=== PATIENT | male | born 1950 | race Caucasian/White ===

== ENCOUNTER 2019-02-10 11:55 | Emergency (ER) | payer MEDICARE, BC ==
--- NOTE | 2019-02-10 12:14 | ER Document Report ---
ED Medical Screen (RME) - General Chief Complaint: Vomiting/Diarrhea Stated Complaint: DIRREHA,VOMITING,ABDOMINAL PAIN Time Seen by Provider: 02/10/19 12:05 Mode of Arrival: Ambulatory Information source: Patient Notes: Patient is a 68-year-old male presented to the emergency department with 6-week history of intermittent right upper quadrant abdominal pain, nausea, vomiting and diarrhea. Patient reports he is having approximately 1-2 episodes of diarrhea per day, states he vomits after meals but not after every meal. He states that when he vomits it typically resolves the abdominal pain in its entirety. He states he still has his gallbladder. He does report that he went to his primary care provider for this and they have referred him to gastroenterology for an endoscopy. Exam: Mild tenderness to the right upper quadrant without guarding or rebound. I have greeted and performed a rapid initial assessment of this patient. A comprehensive ED assessment and evaluation of the patient, analysis of test results and completion of the medical decision making process will be conducted by additional ED providers. I have specifically instructed the patient or family members with the patient to immediately return to any nursing staff should anything change in the patient's condition or with their chief complaint. This medical record was dictated with voice recognizing software. There may be grammatical, syntax errors that are unintended. - Related Data Allergies/Adverse Reactions: No Known Allergies Allergy (Verified 02/10/19 12:04) Physical Exam - Vital signs Vitals: Temp Pulse Resp BP Pulse Ox 97.8 F 70 18 105/54 L 98 02/10/19 11:59 02/10/19 11:59 02/10/19 11:59 02/10/19 11:59 02/10/19 11:59 Course - Vital Signs Vital signs: Temp Pulse Resp BP Pulse Ox 97.8 F 70 18 105/54 L 98 02/10/19 11:59 02/10/19 11:59 02/10/19 11:59 02/10/19 11:59 02/10/19 11:59
[2019-02-10 12:46] LABS: AMORPHOUS SEDIMENT,URINE TRACE /HPF; APPEARANCE,URINE CLOUDY; BILIRUBIN,URINE NEGATIVE (NEGATIVE); COLOR,URINE AMBER; GLUCOSE, URINE NEGATIVE (NEGATIVE); KETONES,URINE NEGATIVE (NEGATIVE); LEUKOCYTE ESTERASE,URINE NEGATIVE (NEGATIVE); NITRITE,URINE NEGATIVE (NEGATIVE); PROTEIN,URINE 30 mg/dL (NEGATIVE); URINE SPECIFIC GRAVITY 1.013; UROBILINOGEN,URINE NEGATIVE mg/dL (<2.0)
[2019-02-10 12:52] LABS: ABSOLUTE BASOPHILS # (AUTO) 0.1 10^3/uL (0.0-0.2); ABSOLUTE EOSINOPHILS # (AUTO) 0.3 10^3/uL (0.0-0.6); ABSOLUTE LYMPHOCYTES (AUTO) 0.8 10^3/uL (0.5-4.7); ABSOLUTE MONOCYTES (AUTO) 0.9 10^3/uL (0.1-1.4); ABSOLUTE NEUT (AUTO) 7.5 10^3/uL (1.7-8.2); BASOPHILS % (AUTO) 0.6 % (0-2); EOSINOPHILS % (AUTO) 2.9 % (0-6); HEMATOCRIT 30.9 % (37.9-51.0); HEMOGLOBIN 10.1 g/dL (13.5-17.0); LYMPHOCYTES % (AUTO) 8.4 % (13-45); MEAN CORPUSCULAR HEMOGLOBIN 24.6 pg (27.0-33.4); MEAN CORPUSCULAR HGB CONC 32.7 g/dL (32.0-36.0); MEAN CORPUSCULAR VOLUME 75 fl (80-97); MONOCYTES % (AUTO) 9.1 % (3-13); PLATELET COUNT 437 10^3/uL (150-450); RED CELL DISTRIBUTION WIDTH 16.3 % (11.5-14.0); TOTAL CELLS COUNTED % (AUTO) 100 %; WHITE BLOOD COUNT 9.4 10^3/uL (4.0-10.5)
[2019-02-10 13:21] LABS: ALBUMIN 3.7 g/dL (3.5-5.0); ALKALINE PHOSPHATASE 94 U/L (38-126); ANION GAP 11 (5-19); ASPARTATE AMINO TRANSFERASE 22 U/L (17-59); BILIRUBIN,DIRECT 0.2 mg/dL (0.0-0.4); BILIRUBIN,TOTAL 0.5 mg/dL (0.2-1.3); BLOOD UREA NITROGEN 18 mg/dL (7-20); CALCIUM 9.8 mg/dL (8.4-10.2); CARBON DIOXIDE 27 mmol/L (22-30); CHLORIDE 98 mmol/L (98-107); GLUCOSE 97 mg/dL (75-110); POTASSIUM 4.4 mmol/L (3.6-5.0); TOTAL PROTEIN 6.8 g/dL (6.3-8.2)
--- NOTE | 2019-02-10 13:36 | RADIOLOGY REPORT (SQ) ---
EXAM DESCRIPTION: U/S ABDOMEN LIMITED W/O DOP COMPLETED DATE/TIME: 02/10/2019 1:24 pm REASON FOR STUDY: RUQ pain, N/V COMPARISON: None. TECHNIQUE: Dynamic and static grayscale images acquired of the abdomen and recorded on PACS. Johnnyo hosea selected color Doppler and spectral images recorded. LIMITATIONS: None. FINDINGS: PANCREAS: No masses. Visualized pancreatic duct normal caliber. LIVER: No masses. Echotexture normal. LIVER VASCULATURE: Normal directional flow of the main portal vein and hepatic veins. GALLBLADDER: No stones. Normal wall thickness. No pericholecystic fluid. ULTRASOUND-DETECTED INGRAM'S SIGN: Negative. INTRAHEPATIC DUCTS AND COMMON DUCT: CBD and intrahepatic ducts normal caliber. No filling defects. INFERIOR VENA CAVA: Normal flow. AORTA: No aneurysm. RIGHT KIDNEY: Normal size. Normal echogenicity. No solid or suspicious masses. No hydronephrosis. No calcifications. PERITONEAL AND RIGHT PLEURAL SPACE: No ascites or effusions. OTHER: No other significant findings. IMPRESSION: No ultrasound abnormality of the right upper quadrant to explain pain, nausea, or vomiti ng. Consider CT or MRI to further evaluate unexplained abdominal pain. TECHNICAL DOCUMENTATION: JOB ID: [id number] [employer]- All Rights Reserved Reading location - IP/workstation name: [email or web address]
[2019-02-10] MEDS ORDERED: NORMAL SALINE 1000 ML 500 ML IV ONE (14:11)
--- NOTE | 2019-02-10 14:15 | ER Document Report ---
ED General - General Chief Complaint: Abdominal Pain Stated Complaint: DIRREHA,VOMITING,ABDOMINAL PAIN Time Seen by Provider: 02/10/19 12:05 Primary Care Provider: KARLI CALDERA MD [Primary Care Provider] - Follow up tomorrow Mode of Arrival: Ambulatory Information source: Patient Notes: 68-year-old male with history of kidney cancer left ventricular hypertrophy p resents to the emergency department with complaints of intermittent right upper quad abdominal pain for the past 6 weeks. He reports he has noticed the pain increases after eating certain fatty foods. He reports he has vomited 3 times with the pain and each time he has noticed he felt better after vomiting. He reports the pain started again early today he vomited and still had not felt better so he came in to the emergency department. Reports he has had 1-2 diarrhea stools daily. He has followed up with his primary care provider Dr. Caldera who has referred him to GI. Has an appointment with GI in a couple weeks. Denies fever. Denies pain with void. - HPI Onset: Other - 6 weeks Onset/Duration: Waxing and waning Quality of pain: Achy, Cramping Pain Level: 3 Associated symptoms: Diarrhea, Vomiting Exacerbated by: Denies Relieved by: Denies Similar symptoms previously: Yes Recently seen / treated by doctor: Yes - Related Data Allergies/Adverse Reactions: No Known Allergies Allergy (Verified 02/10/19 12:04) Home Medications: Carvedilol. Crestor. Vitamin B-1. Folic Acid. CoQ10. Ranolazine Past Medical History - General Information source: Patient - [place] - Social History Smoking Status: Former Smoker Frequency of alcohol use: None - Quit several years ago Drug Abuse: None Lives with: Family Family History: None Patient has suicidal ideation: No Patient has homicidal ideation: No - Medical History Medical History: Other - Raynauds - Past Medical History Cardiac Medical History: Reports: Hx Hypercholesterolemia, Other - left ventricular hypertrophy Malignancy Medical History: Reports Hx Renal (Kidney) Cancer Past Surgical History: Reports: Hx Orthopedic Surgery, Other - Left nephrectomy Review of Systems - Review of Systems Notes: Review HPI for review of systems., All other systems negative Physical Exam - Vital signs Vitals: Temp Pulse Resp BP Pulse Ox 97.8 F 70 18 105/54 L 98 02/10/19 11:59 02/10/19 11:59 02/10/19 11:59 02/10/19 11:59 02/10/19 11:59 - General General appearance: Appears well, Alert In distress: None - HEENT Head: Normocephalic, Atraumatic Eyes: Normal Conjunctiva: Normal Extraocular movements intact: Yes Pupils: PERRL Ears: Normal External canal: Normal Tympanic membrane: Normal Nasal: Normal Mucous membranes: Normal, Moist Neck: Normal, Supple. No: Lymphadenopathy - Respiratory Respiratory status: No respiratory distress Chest status: Nontender Breath sounds: Normal Chest palpation: Normal - Cardiovascular Rhythm: Regular Heart sounds: Normal auscultation Murmur: No - Abdominal Inspection: Normal Distension: No distension Bowel sounds: Normal Tenderness: Tender - RUQ Organomegaly: No organomegaly - Back Back: Normal. No: CVA tenderness - Extremities General upper extremity: Normal ROM General lower extremity: Normal ROM - Neurological Neuro grossly intact: Yes Cognition: Normal Orientation: AAOx4 Kyle Coma Scale Eye Opening: Spontaneous [place] Coma Scale Verbal: Oriented [place] Coma Scale Motor: Obeys Commands Kyle Coma Scale Total: 15 Speech: Normal - Psychological Associated symptoms: Normal affect, Normal mood - Skin Skin Temperature: Warm Skin Moisture: Dry Skin Color: Normal Course - Re-evaluation Re-evalutation: 02/10/19 15:52 This 68-year-old male presents emergency department with right upper quad abdominal pain for the past 6 weeks. Reports he is vomited 3 times in the pain has relieved after he vomited except for this morning. He vomited and is still hurt in his right upper quad so he came to the emergency department. He reports he has had diarrhea once or twice a day for the past 6 weeks. Patient does have a history of kidney cancer with a left nephrectomy. He reports he is voiding without problems. He reports that he will will have the right upper quad pain after he eats a fatty meal. He reports he ate a pork sandwich and oatmeal with butter yesterday and that may have caused the right upper quad pain today. Lipase is elevated, right upper quad L ultrasound is negative for early cholecystitis. CT of the abdomen was done without contrast due to increased creatinine at 1.51 which shows multiple fluid-filled distended loops of bowel in the mid left upper quad. Trace fluid in the lower abdomen and also a large mass in the vicinity of the left adrenal gland of uncertain origin. Consulted Dr. Taylor regarding patient. He advised patient follow-up with his primary care provider in the morning. Advised outpatient HIDA scan order by primary care provider, follow low-fat diet. Will need contrasted ct or mri, possible pet scan. Discussed labs, ultrasound, CT results with patient. Discussed need for other radiology exams. Discussed renal function. He reports he will follow-up with Dr. Caldera tomorrow. He was given a copy of all his labs CT and ultrasound reports. Patient and his verbalized understanding to all instructions. 02/10/19 12:23 02/10/19 12:23 MCV 75 fl (80-97) L 02/10/19 12:23 MCH 24.6 pg (27.0-33.4) L 02/10/19 12:23 MCHC 32.7 g/dL (32.0-36.0) 02/10/19 12:23 RDW 16.3 % (11.5-14.0) H 02/10/19 12:23 Seg Neutrophils % 79.0 % (42-78) H 02/10/19 12:23 Chloride 98 mmol/L (98-107) 02/10/19 12:23 Carbon Dioxide 27 mmol/L (22-30) 02/10/19 12:23 Anion Gap 11 (5-19) 02/10/19 12:23 Est GFR ( Amer) 56 (>60) L 02/10/19 12:23 Glucose 97 mg/dL (75-110) 02/10/19 12:23 Calcium 9.8 mg/dL (8.4-10.2) 02/10/19 12:23 Total Bilirubin 0.5 mg/dL (0.2-1.3) 02/10/19 12:23 AST 22 U/L (17-59) 02/10/19 12:23 Alkaline Phosphatase 94 U/L (38-126) 02/10/19 12:23 Total Protein 6.8 g/dL (6.3-8.2) 02/10/19 12:23 Albumin 3.7 g/dL (3.5-5.0) 02/10/19 12:23 Lipase 787.1 U/L (23-300) H 02/10/19 12:23 Urine Color SANDI 02/10/19 12:23 Urine Appearance CLOUDY 02/10/19 12:23 Urine pH 7.0 (5.0-9.0) 02/10/19 12:23 Ur Specific [place] 1.013 02/10/19 12:23 Urine Protein 30 mg/dL (NEGATIVE) H 02/10/19 12:23 Urine Glucose (UA) NEGATIVE mg/dL (NEGATIVE) 02/10/19 12:23 Urine Ketones NEGATIVE mg/dL (NEGATIVE) 02/10/19 12:23 Urine Blood NEGATIVE (NEGATIVE) 02/10/19 12:23 Urine Nitrite NEGATIVE (NEGATIVE) 02/10/19 12:23 Ur Leukocyte Esterase NEGATIVE (NEGATIVE) 02/10/19 12:23 Urine WBC (Auto) 1 /HPF 02/10/19 12:23 Urine RBC (Auto) 2 /HPF 02/10/19 12:23 Abdomen Ultrasound 02/10/19 12:15 IMPRESSION: No ultrasound abnormality of the right upper quadrant to explain pain, nausea, or vomiting. Consider CT or MRI to further evaluate unexplained abdominal pain. Abdomen/Pelvis CT 02/10/19 14:03 IMPRESSION: 1. There are multiple fluid-filled although not overtly distended loops of proximal bowel in the mid abdomen and left upper quadrant (series 3, image 32), maximum caliber 3.3 cm. No obvious transition point is identified, and the colon is fluid-filled with gas present to the rectum. The presence of partial or developing bowel obstruction can be further interrogated by small bowel follow-through if desired. 2. Trace free fluid in the low abdomen, nonspecific and of uncertain etiology. 3. Status post left nephrectomy. 4. There is a large mass in the vicinity of the left adrenal gland measuring approximately 7.1 by 4.6 cm (series 3, image 18), of uncertain origin or nature. Recommend multiphasic contrast-enhanced CT or MRI to characterize, particularly in the setting of presumed prior renal neoplasm. Comparison to prior imaging, if available, may further be helpful to establish long-term stability. 02/10/19 16:52 - Vital Signs Vital signs: Temp Pulse Resp BP Pulse Ox 97.5 F 70 16 99/59 L 98 02/10/19 16:11 02/10/19 16:11 02/10/19 16:11 02/10/19 16:11 02/10/19 16:11 - Laboratory Result Diagrams: 02/10/19 12:23 02/10/19 12:23 Laboratory results interpreted by me: 02/10/19 02/10/19 02/10/19 12:23 12:23 12:23 RBC 4.10 L Hgb 10.1 L Hct 30.9 L MCV 75 L MCH 24.6 L RDW 16.3 H Lymph % (Auto) 8.4 L Seg Neutrophils % 79.0 H Sodium 136.4 L Creatinine 1.51 H Est GFR ( Amer) 56 L Est GFR (MDRD) Non-Af 46 L Lipase 787.1 H Urine Protein 30 H - Diagnostic Test Radiology reviewed: Image reviewed, Reports reviewed Discharge - Discharge Clinical Impression: Right upper quadrant abdominal pain, Nausea vomiting and diarrhea Condition: Stable Disposition: HOME, SELF-CARE Instructions: Abdominal Pain ([facility]), Diarrhea, Nonspecific ([facility]), Gallbladder Di sease ([facility]), Low-Fat Diet ([facility]), Vomiting ([facility]) Additional Instructions: *You have been evaluated for abdominal pain, nausea vomiting and diarrhea *Your ultrasound did not show any acute abnormality. Your lipase was elevated. *Your CT did show a large mass of uncertain origin or nature. *Follow a low-fat diet. *Follow-up with your primary care provider tomorrow. Take a copy of your labs and CT & ultrasound reports to Dr. Caldera. *Return to ED for worsening condition, changes, needs *Return to ED if not better in 24 hours Referrals: KARLI CALDERA MD [Primary Care Provider] - Follow up tomorrow
--- NOTE | 2019-02-10 15:20 | RADIOLOGY REPORT (SQ) ---
EXAM DESCRIPTION: CT ABD/PELVIS NO ORAL OR IV COMPLETED DATE/TIME: 02/10/2019 2:51 pm REASON FOR STUDY: abd pain n/v COMPARISON: None. TECHNIQUE: CT scan of the abdomen and pelvis performed without intravenous or oral contrast. Images reviewed with lung, soft tissue, and bone windows. Reconstructed coronal and sagittal MPR images revi ewed. All images stored on PACS. All CT scanners at this facility use dose modulation, iterative reconstruction, and/or weight based d osing when appropriate to reduce radiation dose to as low as reasonably achievable (ALARA). [facility]: Dose Right [facility]: CareDose [facility]: Dose Right [facility]: Teradose 4D [facility]: AeroSurgical RADIATION DOSE: CT Rad equipment meets quality standard of care and radiation dose reduction techniq ues were employed. CTDIvol: 7.4 mGy. DLP: 408 mGy-cm.mGy. LIMITATIONS: None. FINDINGS: LOWER CHEST: No significant findings. No nodules or infiltrates. NON-CONTRASTED LIVER, SPLEEN, ADRENALS: Evaluation limited by lack of IV contrast. There is a large mass in the vicinity of the left adrenal gland measuring approximately 7.1 by 4.6 cm (series 3, image 18). PANCREAS: No masses. No peripancreatic inflammatory changes. GALLBLADDER: No identified stones by CT criteria. No inflammatory changes to suggest cholecystitis. RIGHT KIDNEY AND URETER: No suspicious masses. Assessment limited by lack of IV contrast. No signif icant calcifications. No hydronephrosis or hydroureter. LEFT KIDNEY AND URETER: Status post left nephrectomy. AORTA AND RETROPERITONEUM: No aneurysm. No retroperitoneal masses or adenopathy. Calcific atheroscle rosis. BOWEL AND PERITONEAL CAVITY: There are multiple fluid-filled although not overly distended loops of p roximal bowel in the mid abdomen and left upper quadrant (series 3, image 32), maximum caliber 3.3 cm . No obvious transition point is identified, and the colon is fluid-filled with gas present to the r ectum. Trace free fluid in the low abdomen. APPENDIX: Normal. PELVIS, BLADDER, AND ABDOMINAL WALL:No abnormal masses. No free fluid. Bladder normal. BONES: No significant findings. OTHER: No other significant finding. IMPRESSION: 1. There are multiple fluid-filled although not overtly distended loops of proximal sondra l in the mid abdomen and left upper quadrant (series 3, image 32), maximum caliber 3.3 cm. No obviou s transition point is identified, and the colon is fluid-filled with gas present to the rectum. The presence of partial or developing bowel obstruction can be further interrogated by small bowel follow -through if desired. 2. Trace free fluid in the low abdomen, nonspecific and of uncertain etiology. 3. Status post left nephrectomy. 4. There is a large mass in the vicinity of the left adrenal gland measuring approximately 7.1 by 4.6 cm (series 3, image 18), of uncertain origin or nature. Recommend multiphasic contrast-enhanced CT or MRI to characterize, particularly in the setting of presumed prior renal neoplasm. Comparison to prior imaging, if available, may further be helpful to establish long-term stability. COMMENT: Quality ID # 436: Final reports with documentation of one or more dose reduction techniques (e.g., Automated exposure control, adjustment of the mA and/or kV according to patient size, use of iterative reconstruction technique) TECHNICAL DOCUMENTATION: JOB ID: [id number] [email or web address]- All Rights Reserved Reading location - IP/workstation name: [email or web address]
[2019-02-10 16:16] VITALS: BP 99/59
== END 2019-02-10 16:16 | disposition home or self-care (01) ==
LOC: ER 11:55
DX: R10.11 Right upper quadrant pain (principal); R11.2 Nausea with vomiting, unspecified; R19.7 Diarrhea, unspecified; Z85.528 Personal history of other malignant neoplasm of kidney
CPT/HCPCS: 99284; 96360; 36415; 83690; 85025; 80053; 81001; 76705; 74176; J7030

== ENCOUNTER → 2019-02-12 | Outpatient (CLI) | payer MEDICARE, BC ==
--- NOTE | 2019-02-12 15:02 | RADIOLOGY REPORT (SQ) ---
EXAM DESCRIPTION: NM HIDA SCAN WITH CCK COMPLETED DATE/TIME: 02/12/2019 2:36 pm REASON FOR STUDY: RUQ PAIN (R10.11) R10.9 UNSPECIFIED ABDOMINAL PAIN COMPARISON: 02/10/2019 CT RADIONUCLIDE AND DOSE: DOSAGE RADIONUCLIDE: 5.36 millicuries Tc99m Mebrofenin. DOSAGE CCK: 1.6 micrograms. DOSAGE MORPHINE: Not required. The route of agent administration: Intravenous TECHNIQUE: Serial imaging right upper quadrant up to 60 minutes following injection of radionuclide. CCK injected after gallbladder visualized. LIMITATIONS: None. FINDINGS: LIVER: Normal visualization without areas of photopenia. INTRAHEPATIC BILE DUCTS: Normal size and no delay in visualization. COMMON BILE DUCT: Normal without dilatation. GALLBLADDER: Normal visualization. Calculated ejection fraction of 76%. Normal range is greater th an 35%. PHYSICAL RESPONSE: Patients presenting complaint were mildly reproduced after the administration of CCK. OTHER: No other significant finding. IMPRESSION: 1. No evidence of cystic or common duct obstruction. 2. Normal gallbladder ejection fraction of 76%. TECHNICAL DOCUMENTATION: JOB ID: [id number]- All Rights Reserved Reading location - IP/workstation name: [email or web address]
== END ==
LOC: RAD 12:24
PROVIDERS: ATTEND Family Medicine Geriatric Medicine
DX: R10.9 Unspecified abdominal pain (principal)
CPT/HCPCS: 78227; J2805; A9537; Q9969

== ENCOUNTER → 2019-02-13 | Outpatient (CLI) | payer MEDICARE, BC ==
--- NOTE | 2019-02-13 14:57 | RADIOLOGY REPORT (SQ) ---
EXAM DESCRIPTION: MRI ABDOMEN COMBO COMPLETED DATE/TIME: 02/13/2019 8:17 am REASON FOR STUDY: INTRA-ABD AND PELVIC SWELLING, MASS AND LUMP, UNSP SITE (R19.00) R19.00 INTRA-ABD AND PELVIC SWELLING, MASS AND LUMP, UNSP SI COMPARISON: Hepatobiliary scan 02/12/2019 CT abdomen pelvis 02/10/2019 Right upper quadrant ultrasound 02/10/2019 TECHNIQUE: Multiplanar multisequence imaging performed without and with contrast including sagittal, axial and coronal T2, axial T1, axial gradient fat sat T1, axial, sagittal and coronal fat sat T1 po st contrast. CONTRAST TYPE AND DOSE: 20 mL Dotarem. RENAL FUNCTION: Not indicated. ACR Type II contrast agent associated with few, if any, unconfounded cases of NSF LIMITATIONS: None. FINDINGS: Patient is post left nephrectomy. In the left retroperitoneum along the ventral aspect of the psoas muscle, a soft tissue density enhan cing mass is present worrisome for tumor recurrence along the left ureter. This measures 3.5 x 3.2 x 4 cm on axial T2 image , coronal T2 image . In the left retroperitoneum along the expected location of the left adrenal gland, a solid soft tissu e mass is present measuring 7 cm AP x 4.4 cm transverse x 6 cm craniocaudad, best shown on axial T2 i mage 12 and coronal T2 image 23. Several other, smaller 1 to 3 cm nodules are present in the left upper quadrant along the splenic hil um. These findings are worrisome for tumor recurrence in the left upper quadrant, best shown on axia l T2 images 12 through 15. Axial T2 weighted images demonstrate an enlarged right dhiraj hepatis lymph node 2.2 x 2 cm in size ax ial image 03/17, and a borderline enlarged dhiraj hepatis lymph node 1.4 x 1 cm in size on axial T2 im age 13/29. Portacaval space lymph node 2 x 1 cm in size axial T2 image . In the left upper quadrant between the splenic flexure and spleen, a 3.7 by 3 cm soft tissue mass is present worrisome for tumor peritoneal implant, best shown on axial T2 image 12/16. A smaller 1.2 x 1 cm peritoneal implant along the left pericolic gutter is present on axial T2 image LIVER: Normal size. No masses. No dilated ducts. CBD normal. SPLEEN: Normal size. No focal lesions. PANCREAS: No masses. No adjacent inflammation or peripancreatic fluid collections. Pancreatic duct no t dilated. GALLBLADDER: No masses. No stones. No gallbladder wall thickening or pericholecystic fluid. ADRENAL GLANDS: Right adrenal gland unremarkable. 7 x 6 x 4.4 cm mass left adrenal gland worrisome f or tumor RIGHT KIDNEY AND URETER: No masses. No hydronephrosis. LEFT KIDNEY AND URETER: Post nephrectomy. Findings worrisome for tumor recurrence along the left ret roperitoneum/ psoas muscle at the expected course the left ureter AORTA AND VESSELS: No aneurysm. No dissection. Renal arteries, SMA, celiac without stenosis. RETROPERITONEUM: Adenopathy as above BOWEL: No gross bowel obstruction ABDOMINAL WALL AND PERITONEUM: No hernias. No free fluid. BONES: Abnormal marrow signal in these L2 vertebral body with contrast-enhancement. Mild anterior we dge compression of L2. This vertebral body is sclerotic on CT exam 02/10/2019, worrisome for patholo gic fracture OTHER: 3.5 x 2 cm mass versus infiltrate left lung base posteriorly, axial T2 image 1. IMPRESSION: Post left nephrectomy. Multiple findings worrisome for tumor recurrence along the left adrenal gland, left retroperitoneum and left upper quadrant peritoneal space. Enlarged dhiraj hepatis lymph nodes. Abnormal L2 vertebral body with diffuse marrow edema and anterior loss of height. This is worrisome for a pathologic compression fracture, abnormal bony sclerosis is present in this vertebral body on C T exam 02/10/2019 Infiltrate versus mass left lung base. TECHNICAL DOCUMENTATION: JOB ID: [id number] [employer]- All Rights Reserved Reading location - IP/workstation name: [email or web address]
== END ==
LOC: RAD 06:59
PROVIDERS: ATTEND Family Medicine Geriatric Medicine
DX: R19.03 Right lower quadrant abdominal swelling, mass and lump (principal); M84.48XG Pathological fracture, other site, subsequent encounter for fracture with delayed healing
CPT/HCPCS: 74183; A9576

== ENCOUNTER → 2019-02-21 | Outpatient (CLI) | payer MEDICARE, BC ==
--- NOTE | 2019-02-21 13:30 | RADIOLOGY REPORT (SQ) ---
EXAM DESCRIPTION: CT CHEST WITH COMPLETED DATE/TIME: 02/21/2019 8:55 am REASON FOR STUDY: MALIGNANT NEOPLASM OF LEFT KIDNEY, EXCEPT RENAL PELVIS C64.2 MALIGNANT NEOPLASM O F LEFT KIDNEY, EXCEPT RENAL PELVIS COMPARISON: None. TECHNIQUE: CT scan of the chest performed using helical scanning technique with dynamic intravenous contrast injection. Images reviewed with lung, soft tissue and bone windows. Reconstructed coronal and sagittal MPR and MIP images reviewed. All images stored on PACS. All CT scanners at this facility use dose modulation, iterative reconstruction, and/or weight based d osing when appropriate to reduce radiation dose to as low as reasonably achievable (ALARA). [facility]: Dose Right [facility]: CareDose [facility]: Dose Right [facility]: Teradose 4D [facility]: Agendize CONTRAST TYPE AND DOSE: contrast/concentration: Isovue 300.00 mg/ml; Total Contrast Delivered: 54.0 ml; Total Saline Delivered: 55.0 ml RENAL FUNCTION: Creatinine 1.3 RADIATION DOSE: CT Rad equipment meets quality standard of care and radiation dose reduction techniq ues were employed. CTDIvol: 7.2 mGy. DLP: 286 mGy-cm. . LIMITATIONS: None. FINDINGS: LUNGS AND PLEURA: There is a 10 mm ring-like opacification in the left lower lobe on image 47. There is 5 mm pulmonary nodule on the right on image 69 hand a 5 mm pulmonary nodule on the rig ht on image 71. On image 70 there is an 8 mm pulmonary nodule on the left. There is a small pulmona ry nodule on the right on image 76 posteriorly. Another small peripheral nodule on the right on imag e 81. There is a 10 mm nodule posteriorly in the left lung on image 85. Several other small nodul es are present. HILAR AND MEDIASTINAL STRUCTURES: No identified masses or abnormal nodes. HEART AND VASCULAR STRUCTURES: No aneurysm or dissection. No central pulmonary emboli. No pericardi al effusion. HARDWARE: None in the chest. UPPER ABDOMEN: There is a 47 x 72.5 mm mass in the left renal fossa. This may represent an adrenal m ass. THYROID AND OTHER SOFT TISSUES: No masses. No adenopathy. BONES: There is sclerosis with compression of L2 vertebral body. OTHER: No other significant finding. IMPRESSION: 1. There multiple pulmonary nodules concerning for metastatic disease. 2. 47 x 72.5 mm left adrenal mass, likely metastatic. 3. Compression changes at L2 that may be pathological. TECHNICAL DOCUMENTATION: JOB ID: [id number] Quality ID # [id number]: Final reports with documentation of one or more dose reduction techniques (e.g., Au tomated exposure control, adjustment of the mA and/or kV according to patient size, use of iterative reconstruction technique) 2010 [employer]- All Rights Reserved Reading location - IP/workstation name: [email or web address]
--- NOTE | 2019-02-21 13:34 | RADIOLOGY REPORT (SQ) ---
EXAM DESCRIPTION: NM WHOLE BODY BONE SCAN COMPLETED DATE/TIME: 02/21/2019 12:50 pm REASON FOR STUDY: MALIGNANT NEOPLASM OF LEFT KIDNEY, EXCEPT RENAL PELVIS C64.2 MALIGNANT NEOPLASM O F LEFT KIDNEY, EXCEPT RENAL PELVIS COMPARISON: CT chest 02/21/2019 RADIONUCLIDE AND DOSE: 20 millicuries Tc99m HDP. The route of agent administration: Intravenous. ADDITIONAL DRUGS AND DOSES: None. TECHNIQUE: Routine delayed images at 3 hours post radionuclide injection acquired of the bony skelet on including anterior and posterior whole-body projections and additional focused images as needed. LIMITATIONS: None. FINDINGS: BONES: There is focal uptake at L2 where compression changes seen on CT. There is focal u ptake in the right 12th rib. There is focal uptake in the region of the right sacroiliac joint. The re is intense focal uptake in the proximal left femur. KIDNEYS: No evidence of obstruction on the right. Left kidney is absent. OTHER: No other significant finding. IMPRESSION: Findings suggest metastatic disease to bone. COMMENT: Quality measure 147: Current bone scan is compared with any available plain radiographs, p rior bone scans, and CT/MRI. TECHNICAL DOCUMENTATION: JOB ID: [id number] [email or web address]- All Rights Reserved Reading location - IP/workstation name: [email or web address]
== END ==
LOC: RAD 08:14
PROVIDERS: ATTEND Internal Medicine
DX: C64.2 Malignant neoplasm of left kidney, except renal pelvis (principal)
CPT/HCPCS: 82565; 78306; 71260; A9561; Q9969

== ENCOUNTER 2019-02-27 06:41 | Day surgery (SDC) | payer MEDICARE, BC ==
[2019-02-27 07:44] LABS: HEMATOCRIT 22.7 % (37.9-51.0); MEAN CORPUSCULAR HEMOGLOBIN 23.5 pg (27.0-33.4); MEAN CORPUSCULAR HGB CONC 32.2 g/dL (32.0-36.0); MEAN CORPUSCULAR VOLUME 73 fl (80-97); PLATELET COUNT 344 10^3/uL (150-450); RED BLOOD COUNT 3.11 10^6/uL (4.35-5.55); RED CELL DISTRIBUTION WIDTH 16.2 % (11.5-14.0); WHITE BLOOD COUNT 6.2 10^3/uL (4.0-10.5)
[2019-02-27 07:48] LABS: HEMOGLOBIN 7.3 g/dL (13.5-17.0)
[2019-02-27 07:58] LABS: BLOOD UREA NITROGEN 20 mg/dL (7-20); INTERNATIONAL RATION (INR) 1.11; PROTHROMBIN TIME 14.3 SEC (11.4-15.4)
[2019-02-27 07:59] LABS: PARTIAL THROMBOPLASTIN TIME 40.1 SEC (23.5-35.8)
[2019-02-27] MEDS ORDERED: FENTANYL CITRATE INJ/PF 100 MCG/2 ML AMPUL ONE (09:10)
[2019-02-27] MEDS ORDERED: MIDAZOLAM 2 MG/2 ML INJ ONE (09:10)
[2019-02-27 12:02] VITALS: BP 99/54
--- NOTE | 2019-02-27 14:51 | RADIOLOGY REPORT (SQ) ---
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 FLUORO TIME: 6 seconds. 118 images submitted to PACS. LIMITATIONS: None. PROCEDURE: The procedure, risks, benefits, and alternatives were discussed with the patient in the p reprocedural area, and all questions were answered. Informed consent was obtained verbally and in wri ting. The patient was then brought to the CT suite, positioned prone on the CT gurney, and a time-out was p erformed. After that, axial images of the abdomen were obtained for targeting of the left renal eder a mass. Based on review of the axial images an appropriate access site was selected on the skin. The area around selected access site was then prepped and draped 2% chlorhexidine utilizing standard sterile technique. After that, the access site was infiltrated with 1% lidocaine and an incision was made in the skin with a #11 blade. A 17 gauge coaxial needle was then advanced through the skin inci margarette and into the left renal fossa mass utilizing CT fluoroscopic guidance. After that, the inner sty let of the coaxial needle was removed and 5 18 gauge core samples were obtained - the samples were co llected and submitted to cytopathology in formalin. The coaxial needle was then removed and a sterile dressing was applied over the access site. The patient tolerated the procedure well without immediate complication. At the end of the procedure the patient's condition was unchanged from the preprocedural baseline. IV conscious sedation was administered at the direction of the performing physician by a linda johnson. 1 milligrams of Versed and 50 micrograms of fentanyl. Physiologic monitoring was provided befor e, during, and after sedation. The total sedation time was 30 minutes. Documentation of [id number] time the performing proceduralist spent monitoring the patient: 5 annabelle mini. IMPRESSION: Successful CT-guided biopsy of the left renal fossa mass as detailed above. COMMENT: Patient medication list reviewed:Yes- Quality ID# 130:Eligible professional attests to docu menting in the medical record they obtained, updated, or reviewed the patient's current medications. Quality ID #76: The patient was prepped and draped using maximum sterile barrier technique including cap, mask, sterile gown, sterile gloves, a large sterile sheet, hand hygiene, and 2% Chlorhexidine fo r cutaneous antisepsis. When ultrasound is used, sterile ultrasound techniques are followed requiring sterile gel and sterile probes. Quality ID 145: Final reports for procedures using fluoroscopy that document radiation exposure hong farhan, or exposure time and number of fluorographic images (if radiation exposure indices are not avail able) Quality ID# 436: Final reports with documentation of one or more dose reduction techniques (e.g., Aut omated exposure control, adjustment of the mA and/or kV according to patient size, use of iterative r econstruction technique) TECHNICAL DOCUMENTATION: JOB ID: [id number] [employer]- All Rights Reserved rev-07/05 Reading location - IP/workstation name: [email or web address]
--- NOTE | 2019-02-27 14:51 | RADIOLOGY REPORT (SQ) ---
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 FLUORO TIME: 6 seconds. 118 images submitted to PACS. LIMITATIONS: None. PROCEDURE: The procedure, risks, benefits, and alternatives were discussed with the patient in the p reprocedural area, and all questions were answered. Informed consent was obtained verbally and in wri ting. The patient was then brought to the CT suite, positioned prone on the CT gurney, and a time-out was p erformed. After that, axial images of the abdomen were obtained for targeting of the left renal eder a mass. Based on review of the axial images an appropriate access site was selected on the skin. The area around selected access site was then prepped and draped 2% chlorhexidine utilizing standard sterile technique. After that, the access site was infiltrated with 1% lidocaine and an incision was made in the skin with a #11 blade. A 17 gauge coaxial needle was then advanced through the skin inci margarette and into the left renal fossa mass utilizing CT fluoroscopic guidance. After that, the inner sty let of the coaxial needle was removed and 5 18 gauge core samples were obtained - the samples were co llected and submitted to cytopathology in formalin. The coaxial needle was then removed and a sterile dressing was applied over the access site. The patient tolerated the procedure well without immediate complication. At the end of the procedure the patient's condition was unchanged from the preprocedural baseline. IV conscious sedation was administered at the direction of the performing physician by a linda johnson. 1 milligrams of Versed and 50 micrograms of fentanyl. Physiologic monitoring was provided befor e, during, and after sedation. The total sedation time was 30 minutes. Documentation of [id number] time the performing proceduralist spent monitoring the patient: 5 annabelle mini. IMPRESSION: Successful CT-guided biopsy of the left renal fossa mass as detailed above. COMMENT: Patient medication list reviewed:Yes- Quality ID# 130:Eligible professional attests to docu menting in the medical record they obtained, updated, or reviewed the patient's current medications. Quality ID #76: The patient was prepped and draped using maximum sterile barrier technique including cap, mask, sterile gown, sterile gloves, a large sterile sheet, hand hygiene, and 2% Chlorhexidine fo r cutaneous antisepsis. When ultrasound is used, sterile ultrasound techniques are followed requiring sterile gel and sterile probes. Quality ID 145: Final reports for procedures using fluoroscopy that document radiation exposure hong farhan, or exposure time and number of fluorographic images (if radiation exposure indices are not avail able) Quality ID# 436: Final reports with documentation of one or more dose reduction techniques (e.g., Aut omated exposure control, adjustment of the mA and/or kV according to patient size, use of iterative r econstruction technique) TECHNICAL DOCUMENTATION: JOB ID: [id number] [email or web address]- All Rights Reserved rev-07/05 Reading location - IP/workstation name: [email or web address]
== END 2019-02-27 12:00 | disposition home or self-care (01) ==
LOC: RAD 06:41
PROVIDERS: ATTEND Internal Medicine
DX: C64.2 Malignant neoplasm of left kidney, except renal pelvis (principal); Z79.01 Long term (current) use of anticoagulants; E78.5 Hyperlipidemia, unspecified; I10 Essential (primary) hypertension; Z87.891 Personal history of nicotine dependence
CPT/HCPCS: 36415; 84520; 82565; 85027; 85610; 85730; 88342 ×2; 88341 ×2; 88305 ×2; 77012; 49180; J2250; J3010

== ENCOUNTER 2019-03-12 15:09 | Inpatient (IN) | payer MEDICARE, BC ==
[2019-03-12] MEDS ORDERED: NORMAL SALINE 1000 ML 1,000 ML IV ONE (15:28)
--- NOTE | 2019-03-12 15:31 | ER Document Report ---
ED Medical Screen (RME) - General Chief Complaint: Fever Stated Complaint: FEVER Time Seen by Provider: 03/12/19 15:23 Primary Care Provider: TEREZA DRAKE MD [Primary Care Provider] - Follow up as needed Mode of Arrival: Medic Information source: Patient, Relative Notes: 69-year-old male with newly diagnosed renal cancer presents today with fever vomiting twice diarrhea patient reports he had his first chemotherapy yesterday. Reports he has had diarrhea since Monday. Reports he has vomited twice. Once yesterday once today prior to arrival. Reports he vomited in the parking lot. He complains of low left-sided abdominal pain that feels better after he vomits. reports she took his temperature and it was 99 prior to arrival. She did try to call Dr. Drake without success. Temperature is 98.9 upon arrival. I have greeted and performed a rapid initial assessment of this patient. A comprehensive ED assessment and evaluation of the patient, analysis of test results and completion of the medical decision making process will be conducted by additional ED providers. TRAVEL OUTSIDE OF THE [place] IN LAST 30 DAYS: No - Related Data Allergies/Adverse Reactions: No Known Allergies Allergy (Verified 03/12/19 15:24) Past Medical History - Past Medical History Cardiac Medical History: Reports: Hx Hypercholesterolemia Malignancy Medical History: Reports Hx Renal (Kidney) Cancer Past Surgical History: Reports: Hx Orthopedic Surgery, Other - Left nephrectomy Physical Exam - Vital signs Vitals: Temp Pulse Resp BP Pulse Ox 98.9 F 85 18 80/56 L 95 03/12/19 15:18 03/12/19 15:18 03/12/19 15:18 03/12/19 15:18 03/12/19 15:18 Course - Vital Signs Vital signs: Temp Pulse Resp BP Pulse Ox 98.9 F 85 18 80/56 L 95 03/12/19 15:18 03/12/19 15:18 03/12/19 15:18 03/12/19 15:18 03/12/19 15:18 Doctor's Discharge - Discharge Referrals: TEREZA DRAKE MD [Primary Care Provider] - Follow up as needed
[2019-03-12 16:23] LABS: HEMATOCRIT 29.4 % (37.9-51.0); HEMOGLOBIN 9.7 g/dL (13.5-17.0); MEAN CORPUSCULAR HEMOGLOBIN 24.9 pg (27.0-33.4); MEAN CORPUSCULAR VOLUME 75 fl (80-97); PLATELET COUNT 433 10^3/uL (150-450); RED BLOOD COUNT 3.89 10^6/uL (4.35-5.55); WHITE BLOOD COUNT 10.6 10^3/uL (4.0-10.5)
[2019-03-12 16:37] LABS: ALBUMIN 3.5 g/dL (3.5-5.0); ALKALINE PHOSPHATASE 98 U/L (38-126); ANION GAP 12 (5-19); ASPARTATE AMINO TRANSFERASE 26 U/L (17-59); BILIRUBIN,DIRECT 0.2 mg/dL (0.0-0.4); BILIRUBIN,TOTAL 0.7 mg/dL (0.2-1.3); BLOOD UREA NITROGEN 20 mg/dL (7-20); CALCIUM 9.8 mg/dL (8.4-10.2); CARBON DIOXIDE 30 mmol/L (22-30); CHLORIDE 89 mmol/L (98-107); GLUCOSE 108 mg/dL (75-110); POTASSIUM 4.7 mmol/L (3.6-5.0); TOTAL PROTEIN 6.6 g/dL (6.3-8.2)
[2019-03-12 16:54] LABS: ABSOLUTE LYMPHOCYTES# (MANUAL) 0.7 10^3/uL (0.5-4.7); ABSOLUTE MONOCYTES # (MANUAL) 0.8 10^3/uL (0.1-1.4); ANISOCYTOSIS 3+; BAND NEUTROPHILS % (MANUAL) 3 % (3-5); BASOPHILS % (MANUAL) 0 % (0-2); EOSINOPHILS % (MANUAL) 2 % (0-6); HYPOCHROMASIA 1+; LYMPHOCYTES % (MANUAL) 7 % (13-45); MONOCYTES % (MANUAL) 8 % (3-13); SEGMENTED NEUTROPHILS % (MAN) 80 % (42-78); TOTAL CELLS COUNTED 100
[2019-03-12 16:55] LABS: PLATELET COMMENT ADEQUATE
--- NOTE | 2019-03-12 19:35 | ER Document Report ---
ED GI/ - General Chief Complaint: Nausea/Vomiting/Diarrhea Stated Complaint: FEVER Time Seen by Provider: 03/12/19 15:23 Primary Care Provider: TEREZA DRAKE MD [Primary Care Provider] - Follow up as needed Mode of Arrival: Medic Notes: 69-year-old male with history of renal cancer status post right nephrectomy and newly diagnosed renal cell carcinoma on his left kidney presents to the emergency department with fever. Patient states that he has had diarrhea that started Monday and abruptly ended on Monday. No appetite. Patient did start chemotherapy this week. Patient is concerned because anytime he eats anything it just comes right back up. Patient has left lower quadrant abdominal pain that does feel better after he vomits. states that they were concerned about fever as he had a temperature of 99.8 at home and instructions were to seek treatment if it reached 100. did try to call Dr. Bebo patel without success. Patient is afebrile on arrival. Patient denies any abdominal pain at this time. Patient denies chills, shortness of breath or chest pain, does com plain of nausea. No other complaints. TRAVEL OUTSIDE OF THE [place] IN LAST 30 DAYS: No - Related Data Allergies/Adverse Reactions: No Known Allergies Allergy (Verified 03/12/19 15:24) Home Medications: metoclapramide, tramado, zofran odansteron, diclomine, promethazine, dronabinol Past Medical History - General Information source: Patient, Relative - Social History Smoking Status: Former Smoker Chew tobacco use (# tins/day): No Drug Abuse: None Family History: None Patient has suicidal ideation: No Patient has homicidal ideation: No - Past Medical History Cardiac Medical History: Reports: Hx Hypercholesterolemia Malignancy Medical History: Reports Hx Renal (Kidney) Cancer Past Surgical History: Reports: Hx Orthopedic Surgery, Other - Left nephrectomy Review of Systems - Review of Systems Constitutional: See HPI EENT: No symptoms reported Cardiovascular: See HPI Respiratory: See HPI Gastrointestinal: See HPI Genitourinary: No symptoms reported Male Genitourinary: No symptoms reported Musculoskeletal: No symptoms reported Skin: No symptoms reported Hematologic/Lymphatic: No symptoms reported Neurological/Psychological: No symptoms reported Physical Exam - Vital signs Vitals: Temp Pulse Resp BP Pulse Ox 98.9 F 85 18 80/56 L 95 03/12/19 15:18 03/12/19 15:18 03/12/19 15:18 03/12/19 15:18 03/12/19 15:18 - Notes Notes: PHYSICAL EXAMINATION: Reviewed vital signs and charting by RN GENERAL: Alert, interacts well. No acute distress. HEAD: Normocephalic, atraumatic. EYES: Pupils equal and round. Extraocular movements intact. ENT: Oral mucosa moist, tongue midline. NECK: Full range of motion. Trachea midline. LUNGS: Clear to auscultation bilaterally, no wheezes, rales, or rhonchi. No respiratory distress. HEART: Regular rate and rhythm. No murmur ABDOMEN: soft, suprapubic tenderness to palpation left lower quadrant tenderness to palpation, no distention. Bowel sounds present EXTREMITIES: Moves all 4 extremities spontaneously. No edema, No cyanosis. PSYCH: Normal affect, normal mood. SKIN: Warm, dry, normal turgor. No rashes or lesions noted. Course - Re-evaluation Re-evalutation: 03/12/19 20:00 Patient is well-appearing in no acute distress. I spoke with Dr. Bebo patel who thinks that it might be a colitis versus an SBO. He recommended getting a KUB. I did initiate a CT abdomen pelvis with oral contrast only. He seemed to think that the patient's symptoms were more longstanding. Patient's blood pressure was initially 80/56 but repeat was 100/51. Patient was mildly anemic at 9.1. Did have a very mild leukocytosis with a shift and 3% bands. Dr. Bebo patel recommended also if we rule out SBO to give patient ciprofloxacin 500 mg IV once. KUB is pending and he is currently drinking oral contrast. 03/12/19 20:09 03/12/19 23:16 CT abdomen pelvis did not show a clear transition point but did show dilated small bowel loops with decompressed ileum concerning for an ileus. I had Dr. shell, attending physician, come and look at the patient and he is concerned that the patient has the SBO picture and should be admitted to the hospital. I called Dr. Ventura, hospitalist, who admitted the patient to the medical floor. I called Dr. Sheffield, surgical hist who is going to come and consult on the patient. He was accepted to the medical floor. - Vital Signs Vital signs: Temp Pulse Resp BP Pulse Ox 98.9 F 85 14 100/57 L 99 03/12/19 15:18 03/12/19 15:18 03/12/19 19:01 03/12/19 19:00 03/12/19 19:01 - Laboratory Result Diagrams: 03/12/19 16:02 03/12/19 16:02 Laboratory results interpreted by me: 03/12/19 03/12/19 03/12/19 16:02 16:02 18:50 WBC 10.6 H RBC 3.89 L Hgb 9.7 L Hct 29.4 L MCV 75 L MCH 24.9 L RDW 21.0 H Seg Neuts % (Manual) 80 H Lymphocytes % (Manual) 7 L Abs Neuts (Manual) 8.8 H Sodium 130.9 L Chloride 89 L Creatinine 1.48 H Est GFR ( Amer) 57 L Est GFR (MDRD) Non-Af 47 L Urine Protein 30 H Urine Ketones TRACE H Ur Leukocyte Esterase TRACE H Discharge - Discharge Clinical Impression: Ileus Abdominal pain Qualifiers: Abdominal location: generalized Qualified Code(s): R10.84 - Generalized abdominal pain Renal cell carcinoma Qualifiers: Laterality: right Qualified Code(s): C64.1 - Malignant neoplasm of right kidney, except renal pelvis Condition: Stable Disposition: ADMITTED INPATIENT Admitting Provider: Audrey (Hospitalist) Unit Admitted: Medical Floor Referrals: TEREZA DRAKE MD [Primary Care Provider] - Follow up as needed
[2019-03-12 20:04] LABS: AMORPHOUS SEDIMENT,URINE TRACE /HPF; APPEARANCE,URINE CLOUDY; BILIRUBIN,URINE NEGATIVE (NEGATIVE); COLOR,URINE AMBER; GLUCOSE, URINE NEGATIVE (NEGATIVE); KETONES,URINE TRACE mg/dL (NEGATIVE); LEUKOCYTE ESTERASE,URINE TRACE (NEGATIVE); NITRITE,URINE NEGATIVE (NEGATIVE); PROTEIN,URINE 30 mg/dL (NEGATIVE); UROBILINOGEN,URINE NEGATIVE mg/dL (<2.0)
[2019-03-12] MEDS ORDERED: ONDANSETRON HCL INJ/PF 4 MG/2 ML SDV IV ONE (21:02)
--- NOTE | 2019-03-12 21:16 | RADIOLOGY REPORT (SQ) ---
EXAM DESCRIPTION: XR ABDOMEN 1 VIEW (KUB) COMPLETED DATE/TME: 03/12/2019 19:35 EXAM DESCRIPTION: CLINICAL HISTORY: constipation not passing gas ?SBO COMPARISON: None. FINDINGS: Single supine view of the abdomen was submitted. There is no acute osseous process visualized. Pacer leads project over the chest. There are surgical clips projecting at the left mid abdomen. There are dilated small bowel loops in the midabdomen, correlation with an erect or decubitus radiograph recommended. IMPRESSION: Nonspecific dilated small bowel loops in the midabdomen. Correlation with an erect view recommended.
[2019-03-12] MEDS ORDERED: FAMOTIDINE INJ/PF 20 MG/2 ML SDV IV ONE (22:05)
--- NOTE | 2019-03-12 22:23 | RADIOLOGY REPORT (SQ) ---
EXAM DESCRIPTION: CT ABDOMEN PELVIS WITHOUT IV CONTRAST COMPLETED DATE/TME: 03/12/2019 19:07 CLINICAL HISTORY: 69 years, Male, concern SBO COMPARISON: 02/10/2019 CT TECHNIQUE: 366 Images stored on PACS. All CT scanners at this facility use dose modulation, iterative reconstruction, and/or weight based dosing when appropriate to reduce radiation dose to as low as reasonably achievable (ALARA). [facility]: Dose Right [facility]: CareDose [facility]: Dose Right [facility]: Teradose 4D [facility]: [employer] LIMITATIONS: None. FINDINGS: Limited evaluation of the lung bases again demonstrates partial visualization of multiple pulmonary nodules. A more lobulated nodular density in the left lung base abutting the left heart border is also redemonstrated. This measures 3.9 x 2.0 cm on today's exam. Metastatic disease is not excluded. Scarring in each lung base. Stable sclerotic lesion with compression fracture deformity of L2, worrisome for metastatic disease. Limited evaluation of the liver, spleen, right adrenal gland is unremarkable. Status post left nephrectomy. Large left adrenal mass, correlation with biopsy results is recommended. This measures approximately 7.5 x 5.5 cm. Right kidney is unremarkable. Gallbladder is present. No free air or free fluid. Mixed lytic and sclerotic change to the left femoral head and neck, similar to the prior. Metastatic disease is not excluded. A component of degenerative change with avascular necrosis could have a similar appearance. There is also a stable sclerotic lesion of the right ilium. Dilated fluid-filled loops of small bowel are present throughout the abdomen and pelvis. Decompressed loops of distal ileum in the lower pelvis and right lower quadrant. Normal appendix. No discrete transition point, however. The degree of small bowel dilatation appears slightly worsened than on the prior exam with maximal diameter up to 5.5 cm. Relative decompression of colon. IMPRESSION: Dilated fluid-filled loops of small bowel without a discrete transition point, however there is relative decompression of distal loops of ileum in the lower abdomen and pelvis. Findings have worsened slightly from the prior exam. Findings could reflect worsening ileus however partial or incomplete obstruction is also considered. Multiple pulmonary nodules seen in the lung bases for which metastatic disease is considered. Status post left nephrectomy. Large left adrenal mass. Correlate with biopsy results. Mixed lytic and sclerotic lesions, with an associated compression deformity of the L2 vertebral body. Findings are concerning for metastatic disease. Similar findings were present previously. TECHNICAL DOCUMENTATION: Quality ID # 436: Final reports with documentation of one or more dose reduction techniques (e.g., Automated exposure control, adjustment of the mA and/or kV according to patient size, use of iterative reconstruction technique) copyright 2011 [employer]- All Rights Reserved
--- NOTE | 2019-03-13 00:22 | PDOC CONSULTATION ---
Consultation Consult Date: 03/12/19 Provider Consulted: VETO RANDLE History of Present Illness Admission Date/PCP: 03/12/19 23:20 TEREZA DRAKE MD History of Present Illness: SONIA PALACIOS is a 69 year old male with a history of left nephrectomy for adenocarcinoma in 2006, followed by recurrence of tumor recently diagnosed in January 2018 following several episodes of abdominal distention, nausea, and vomiting. During 1 of the most recent emergency room visits, the patient had a CAT scan of the abdomen pelvis as well as an MRI of the abdomen which demonstrated recurrent tumor in the left kidney fossa, multiple intraperitoneal implants, and multiple intra-abdominal enlarged lymph nodes. In addition there is a suspected mass in his lungs. Patient presents emergency room reporting a 3-day history of abdominal distention, nausea, vomiting, unable to keep down any food or drinks, initially he had diarrhea about 2 days ago; afterward he has been constipated with occasional flatus. A CT scan of the abdomen pelvis done tonight with oral contrast: Reveals some distention of small bowel loops without sammie transition point as well as some mild decompression of distal small bowel loops. There is a redemonstrated presence of a mass in the left kidney fossa and several other intraperitoneal lesions probably metastatic disease together with several lytic lesions of the femur, iliac bone, and vertebral body. Finally, the patient reports to have undergone immunotherapy at his oncologist's office yesterday. Past Medical History Cardiac Medical History: Reports: Hyperlipidema Malignancy Medical History: Reports: Renal (Kidney) Cancer Past Surgical History Past Surgical History: Reports: Orthopedic Surgery, Other - Left nephrectomy Social History Smoking Status: Former Smoker Electronic Cigarette use?: No Family History Family History: None Parental Family History Reviewed: No Children Family History Reviewed: No Sibling(s) Family History Reviewed.: No Medication/Allergy Home Medications: Carvedilol [Coreg] 1 tab PO Q12 03/12/19 Dicyclomine HCl [Bentyl 10 mg Capsule] 10 mg PO Q6H 03/12/19 Docusate Sodium [Colace 100 mg Capsule] 100 mg PO BID 03/12/19 Dronabinol 5 mg PO BID 03/12/19 Metoclopramide HCl 5 mg PO TID 03/12/19 Multivitamin [Multivitamins] 1 each PO DAILY 03/12/19 Ondansetron HCl [Zofran 8 mg Tablet] 8 mg PO Q8HP PRN 03/12/19 Polyethylene Glycol 3350 [Miralax Powder 17 gm/Packet] 1 packet PO DAILY 03/12/19 Promethazine HCl [Phenergan 25 mg Tablet] 25 - 50 mg PO ASDIR PRN 03/12/19 Ranolazine [Ranexa 500 mg Tab.sr] 1 tab PO BID 03/12/19 Rosuvastatin Calcium [Crestor 5 mg Tablet] 5 mg PO DAILY 03/12/19 Tramadol HCl [Ultram] 50 mg PO Q6H 03/12/19 Ubidecarenone/Vitamin E Mixed [Coq10 Sg 100 Softgel] 2 each PO DAILY 03/12/19 Allergies/Adverse Reactions: No Known Allergies Allergy (Verified 03/12/19 15:24) Physical Exam Vital Signs: Temp Pulse Resp BP Pulse Ox 98.9 F 85 14 100/57 L 99 03/12/19 15:18 03/12/19 15:18 03/12/19 19:01 03/12/19 19:00 03/12/19 19:01 Intake & Output 03/11/19 03/12/19 03/13/19 06:59 06:59 06:59 Intake Total 1000 Balance 1000 Weight 71.5 kg General appearance: PRESENT: mild distress, thin Head exam: PRESENT: atraumatic Eye exam: PRESENT: EOMI Mouth exam: PRESENT: dry mucosa, neck supple Teeth exam: PRESENT: poor dentation Neck exam: PRESENT: full ROM Respiratory exam: PRESENT: clear to auscultation magui Cardiovascular exam: PRESENT: RRR GI/Abdominal exam: PRESENT: distended, normal bowel sounds - No peritoneal signs, palpable hard mass in the left upper quadrant just below the rib cage, soft Rectal exam: PRESENT: deferred Extremities exam: PRESENT: full ROM Musculoskeletal exam: PRESENT: full ROM Neurological exam: PRESENT: alert, awake, oriented to time, oriented to situation Psychiatric exam: PRESENT: agitated, flat affect Skin exam: PRESENT: warm Results Laboratory Results: 03/12/19 16:02 03/12/19 16:02 03/12/19 03/12/19 03/12/19 16:02 16:02 16:02 WBC 10.6 H RBC 3.89 L Hgb 9.7 L Hct 29.4 L MCV 75 L MCH 24.9 L MCHC 33.0 RDW 21.0 H Plt Count 433 Seg Neutrophils % Not Reportable Sodium 130.9 L Potassium 4.7 Chloride 89 L Carbon Dioxide 30 Anion Gap 12 BUN 20 Creatinine 1.48 H Est GFR ( Amer) 57 L Glucose 108 Lactic Acid 1.3 Calcium 9.8 Total Bilirubin 0.7 AST 26 Alkaline Phosphatase 98 Total Protein 6.6 Albumin 3.5 Urine Color Urine Appearance Urine pH Ur Specific [place] Urine Protein Urine Glucose (UA) Urine Ketones Urine Blood Urine Nitrite Ur Leukocyte Esterase Urine WBC (Auto) Urine RBC (Auto) 03/12/19 18:50 WBC RBC Hgb Hct MCV MCH MCHC RDW Plt Count Seg Neutrophils % Sodium Potassium Chloride Carbon Dioxide Anion Gap BUN Creatinine Est GFR ( Amer) Glucose Lactic Acid Calcium Total Bilirubin AST Alkaline Phosphatase Total Protein Albumin Urine Color SANDI Urine Appearance CLOUDY Urine pH 6.0 Ur Specific [place] 1.020 Urine Protein 30 H Urine Glucose (UA) NEGATIVE Urine Ketones TRACE H Urine Blood NEGATIVE Urine Nitrite NEGATIVE Ur Leukocyte Esterase TRACE H Urine WBC (Auto) 5 Urine RBC (Auto) 2 Impressions: Abdomen/Pelvis CT 03/12/19 19:07 IMPRESSION: Dilated fluid-filled loops of small bowel without a discrete transition point, however there is relative decompression of distal loops of ileum in the lower abdomen and pelvis. Findings have worsened slightly from the prior exam. Findings could reflect worsening ileus however partial or incomplete obstruction is also considered. Multiple pulmonary nodules seen in the lung bases for which metastatic disease is considered. Status post left nephrectomy. Large left adrenal mass. Correlate with biopsy results. Mixed lytic and sclerotic lesions, with an associated compression deformity of the L2 vertebral body. Findings are concerning for metastatic disease. Similar findings were present previously. TECHNICAL DOCUMENTATION: Quality ID # [id number]: Final reports with documentation of one or more dose reduction techniques (e.g., Automated exposure control, adjustment of the mA and/or kV according to patient size, use of iterative reconstruction technique) copyright 2011 [employer]- All Rights Reserved KUB X-Ray 03/12/19 19:35 IMPRESSION: Nonspecific dilated small bowel loops in the midabdomen. Correlation with an erect view recommended. Assessment & Plan - Diagnosis (1) renal cell carcinoma stage 4 Is this a current diagnosis for this admission?: Yes (2) Ileus Is this a current diagnosis for this admission?: Yes (3) Renal cell carcinoma Qualifiers: Laterality: right Qualified Code(s): C64.1 - Malignant neoplasm of right kidney, except renal pelvis - Plan Summary Plan Summary: Assessment: 69-year-old male status post left nephrectomy for adenocarcinoma in 2006 Recent identification (December 2018) of recurrent neoplastic disease with intra- abdominal mass, peritoneal seeding, retroperitoneal lymphadenopathy, and multiple lytic lesions affecting the femur, the pelvic bone, and lumbar spine Patient complaining of abdominal pain distention nausea vomiting for the past [address] scan abdomen and pelvis done today confirms the above metastatic findings, shows no sammie identification of small bowel obstruction as there is mild dilatation of proximal small bowel loops followed by mild decompression of the distal small bowel loops without transition point. Conversation entertained with the oncologist Dr. Drake: He agrees with my i mpression that the patient's symptoms present are a reflection of the intra- abdominal recurrent neoplastic disease Severe dehydration and malnutrition as the patient has been unable to tolerate any oral intake for past several days Plan: No acute general surgery findings identified No general surgery intervention contemplated in this patient with intra- abdominal recurrent neoplastic disease originating from his left kidney cancer operated in 2006 I am recommending n.p.o. status and nasogastric tube suction Bowel rest until bowel function returns, then patient can resume diet as tolerated Aggressive IV hydration The patient may need to have a PICC line placement or other means of enteral fe eding, if these last ones are feasible. I will sign off, please call us with questions.
[2019-03-13] MEDS ORDERED: DEXTROSE 40% GEL 15 GM TUBE PO PRN ×2 (01:00)
[2019-03-13] MEDS ORDERED: GLUCAGON,HUMAN RECOMB 1 MG INJ SUBCUT PRN (01:00)
[2019-03-13] MEDS ORDERED: DEXTROSE 50%-WATER 25 GM/50 ML DISP.SYRIN IV PRN ×2 (01:00)
[2019-03-13] MEDS ORDERED: PHARMACY COMMUNICATION ORDER MC NR (01:00)
--- NOTE | 2019-03-13 03:15 | PDOC H&P ---
History of Present Illness Admission Date/PCP: 03/12/19 23:20 TEREZA HURTADO MD Patient complains of: Nausea and vomiting History of Present Illness: SONIA PALACIOS is a 69 year old male who presented to the emergency room with a 1-day history of nausea and vomiting. He admits the onset nausea and vomiting yesterday progressively worsening and becoming intractable today. His nausea an d vomiting is associated with diarrhea which started 4 days ago and resolved gradually over 2 days as well as worsening abdominal distention/bloating over the last 24 hours. He denies other associated or accompanying signs and symptoms. He admits recent chemotherapy/immunotherapy for his stage IV renal cell carcinoma administered by Dr. Hurtado. He admits prior similar symptoms but not of this intensity. He has not identified any aggravating or ameliorating factors for his nausea and vomiting. In the emergency room he was found to have an ileus with some distended loops of small intestine noted on the CT scan of the abdomen and pelvis. He was evaluated by the surgical service and per Dr. Sheffield who should be admitted and followed for further evaluation treatment. This will be done by the hospitalist group. Past Medical History Cardiac Medical History: Reports: Coronary Artery Disease, Hyperlipidema Denies: Myocardial Infarction, Hypertension Pulmonary Medical History: Denies: Asthma, Chronic Obstructive Pulmonary Disease (COPD) EENT Medical History: Denies: Cataracts, Ears - Hearing aids Neurological Medical History: Denies: Hemorrhagic CVA, Ischemic CVA, Seizures Endocrine Medical History: Denies: Diabetes Mellitus Type 1, Diabetes Mellitus Type 2, Hyperthyroidism, Hypothyroidism, Obesity Renal/ Medical History: Reports: Chronic Kidney Disease Denies: Nephrolithiasis Malignancy Medical History: Reports: Renal (Kidney) Cancer GI Medical History: Denies: Cirrhosis, Crohn's Disease, Hepatitis, Ulcerative Colitis Musculoskeltal Medical History: Denies: Arthritis, Gout Skin Medical History: Denies: Eczema, Psoriasis Psychiatric Medical History: Reports: Alcohol Dependency, Tobacco Dependency Denies: Substance Abuse Traumatic Medical History: Reports: None Hematology: Denies: Anemia, Bleeding Tendencies Infectious Medical History: Reports: None Past Surgical History Past Surgical History: Reports: Orthopedic Surgery - Right shoulder surgery, Other - Left nephrectomy Social History Information Source: Patient Lives with: Spouse/Significant other Smoking Status: Former Smoker Electronic Cigarette use?: No Frequency of Alcohol Use: None - Former alcoholic stopped drinking November 2016 Hx Recreational Drug Use: No Drugs: None Hx Prescription Drug Abuse: No - Advance Directive Resuscitation Status: Full Code Surrogate healthcare decision maker:: Elisa Palacios Family History Family History: CAD, CVA - Cerebral aneurysm, Malignancy. denies: DM, Hypertension Parental Family History Reviewed: Yes Children Family History Reviewed: No Sibling(s) Family History Reviewed.: Yes Medication/Allergy Home Medications: Carvedilol [Coreg] 1 tab PO Q12 03/12/19 Dicyclomine HCl [Bentyl 10 mg Capsule] 10 mg PO Q6H 03/12/19 Docusate Sodium [Colace 100 mg Capsule] 100 mg PO BID 03/12/19 Dronabinol 5 mg PO BID 03/12/19 Metoclopramide HCl 5 mg PO TID 03/12/19 Multivitamin [Multivitamins] 1 each PO DAILY 03/12/19 Ondansetron HCl [Zofran 8 mg Tablet] 8 mg PO Q8HP PRN 03/12/19 Polyethylene Glycol 3350 [Miralax Powder 17 gm/Packet] 1 packet PO DAILY 03/12/19 Promethazine HCl [Phenergan 25 mg Tablet] 25 - 50 mg PO ASDIR PRN 03/12/19 Ranolazine [Ranexa 500 mg Tab.sr] 1 tab PO BID 03/12/19 Rosuvastatin Calcium [Crestor 5 mg Tablet] 5 mg PO DAILY 03/12/19 Tramadol HCl [Ultram] 50 mg PO Q6H 03/12/19 Ubidecarenone/Vitamin E Mixed [Coq10 Sg 100 Softgel] 2 each PO DAILY 03/12/19 Allergies/Adverse Reactions: No Known Allergies Allergy (Verified 03/12/19 15:24) Review of Systems Constitutional: ABSENT: chills, fever(s) Eyes: ABSENT: visual disturbances, other - Eye pain Ears: ABSENT: hearing changes, other - Ear pain Nose, Mouth, and Throat: ABSENT: headache(s), mouth pain, sore throat Cardiovascular: ABSENT: chest pain, dyspnea on exertion, orthropnea, palpitations Respiratory: ABSENT: cough, dyspnea Gastrointestinal: PRESENT: as per HPI, bloating, diarrhea, nausea, vomiting. ABSENT: abdominal pain, constipation Genitourinary: ABSENT: dysuria, hematuria Musculoskeletal: ABSENT: back pain, joint swelling, muscle weakness Integumentary: ABSENT: pruritus, rash Neurological: ABSENT: confusion, convulsions, focal weakness, memory loss, syncope Psychiatric: ABSENT: anxiety, depression Endocrine: ABSENT: cold intolerance, heat intolerance Hematologic/Lymphatic: ABSENT: easy bleeding, easy bruising Allergic/Immunologic: ABSENT: seasonal rhinorrhea Physical Exam Vital Signs: Temp Pulse Resp BP Pulse Ox 98.7 F 72 20 114/79 100 03/13/19 00:00 03/13/19 00:23 03/13/19 00:00 03/13/19 00:23 03/13/19 00:00 Intake & Output 03/11/19 03/12/19 03/13/19 23:59 23:59 23:59 Intake Total 1000 Output Total 600 Balance 1000 -600 Weight 71.5 kg General appearance: PRESENT: no acute distress, cooperative Head exam: PRESENT: atraumatic, normocephalic Eye exam: PRESENT: conjunctiva pink. ABSENT: conjunctival injection, scleral icterus Ear exam: PRESENT: normal external ear exam. ABSENT: bleeding, drainage Mouth exam: PRESENT: dry mucosa, neck supple Neck exam: ABSENT: thyromegaly, tracheal deviation Respiratory exam: PRESENT: clear to auscultation magui, symmetrical, unlabored Cardiovascular exam: PRESENT: RRR. ABSENT: clicks, gallop, rubs Pulses: PRESENT: normal radial pulses, normal dorsalis pedis pul Vascular exam: PRESENT: normal capillary refill. ABSENT: pallor Rectal exam: PRESENT: deferred Extremities exam: ABSENT: joint swelling, pedal edema Musculoskeletal exam: ABSENT: deformity, dislocation Neurological exam: PRESENT: alert, oriented to person, oriented to place, oriented to time, oriented to situation, CN II-XII grossly intact. ABSENT: motor sensory deficit Psychiatric exam: PRESENT: appropriate affect, normal mood Skin exam: PRESENT: dry, intact, warm. ABSENT: jaundice, rash, urticaria Results Laboratory Results: 03/12/19 16:02 03/12/19 16:02 03/12/19 03/12/19 03/12/19 16:02 16:02 16:02 WBC 10.6 H RBC 3.89 L Hgb 9.7 L Hct 29.4 L MCV 75 L MCH 24.9 L MCHC 33.0 RDW 21.0 H Plt Count 433 Seg Neutrophils % Not Reportable Sodium 130.9 L Potassium 4.7 Chloride 89 L Carbon Dioxide 30 Anion Gap 12 BUN 20 Creatinine 1.48 H Est GFR ( Amer) 57 L Glucose 108 Lactic Acid 1.3 Calcium 9.8 Total Bilirubin 0.7 AST 26 Alkaline Phosphatase 98 Total Protein 6.6 Albumin 3.5 Urine Color Urine Appearance Urine pH Ur Specific [place] Urine Protein Urine Glucose (UA) Urine Ketones Urine Blood Urine Nitrite Ur Leukocyte Esterase Urine WBC (Auto) Urine RBC (Auto) 03/12/19 18:50 WBC RBC Hgb Hct MCV MCH MCHC RDW Plt Count Seg Neutrophils % Sodium Potassium Chloride Carbon Dioxide Anion Gap BUN Creatinine Est GFR ( Amer) Glucose Lactic Acid Calcium Total Bilirubin AST Alkaline Phosphatase Total Protein Albumin Urine Color SANDI Urine Appearance CLOUDY Urine pH 6.0 Ur Specific [place] 1.020 Urine Protein 30 H Urine Glucose (UA) NEGATIVE Urine Ketones TRACE H Urine Blood NEGATIVE Urine Nitrite NEGATIVE Ur Leukocyte Esterase TRACE H Urine WBC (Auto) 5 Urine RBC (Auto) 2 Impressions: Abdomen/Pelvis CT 03/12/19 19:07 IMPRESSION: Dilated fluid-filled loops of small bowel without a discrete transition point, however there is relative decompression of distal loops of ileum in the lower abdomen and pelvis. Findings have worsened slightly from the prior exam. Findings could reflect worsening ileus however partial or incomplete obstruction is also considered. Multiple pulmonary nodules seen in the lung bases for which metastatic disease is considered. Status post left nephrectomy. Large left adrenal mass. Correlate with biopsy results. Mixed lytic and sclerotic lesions, with an associated compression deformity of the L2 vertebral body. Findings are concerning for metastatic disease. Similar findings were present previously. TECHNICAL DOCUMENTATION: Quality ID # [id number]: Final reports with documentation of one or more dose reduction techniques (e.g., Automated exposure control, adjustment of the mA and/or kV according to patient size, use of iterative reconstruction technique) copyright 2011 [employer]- All Rights Reserved KUB X-Ray 03/12/19 19:35 IMPRESSION: Nonspecific dilated small bowel loops in the midabdomen. Correlation with an erect view recommended. Assessment and Plan - Diagnosis (1) Intractable nausea and vomiting Is this a current diagnosis for this admission?: Yes (2) Diarrhea Qualifiers: Diarrhea type: unspecified type Qualified Code(s): R19.7 - Diarrhea, unspecified Is this a current diagnosis for this admission?: Yes (3) Abdominal bloating Is this a current diagnosis for this admission?: Yes (4) Ileus Is this a current diagnosis for this admission?: Yes (5) renal cell carcinoma stage 4 Is this a current diagnosis for this admission?: Yes (6) Coronary artery disease Qualifiers: Coronary Disease-Associated Artery/Lesion type: [place] artery [place] vs. transplanted heart: [place] heart Associated angina: without angina Qualified Code(s): I25.10 - Atherosclerotic heart disease of [place] coronary artery without angina pectoris Is this a current diagnosis for this admission?: Yes (7) Hyperlipidemia Qualifiers: Hyperlipidemia type: unspecified Qualified Code(s): E78.5 - Hyperlipidemia, unspecified Is this a current diagnosis for this admission?: Yes - Plan Summary Summary: Patient is admitted to the medical floor where he will receive routine supportive and symptomatic cares. He will be maintained on IV fluids and treated aggressively with an antiemetic therapy regimen. He will be followed by the surgical service in consultation (Dr. Sheffield). Patient CBC and metabolic profile be followed closely. He will initially be treated with a NG tube utilizing low intermittent suction. - Time Time Spent with patient: 15-24 minutes Medications reviewed and adjusted accordingly: Yes Anticipated discharge: Home - Inpatient Certification Based on my medical assessment, after consideration of the patient's comorbidities, presenting symptoms, or acuity I expect that the services needed warrant INPATIENT care.: Yes I certify that my determination is in accordance with my understanding of Medicare's requirements for reasonable and necessary INPATIENT services [42 CFR 412.3e].: Yes Medical Necessity: Significant Comorbidiites Make Outpatient Treatment Too Risky, Need Close Monitoring Due to Risk of Patient Decompensation, Need For IV Fluids, Risk of Diagnosis Which Will Require Inpatient Eval/Care/Monitoring
[2019-03-13] MEDS: HEPARIN SOD (PORCINE) 5,000 UNIT/ML 1 ML VIAL SUBCUT SCH ×3 (05:40→22:02)
[2019-03-13] MEDS: ONDANSETRON HCL INJ/PF 4 MG/2 ML SDV IV PRN (05:46)
[2019-03-13] MEDS: RINGERS SOLUTION,LACTATED 1,000 ML IV PRN ×2 (07:48→15:22)
[2019-03-13] MEDS: METOCLOPRAMIDE HCL INJ/PF 10 MG/2 ML SDV IV SCH ×4 (07:50→22:03)
--- NOTE | 2019-03-13 08:47 | RADIOLOGY REPORT (SQ) ---
EXAM DESCRIPTION: KUB/ABDOMEN (SINGLE VIEW) COMPLETED DATE/TIME: 03/13/2019 8:30 am REASON FOR STUDY: Check Placement of NG Tube COMPARISON: 03/12/2019 NUMBER OF VIEWS: One view. TECHNIQUE: Supine radiographic image of the abdomen acquired. LIMITATIONS: None. FINDINGS: BOWEL GAS PATTERN: Normal bowel gas pattern. No dilated loops. CALCIFICATIONS: No suspicious calcifications. SOFT TISSUES: No gross mass or suggestion of organomegaly. HARDWARE: None in the abdomen. BONES: No acute fracture. No worrisome bone lesions. OTHER: Nasogastric tube tip overlying stomach. Multiple clips upper abdomen. IMPRESSION: Nasogastric tube in the stomach. TECHNICAL DOCUMENTATION: JOB ID: [id number] [employer]- All Rights Reserved Reading location - IP/workstation name: [email or web address]
--- NOTE | 2019-03-13 09:48 | PDOC CONSULTATION ---
Consultation Consult Date: 03/13/19 Attending physician:: CHRISTIANO WHITMORE Provider Consulted: TEREZA DRAKE Consult reason:: Patient with known stage IV renal cell carcinoma here with small bowel obstruction History of Present Illness Admission Date/PCP: 03/12/19 23:20 TEREZA DRAKE MD Patient complains of: Nausea vomiting, fever History of Present Illness: SONIA PALACIOS is a 69 year old male with recent diagnosis of stage IV renal cell carcinoma, he originally had a left nephrectomy in 2005 and recently presented with fairly diffuse metastatic disease with lymphadenopathy in multiple areas in the abdomen, of note some of the adenopathy is around the dhiraj hepatis which was causing abdominal distention as well as nausea and vomit ing for him. He also has pulmonary nodules. He had biopsy of the nephrectomy bed which also had a soft tissue mass, and this indicated recurrent poorly differentiated carcinoma, consistent with renal primary, non-clear cell type. 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 We started him on a regimen with KEYTRUDA + the oral medication INLYTA, he has not yet started the oral medication b/c of insurance issues. He received Keytruda a few days ago. He presented with continuous nausea and vomiting, ultimately had a CT of the abdomen done which indicated distended loops of small bowel consistent with partial small bowel obstruction. He has had NG tube placement with decompression, surgery is seen him and does not feel like this is a surgical case and recommended bowel rest and decompression with NG tube until bowel function returns. I had a long discussion with the patient about this and he is understanding of the situation now. Past Medical History Cardiac Medical History: Reports: Coronary Artery Disease, Hyperlipidema Denies: Myocardial Infarction, Hypertension Pulmonary Medical History: Denies: Asthma, Chronic Obstructive Pulmonary Disease (COPD) EENT Medical History: Denies: Cataracts, Ears - Hearing aids Neurological Medical History: Denies: Hemorrhagic CVA, Ischemic CVA, Seizures Endocrine Medical History: Denies: Diabetes Mellitus Type 1, Diabetes Mellitus Type 2, Hyperthyroidism, Hypothyroidism, Obesity Renal/ Medical History: Reports: Chronic Kidney Disease Denies: Nephrolithiasis Malignancy Medical History: Reports: Renal (Kidney) Cancer GI Medical History: Denies: Cirrhosis, Crohn's Disease, Hepatitis, Ulcerative Colitis Musculoskeltal Medical History: Denies: Arthritis, Gout Skin Medical History: Denies: Eczema, Psoriasis Psychiatric Medical History: Reports: Alcohol Dependency, Tobacco Dependency Denies: Substance Abuse Traumatic Medical History: Reports: None Hematology: Denies: Anemia, Bleeding Tendencies Infectious Medical History: Reports: None Past Surgical History Past Surgical History: Reports: Orthopedic Surgery - Right shoulder surgery, Other - Left nephrectomy Social History Information Source: Patient Lives with: Spouse/Significant other Smoking Status: Former Smoker Electronic Cigarette use?: No Last Time Smoked: 2016 Frequency of Alcohol Use: None - Former alcoholic stopped drinking November 2016 Hx Recreational Drug Use: No Drugs: None Hx Prescription Drug Abuse: No - Advance Directive Resuscitation Status: Full Code Family History Family History: CAD, CVA - Cerebral aneurysm, Malignancy. denies: DM, Hypertension Parental Family History Reviewed: Yes Children Family History Reviewed: Yes Sibling(s) Family History Reviewed.: Yes Medication/Allergy Home Medications: Carvedilol [Coreg] 12.5 mg PO Q12 03/12/19 Dicyclomine HCl [Bentyl 10 mg Capsule] 10 mg PO Q6 03/12/19 Docusate Sodium [Colace 100 mg Capsule] 100 mg PO BID 03/12/19 Dronabinol 5 mg PO BID 03/12/19 Metoclopramide HCl 5 mg PO TID 03/12/19 Multivitamin [Multivitamins] 1 cap PO DAILY 03/12/19 Ondansetron HCl [Zofran 8 mg Tablet] 8 mg PO Q8HP PRN 03/12/19 Polyethylene Glycol 3350 [Miralax Powder 17 gm/Packet] 17 gm PO DAILY 03/12/19 Promethazine HCl [Phenergan 25 mg Tablet] 25 mg PO Q4HP PRN 03/12/19 Ranolazine [Ranexa 500 mg Tab.sr] 500 mg PO BID 03/12/19 Rosuvastatin Calcium [Crestor 5 mg Tablet] 5 mg PO QHS 03/12/19 Tramadol HCl [Ultram] 50 mg PO Q6HP PRN 03/12/19 Ubidecarenone/Vitamin E Mixed [Coq10 Sg 100 Softgel] 2 cap PO DAILY 03/12/19 Allergies/Adverse Reactions: No Known Allergies Allergy (Verified 03/12/19 15:24) Review of Systems Constitutional: ABSENT: chills, fever(s), headache(s), weight gain, weight loss Eyes: ABSENT: visual disturbances Ears: ABSENT: hearing changes Cardiovascular: ABSENT: chest pain, dyspnea on exertion, edema, orthropnea, palpitations Respiratory: ABSENT: cough, hemoptysis Gastrointestinal: ABSENT: abdominal pain, constipation, diarrhea, hematemesis, hematochezia, nausea, vomiting Genitourinary: ABSENT: dysuria, hematuria Musculoskeletal: ABSENT: joint swelling Integumentary: ABSENT: rash, wounds Neurological: ABSENT: abnormal gait, abnormal speech, confusion, dizziness, focal weakness, syncope Psychiatric: ABSENT: anxiety, depression, homidical ideation, suicidal ideation Endocrine: ABSENT: cold intolerance, heat intolerance, polydipsia, polyuria Hematologic/Lymphatic: ABSENT: easy bleeding, easy bruising Physical Exam Vital Signs: Temp Pulse Resp BP Pulse Ox 98.0 F 73 16 122/68 91 L 03/13/19 00:59 03/13/19 00:59 03/13/19 00:59 03/13/19 00:59 03/13/19 00:59 Intake & Output 03/12/19 03/13/19 03/14/19 06:59 06:59 06:59 Intake Total 1000 Output Total 650 Balance 350 Weight 72.5 kg General appearance: PRESENT: no acute distress, well-developed, well-nourished Head exam: PRESENT: atraumatic, normocephalic Eye exam: PRESENT: conjunctiva pink, EOMI, PERRLA. ABSENT: scleral icterus Ear exam: PRESENT: normal external ear exam Mouth exam: PRESENT: moist, tongue midline Neck exam: ABSENT: carotid bruit, JVD, lymphadenopathy, thyromegaly Respiratory exam: PRESENT: clear to auscultation magui. ABSENT: rales, rhonchi, wheezes Cardiovascular exam: PRESENT: RRR. ABSENT: diastolic murmur, rubs, systolic murmur Pulses: PRESENT: normal dorsalis pedis pul Vascular exam: PRESENT: normal capillary refill GI/Abdominal exam: PRESENT: normal bowel sounds, soft. ABSENT: distended, guarding, mass, organolmegaly, rebound, tenderness Rectal exam: PRESENT: deferred Extremities exam: PRESENT: full ROM. ABSENT: calf tenderness, clubbing, pedal edema Neurological exam: PRESENT: alert, awake, oriented to person, oriented to place, oriented to time, oriented to situation, CN II-XII grossly intact. ABSENT: motor sensory deficit Psychiatric exam: PRESENT: appropriate affect, normal mood. ABSENT: homicidal ideation, suicidal ideation Skin exam: PRESENT: dry, intact, warm. ABSENT: cyanosis, rash Results Laboratory Results: 03/12/19 16:02 03/12/19 16:02 03/12/19 03/12/19 03/12/19 16:02 16:02 16:02 WBC 10.6 H RBC 3.89 L Hgb 9.7 L Hct 29.4 L MCV 75 L MCH 24.9 L MCHC 33.0 RDW 21.0 H Plt Count 433 Seg Neutrophils % Not Reportable Sodium 130.9 L Potassium 4.7 Chloride 89 L Carbon Dioxide 30 Anion Gap 12 BUN 20 Creatinine 1.48 H Est GFR ( Amer) 57 L Glucose 108 Lactic Acid 1.3 Calcium 9.8 Total Bilirubin 0.7 AST 26 Alkaline Phosphatase 98 Total Protein 6.6 Albumin 3.5 Urine Color Urine Appearance Urine pH Ur Specific [place] Urine Protein Urine Glucose (UA) Urine Ketones Urine Blood Urine Nitrite Ur Leukocyte Esterase Urine WBC (Auto) Urine RBC (Auto) 03/12/19 18:50 WBC RBC Hgb Hct MCV MCH MCHC RDW Plt Count Seg Neutrophils % Sodium Potassium Chloride Carbon Dioxide Anion Gap BUN Creatinine Est GFR ( Amer) Glucose Lactic Acid Calcium Total Bilirubin AST Alkaline Phosphatase Total Protein Albumin Urine Color SANDI Urine Appearance CLOUDY Urine pH 6.0 Ur Specific [place] 1.020 Urine Protein 30 H Urine Glucose (UA) NEGATIVE Urine Ketones TRACE H Urine Blood NEGATIVE Urine Nitrite NEGATIVE Ur Leukocyte Esterase TRACE H Urine WBC (Auto) 5 Urine RBC (Auto) 2 Impressions: Abdomen/Pelvis CT 03/12/19 19:07 IMPRESSION: Dilated fluid-filled loops of small bowel without a discrete transition point, however there is relative decompression of distal loops of ileum in the lower abdomen and pelvis. Findings have worsened slightly from the prior exam. Findings could reflect worsening ileus however partial or incomplete obstruction is also considered. Multiple pulmonary nodules seen in the lung bases for which metastatic disease is considered. Status post left nephrectomy. Large left adrenal mass. Correlate with biopsy results. Mixed lytic and sclerotic lesions, with an associated compression deformity of the L2 vertebral body. Findings are concerning for metastatic disease. Similar findings were present previously. TECHNICAL DOCUMENTATION: Quality ID # 436: Final reports with documentation of one or more dose reduction techniques (e.g., Automated exposure control, adjustment of the mA and/or kV according to patient size, use of iterative reconstruction technique) copyright 2011 [employer]- All Rights Reserved KUB X-Ray 03/13/19 01:01 IMPRESSION: Nasogastric tube in the stomach. Status: Image reviewed by me Assessment & Plan - Diagnosis (1) Partial small bowel obstruction Is this a current diagnosis for this admission?: Yes Plan: Partial small bowel obstruction versus ileus. Had a long discussion with the patient explained why the NG tube was needed for the next 24 hours at least, hopefully his bowel function will return. (2) renal cell carcinoma stage 4 Is this a current diagnosis for this admission?: Yes Plan: He received cycle #1 of immunotherapy, next cycle will be in 2 weeks. Hopefully improves and is able to get to that. - Time Time Spent: Greater than 70 Minutes - Inpatient Certification Based on my medical assessment, after consideration of the patient's comorbidities, presenting symptoms, or acuity I expect that the services needed warrant INPATIENT care.: Yes I certify that my determination is in accordance with my understanding of Medicare's requirements for reasonable and necessary INPATIENT services [42 CFR 412.3e].: Yes Medical Necessity: Risk of Complication if Not Cared For in Hospital
[2019-03-13] MEDS: PANTOPRAZOLE SODIUM 40 MG VIAL IV SCH ×2 (10:12→22:02)
[2019-03-13] MEDS ORDERED: PHENOL/SODIUM PHENOLATE 100 SPRAY/177 ML BOTTLE PO PRN (10:21)
--- NOTE | 2019-03-13 12:00 | PDOC PROGRESS REPORT ---
Subjective Progress Note for:: 03/13/19 Subjective:: 03/13/2019-the patient has a nasogastric tube in place. The suction canister has brownish drainage. No drainage in tubing at this point. Patient still feels bloated. Some discomfort but not unbearable pain. Reason For Visit: POSTCHEMOTHERAPY GASTROENTERITIS Physical Exam Vital Signs: Temp Pulse Resp BP Pulse Ox 99.1 F 78 15 106/61 96 03/13/19 08:00 03/13/19 08:00 03/13/19 08:00 03/13/19 08:00 03/13/19 08:00 Intake & Output 03/12/19 03/13/19 03/14/19 06:59 06:59 06:59 Intake Total 1000 Output Total 650 Balance 350 Weight 72.5 kg General appearance: PRESENT: cooperative, mild distress, well-developed Head exam: PRESENT: atraumatic, normocephalic Ear exam: PRESENT: normal external ear exam. ABSENT: bleeding, drainage Mouth exam: PRESENT: dry mucosa, tongue midline Respiratory exam: PRESENT: rales - At bases, symmetrical, unlabored. ABSENT: rhonchi, tachypnea, wheezes Cardiovascular exam: PRESENT: RRR, +S1, +S2 GI/Abdominal exam: PRESENT: distended - And tympanitic, hypoactive bowel sounds, mass - Palpable lesion left costal margin anterior axillary line. Patient reports chronic adrenal mass., soft, tenderness - Mild. ABSENT: guarding Rectal exam: PRESENT: deferred Extremities exam: ABSENT: joint swelling, pedal edema Musculoskeletal exam: PRESENT: ambulatory, normal inspection Neurological exam: PRESENT: alert, awake, oriented to person, oriented to place, oriented to time, oriented to situation Psychiatric exam: PRESENT: flat affect. ABSENT: agitated, anxious Focused psych exam: ABSENT: delusional, restlessness Skin exam: PRESENT: dry, warm. ABSENT: rash Results Laboratory Results: 03/12/19 16:02 03/12/19 16:02 03/12/19 03/12/19 03/12/19 16:02 16:02 16:02 WBC 10.6 H RBC 3.89 L Hgb 9.7 L Hct 29.4 L MCV 75 L MCH 24.9 L MCHC 33.0 RDW 21.0 H Plt Count 433 Seg Neutrophils % Not Reportable Sodium 130.9 L Potassium 4.7 Chloride 89 L Carbon Dioxide 30 Anion Gap 12 BUN 20 Creatinine 1.48 H Est GFR ( Amer) 57 L Glucose 108 Lactic Acid 1.3 Calcium 9.8 Total Bilirubin 0.7 AST 26 Alkaline Phosphatase 98 Total Protein 6.6 Albumin 3.5 Urine Color Urine Appearance Urine pH Ur Specific [place] Urine Protein Urine Glucose (UA) Urine Ketones Urine Blood Urine Nitrite Ur Leukocyte Esterase Urine WBC (Auto) Urine RBC (Auto) 03/12/19 18:50 WBC RBC Hgb Hct MCV MCH MCHC RDW Plt Count Seg Neutrophils % Sodium Potassium Chloride Carbon Dioxide Anion Gap BUN Creatinine Est GFR ( Amer) Glucose Lactic Acid Calcium Total Bilirubin AST Alkaline Phosphatase Total Protein Albumin Urine Color SANDI Urine Appearance CLOUDY Urine pH 6.0 Ur Specific [place] 1.020 Urine Protein 30 H Urine Glucose (UA) NEGATIVE Urine Ketones TRACE H Urine Blood NEGATIVE Urine Nitrite NEGATIVE Ur Leukocyte Esterase TRACE H Urine WBC (Auto) 5 Urine RBC (Auto) 2 Impressions: Abdomen/Pelvis CT 03/12/19 19:07 IMPRESSION: Dilated fluid-filled loops of small bowel without a discrete transition point, however there is relative decompression of distal loops of ileum in the lower abdomen and pelvis. Findings have worsened slightly from the prior exam. Findings could reflect worsening ileus however partial or incomplete obstruction is also considered. Multiple pulmonary nodules seen in the lung bases for which metastatic disease is considered. Status post left nephrectomy. Large left adrenal mass. Correlate with biopsy results. Mixed lytic and sclerotic lesions, with an associated compression deformity of the L2 vertebral body. Findings are concerning for metastatic disease. Similar findings were present previously. TECHNICAL DOCUMENTATION: Quality ID # 436: Final reports with documentation of one or more dose reduction techniques (e.g., Automated exposure control, adjustment of the mA and/or kV according to patient size, use of iterative reconstruction technique) copyright 2011 [employer]- All Rights Reserved KUB X-Ray 03/13/19 01:01 IMPRESSION: Nasogastric tube in the stomach. Assessment and Plan - Diagnosis (1) Intractable nausea and vomiting Is this a current diagnosis for this admission?: Yes Plan: 03/13/2019-since placement of the nasogastric tube the patient has had less nausea and no vomiting. His throat is slightly sore from the tube itself. It is believed that the nausea and vomiting could be related to a chemotherapeutic agent. This certainly could contribute to the ileus or the ileus may have formed with subsequent nausea, vomiting and diarrhea. Regardless, he will receive suction with nasogastric tube and he will be kept n.p.o. for right now except for medications. Antiemetics are available. We will continue IV fluids at this time. (2) Diarrhea Qualifiers: Diarrhea type: unspecified type Qualified Code(s): R19.7 - Diarrhea, unspecified Is this a current diagnosis for this admission?: Yes Plan: 03/13/2019-diarrhea does not appear to be infectious. Will monitor output and try and match losses with IV fluids. Will monitor electrolytes. (3) Ileus Is this a current diagnosis for this admission?: Yes Plan: 03/13/2019-CT scan showed dilated loops of bowel with some fluid. The patient is having bowel sounds. He stated that he did pass some watery stool earlier. Hopefully with bowel rest the ileus will resolve. Once it does we will resume clear liquids initially and then advance his diet. (4) Abdominal bloating Is this a current diagnosis for this admission?: Yes Plan: 03/13/2019-the patient's abdomen is tympanitic. This is consistent with the i maging and ileus. If there does not appear to be any improvement I will reimage the abdomen tomorrow. Conservative management as above. (5) Coronary artery disease Qualifiers: Coronary Disease-Associated Artery/Lesion type: [place] artery [place] vs. transplanted heart: [place] heart Associated angina: without angina Qualified Code(s): I25.10 - Atherosclerotic heart disease of [place] coronary artery without angina pectoris Is this a current diagnosis for this admission?: Yes Plan: 03/13/2019-we will continue cardiac medications as tolerated. With the nasogastric tube in place suction will need to be held for administration of medications. I have held several of his medications and will decide on administration based on daily evaluation. (6) renal cell carcinoma stage 4 Is this a current diagnosis for this admission?: Yes Plan: 03/13/2019-the patient has already had a nephrectomy and it has been discovered that there is now renal cell carcinoma on the other kidney. The primary treatment will be by oncology. Certainly no active treatment in his current state. Oncology will be seeing the patient as well. (7) Hyperlipidemia Qualifiers: Hyperlipidemia type: unspecified Qualified Code(s): E78.5 - Hyperlipidemia, unspecified Is this a current diagnosis for this admission?: Yes Plan: 03/13/2019-we will resume cardiac diet once the patient is able to tolerate oral intake. I am holding his statin at this time as it is not critical. Will resume statin therapy when appropriate. - Plan Summary Summary: Patient is admitted to the medical floor where he will receive routine supportive and symptomatic cares. He will be maintained on IV fluids and treated aggressively with an antiemetic therapy regimen. He will be followed by the surgical service in consultation (Dr. Sheffield). Patient CBC and metabolic profile be followed closely. He will initially be treated with a NG tube utilizing low intermittent suction. - Time Time Spent with patient: 15-24 minutes Medications reviewed and adjusted accordingly: Yes Anticipated discharge: Home
[2019-03-13] MEDS: RANOLAZINE 500 MG TAB.SR.12H PO SCH (17:11)
[2019-03-13] MEDS ORDERED: RANOLAZINE 500 MG TAB.SR.12H PO SCH (18:00)
[2019-03-14 06:12] LABS: HEMATOCRIT 27.1 % (37.9-51.0); HEMOGLOBIN 8.9 g/dL (13.5-17.0); MEAN CORPUSCULAR HEMOGLOBIN 24.5 pg (27.0-33.4); MEAN CORPUSCULAR HGB CONC 32.9 g/dL (32.0-36.0); MEAN CORPUSCULAR VOLUME 74 fl (80-97); PLATELET COUNT 337 10^3/uL (150-450); RED BLOOD COUNT 3.65 10^6/uL (4.35-5.55); RED CELL DISTRIBUTION WIDTH 20.6 % (11.5-14.0); WHITE BLOOD COUNT 6.2 10^3/uL (4.0-10.5)
[2019-03-14] MEDS: HEPARIN SOD (PORCINE) 5,000 UNIT/ML 1 ML VIAL SUBCUT SCH ×3 (06:19→21:46)
[2019-03-14 06:33] LABS: ANION GAP 12 (5-19); BLOOD UREA NITROGEN 19 mg/dL (7-20); CALCIUM 8.7 mg/dL (8.4-10.2); CARBON DIOXIDE 26 mmol/L (22-30); CHLORIDE 93 mmol/L (98-107); GLUCOSE 73 mg/dL (75-110); POTASSIUM 4.4 mmol/L (3.6-5.0)
--- NOTE | 2019-03-14 07:56 | PDOC PROGRESS REPORT ---
Subjective Progress Note for:: 03/14/19 Subjective:: No acute events overnight, patient seems less distended Reason For Visit: POSTCHEMOTHERAPY GASTROENTERITIS Physical Exam Vital Signs: Temp Pulse Resp BP Pulse Ox 100.2 F 79 16 124/65 95 03/13/19 23:41 03/13/19 23:41 03/13/19 23:41 03/13/19 23:41 03/13/19 23:41 Intake & Output 03/13/19 03/14/19 03/15/19 06:59 06:59 06:59 Intake Total 1000 1000 Output Total 650 1000 Balance 350 0 Weight 72.5 kg 74 kg General appearance: PRESENT: no acute distress, well-developed, well-nourished Head exam: PRESENT: atraumatic, normocephalic Eye exam: PRESENT: conjunctiva pink, EOMI, PERRLA. ABSENT: scleral icterus Ear exam: PRESENT: normal external ear exam Mouth exam: PRESENT: moist, tongue midline Neck exam: ABSENT: carotid bruit, JVD, lymphadenopathy, thyromegaly Respiratory exam: PRESENT: clear to auscultation magui. ABSENT: rales, rhonchi, wheezes Cardiovascular exam: PRESENT: RRR. ABSENT: diastolic murmur, rubs, systolic murmur Pulses: PRESENT: normal dorsalis pedis pul Vascular exam: PRESENT: normal capillary refill GI/Abdominal exam: PRESENT: normal bowel sounds, soft. ABSENT: distended, guarding, mass, organolmegaly, rebound, tenderness Rectal exam: PRESENT: deferred Extremities exam: PRESENT: full ROM. ABSENT: calf tenderness, clubbing, pedal edema Neurological exam: PRESENT: alert, awake, oriented to person, oriented to place, oriented to time, oriented to situation, CN II-XII grossly intact. ABSENT: motor sensory deficit Psychiatric exam: PRESENT: appropriate affect, normal mood. ABSENT: homicidal ideation, suicidal ideation Skin exam: PRESENT: dry, intact, warm. ABSENT: cyanosis, rash Results Laboratory Results: 03/14/19 05:37 03/14/19 05:37 03/14/19 03/14/19 05:37 05:37 WBC 6.2 RBC 3.65 L Hgb 8.9 L Hct 27.1 L MCV 74 L MCH 24.5 L MCHC 32.9 RDW 20.6 H Plt Count 337 Sodium 131.4 L Potassium 4.4 Chloride 93 L Carbon Dioxide 26 Anion Gap 12 BUN 19 Creatinine 1.35 H Est GFR ( Amer) > 60 Glucose 73 L Calcium 8.7 Magnesium 1.7 Impressions: Abdomen/Pelvis CT 03/12/19 19:07 IMPRESSION: Dilated fluid-filled loops of small bowel without a discrete transition point, however there is relative decompression of distal loops of ileum in the lower abdomen and pelvis. Findings have worsened slightly from the prior exam. Findings could reflect worsening ileus however partial or incomplete obstruction is also considered. Multiple pulmonary nodules seen in the lung bases for which metastatic disease is considered. Status post left nephrectomy. Large left adrenal mass. Correlate with biopsy results. Mixed lytic and sclerotic lesions, with an associated compression deformity of the L2 vertebral body. Findings are concerning for metastatic disease. Similar findings were present previously. TECHNICAL DOCUMENTATION: Quality ID # 436: Final reports with documentation of one or more dose reduction techniques (e.g., Automated exposure control, adjustment of the mA and/or kV according to patient size, use of iterative reconstruction technique) copyright 2011 [employer]- All Rights Reserved KUB X-Ray 03/13/19 01:01 IMPRESSION: Nasogastric tube in the stomach. Assessment & Plan - Diagnosis (1) Partial small bowel obstruction Is this a current diagnosis for this admission?: Yes Plan: Will discuss with Dr. Cornejo about need for KUB today, otherwise we will let hospitalist steaming cabinet tender further care (2) renal cell carcinoma stage 4 Is this a current diagnosis for this admission?: Yes Plan: Like to pursue further treatment as an outpatient - Time Time Spent with patient: 35 or more minutes
[2019-03-14] MEDS: METOCLOPRAMIDE HCL INJ/PF 10 MG/2 ML SDV IV SCH ×4 (08:08→21:46)
[2019-03-14] MEDS: RANOLAZINE 500 MG TAB.SR.12H PO SCH ×2 (09:18→17:38)
[2019-03-14] MEDS: PANTOPRAZOLE SODIUM 40 MG VIAL IV SCH ×2 (09:18→21:46)
[2019-03-14] MEDS: CARVEDILOL 12.5 MG TABLET PO SCH ×2 (11:19→21:47)
[2019-03-14] MEDS: NORMAL SALINE 1000 ML 1,000 ML IV PRN ×2 (11:19→19:55)
--- NOTE | 2019-03-14 12:24 | PDOC PROGRESS REPORT ---
Subjective Progress Note for:: 03/14/19 Subjective:: The nasogastric tube tends to be positional. The patient is still having significant output. His abdomen is not any more distended than yesterday but it still feels uncomfortable. Reason For Visit: POSTCHEMOTHERAPY GASTROENTERITIS Physical Exam Vital Signs: Temp Pulse Resp BP Pulse Ox 98.1 F 79 16 109/66 94 03/14/19 11:35 03/14/19 11:35 03/14/19 11:35 03/14/19 11:35 03/14/19 08:16 Intake & Output 03/13/19 03/14/19 03/15/19 06:59 06:59 06:59 Intake Total 1000 1000 Output Total 650 1000 Balance 350 0 Weight 72.5 kg 74 kg General appearance: PRESENT: cooperative, mild distress, well-developed, well- nourished Ear exam: PRESENT: normal external ear exam. ABSENT: bleeding, drainage Mouth exam: PRESENT: other - Nasogastric tube in place Respiratory exam: PRESENT: clear to auscultation magui, symmetrical, unlabored. ABSENT: accessory muscle use, rales, rhonchi, tachypnea, wheezes Cardiovascular exam: PRESENT: RRR, +S1, +S2 GI/Abdominal exam: PRESENT: diminished bowel sounds, soft, tenderness Rectal exam: PRESENT: deferred Musculoskeletal exam: PRESENT: ambulatory, normal inspection Neurological exam: PRESENT: alert, awake, oriented to person, oriented to place, oriented to time, oriented to situation, CN II-XII grossly intact Psychiatric exam: PRESENT: flat affect. ABSENT: agitated, anxious Results Laboratory Results: 03/14/19 05:37 03/14/19 05:37 03/14/19 03/14/19 05:37 05:37 WBC 6.2 RBC 3.65 L Hgb 8.9 L Hct 27.1 L MCV 74 L MCH 24.5 L MCHC 32.9 RDW 20.6 H Plt Count 337 Sodium 131.4 L Potassium 4.4 Chloride 93 L Carbon Dioxide 26 Anion Gap 12 BUN 19 Creatinine 1.35 H Est GFR ( Amer) > 60 Glucose 73 L Calcium 8.7 Magnesium 1.7 Impressions: Abdomen/Pelvis CT 03/12/19 19:07 IMPRESSION: Dilated fluid-filled loops of small bowel without a discrete transition point, however there is relative decompression of distal loops of ileum in the lower abdomen and pelvis. Findings have worsened slightly from the prior exam. Findings could reflect worsening ileus however partial or incomplete obstruction is also considered. Multiple pulmonary nodules seen in the lung bases for which metastatic disease is considered. Status post left nephrectomy. Large left adrenal mass. Correlate with biopsy results. Mixed lytic and sclerotic lesions, with an associated compression deformity of the L2 vertebral body. Findings are concerning for metastatic disease. Similar findings were present previously. TECHNICAL DOCUMENTATION: Quality ID # 436: Final reports with documentation of one or more dose reduction techniques (e.g., Automated exposure control, adjustment of the mA and/or kV according to patient size, use of iterative reconstruction technique) copyright 2011 [employer]- All Rights Reserved KUB X-Ray 03/13/19 01:01 IMPRESSION: Nasogastric tube in the stomach. Assessment and Plan - Diagnosis (1) Intractable nausea and vomiting Is this a current diagnosis for this admission?: Yes Plan: 03/13/2019-since placement of the nasogastric tube the patient has had less nausea and no vomiting. His throat is slightly sore from the tube itself. It is believed that the nausea and vomiting could be related to a chemotherapeutic agent. This certainly could contribute to the ileus or the ileus may have formed with subsequent nausea, vomiting and diarrhea. Regardless, he will receive suction with nasogastric tube and he will be kept n.p.o. for right now except for medications. Antiemetics are available. We will continue IV fluids at this time. 03/14/2019-antiemetics available. Continue IV fluids and nasogastric tube (2) Diarrhea Qualifiers: Diarrhea type: unspecified type Qualified Code(s): R19.7 - Diarrhea, unspecified Is this a current diagnosis for this admission?: Yes Plan: 03/13/2019-diarrhea does not appear to be infectious. Will monitor output and try and match losses with IV fluids. Will monitor electrolytes. 03/14/2019-patient is no longer passing any significant stool. We will continue to monitor. (3) Ileus Is this a current diagnosis for this admission?: Yes Plan: 03/13/2019-CT scan showed dilated loops of bowel with some fluid. The patient is having bowel sounds. He stated that he did pass some watery stool earlier. Hopefully with bowel rest the ileus will resolve. Once it does we will resume clear liquids initially and then advance his diet. 03/14/2019-I did order a small bowel series. The patient was unable to complete intake of the oral contrast. The radiologist did call me and upon review of previous studies he feels that there is a transition point identified. Dr. Jackson did review the imaging with the radiologist. He feels there is no acute ischemia or necrotic bowel at this time. We will continue a conservative course. (4) Abdominal bloating Is this a current diagnosis for this admission?: Yes Plan: 03/13/2019-the patient's abdomen is tympanitic. This is consistent with the imaging and ileus. If there does not appear to be any improvement I will reimage the abdomen tomorrow. Conservative management as above. 03/14/2019-consistent with ileus. Continue conservative management. (5) Coronary artery disease Qualifiers: Coronary Disease-Associated Artery/Lesion type: [place] artery [place] vs. transplanted heart: [place] heart Associated angina: without angina Qualified Code(s): I25.10 - Atherosclerotic heart disease of [place] coronary artery without angina pectoris Is this a current diagnosis for this admission?: Yes Plan: 03/13/2019-we will continue cardiac medications as tolerated. With the nasogastric tube in place suction will need to be held for administration of medications. I have held several of his medications and will decide on administration based on daily evaluation. 03/14/2019-the patient was seen by cardiology for potential preop clearance. The patient has a history of alcoholic cardiomyopathy. He has not exhibited any acute issues at this point. We will add back his carvedilol and continue his Ranexa. The NG tube will be clamped for 2 hours after administration of the medication. (6) renal cell carcinoma stage 4 Is this a current diagnosis for this admission?: Yes Plan: 03/13/2019-the patient has already had a nephrectomy and it has been discovered that there is now renal cell carcinoma on the other kidney. The primary treatment will be by oncology. Certainly no active treatment in his current state. Oncology will be seeing the patient as well. 03/14/2019-Per the radiologist it is possible that malignancy could be compromising the bowel. It is not clear. Oncology continues to follow the patient. (7) Hyperlipidemia Qualifiers: Hyperlipidemia type: unspecified Qualified Code(s): E78.5 - Hyperlipidemia, unspecified Is this a current diagnosis for this admission?: Yes Plan: 03/13/2019-we will resume cardiac diet once the patient is able to tolerate oral intake. I am holding his statin at this time as it is not critical. Will resu me statin therapy when appropriate. 03/14/2019-resume statin therapy after ileus has resolved - Plan Summary Summary: Patient is admitted to the medical floor where he will receive routine supportive and symptomatic cares. He will be maintained on IV fluids and treated aggressively with an antiemetic therapy regimen. He will be followed by the surgical service in consultation (Dr. Sheffield). Patient CBC and metabolic profile be followed closely. He will initially be treated with a NG tube utilizing low intermittent suction. - Time Time Spent with patient: 25-34 minutes Medications reviewed and adjusted accordingly: Yes
--- NOTE | 2019-03-14 14:37 | RADIOLOGY REPORT (SQ) ---
EXAM DESCRIPTION: SMALL BOWEL SERIES COMPLETED DATE/TIME: 03/14/2019 2:09 pm REASON FOR STUDY: Ileus COMPARISON: CT 03/12/2019, radiograph 03/13/2019 FLUOROSCOPY TIME: 5 images saved to PACS. LIMITATIONS: Exam terminated secondary to patient intolerance PROCEDURE: Initial slate cutter image of abdomen acquired, followed by administration of oral contrast via pre-existing nasoenteric tube. 120 cc of Gastrografin was utilized. Serial radiographic images acqu ired. Exam was prematurely terminated secondary to patient intolerance of additional contrast. All images stored on PACS. FINDINGS: CASINO PORTER KUB: Multiple dilated loops small bowel infusion noted measuring up to 4.2 cm. Surg ical clips overlie upper left abdomen. Gas and dense stool noted within the descending colon. Likel y from prior contrasted CT scan. STOMACH: Partially evaluated secondary to incomplete distention. Unremarkable visualize mucosa. DUODENUM: Normal mucosal pattern with adequate distention. No displacement or obstruction. JEJUNUM: Multiple dilated loops of jejunum measuring up to 4.2 cm. Incompletely opacified. ILEUM: Not opacified. TERMINAL ILEUM AND ILEO-CECAL VALVE: Non-opacified. PROXIMAL COLON: Not opacified. OTHER: No other significant finding. Correlation with prior CT demonstrates dilated small bowel loops to the level of the distal jejunum w ith apparent transition point within the right lower quadrant (series 3, image [id number]). There is a po ssible associated soft tissue mass at this location. Additional foci of curvilinear gas at this loca tion possibly luminal gas although pneumatosis is not excluded. IMPRESSION: Persistent dilated small bowel loops measuring up to 4.2 cm compatible with obstruction. Gas and previously administered oral contrast now within the colon compatible with partial process. Exam was prematurely terminated secondary to patient intolerance of additional contrast material. Correlation with prior CT demonstrates dilated small bowel loops to level of the distal jejunum with transition point within the right lower quadrant (series 3, image [id number]) with questionable associated soft tissue mass at this location. There are foci of curvilinear gas at this location possibly ayden nal although pneumatosis is not entirely excluded. Findings were discussed with ordering provider Dr. Cornejo at 1423 hours on 03/14/2019 COMMENT: Quality ID 145: Final reports for procedures using fluoroscopy that document radiation exp osure indices, or exposure time and number of fluorographic images (if radiation exposure indices are not available) TECHNICAL DOCUMENTATION: JOB ID: [id number] [employer]&- All Rights Reserved Reading location - IP/workstation name: [email or web address]
--- NOTE | 2019-03-14 16:48 | PDOC CONSULTATION ---
Consultation Consult Date: 03/14/19 Attending physician:: ALEXX MARTI Provider Consulted: [facility] Consult reason:: Rule out small bowel obstruction History of Present Illness Admission Date/PCP: 03/12/19 23:20 TEREZA DRAKE MD History of Present Illness: SONIA PALACIOS is a 69 year old male Who presents emergency department 2 and half days ago complaining of abdominal pain nausea vomiting, decreased flatus decreased bowel movements. He was admitted to the acute care hospital service for small bowel obstruction. He had a CT scan of the abdomen and pelvis which showed findings suggestive of possible small bowel obstruction, unclear transition point. Minimal oral contrast was utilized. The patient had nasogastric decompression, IV fluids and n.p.o. status. He was seen initially by Dr. Ronen Sheffield felt not to require exploratory laparotomy at that time. Today for such a call Dr. Marti and asked for advice. I suggested the patient have an upper GI and small bowel follow-through series. This was poorly tolerated by the patient despite the contrast being put through his NG tube. He demonstrated multiple dilated loops of proximal and mid small bowel with a possible transition point in the right lower quadrant. Over there was contrast from patient's CT scan 48 hours ago now on the colon, albeit minimal amount. The multiple intra-abdominal masses consistent with metastatic disease remain unchanged. Patient is feeling about the same, perhaps less abdominal pain. He is not taking narcotics. He is hiking in the hallways, and his nasogastric tube has put out approximately 1400 cc in the last 18 hours. 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 Cardiac Medical History: Reports: Coronary Artery Disease, Hyperlipidema Denies: Myocardial Infarction, Hypertension Pulmonary Medical History: Denies: Asthma, Chronic Obstructive Pulmonary Disease (COPD) EENT Medical History: Denies: Cataracts, Ears - Hearing aids Neurological Medical History: Denies: Hemorrhagic CVA, Ischemic CVA, Seizures Endocrine Medical History: Denies: Diabetes Mellitus Type 1, Diabetes Mellitus Type 2, Hyperthyroidism, Hypothyroidism, Obesity Renal/ Medical History: Reports: Chronic Kidney Disease Denies: Nephrolithiasis Malignancy Medical History: Reports: Renal (Kidney) Cancer GI Medical History: Denies: Cirrhosis, Crohn's Disease, Hepatitis, Ulcerative Colitis Musculoskeltal Medical History: Denies: Arthritis, Gout Skin Medical History: Denies: Eczema, Psoriasis Psychiatric Medical History: Reports: Alcohol Dependency, Tobacco Dependency Denies: Substance Abuse Traumatic Medical History: Reports: None Hematology: Denies: Anemia, Bleeding Tendencies Infectious Medical History: Reports: None Past Surgical History Past Surgical History: Status post left radical nephrectomy 2005 Past Surgical History: Reports: Orthopedic Surgery - Right shoulder surgery, Other - Left nephrectomy Social History Information Source: Patient Lives with: Spouse/Significant other Smoking Status: Former Smoker Electronic Cigarette use?: No Last Time Smoked: 2016 Frequency of Alcohol Use: None - Former alcoholic stopped drinking November 2016 Hx Recreational Drug Use: No Drugs: None Hx Prescription Drug Abuse: No - Advance Directive Resuscitation Status: Full Code Family History Family History: None, CAD, CVA - Cerebral aneurysm, Malignancy. denies: DM, Hypertension Parental Family History Reviewed: No Children Family History Reviewed: No Sibling(s) Family History Reviewed.: No Medication/Allergy Home Medications: Carvedilol [Coreg] 12.5 mg PO Q12 03/12/19 Dicyclomine HCl [Bentyl 10 mg Capsule] 10 mg PO Q6 03/12/19 Docusate Sodium [Colace 100 mg Capsule] 100 mg PO BID 03/12/19 Dronabinol 5 mg PO BID 03/12/19 Metoclopramide HCl 5 mg PO TID 03/12/19 Multivitamin [Multivitamins] 1 cap PO DAILY 03/12/19 Ondansetron HCl [Zofran 8 mg Tablet] 8 mg PO Q8HP PRN 03/12/19 Polyethylene Glycol 3350 [Miralax Powder 17 gm/Packet] 17 gm PO DAILY 03/12/19 Promethazine HCl [Phenergan 25 mg Tablet] 25 mg PO Q4HP PRN 03/12/19 Ranolazine [Ranexa 500 mg Tab.sr] 500 mg PO BID 03/12/19 Rosuvastatin Calcium [Crestor 5 mg Tablet] 5 mg PO QHS 03/12/19 Tramadol HCl [Ultram] 50 mg PO Q6HP PRN 03/12/19 Ubidecarenone/Vitamin E Mixed [Coq10 Sg 100 Softgel] 2 cap PO DAILY 03/12/19 Allergies/Adverse Reactions: No Known Allergies Allergy (Verified 03/12/19 15:24) Review of Systems Constitutional: PRESENT: as per HPI Eyes: ABSENT: visual disturbances Ears: ABSENT: hearing changes Cardiovascular: ABSENT: chest pain, dyspnea on exertion, edema, orthropnea, palpitations Gastrointestinal: PRESENT: as per HPI Genitourinary: ABSENT: dysuria, hematuria Integumentary: ABSENT: rash, wounds Physical Exam Vital Signs: Temp Pulse Resp BP Pulse Ox 98.2 F 70 16 102/56 L 90 L 03/14/19 15:37 03/14/19 15:37 03/14/19 15:37 03/14/19 15:37 03/14/19 15:37 Intake & Output 03/13/19 03/14/19 03/15/19 06:59 06:59 06:59 Intake Total 1000 1000 0 Output Total 650 1000 1150 Balance 350 0 -1150 Weight 72.5 kg 74 kg General appearance: PRESENT: no acute distress Head exam: PRESENT: normocephalic Eye exam: PRESENT: EOMI Mouth exam: PRESENT: dry mucosa Neck exam: PRESENT: full ROM Respiratory exam: PRESENT: clear to auscultation magui Pulses: PRESENT: normal carotid pulses, normal radial pulses, normal femoral pulses, normal dorsalis pedis pul GI/Abdominal exam: PRESENT: other - Minimal abdominal distention, no peritoneal signs no rigidity no organomegaly. No groin hernias. Rectal exam: PRESENT: deferred Gentrourinary exam: PRESENT: other - No scrotal masses Extremities exam: PRESENT: full ROM Musculoskeletal exam: PRESENT: full ROM Neurological exam: PRESENT: oriented to person, oriented to place, oriented to time, oriented to situation Psychiatric exam: PRESENT: appropriate affect Skin exam: PRESENT: dry Results Laboratory Results: 03/14/19 05:37 03/14/19 05:37 03/14/19 03/14/19 05:37 05:37 WBC 6.2 RBC 3.65 L Hgb 8.9 L Hct 27.1 L MCV 74 L MCH 24.5 L MCHC 32.9 RDW 20.6 H Plt Count 337 Sodium 131.4 L Potassium 4.4 Chloride 93 L Carbon Dioxide 26 Anion Gap 12 BUN 19 Creatinine 1.35 H Est GFR ( Amer) > 60 Glucose 73 L Calcium 8.7 Magnesium 1.7 Impressions: Abdomen/Pelvis CT 03/12/19 19:07 IMPRESSION: Dilated fluid-filled loops of small bowel without a discrete transition point, however there is relative decompression of distal loops of ileum in the lower abdomen and pelvis. Findings have worsened slightly from the prior exam. Findings could reflect worsening ileus however partial or incomplete obstruction is also considered. Multiple pulmonary nodules seen in the lung bases for which metastatic disease is considered. Status post left nephrectomy. Large left adrenal mass. Correlate with biopsy results. Mixed lytic and sclerotic lesions, with an associated compression deformity of the L2 vertebral body. Findings are concerning for metastatic disease. Similar findings were present previously. TECHNICAL DOCUMENTATION: Quality ID # 436: Final reports with documentation of one or more dose reduction techniques (e.g., Automated exposure control, adjustment of the mA and/or kV according to patient size, use of iterative reconstruction technique) copyright 2011 [employer]- All Rights Reserved KUB X-Ray 03/13/19 01:01 IMPRESSION: Nasogastric tube in the stomach. Small Bowel X-Ray 03/14/19 00:00 IMPRESSION: Persistent dilated small bowel loops measuring up to 4.2 cm amy tible with obstruction. Gas and previously administered oral contrast now within the colon compatible with partial process. Exam was prematurely terminated secondary to patient intolerance of additional contrast material. Correlation with prior CT demonstrates dilated small bowel loops to level of the distal jejunum with transition point within the right lower quadrant (series 3, image [id number]) with questionable associated soft tissue mass at this location. There are foci of curvilinear gas at this location possibly luminal although pneumatosis is not entirely excluded. Findings were discussed with ordering provider Dr. Marti at 1423 hours on 03/14/2019 Assessment & Plan - Diagnosis (1) Partial small bowel obstruction Is this a current diagnosis for this admission?: Yes Plan: Impression: Unresolved partial small bowel obstruction and 69-year-old male with metastatic renal cell carcinoma. Etiology of small bowel obstruction elusive, may be secondary to work, adhesion, intussusception. Currently the patient is nearly asymptomatic has no peritoneal signs on physical examination. He does not need an exploration tonight. Recommendations: 1. I explained the current situation, specifically incomplete small bowel obstruction with the patient's multiple comorbidities, to the patient and his . I believe they understand. I also explained that the options going forward including: Continue nasogastric decompression, with resolution; nasogastric tube decompression failure, and exploratory surgery; and lastly strictly palliative care with no treatment. 2. The patient and his would like to continue nasogastric decompression therapy, and if he fails to progress, proceed with exploratory surgery, with the understanding that this may very well be a palliative operation only. Preparation for possible exploratory laparotomy, we will have wafer polisher consult, and assess patient from a perioperative standpoint. 4. We will obtain abdominal films tonight and tomorrow to assess progress of contrast. (3) Coronary artery disease Qualifiers: Coronary Disease-Associated Artery/Lesion type: [place] artery [place] vs. transplanted heart: [place] heart Associated angina: without angina Qualified Code(s): I25.10 - Atherosclerotic heart disease of [place] coronary artery without angina pectoris Is this a current diagnosis for this admission?: Yes (4) Diarrhea Qualifiers: Diarrhea type: unspecified type Qualified Code(s): R19.7 - Diarrhea, unspecified Is this a current diagnosis for this admission?: Yes (5) Hyperlipidemia Qualifiers: Hyperlipidemia type: unspecified Qualified Code(s): E78.5 - Hyperlipidemia, unspecified Is this a current diagnosis for this admission?: Yes (6) renal cell carcinoma stage 4 Is this a current diagnosis for this admission?: Yes (7) Alcoholic cardiomyopathy Is this a current diagnosis for this admission?: Yes (8) Dysrhythmia Is this a current diagnosis for this admission?: Yes - Time Time Spent: 50 to 70 Minutes Smoking Cessation Education: over 10 minutes Medications reviewed and adjusted accordingly: Yes Anticipated discharge: Home - Inpatient Certification Based on my medical assessment, after consideration of the patient's comorbidities, presenting symptoms, or acuity I expect that the services needed warrant INPATIENT care.: Yes I certify that my determination is in accordance with my understanding of Medicare's requirements for reasonable and necessary INPATIENT services [42 CFR 412.3e].: Yes Medical Necessity: Need for Pain Control, Need for Surgery
--- NOTE | 2019-03-14 17:16 | PDOC CONSULTATION ---
Consultation Consult Date: 03/14/19 Attending physician:: PAUL EDWARD Provider Consulted: JOSEPH CAMACHO Consult reason:: preoperative cardiovascular exam History of Present Illness Admission Date/PCP: 03/12/19 23:20 TEREZA DRAKE MD History of Present Illness: SONIA PALACIOS is a 69 year old male with a past medical history of bigeminal rhythm, alcoholic cardiomyopathy, ejection fraction of 45% in the last 6 months, stress test negative in the last 6 months, stage IV renal cell cancer, comes into the hospital because of small bowel obstruction. He has no chest pain. No shortness of breath. He is a very active gentleman. He walks 1 mile a day. No exertional shortness of breath orthopnea or PND. No palpitations. No loss of consciousness. Currently non-smoker no alcohol no drugs. Past Medical History Cardiac Medical History: Reports: Coronary Artery Disease, Hyperlipidema Denies: Myocardial Infarction, Hypertension Pulmonary Medical History: Denies: Asthma, Chronic Obstructive Pulmonary Disease (COPD) EENT Medical History: Denies: Cataracts, Ears - Hearing aids Neurological Medical History: Denies: Hemorrhagic CVA, Ischemic CVA, Seizures Endocrine Medical History: Denies: Diabetes Mellitus Type 1, Diabetes Mellitus Type 2, Hyperthyroidism, Hypothyroidism, Obesity Renal/ Medical History: Reports: Chronic Kidney Disease Denies: Nephrolithiasis Malignancy Medical History: Reports: Renal (Kidney) Cancer GI Medical History: Denies: Cirrhosis, Crohn's Disease, Hepatitis, Ulcerative Colitis Musculoskeltal Medical History: Denies: Arthritis, Gout Skin Medical History: Denies: Eczema, Psoriasis Psychiatric Medical History: Reports: Alcohol Dependency, Tobacco Dependency Denies: Substance Abuse Traumatic Medical History: Reports: None Hematology: Denies: Anemia, Bleeding Tendencies Infectious Medical History: Reports: None Past Surgical History Past Surgical History: Reports: Orthopedic Surgery - Right shoulder surgery, Other - Left nephrectomy Social History Lives with: Spouse/Significant other Smoking Status: Former Smoker Electronic Cigarette use?: No Last Time Smoked: 2016 Frequency of Alcohol Use: None - Former alcoholic stopped drinking November Hx Recreational Drug Use: No Drugs: None Hx Prescription Drug Abuse: No - Advance Directive Resuscitation Status: Full Code Family History Family History: None, CAD, CVA - Cerebral aneurysm, Malignancy. denies: DM, Hypertension Parental Family History Reviewed: Yes Children Family History Reviewed: Yes Sibling(s) Family History Reviewed.: Yes Medication/Allergy Home Medications: Carvedilol [Coreg] 12.5 mg PO Q12 03/12/19 Dicyclomine HCl [Bentyl 10 mg Capsule] 10 mg PO Q6 03/12/19 Docusate Sodium [Colace 100 mg Capsule] 100 mg PO BID 03/12/19 Dronabinol 5 mg PO BID 03/12/19 Metoclopramide HCl 5 mg PO TID 03/12/19 Multivitamin [Multivitamins] 1 cap PO DAILY 03/12/19 Ondansetron HCl [Zofran 8 mg Tablet] 8 mg PO Q8HP PRN 03/12/19 Polyethylene Glycol 3350 [Miralax Powder 17 gm/Packet] 17 gm PO DAILY 03/12/19 Promethazine HCl [Phenergan 25 mg Tablet] 25 mg PO Q4HP PRN 03/12/19 Ranolazine [Ranexa 500 mg Tab.sr] 500 mg PO BID 03/12/19 Rosuvastatin Calcium [Crestor 5 mg Tablet] 5 mg PO QHS 03/12/19 Tramadol HCl [Ultram] 50 mg PO Q6HP PRN 03/12/19 Ubidecarenone/Vitamin E Mixed [Coq10 Sg 100 Softgel] 2 cap PO DAILY 03/12/19 Allergies/Adverse Reactions: No Known Allergies Allergy (Verified 03/12/19 15:24) Physical Exam Vital Signs: Temp Pulse Resp BP Pulse Ox 98.2 F 70 16 102/56 L 90 L 03/14/19 15:37 03/14/19 15:37 03/14/19 15:37 03/14/19 15:37 03/14/19 15:37 Intake & Output 03/13/19 03/14/19 03/15/19 06:59 06:59 06:59 Intake Total 1000 1000 0 Output Total 650 1000 1150 Balance 350 0 -1150 Weight 72.5 kg 74 kg GI/Abdominal exam: PRESENT: tenderness Results Laboratory Results: 03/14/19 05:37 03/14/19 05:37 03/14/19 03/14/19 05:37 05:37 WBC 6.2 RBC 3.65 L Hgb 8.9 L Hct 27.1 L MCV 74 L MCH 24.5 L MCHC 32.9 RDW 20.6 H Plt Count 337 Sodium 131.4 L Potassium 4.4 Chloride 93 L Carbon Dioxide 26 Anion Gap 12 BUN 19 Creatinine 1.35 H Est GFR ( Amer) > 60 Glucose 73 L Calcium 8.7 Magnesium 1.7 Impressions: Abdomen/Pelvis CT 03/12/19 19:07 IMPRESSION: Dilated fluid-filled loops of small bowel without a discrete transition point, however there is relative decompression of distal loops of ileum in the lower abdomen and pelvis. Findings have worsened slightly from the prior exam. Findings could reflect worsening ileus however partial or incomplete obstruction is also considered. Multiple pulmonary nodules seen in the lung bases for which metastatic disease is considered. Status post left nephrectomy. Large left adrenal mass. Correlate with biopsy results. Mixed lytic and sclerotic lesions, with an associated compression deformity of the L2 vertebral body. Findings are concerning for metastatic disease. Similar findings were present previously. TECHNICAL DOCUMENTATION: Quality ID # 436: Final reports with documentation of one or more dose reduction techniques (e.g., Automated exposure control, adjustment of the mA and/or kV according to patient size, use of iterative reconstruction technique) copyright 2011 [employer]- All Rights Reserved KUB X-Ray 03/13/19 01:01 IMPRESSION: Nasogastric tube in the stomach. Small Bowel X-Ray 03/14/19 00:00 IMPRESSION: Persistent dilated small bowel loops measuring up to 4.2 cm compatible with obstruction. Gas and previously administered oral contrast now within the colon compatible with partial process. Exam was prematurely terminated secondary to patient intolerance of additional contrast material. Correlation with prior CT demonstrates dilated small bowel loops to level of the distal jejunum with transition point within the right lower quadrant (series 3, image [id number]) with questionable associated soft tissue mass at this location. There are foci of curvilinear gas at this location possibly luminal although pneumatosis is not entirely excluded. Findings were discussed with ordering provider Dr. Cornejo at 1423 hours on 03/14/2019 Assessment & Plan - Diagnosis (1) Preoperative cardiovascular examination Is this a current diagnosis for this admission?: Yes Plan: Patient does have a history of cardiomyopathy. His last echo was recent with an ejection fraction of 45%. He does not need any further work-up at this time. He is a reasonably active gentleman. If he goes for surgery to be a semiurgent surgery. No further work-up is required. He does not need an ischemic evaluation he has had 1 done in the last 6 months. He has had 2 done in the last 1 year. No further work-up required. (2) Alcoholic cardiomyopathy Is this a current diagnosis for this admission?: Yes Plan: Stable. Avoid overhydration.
[2019-03-15] MEDS: NORMAL SALINE 1000 ML 1,000 ML IV PRN (02:15)
[2019-03-15] MEDS: HEPARIN SOD (PORCINE) 5,000 UNIT/ML 1 ML VIAL SUBCUT SCH ×3 (05:22→21:26)
[2019-03-15 05:59] LABS: ABSOLUTE EOSINOPHILS # (AUTO) 0.2 10^3/uL (0.0-0.6); ABSOLUTE LYMPHOCYTES (AUTO) 0.4 10^3/uL (0.5-4.7); ABSOLUTE MONOCYTES (AUTO) 0.8 10^3/uL (0.1-1.4); ABSOLUTE NEUT (AUTO) 3.5 10^3/uL (1.7-8.2); BASOPHILS % (AUTO) 0.4 % (0-2); HEMATOCRIT 28.5 % (37.9-51.0); HEMOGLOBIN 9.2 g/dL (13.5-17.0); LYMPHOCYTES % (AUTO) 8.3 % (13-45); MEAN CORPUSCULAR HEMOGLOBIN 24.2 pg (27.0-33.4); MEAN CORPUSCULAR HGB CONC 32.4 g/dL (32.0-36.0); MEAN CORPUSCULAR VOLUME 75 fl (80-97); MONOCYTES % (AUTO) 16.1 % (3-13); PLATELET COUNT 375 10^3/uL (150-450); RED BLOOD COUNT 3.81 10^6/uL (4.35-5.55); SEGMENTED NEUTROPHILS % (AUTO) 71.2 % (42-78); TOTAL CELLS COUNTED % (AUTO) 100 %; WHITE BLOOD COUNT 4.9 10^3/uL (4.0-10.5)
[2019-03-15 06:16] LABS: ANION GAP 18 (5-19); BLOOD UREA NITROGEN 19 mg/dL (7-20); CALCIUM 8.6 mg/dL (8.4-10.2); CARBON DIOXIDE 24 mmol/L (22-30); CHLORIDE 94 mmol/L (98-107); GLUCOSE 74 mg/dL (75-110)
--- NOTE | 2019-03-15 07:56 | PDOC PROGRESS REPORT ---
Subjective Progress Note for:: 03/15/19 Subjective:: Patient feels miserable and would like to have surgery Reason For Visit: POSTCHEMOTHERAPY GASTROENTERITIS Physical Exam Vital Signs: Temp Pulse Resp BP Pulse Ox 98.4 F 71 18 110/61 90 L 03/15/19 04:39 03/15/19 07:00 03/15/19 04:39 03/15/19 04:39 03/15/19 04:39 Intake & Output 03/14/19 03/15/19 03/16/19 06:59 06:59 06:59 Intake Total 1000 1950 Output Total 1000 4500 Balance 0 -2550 Weight 74 kg 71.9 kg General appearance: PRESENT: no acute distress, thin Mouth exam: PRESENT: dry mucosa Respiratory exam: PRESENT: clear to auscultation magui Cardiovascular exam: PRESENT: RRR GI/Abdominal exam: PRESENT: distended, firm Results Laboratory Results: 03/15/19 05:26 03/15/19 05:26 03/15/19 03/15/19 05:26 05:26 WBC 4.9 RBC 3.81 L Hgb 9.2 L Hct 28.5 L MCV 75 L MCH 24.2 L MCHC 32.4 RDW 21.0 H Plt Count 375 Seg Neutrophils % 71.2 Sodium 135.5 L Potassium 4.0 Chloride 94 L Carbon Dioxide 24 Anion Gap 18 BUN 19 Creatinine 1.34 H Est GFR ( Amer) > 60 Glucose 74 L Calcium 8.6 Magnesium 1.8 Impressions: Abdomen/Pelvis CT 03/12/19 19:07 IMPRESSION: Dilated fluid-filled loops of small bowel without a discrete transition point, however there is relative decompression of distal loops of ileum in the lower abdomen and pelvis. Findings have worsened slightly from the prior exam. Findings could reflect worsening ileus however partial or incomplete obstruction is also considered. Multiple pulmonary nodules seen in the lung bases for which metastatic disease is considered. Status post left nephrectomy. Large left adrenal mass. Correlate with biopsy results. Mixed lytic and sclerotic lesions, with an associated compression deformity of the L2 vertebral body. Findings are concerning for metastatic disease. Similar findings were present previously. TECHNICAL DOCUMENTATION: Quality ID # 436: Final reports with documentation of one or more dose reduction techniques (e.g., Automated exposure control, adjustment of the mA and/or kV according to patient size, use of iterative reconstruction technique) copyright 2011 [employer]- All Rights Reserved Small Bowel X-Ray 03/14/19 00:00 IMPRESSION: Persistent dilated small bowel loops measuring up to 4.2 cm compatible with obstruction. Gas and previously administered oral contrast now within the colon compatible with partial process. Exam was prematurely terminated secondary to patient intolerance of additional contrast material. Correlation with prior CT demonstrates dilated small bowel loops to level of the distal jejunum with transition point within the right lower quadrant (series 3, image [id number]) with questionable associated soft tissue mass at this location. There are foci of curvilinear gas at this location possibly luminal although pneumatosis is not entirely excluded. Findings were discussed with ordering provider Dr. Cornejo at 1423 hours on 03/14/2019 Assessment & Plan - Diagnosis (1) renal cell carcinoma stage 4 Is this a current diagnosis for this admission?: Yes (2) Ileus Is this a current diagnosis for this admission?: Yes (3) Renal cell carcinoma Qualifiers: Laterality: right Qualified Code(s): C64.1 - Malignant neoplasm of right kidney, except renal pelvis Is this a current diagnosis for this admission?: Yes - Time Time Spent with patient: 35 or more minutes - Plan Summary Plan Summary: Assessment: Severe partial mechanical small bowel obstruction secondary to intra-abdominal spread of renal cell carcinoma stage IV Elevated nasogastric output about 3000 mL since yesterday morning Blood work within normal limits Moderately severe cardiomyopathy multifactorial, patient cleared by the cardiology service for surgery A long conversation lasting approximately 30 minutes has been entertained with the patient and the oncologist in regard to the options with this patient. The options ranging from a conservative management, to aggressive surgery which would include insertion of the gastrostomy tube for venting purposes and feeding jejunostomy discussed with the patient. He is feeling is that he has been getting worse since December with no improvement and is afraid to getting his bowel completely obstructed to the point of being unable to handle his own secretions and to be fed. He also understands the risks inherent to an operation of such magnitude done in people like him, as multiple complications may occur which might require reoperation. However, he understands the seriousness of the events and he wishes not wish to be repeated on should a complication occurred. Also, the patient understands that an operation will shorten his expectancy of life and that this may be even further shortened by recurrence of a operative complication. The patient understands that he has no other alternatives besides conservative management which might cause his bowel to become completely occluded and an aggressive treatment with above proposed procedures. Plan: Plan laparotomy, venting gastrostomy, feeding jejunostomy, possible resection po ssible ostomy. Procedure, risks, benefits, complications, alternatives, been food explained to the patient, his questions were answered to the satisfaction, and decided to proceed. Type and cross for 2 units of blood Postoperatively, the patient may likely return to the floor.
--- NOTE | 2019-03-15 08:23 | PDOC PROGRESS REPORT ---
Subjective Progress Note for:: 03/15/19 Subjective:: Patient still having high output from NG tube. Today I had a long discussion with the patient, Dr. Sheffield general surgery also spoke with him for a long period of time, a decision was made to put him on the schedule for exploratory surgery to see if some sort of bowel bypass procedure can be done to relieve the likely obstruction caused by the adenopathy, alternatively either a G-tube or J- tube may be entertained if possible as well. The patient himself was pretty adamant in trying the operation and is very educated and understands the risks, but really wants to pursue the procedure. Reason For Visit: POSTCHEMOTHERAPY GASTROENTERITIS Physical Exam Vital Signs: Temp Pulse Resp BP Pulse Ox 98.4 F 71 18 110/61 90 L 03/15/19 04:39 03/15/19 07:00 03/15/19 04:39 03/15/19 04:39 03/15/19 04:39 Intake & Output 03/14/19 03/15/19 03/16/19 06:59 06:59 06:59 Intake Total 1000 1950 Output Total 1000 4500 Balance 0 -2550 Weight 74 kg 71.9 kg General appearance: PRESENT: no acute distress, well-developed, well-nourished Head exam: PRESENT: atraumatic, normocephalic Eye exam: PRESENT: conjunctiva pink, EOMI, PERRLA. ABSENT: scleral icterus Ear exam: PRESENT: normal external ear exam Mouth exam: PRESENT: moist, tongue midline Neck exam: ABSENT: carotid bruit, JVD, lymphadenopathy, thyromegaly Respiratory exam: PRESENT: clear to auscultation magui. ABSENT: rales, rhonchi, wheezes Cardiovascular exam: PRESENT: RRR. ABSENT: diastolic murmur, rubs, systolic murmur Pulses: PRESENT: normal dorsalis pedis pul Vascular exam: PRESENT: normal capillary refill GI/Abdominal exam: PRESENT: normal bowel sounds, soft. ABSENT: distended, guarding, mass, organolmegaly, rebound, tenderness Rectal exam: PRESENT: deferred Extremities exam: PRESENT: full ROM. ABSENT: calf tenderness, clubbing, pedal edema Neurological exam: PRESENT: alert, awake, oriented to person, oriented to place, oriented to time, oriented to situation, CN II-XII grossly intact. ABSENT: motor sensory deficit Psychiatric exam: PRESENT: appropriate affect, normal mood. ABSENT: homicidal ideation, suicidal ideation Skin exam: PRESENT: dry, intact, warm. ABSENT: cyanosis, rash Results Laboratory Results: 03/15/19 05:26 03/15/19 05:26 03/15/19 03/15/19 05:26 05:26 WBC 4.9 RBC 3.81 L Hgb 9.2 L Hct 28.5 L MCV 75 L MCH 24.2 L MCHC 32.4 RDW 21.0 H Plt Count 375 Seg Neutrophils % 71.2 Sodium 135.5 L Potassium 4.0 Chloride 94 L Carbon Dioxide 24 Anion Gap 18 BUN 19 Creatinine 1.34 H Est GFR ( Amer) > 60 Glucose 74 L Calcium 8.6 Magnesium 1.8 Impressions: Abdomen/Pelvis CT 03/12/19 19:07 IMPRESSION: Dilated fluid-filled loops of small bowel without a discrete transition point, however there is relative decompression of distal loops of ileum in the lower abdomen and pelvis. Findings have worsened slightly from the prior exam. Findings could reflect worsening ileus however partial or incomplete obstruction is also considered. Multiple pulmonary nodules seen in the lung bases for which metastatic disease is considered. Status post left nephrectomy. Large left adrenal mass. Correlate with biopsy results. Mixed lytic and sclerotic lesions, with an associated compression deformity of the L2 vertebral body. Findings are concerning for metastatic disease. Similar findings were present previously. TECHNICAL DOCUMENTATION: Quality ID # 436: Final reports with documentation of one or more dose reduction techniques (e.g., Automated exposure control, adjustment of the mA and/or kV according to patient size, use of iterative reconstruction technique) copyright 2011 [employer]- All Rights Reserved Small Bowel X-Ray 03/14/19 00:00 IMPRESSION: Persistent dilated small bowel loops measuring up to 4.2 cm compatible with obstruction. Gas and previously administered oral contrast now within the colon compatible with partial process. Exam was prematurely terminated secondary to patient intolerance of additional contrast material. Correlation with prior CT demonstrates dilated small bowel loops to level of the distal jejunum with transition point within the right lower quadrant (series 3, image [id number]) with questionable associated soft tissue mass at this location. There are foci of curvilinear gas at this location possibly luminal although pneumatosis is not entirely excluded. Findings were discussed with ordering provider Dr. Chantal at 1423 hours on 03/14/2019 Assessment & Plan - Diagnosis (1) Partial small bowel obstruction Is this a current diagnosis for this admission?: Yes Plan: Not being relieved, agree with consideration of surgery (2) renal cell carcinoma stage 4 Is this a current diagnosis for this admission?: Yes Plan: If he is able to get better with surgery, and is able to be started on oral medication once we can get that started we can proceed with care. - Time Time Spent with patient: 35 or more minutes - Inpatient Certification Based on my medical assessment, after consideration of the patient's comorbidit ies, presenting symptoms, or acuity I expect that the services needed warrant INPATIENT care.: Yes I certify that my determination is in accordance with my understanding of Me mine's requirements for reasonable and necessary INPATIENT services [42 CFR 412.3e].: Yes Medical Necessity: Need for Surgery
--- NOTE | 2019-03-15 08:41 | RADIOLOGY REPORT (SQ) ---
EXAM DESCRIPTION: KUB/ABDOMEN (SINGLE VIEW) COMPLETED DATE/TIME: 03/14/2019 8:14 pm REASON FOR STUDY: Obstruction COMPARISON: Small bowel follow-through from 03/14/2019. NUMBER OF VIEWS: One view. TECHNIQUE: Supine radiographic image of the abdomen acquired. LIMITATIONS: None. FINDINGS: BOWEL GAS PATTERN: There are persistently dilated loops of small bowel in the mid abdomen that measure up to 5.4 cm in transverse diameter. The oral contrast from the small bowel follow-thro ugh is located within the splenic flexure. There is no pneumatosis or portal venous gas. Evaluation for free intraperitoneal air is limited due to supine technique. CALCIFICATIONS: None. SOFT TISSUES: No abnormality. HARDWARE: Surgical clips that project to the left of the lumbar spine. BONES: Unchanged irregularity of the superior endplate of the L2 vertebral body. OTHER: The tip and side hole of the enteric tube projects past the gastroesophageal junction and with in the gastric lumen. The left lateral costophrenic sulcus is blunted and there are patchy opacities in the left base that could represent atelectasis. IMPRESSION: Persistently dilated loops of small bowel in the mid abdomen that measure up to 5.4 cm i n diameter. The oral contrast from the small bowel follow-through is located within the splenic flex ure. The above findings could represent a partial small bowel obstruction and continued radiographic follow-up is recommended. TECHNICAL DOCUMENTATION: JOB ID: [id number] [employer]- All Rights Reserved Reading location - IP/workstation name: [email or web address]
[2019-03-15] MEDS ORDERED: SUCCINYLCHOLINE CHLORIDE INJ 200 MG/10 ML VIAL ONE (08:55)
[2019-03-15] MEDS ORDERED: GLYCOPYRROLATE 1 MG/5 ML VIAL ONE (08:55)
[2019-03-15] MEDS ORDERED: NEOSTIGMINE METHYLSULFATE 10 MG/10 ML VIAL ONE (08:55)
[2019-03-15] MEDS ORDERED: VECURONIUM BROMIDE INJ 10 MG VIAL IV ONE (08:55)
[2019-03-15] MEDS ORDERED: FENTANYL CITRATE INJ/PF 250 MCG/5 ML AMPULE ONE (09:11)
[2019-03-15] MEDS ORDERED: ONDANSETRON HCL INJ/PF 4 MG/2 ML SDV ONE (09:12)
[2019-03-15] MEDS ORDERED: PROPOFOL INJ 200 MG/20 ML VIAL IV ONE (09:12)
[2019-03-15] MEDS ORDERED: MIDAZOLAM 2 MG/2 ML INJ ONE (09:12)
[2019-03-15] MEDS ORDERED: DEXAMETHASONE SOD PHOSPHATE INJ 4 MG/1 ML VIAL ONE (09:12)
[2019-03-15] MEDS ORDERED: EPHEDRINE SULFATE INJ 50 MG/1 ML AMPULE ONE (09:12)
--- NOTE | 2019-03-15 09:20 | RADIOLOGY REPORT (SQ) ---
EXAM DESCRIPTION: KUB/ABDOMEN (SINGLE VIEW) COMPLETED DATE/TIME: 03/15/2019 7:57 am REASON FOR STUDY: Obstruction COMPARISON: AP view of the abdomen and small-bowel follow-through from 03/14/2019. NUMBER OF VIEWS: One view. TECHNIQUE: Supine radiographic image of the abdomen acquired. LIMITATIONS: None. FINDINGS: The oral contrast from the small bowel follow-through is located within the rectum. There are persistently dilated loops of small bowel in the mid abdomen and left lower quadrant. There is no pneumatosis or portal venous gas. Evaluation for free intraperitoneal air is limited due to supin e technique. The tip and side hole of the enteric tube project within the gastric lumen. There surgical clips marlene t project to the left of the lumbar spine. The irregularity of the superior endplate of the L2 verte bral bodies unchanged. The left lateral costophrenic sulcus remains blunted. IMPRESSION: Findings as detailed above consistent with a resolving/partial small bowel obstruction. Continued radiographic follow-up is recommended. TECHNICAL DOCUMENTATION: JOB ID: [id number] [employer]- All Rights Reserved Reading location - IP/workstation name: [email or web address]
[2019-03-15] MEDS ORDERED: MORPHINE SULFATE 10 MG/ML INJ ONE (09:35)
[2019-03-15] MEDS: PANTOPRAZOLE SODIUM 40 MG VIAL IV SCH ×2 (10:01→21:26)
[2019-03-15] MEDS: CARVEDILOL 12.5 MG TABLET PO SCH ×2 (10:01→21:26)
[2019-03-15] MEDS: METOCLOPRAMIDE HCL INJ/PF 10 MG/2 ML SDV IV SCH ×4 (10:01→21:26)
[2019-03-15] MEDS: RANOLAZINE 500 MG TAB.SR.12H PO SCH ×2 (10:02→17:40)
[2019-03-15] MEDS ORDERED: METRONIDAZOLE 500 MG/NS RTU 0 MG/0 ML RTUPB IV ONE (10:11)
[2019-03-15] MEDS ORDERED: LEVOFLOXACIN IV ONE (10:12)
[2019-03-15] MEDS ORDERED: D5W RTU IV ONE (10:12)
[2019-03-15] MEDS ORDERED: CEFOXITIN INJ 2 GM VIAL ONE (10:30)
[2019-03-15] MEDS ORDERED: PROMETHAZINE HCL INJ 25 MG/1 ML VIAL IV PRN ×2 (10:57)
[2019-03-15] MEDS ORDERED: FENTANYL CITRATE INJ/PF 100 MCG/2 ML AMPUL IV PRN ×3 (10:57)
[2019-03-15] MEDS ORDERED: DIPHENHYDRAMINE HCL 50 MG/ML VIAL IV PRN (10:57)
[2019-03-15] MEDS ORDERED: ONDANSETRON HCL INJ/PF 4 MG/2 ML SDV IV PRN (10:57)
[2019-03-15] MEDS ORDERED: MEPERIDINE HCL/PF INJ 25 MG/1 ML DISP.SYRIN IV PRN (10:57)
[2019-03-15] MEDS ORDERED: OXYCODONE-ACETAMINOPHEN 5-325 MG TABLET PO PRN ×2 (10:57)
[2019-03-15] MEDS ORDERED: MORPHINE SULFATE 10 MG/ML INJ IV PRN ×2 (10:57→13:26)
[2019-03-15] MEDS ORDERED: BUPIVACAINE INJ/PF LIPOSOME/PF 266 MG/20 ML SDV ONE (11:58)
[2019-03-15] MEDS ORDERED: BUPIVACAINE INJ/PF LIPOSOME/PF 266 MG/20 ML SDV INJ ONE (12:17)
--- NOTE | 2019-03-15 13:18 | Operative Report ---
Operative Report DATE OF SURGERY: 03/15/19 PREOPERATIVE DIAGNOSIS: Small bowel partial mechanical obstruction. History of left renal cell carcinoma with nephrectomy. Stage IV renal cell cancer with intra-abdominal seeding and mass POSTOPERATIVE DIAGNOSIS: Same. Proximal jejunum (20 cm) small bowel tumor with intussusception just proximal to it OPERATION: Exploratory laparotomy. Small bowel resection. Feeding jejunostomy SURGEON: EVTO RANDLE ANESTHESIA: Other - 30 mL of Exparel TISSUE REMOVED OR ALTERED: Loop of proximal jejunum COMPLICATIONS: None ESTIMATED BLOOD LOSS: Less than 30 mL INTRAOPERATIVE FINDINGS: Large proximal jejunal intraluminal tumor with small bowel intussusception proximal to it. Small Intraperitoneal nodule PROCEDURE: Procedure was done in the operating room, the patient was placed in a supine position, general esthesia induced by another intubation by anesthesiologist, nasogastric tube was inserted, a Oliveira catheter was inserted, the abdomen was prepped and draped in usual fashion. A midline incision was made according to the presurgical markings, the linea alba was divided with Bovie the peritoneal cavity was entered. The small bowel was eviscerated and ran from the ligament of Treitz down to to the ileocecal valve and backward. A large, hard mass was identified about 15 cm from the ligament of Treitz with small bowel intussusception proximal to it as well as a mesenteric nodule in the same mesentery. The colon was then identified starting from the cecum and was done in a proximal to distal fashion with identification of all segments, right colon, transverse colon, left colon, sigmoid colon, and proximal rectum. The small bowel loop with the lesion chosen for resection was decompressed from the air and fluid content, bowel loops were applied proximally distally, a mesenteric opening was made just proximal to the area of interest and a JENNY stapler with blue load was fired to divide it. This was repeated distally to the area of interest. The mesentery of the loop of small bowel was then divided with LigaSure and the specimen was removed from the surgical field and sent to pathology. The proximal and distal ends of the divided small bowel were then placed [id number], 3 Lembert interrupted 3-0 silk sutures were placed on the antimesenteric border of the 2 ends to keep them together. The antimesenteric corner of the staple line of each end was divided with Bovie and a JENNY stapler with blue load was then inserted. The stapler was closed and fired to create an enteroenterostomy. The stapler was opened and removed, the entero-enterostomy was checked and found to be intact; the enterotomy was temporarily closed with Allis clamps, and closed with a TA stapler with blue load. The TA stapled line was checked, found to be intact, and reinforced with interrupted 3-0 silk sutures. The large mesenteric defect originating from the small bowel resection was closed with a running locking 2-0 silk suture. The bowel clamps were removed and the anastomosis was checked for patency by finger pinching and found to be satisfactory. The small bowel was run from the ligament of Treitz and distally; when a suitable area about 30 cm distal to the ligament of Treitz was identified, bowel clamps were applied 10 cm proximally and distally to the area. Two concentric 2-0 silk pursestring sutures were placed on the antimesenteric border of the chosen area, a 10 [place] feeding jejunostomy tube was inserted through the left lateral abdominal quadrant and into the peritoneal cavity. An opening was made in the middle of the pursestring suture area with Bovie, the j-tube was inserted through the opening, and advanced distally about 15 cm. The 2 pursestring sutures were sequentially tied around the catheter with the needles left in place. The catheter was then secured to the antimesenteric border of the small bowel with interrupted Lembert 3-0 silk sutures using a Pettis technique for about 4 cm. The small bowel was then approximated against the anterior peritoneum and sutured with 3-0 silk sutures already placed. Similarly, the 2 pursestring sutures of the j-tube insertion point were tied against the anterior peritoneal wall to prevent small bowel pivoting. The j-tube was easily flushed and aspirated with normal saline; a 2-0 nylon suture was used to secure the j- tube to the anterior abdominal wall skin. Final inspection of the j=tube area revealed no kinking of the small bowel and good distention of the distal small bowel after normal saline flushing. The peritoneal cavity was irrigated with normal saline until clear, the abdominal wall was closed with running #1 looped PDS suture. The skin of both sides of the surgical wound was infiltrated with Exparel and closed with selina. Sterile dressings were applied, the patient was extubated, and transferred to recovery room in satisfactory conditions.
[2019-03-15] MEDS ORDERED: PHARMACY COMMUNICATION ORDER MC NR (13:30)
[2019-03-15] MEDS ORDERED: CEFOXITIN INJ 1 GM VIAL IV SCH (14:00)
[2019-03-15] MEDS: ACETAMINOPHEN 1,000 MG/100 ML RTUPB IV SCH ×2 (14:03→21:25)
--- NOTE | 2019-03-15 14:37 | PDOC PROGRESS REPORT ---
Subjective Progress Note for:: 03/15/19 Subjective:: The patient is still somewhat sleepy from anesthesia but he is carrying on meaningful conversations. His biggest complaint is the abdominal discomfort as well as his dry mouth and dry lips. Nasogastric tube is still in place. Jejunostomy tube has been placed. A Oliveira catheter is now in place. It appears the surgery went well. Reason For Visit: POSTCHEMOTHERAPY GASTROENTERITIS Physical Exam Vital Signs: Temp Pulse Resp BP Pulse Ox 97.6 F 72 16 116/73 98 03/15/19 12:20 03/15/19 12:45 03/15/19 12:45 03/15/19 12:45 03/15/19 12:45 Intake & Output 03/14/19 03/15/19 03/16/19 06:59 06:59 06:59 Intake Total 1000 1950 2250 Output Total 1000 4500 245 Balance 0 -2550 2004 Weight 74 kg 71.9 kg General appearance: PRESENT: cooperative, mild distress, well-developed Head exam: PRESENT: atraumatic, normocephalic Mouth exam: PRESENT: dry mucosa, tongue midline, other - Very dry lips as well Respiratory exam: PRESENT: clear to auscultation magui - Anteriorly, rales - Bilateral basal rales possibly from atelectasis, symmetrical, unlabored. ABSENT: prolonged expiratory phas, tachypnea, wheezes Cardiovascular exam: PRESENT: RRR, +S1, +S2, other - Occasional irregular beat GI/Abdominal exam: PRESENT: diminished bowel sounds - Difficult to auscultate due to nasogastric tube suction. Diminished sounds would be consistent with surgery on the bowel earlier this morning., soft, tenderness - Consistent with laparotomy., other - J-tube and nasogastric tubes still in place. Midline incision. Rectal exam: PRESENT: deferred Gentrourinary exam: PRESENT: indwelling catheter Extremities exam: ABSENT: pedal edema Musculoskeletal exam: PRESENT: ambulatory - Was ambulatory prior to surgery and will likely be up and around within 24 hours., normal inspection Neurological exam: PRESENT: alert - Slightly sleepy but more alert than I would have anticipated given his general anesthesia earlier today., awake, oriented to person, oriented to place, oriented to time, oriented to situation, CN II-XII grossly intact Psychiatric exam: PRESENT: flat affect. ABSENT: agitated, anxious Focused psych exam: ABSENT: delusional, restlessness Skin exam: PRESENT: dry, warm, other - Hands slightly cool secondary to rainouts disease Results Laboratory Results: 03/15/19 05:26 03/15/19 05:26 03/15/19 03/15/19 03/15/19 05:26 05:26 08:29 WBC 4.9 RBC 3.81 L Hgb 9.2 L Hct 28.5 L MCV 75 L MCH 24.2 L MCHC 32.4 RDW 21.0 H Plt Count 375 Seg Neutrophils % 71.2 Sodium 135.5 L Potassium 4.0 Chloride 94 L Carbon Dioxide 24 Anion Gap 18 BUN 19 Creatinine 1.34 H Est GFR ( Amer) > 60 Glucose 74 L Calcium 8.6 Magnesium 1.8 Blood Type O POSITIVE Antibody Screen NEGATIVE Impressions: Abdomen/Pelvis CT 03/12/19 19:07 IMPRESSION: Dilated fluid-filled loops of small bowel without a discrete transition point, however there is relative decompression of distal loops of ileum in the lower abdomen and pelvis. Findings have worsened slightly from the prior exam. Findings could reflect worsening ileus however partial or incomplete obstruction is also considered. Multiple pulmonary nodules seen in the lung bases for which metastatic disease is considered. Status post left nephrectomy. Large left adrenal mass. Correlate with biopsy results. Mixed lytic and sclerotic lesions, with an associated compression deformity of the L2 vertebral body. Findings are concerning for metastatic disease. Similar findings were present previously. TECHNICAL DOCUMENTATION: Quality ID # 436: Final reports with documentation of one or more dose reduction techniques (e.g., Automated exposure control, adjustment of the mA and/or kV according to patient size, use of iterative reconstruction technique) copyright 2011 [employer]- All Rights Reserved Small Bowel X-Ray 03/14/19 00:00 IMPRESSION: Persistent dilated small bowel loops measuring up to 4.2 cm compatible with obstruction. Gas and previously administered oral contrast now within the colon compatible with partial process. Exam was prematurely terminated secondary to patient intolerance of additional contrast material. Correlation with prior CT demonstrates dilated small bowel loops to level of the distal jejunum with transition point within the right lower quadrant (series 3, image [id number]) with questionable associated soft tissue mass at this location. There are foci of curvilinear gas at this location possibly luminal although pneumatosis is not entirely excluded. Findings were discussed with ordering provider Dr. Cornejo at 1423 hours on 03/14/2019 KUB X-Ray 03/15/19 06:00 IMPRESSION: Findings as detailed above consistent with a resolving/partial small bowel obstruction. Continued radiographic follow-up is recommended. Assessment and Plan - Diagnosis (1) Intractable nausea and vomiting Is this a current diagnosis for this admission?: Yes Plan: 03/13/2019-since placement of the nasogastric tube the patient has had less nausea and no vomiting. His throat is slightly sore from the tube itself. It is believed that the nausea and vomiting could be related to a chemotherapeutic agent. This certainly could contribute to the ileus or the ileus may have formed with subsequent nausea, vomiting and diarrhea. Regardless, he will receive suction with nasogastric tube and he will be kept n.p.o. for right now except for medications. Antiemetics are available. We will continue IV fluids at this time. 03/14/2019-antiemetics available. Continue IV fluids and nasogastric tube 03/15/2019-nasogastric tube remains in place. Patient now has a jejunostomy tube and underwent bowel resection. (2) Diarrhea Qualifiers: Diarrhea type: unspecified type Qualified Code(s): R19.7 - Diarrhea, unspecified Is this a current diagnosis for this admission?: Yes Plan: 03/13/2019-diarrhea does not appear to be infectious. Will monitor output and try and match losses with IV fluids. Will monitor electrolytes. 03/14/2019-patient is no longer passing any significant stool. We will continue to monitor. 03/15/2019-not currently an acute issue. Will monitor for bowel output status post abdominal surgery. (3) Ileus Is this a current diagnosis for this admission?: Yes Plan: 03/13/2019-CT scan showed dilated loops of bowel with some fluid. The patient is having bowel sounds. He stated that he did pass some watery stool earlier. Hopefully with bowel rest the ileus will resolve. Once it does we will resume clear liquids initially and then advance his diet. 03/14/2019-I did order a small bowel series. The patient was unable to complete intake of the oral contrast. The radiologist did call me and upon review of previous studies he feels that there is a transition point identified. Dr. Jackson did review the imaging with the radiologist. He feels there is no acute ischemia or necrotic bowel at this time. We will continue a conservative course. 03/15/2019-patient underwent abdominal surgery today after a lengthy discussion with oncology and surgery. He did well. We will monitor closely. This should have resolved the ileus. (4) Abdominal bloating Is this a current diagnosis for this admission?: Yes Plan: 03/13/2019-the patient's abdomen is tympanitic. This is consistent with the imaging and ileus. If there does not appear to be any improvement I will reimage the abdomen tomorrow. Conservative management as above. 03/14/2019-consistent with ileus. Continue conservative management. 03/15/2019-status post laparotomy. No longer a clinical issue. (5) Coronary artery disease Qualifiers: Coronary Disease-Associated Artery/Lesion type: [place] artery [place] vs. transplanted heart: [place] heart Associated angina: without angina Qualified Code(s): I25.10 - Atherosclerotic heart disease of [place] coronary artery without angina pectoris Is this a current diagnosis for this admission?: Yes Plan: 03/13/2019-we will continue cardiac medications as tolerated. With the nasogastric tube in place suction will need to be held for administration of m edications. I have held several of his medications and will decide on administration based on daily evaluation. 03/14/2019-the patient was seen by cardiology for potential preop clearance. The patient has a history of alcoholic cardiomyopathy. He has not exhibited any acute issues at this point. We will add back his carvedilol and continue his Ranexa. The NG tube will be clamped for 2 hours after administration of the medication. 03/15/2019-the patient remains on his carvedilol and Ranexa. No evidence of acute coronary syndrome. He tolerated his surgery without difficulty. (6) renal cell carcinoma stage 4 Is this a current diagnosis for this admission?: Yes Plan: 03/13/2019-the patient has already had a nephrectomy and it has been discovered that there is now renal cell carcinoma on the other kidney. The primary treatment will be by oncology. Certainly no active treatment in his current state. Oncology will be seeing the patient as well. 03/14/2019-Per the radiologist it is possible that malignancy could be compromising the bowel. It is not clear. Oncology continues to follow the patient. 03/15/2019-no acute intervention until current issues are resolved. (7) Hyperlipidemia Qualifiers: Hyperlipidemia type: unspecified Qualified Code(s): E78.5 - Hyperlipidemia, unspecified Is this a current diagnosis for this admission?: Yes Plan: 03/13/2019-we will resume cardiac diet once the patient is able to tolerate oral intake. I am holding his statin at this time as it is not critical. Will resume statin therapy when appropriate. 03/14/2019-resume statin therapy after ileus has resolved 03/15/2019-statin therapy currently on hold (8) Raynauds disease Qualifiers: Raynaud?s-associated gangrene presence: without gangrene Qualified Code(s): I73.00 - Raynaud's syndrome without gangrene Is this a current diagnosis for this admission?: Yes Plan: 03/15/2019-the patient's fingers and hands will get cold. I have not observed typical discoloration yet. This makes pulse oximetry difficult and therefore we will not utilize continuous oximetry. We did discuss the use of hand warmers and possibly gloves during his hospitalization. - Plan Summary Summary: Patient is admitted to the medical floor where he will receive routine supportive and symptomatic cares. He will be maintained on IV fluids and lucio xiomara aggressively with an antiemetic therapy regimen. He will be followed by the surgical service in consultation (Dr. Sheffield). Patient CBC and metabolic profile be followed closely. He will initially be treated with a NG tube utilizing low intermittent suction. - Time Time Spent with patient: 15-24 minutes Medications reviewed and adjusted accordingly: Yes
[2019-03-15] MEDS: CEFOXITIN SODIUM IV SCH (17:40)
[2019-03-15] MEDS: DEXTROSE 5% IV SCH (17:40)
[2019-03-15] MEDS: WATER IV SCH (17:40)
[2019-03-15 18:17] LABS: APPEARANCE,URINE CLEAR; BILIRUBIN,URINE NEGATIVE (NEGATIVE); GLUCOSE, URINE NEGATIVE (NEGATIVE); KETONES,URINE 80 mg/dL (NEGATIVE); LEUKOCYTE ESTERASE,URINE NEGATIVE (NEGATIVE); NITRITE,URINE NEGATIVE (NEGATIVE); PROTEIN,URINE 100 mg/dL (NEGATIVE); URINE SPECIFIC GRAVITY 1.026; UROBILINOGEN,URINE NEGATIVE mg/dL (<2.0)
[2019-03-15 18:19] LABS: COLOR,URINE YELLOW
[2019-03-16] MEDS: WATER IV SCH ×3 (02:07→18:09)
[2019-03-16] MEDS: CEFOXITIN SODIUM IV SCH ×3 (02:07→18:09)
[2019-03-16] MEDS: DEXTROSE 5% IV SCH ×3 (02:07→18:09)
[2019-03-16] MEDS: NORMAL SALINE 1000 ML 1,000 ML IV PRN ×4 (02:08→23:07)
[2019-03-16] MEDS: ACETAMINOPHEN 1,000 MG/100 ML RTUPB IV SCH ×4 (05:00→23:07)
[2019-03-16 06:20] LABS: ABSOLUTE LYMPHOCYTES (AUTO) 0.4 10^3/uL (0.5-4.7); ABSOLUTE MONOCYTES (AUTO) 0.6 10^3/uL (0.1-1.4); ABSOLUTE NEUT (AUTO) 4.5 10^3/uL (1.7-8.2); BASOPHILS % (AUTO) 0.1 % (0-2); HEMATOCRIT 27.8 % (37.9-51.0); HEMOGLOBIN 8.9 g/dL (13.5-17.0); LYMPHOCYTES % (AUTO) 7.3 % (13-45); MEAN CORPUSCULAR HEMOGLOBIN 24.1 pg (27.0-33.4); MEAN CORPUSCULAR HGB CONC 31.9 g/dL (32.0-36.0); MEAN CORPUSCULAR VOLUME 76 fl (80-97); MONOCYTES % (AUTO) 10.3 % (3-13); PLATELET COUNT 376 10^3/uL (150-450); RED BLOOD COUNT 3.69 10^6/uL (4.35-5.55); RED CELL DISTRIBUTION WIDTH 21.4 % (11.5-14.0); SEGMENTED NEUTROPHILS % (AUTO) 82.3 % (42-78); TOTAL CELLS COUNTED % (AUTO) 100 %; WHITE BLOOD COUNT 5.5 10^3/uL (4.0-10.5)
[2019-03-16] MEDS: HEPARIN SOD (PORCINE) 5,000 UNIT/ML 1 ML VIAL SUBCUT SCH ×3 (06:31→23:13)
[2019-03-16 06:46] LABS: ANION GAP 15 (5-19); BLOOD UREA NITROGEN 22 mg/dL (7-20); CALCIUM 7.9 mg/dL (8.4-10.2); CARBON DIOXIDE 19 mmol/L (22-30); CHLORIDE 104 mmol/L (98-107); GLUCOSE 103 mg/dL (75-110); POTASSIUM 4.4 mmol/L (3.6-5.0)
--- NOTE | 2019-03-16 08:07 | PDOC PROGRESS REPORT ---
Subjective Progress Note for:: 03/16/19 Subjective:: Patient feeling well today, denies any discomfort, no flatus or stools Reason For Visit: POSTCHEMOTHERAPY GASTROENTERITIS Physical Exam Vital Signs: Temp Pulse Resp BP Pulse Ox 97.3 F 72 17 129/86 H 96 03/15/19 20:38 03/16/19 02:00 03/15/19 20:38 03/15/19 20:38 03/15/19 20:38 Intake & Output 03/15/19 03/16/19 03/17/19 06:59 06:59 06:59 Intake Total 1950 3550 Output Total 4500 1270 750 Balance -2550 2280 -750 Weight 71.9 kg 74.2 kg General appearance: PRESENT: no acute distress Respiratory exam: PRESENT: clear to auscultation magui Cardiovascular exam: PRESENT: RRR GI/Abdominal exam: PRESENT: soft, other - No bowel sounds, not distended, not tender, midline incision clean, dry, and intact, feeding jejunostomy tube in the left lower quadrant Results Laboratory Results: 03/16/19 05:19 03/16/19 05:19 03/15/19 03/15/19 03/16/19 08:29 17:31 05:19 WBC RBC Hgb Hct MCV MCH MCHC RDW Plt Count Seg Neutrophils % Sodium 137.5 Potassium 4.4 Chloride 104 Carbon Dioxide 19 L Anion Gap 15 BUN 22 H Creatinine 1.15 Est GFR ( Amer) > 60 Glucose 103 Calcium 7.9 L Urine Color YELLOW Urine Appearance CLEAR Urine pH 5.0 Ur Specific [place] 1.026 Urine Protein 100 H Urine Glucose (UA) NEGATIVE Urine Ketones 80 H Urine Blood NEGATIVE Urine Nitrite NEGATIVE Ur Leukocyte Esterase NEGATIVE Urine WBC (Auto) 1 Urine RBC (Auto) 2 Blood Type O POSITIVE Antibody Screen NEGATIVE 03/16/19 05:19 WBC 5.5 RBC 3.69 L Hgb 8.9 L Hct 27.8 L MCV 76 L MCH 24.1 L MCHC 31.9 L RDW 21.4 H Plt Count 376 Seg Neutrophils % 82.3 H Sodium Potassium Chloride Carbon Dioxide Anion Gap BUN Creatinine Est GFR ( Amer) Glucose Calcium Urine Color Urine Appearance Urine pH Ur Specific [place] Urine Protein Urine Glucose (UA) Urine Ketones Urine Blood Urine Nitrite Ur Leukocyte Esterase Urine WBC (Auto) Urine RBC (Auto) Blood Type Antibody Screen Impressions: Abdomen/Pelvis CT 03/12/19 19:07 IMPRESSION: Dilated fluid-filled loops of small bowel without a discrete transition point, however there is relative decompression of distal loops of ileum in the lower abdomen and pelvis. Findings have worsened slightly from the prior exam. Findings could reflect worsening ileus however partial or incomplete obstruction is also considered. Multiple pulmonary nodules seen in the lung bases for which metastatic disease is considered. Status post left nephrectomy. Large left adrenal mass. Correlate with biopsy results. Mixed lytic and sclerotic lesions, with an associated compression deformity of the L2 vertebral body. Findings are concerning for metastatic disease. Similar findings were present previously. TECHNICAL DOCUMENTATION: Quality ID # 436: Final reports with documentation of one or more dose reduction techniques (e.g., Automated exposure control, adjustment of the mA and/or kV according to patient size, use of iterative reconstruction technique) copyright 2011 [employer]- All Rights Reserved Small Bowel X-Ray 03/14/19 00:00 IMPRESSION: Persistent dilated small bowel loops measuring up to 4.2 cm compatible with obstruction. Gas and previously administered oral contrast now within the colon compatible with partial process. Exam was prematurely terminated secondary to patient intolerance of additional contrast material. Correlation with prior CT demonstrates dilated small bowel loops to level of the distal jejunum with transition point within the right lower quadrant (series 3, image [id number]) with questionable associated soft tissue mass at this location. There are foci of curvilinear gas at this location possibly luminal although pneumatosis is not entirely excluded. Findings were discussed with ordering provider Dr. Cornejo at 1423 hours on 03/14/2019 KUB X-Ray 03/15/19 06:00 IMPRESSION: Findings as detailed above consistent with a resolving/partial small bowel obstruction. Continued radiographic follow-up is recommended. Assessment & Plan - Diagnosis (1) renal cell carcinoma stage 4 Is this a current diagnosis for this admission?: Yes (2) Ileus Is this a current diagnosis for this admission?: Yes (3) Renal cell carcinoma Qualifiers: Laterality: right Qualified Code(s): C64.1 - Malignant neoplasm of right kidney, except renal pelvis Is this a current diagnosis for this admission?: Yes - Time Time Spent with patient: 35 or more minutes - Plan Summary Plan Summary: Assessment: Postoperative day #1 following laparotomy, small bowel resection for proximal jejunal obstructing tumor and a feeding jejunostomy easement Vital signs stable, patient afebrile Good urine output Still slightly elevated nasogastric tube output Blood work within normal limits except for slight drop of the H&H (from 9.2/28.5 down to 8.9/27.8), most likely due to hemodilution and receive rehydration during surgery Abdomen soft No bowel function present yet Plan: Continue n.p.o. Continue nasogastric tube aspirate until bowel function returns Continue IV fluids and rate Discontinue IV narcotics Start Toradol 50 mg IV every 6 for pain control together with Ofirmev 1 g IV every 6 Start infusing normal saline via J-tube today I will consider starting tube feeding via feeding jejunostomy tomorrow at low rate
[2019-03-16] MEDS: CARVEDILOL 12.5 MG TABLET PO SCH ×2 (09:32→23:07)
[2019-03-16] MEDS: RANOLAZINE 500 MG TAB.SR.12H PO SCH ×2 (09:32→18:08)
[2019-03-16] MEDS: KETOROLAC TROMETHAMINE INJ/PF 30 MG/1 ML SDV IV SCH ×4 (10:43→23:08)
[2019-03-16] MEDS: PANTOPRAZOLE SODIUM 40 MG VIAL IV SCH ×2 (10:44→23:06)
--- NOTE | 2019-03-16 12:57 | PDOC PROGRESS REPORT ---
Subjective Progress Note for:: 03/16/19 Subjective:: The patient is resting in bed. Living will documentation is on the bedside table. At this time he is reviewing a stock report with Dr. Hurtado. He does not appear to be in any discomfort. Review with surgery reveals resection of a small bowel tumor and placement of jejunostomy tube distal to the resection. Reason For Visit: POSTCHEMOTHERAPY GASTROENTERITIS Physical Exam Vital Signs: Temp Pulse Resp BP Pulse Ox 97.8 F 65 18 124/83 96 03/16/19 08:00 03/16/19 08:00 03/16/19 08:00 03/16/19 08:00 03/16/19 08:00 Intake & Output 03/15/19 03/16/19 03/17/19 06:59 06:59 06:59 Intake Total 1950 3550 1000 Output Total 4500 1270 750 Balance -2550 2280 250 Weight 71.9 kg 74.2 kg General appearance: PRESENT: no acute distress, cooperative, well-developed Head exam: PRESENT: atraumatic, normocephalic Mouth exam: PRESENT: other - Nasogastric tube in place Respiratory exam: PRESENT: clear to auscultation magui, symmetrical, unlabored. ABSENT: rales, rhonchi, tachypnea, wheezes Cardiovascular exam: PRESENT: RRR, +S1, +S2 GI/Abdominal exam: PRESENT: normal bowel sounds, soft, other - Jejunostomy tube present as well as midline incision. ABSENT: distended Rectal exam: PRESENT: deferred Extremities exam: ABSENT: pedal edema Musculoskeletal exam: PRESENT: ambulatory, normal inspection. ABSENT: deformity Neurological exam: PRESENT: alert, awake, oriented to person, oriented to place, oriented to time, oriented to situation, CN II-XII grossly intact Psychiatric exam: PRESENT: appropriate affect. ABSENT: agitated, anxious Results Laboratory Results: 03/16/19 05:19 03/16/19 05:19 03/15/19 03/16/19 03/16/19 17:31 05:19 05:19 WBC 5.5 RBC 3.69 L Hgb 8.9 L Hct 27.8 L MCV 76 L MCH 24.1 L MCHC 31.9 L RDW 21.4 H Plt Count 376 Seg Neutrophils % 82.3 H Sodium 137.5 Potassium 4.4 Chloride 104 Carbon Dioxide 19 L Anion Gap 15 BUN 22 H Creatinine 1.15 Est GFR ( Amer) > 60 Glucose 103 Calcium 7.9 L Urine Color YELLOW Urine Appearance CLEAR Urine pH 5.0 Ur Specific [place] 1.026 Urine Protein 100 H Urine Glucose (UA) NEGATIVE Urine Ketones 80 H Urine Blood NEGATIVE Urine Nitrite NEGATIVE Ur Leukocyte Esterase NEGATIVE Urine WBC (Auto) 1 Urine RBC (Auto) 2 Impressions: Abdomen/Pelvis CT 03/12/19 19:07 IMPRESSION: Dilated fluid-filled loops of small bowel without a discrete transition point, however there is relative decompression of distal loops of ileum in the lower abdomen and pelvis. Findings have worsened slightly from the prior exam. Findings could reflect worsening ileus however partial or incomplete obstruction is also considered. Multiple pulmonary nodules seen in the lung bases for which metastatic disease is considered. Status post left nephrectomy. Large left adrenal mass. Correlate with biopsy results. Mixed lytic and sclerotic lesions, with an associated compression deformity of the L2 vertebral body. Findings are concerning for metastatic disease. Similar findings were present previously. TECHNICAL DOCUMENTATION: Quality ID # 436: Final reports with documentation of one or more dose reduction techniques (e.g., Automated exposure control, adjustment of the mA and/or kV according to patient size, use of iterative reconstruction technique) copyright 2010 [employer]- All Rights Reserved Small Bowel X-Ray 03/14/19 00:00 IMPRESSION: Persistent dilated small bowel loops measuring up to 4.2 cm c ompatible with obstruction. Gas and previously administered oral contrast now within the colon compatible with partial process. Exam was prematurely terminated secondary to patient intolerance of additional contrast material. Correlation with prior CT demonstrates dilated small bowel loops to level of the distal jejunum with transition point within the right lower quadrant (series 3, image [id number]) with questionable associated soft tissue mass at this location. There are foci of curvilinear gas at this location possibly luminal although pneumatosis is not entirely excluded. Findings were discussed with ordering provider Dr. Cornejo at 1423 hours on 03/14/2019 KUB X-Ray 03/15/19 06:00 IMPRESSION: Findings as detailed above consistent with a resolving/partial small bowel obstruction. Continued radiographic follow-up is recommended. Assessment and Plan - Diagnosis (1) Intractable nausea and vomiting Is this a current diagnosis for this admission?: Yes Plan: 03/13/2019-since placement of the nasogastric tube the patient has had less nausea and no vomiting. His throat is slightly sore from the tube itself. It is believed that the nausea and vomiting could be related to a chemotherapeutic agent. This certainly could contribute to the ileus or the ileus may have formed with subsequent nausea, vomiting and diarrhea. Regardless, he will receive suction with nasogastric tube and he will be kept n.p.o. for right now except for medications. Antiemetics are available. We will continue IV fluids at this time. 03/14/2019-antiemetics available. Continue IV fluids and nasogastric tube 03/15/2019-nasogastric tube remains in place. Patient now has a jejunostomy tube and underwent bowel resection. 03/16/2019-resolved now that obstruction has been resected. Nasogastric tube remains in place postoperatively. (2) Diarrhea Qualifiers: Diarrhea type: unspecified type Qualified Code(s): R19.7 - Diarrhea, unspecified Is this a current diagnosis for this admission?: Yes Plan: 03/13/2019-diarrhea does not appear to be infectious. Will monitor output and try and match losses with IV fluids. Will monitor electrolytes. 03/14/2019-patient is no longer passing any significant stool. We will continue to monitor. 03/15/2019-not currently an acute issue. Will monitor for bowel output status post abdominal surgery. 03/16/2019-monitoring for flatus or passing of stool postoperatively. (3) Ileus Is this a current diagnosis for this admission?: Yes Plan: 03/13/2019-CT scan showed dilated loops of bowel with some fluid. The patient is having bowel sounds. He stated that he did pass some watery stool earlier. Hopefully with bowel rest the ileus will resolve. Once it does we will resume clear liquids initially and then advance his diet. 03/14/2019-I did order a small bowel series. The patient was unable to complete intake of the oral contrast. The radiologist did call me and upon review of previous studies he feels that there is a transition point identified. Dr. Jackson did review the imaging with the radiologist. He feels there is no acute ischemia or necrotic bowel at this time. We will continue a conservative course. 03/15/2019-patient underwent abdominal surgery today after a lengthy discussion with oncology and surgery. He did well. We will monitor closely. This should have resolved the ileus. 03/16/2019-resolved with resection of small bowel tumor (4) Abdominal bloating Is this a current diagnosis for this admission?: Yes Plan: 03/13/2019-the patient's abdomen is tympanitic. This is consistent with the imaging and ileus. If there does not appear to be any improvement I will reimage the abdomen tomorrow. Conservative management as above. 03/14/2019-consistent with ileus. Continue conservative management. 03/15/2019-status post laparotomy. No longer a clinical issue. 03/16/2019-resolved (5) Coronary artery disease Qualifiers: Coronary Disease-Associated Artery/Lesion type: [place] artery [place] vs. transplanted heart: [place] heart Associated angina: without angina Qualified Code(s): I25.10 - Atherosclerotic heart disease of [place] coronary artery without angina pectoris Is this a current diagnosis for this admission?: Yes Plan: 03/13/2019-we will continue cardiac medications as tolerated. With the nasogastric tube in place suction will need to be held for administration of medications. I have held several of his medications and will decide on administration based on daily evaluation. 03/14/2019-the patient was seen by cardiology for potential preop clearance. The patient has a history of alcoholic cardiomyopathy. He has not exhibited any acute issues at this point. We will add back his carvedilol and continue his Ranexa. The NG tube will be clamped for 2 hours after administration of the medication. 03/15/2019-the patient remains on his carvedilol and Ranexa. No evidence of acute coronary syndrome. He tolerated his surgery without difficulty. 03/16/2019-continue current regimen. No evidence of acute coronary syndrome. (6) renal cell carcinoma stage 4 Is this a current diagnosis for this admission?: Yes Plan: 03/13/2019-the patient has already had a nephrectomy and it has been discovered that there is now renal cell carcinoma on the other kidney. The primary treatment will be by oncology. Certainly no active treatment in his current sta te. Oncology will be seeing the patient as well. 03/14/2019-Per the radiologist it is possible that malignancy could be compromising the bowel. It is not clear. Oncology continues to follow the pat ient. 03/15/2019-no acute intervention until current issues are resolved. 03/16/2019-Dr. Hurtado reviewed the treatment plan with the patient. Currently on hold. Awaiting biopsy report from small bowel tumor. (7) Hyperlipidemia Qualifiers: Hyperlipidemia type: unspecified Qualified Code(s): E78.5 - Hyperlipidemia, unspecified Is this a current diagnosis for this admission?: Yes Plan: 03/13/2019-we will resume cardiac diet once the patient is able to tolerate oral intake. I am holding his statin at this time as it is not critical. Will resume statin therapy when appropriate. 03/14/2019-resume statin therapy after ileus has resolved 03/15/2019-statin therapy currently on hold 03/16/2019-consider resuming statin therapy when the patient is able to eat (8) Raynauds disease Qualifiers: Raynaud?s-associated gangrene presence: without gangrene Qualified Code(s): I73.00 - Raynaud's syndrome without gangrene Is this a current diagnosis for this admission?: Yes Plan: 03/15/2019-the patient's fingers and hands will get cold. I have not observed typical discoloration yet. This makes pulse oximetry difficult and therefore we will not utilize continuous oximetry. We did discuss the use of hand warmers and possibly gloves during his hospitalization. 03/16/2019-conservative therapy. Hand warmers and gloves if needed. - Plan Summary Summary: Patient is admitted to the medical floor where he will receive routine supportive and symptomatic cares. He will be maintained on IV fluids and whit ated aggressively with an antiemetic therapy regimen. He will be followed by the surgical service in consultation (Dr. Sheffield). Patient CBC and metabolic profile be followed closely. He will initially be treated with a NG tube utilizing low intermittent suction. - Time Time Spent with patient: 25-34 minutes Medications reviewed and adjusted accordingly: Yes Anticipated discharge: Home with Homehealth
--- NOTE | 2019-03-16 13:51 | EKG REPORT ---
SEVERITY:- DEFECTIVE ECG - BASELINE SEVERE ARTIFACT.CANNOT INTERPRET.REPEAT EKG. : Confirmed by: Callie Santos MD 16-Mar-2019 13:50:29
--- NOTE | 2019-03-16 13:51 | EKG REPORT ---
SEVERITY:- BORDERLINE ECG - SINUS RHYTHM VENTRICULAR PREMATURE COMPLEX BORDERLINE T ABNORMALITIES, ANT-LAT LEADS : Confirmed by: Callie Santos MD 16-Mar-2019 13:49:29
--- NOTE | 2019-03-16 13:57 | PDOC PROGRESS REPORT ---
Subjective Progress Note for:: 03/16/19 Subjective:: Surgery went well yesterday, he is getting saline flush through the J-tube currently, I had a long discussion with Drs. Sheffield and Chantal along with the patient this morning, spent about 45 minutes in discussion. Reason For Visit: POSTCHEMOTHERAPY GASTROENTERITIS Physical Exam Vital Signs: Temp Pulse Resp BP Pulse Ox 97.8 F 65 18 124/83 96 03/16/19 08:00 03/16/19 08:00 03/16/19 08:00 03/16/19 08:00 03/16/19 08:00 Intake & Output 03/15/19 03/16/19 03/17/19 06:59 06:59 06:59 Intake Total 1950 3550 1000 Output Total 4500 1270 750 Balance -2550 2280 250 Weight 71.9 kg 74.2 kg General appearance: PRESENT: no acute distress, well-developed, well-nourished Head exam: PRESENT: atraumatic, normocephalic Eye exam: PRESENT: conjunctiva pink, EOMI, PERRLA. ABSENT: scleral icterus Ear exam: PRESENT: normal external ear exam Mouth exam: PRESENT: moist, tongue midline Neck exam: ABSENT: carotid bruit, JVD, lymphadenopathy, thyromegaly Respiratory exam: PRESENT: clear to auscultation magui. ABSENT: rales, rhonchi, wheezes Cardiovascular exam: PRESENT: RRR. ABSENT: diastolic murmur, rubs, systolic murmur Pulses: PRESENT: normal dorsalis pedis pul Vascular exam: PRESENT: normal capillary refill GI/Abdominal exam: PRESENT: normal bowel sounds, soft. ABSENT: distended, guarding, mass, organolmegaly, rebound, tenderness Rectal exam: PRESENT: deferred Extremities exam: PRESENT: full ROM. ABSENT: calf tenderness, clubbing, pedal edema Neurological exam: PRESENT: alert, awake, oriented to person, oriented to place, oriented to time, oriented to situation, CN II-XII grossly intact. ABSENT: motor sensory deficit Psychiatric exam: PRESENT: appropriate affect, normal mood. ABSENT: homicidal ideation, suicidal ideation Skin exam: PRESENT: dry, intact, warm. ABSENT: cyanosis, rash Results Laboratory Results: 03/16/19 05:19 03/16/19 05:19 03/15/19 03/16/19 03/16/19 17:31 05:19 05:19 WBC 5.5 RBC 3.69 L Hgb 8.9 L Hct 27.8 L MCV 76 L MCH 24.1 L MCHC 31.9 L RDW 21.4 H Plt Count 376 Seg Neutrophils % 82.3 H Sodium 137.5 Potassium 4.4 Chloride 104 Carbon Dioxide 19 L Anion Gap 15 BUN 22 H Creatinine 1.15 Est GFR ( Amer) > 60 Glucose 103 Calcium 7.9 L Urine Color YELLOW Urine Appearance CLEAR Urine pH 5.0 Ur Specific [place] 1.026 Urine Protein 100 H Urine Glucose (UA) NEGATIVE Urine Ketones 80 H Urine Blood NEGATIVE Urine Nitrite NEGATIVE Ur Leukocyte Esterase NEGATIVE Urine WBC (Auto) 1 Urine RBC (Auto) 2 Impressions: Abdomen/Pelvis CT 03/12/19 19:07 IMPRESSION: Dilated fluid-filled loops of small bowel without a discrete transition point, however there is relative decompression of distal loops of ileum in the lower abdomen and pelvis. Findings have worsened slightly from the prior exam. Findings could reflect worsening ileus however partial or incomplete obstruction is also considered. Multiple pulmonary nodules seen in the lung bases for which metastatic disease is considered. Status post left nephrectomy. Large left adrenal mass. Correlate with biopsy results. Mixed lytic and sclerotic lesions, with an associated compression deformity of the L2 vertebral body. Findings are concerning for metastatic disease. Similar findings were present previously. TECHNICAL DOCUMENTATION: Quality ID # 436: Final reports with documentation of one or more dose reduction techniques (e.g., Automated exposure control, adjustment of the mA and/or kV according to patient size, use of iterative reconstruction technique) copyright 2011 [employer]- All Rights Reserved Small Bowel X-Ray 03/14/19 00:00 IMPRESSION: Persistent dilated small bowel loops measuring up to 4.2 cm compatible with obstruction. Gas and previously administered oral contrast now within the colon compatible with partial process. Exam was prematurely terminated secondary to patient intolerance of additional contrast material. Correlation with prior CT demonstrates dilated small bowel loops to level of the distal jejunum with transition point within the right lower quadrant (series 3, image [id number]) with questionable associated soft tissue mass at this location. There are foci of curvilinear gas at this location possibly luminal although pneumatosis is not entirely excluded. Findings were discussed with ordering provider Dr. Cornejo at 1423 hours on 03/14/2019 KUB X-Ray 03/15/19 06:00 IMPRESSION: Findings as detailed above consistent with a resolving/partial small bowel obstruction. Continued radiographic follow-up is recommended. Assessment & Plan - Diagnosis (1) Partial small bowel obstruction Is this a current diagnosis for this admission?: Yes Plan: Status post surgery, G-tube placed, per Dr. Sheffield he is going to start trickle feeds tomorrow. He needs to be n.p.o. for at least 7 days for healing purposes. (2) renal cell carcinoma stage 4 Is this a current diagnosis for this admission?: Yes Plan: We will continue treatment as an outpatient, once he is able to take n.p.o. he will be able to start his oral medication. Axel was obtained for that, so he should be getting the drug soon. He will be continued on Keytruda as an outpatient as well. - Time Time Spent with patient: 35 or more minutes
[2019-03-16] MEDS: ZOLPIDEM TARTRATE 5 MG TABLET PO PRN (23:07)
[2019-03-17] MEDS: CEFOXITIN SODIUM IV SCH ×3 (02:10→17:44)
[2019-03-17] MEDS: DEXTROSE 5% IV SCH ×3 (02:10→17:44)
[2019-03-17] MEDS: WATER IV SCH ×3 (02:10→17:44)
[2019-03-17] MEDS: ZOLPIDEM TARTRATE 5 MG TABLET PO PRN (02:12)
[2019-03-17] MEDS: ACETAMINOPHEN 1,000 MG/100 ML RTUPB IV SCH ×4 (03:55→21:08)
[2019-03-17 05:26] LABS: ABSOLUTE EOSINOPHILS # (AUTO) 0.1 10^3/uL (0.0-0.6); ABSOLUTE LYMPHOCYTES (AUTO) 0.6 10^3/uL (0.5-4.7); ABSOLUTE MONOCYTES (AUTO) 0.6 10^3/uL (0.1-1.4); ABSOLUTE NEUT (AUTO) 3.8 10^3/uL (1.7-8.2); BASOPHILS % (AUTO) 0.5 % (0-2); EOSINOPHILS % (AUTO) 1.5 % (0-6); HEMATOCRIT 26.5 % (37.9-51.0); HEMOGLOBIN 8.6 g/dL (13.5-17.0); LYMPHOCYTES % (AUTO) 12.4 % (13-45); MEAN CORPUSCULAR HEMOGLOBIN 24.6 pg (27.0-33.4); MEAN CORPUSCULAR HGB CONC 32.6 g/dL (32.0-36.0); MEAN CORPUSCULAR VOLUME 75 fl (80-97); MONOCYTES % (AUTO) 11.7 % (3-13); PLATELET COUNT 338 10^3/uL (150-450); RED BLOOD COUNT 3.52 10^6/uL (4.35-5.55); RED CELL DISTRIBUTION WIDTH 20.9 % (11.5-14.0); SEGMENTED NEUTROPHILS % (AUTO) 73.9 % (42-78); TOTAL CELLS COUNTED % (AUTO) 100 %; WHITE BLOOD COUNT 5.1 10^3/uL (4.0-10.5)
[2019-03-17 05:44] LABS: ANION GAP 7 (5-19); BLOOD UREA NITROGEN 29 mg/dL (7-20); CALCIUM 7.9 mg/dL (8.4-10.2); CARBON DIOXIDE 23 mmol/L (22-30); CHLORIDE 106 mmol/L (98-107); GLUCOSE 94 mg/dL (75-110); POTASSIUM 4.3 mmol/L (3.6-5.0)
[2019-03-17] MEDS: HEPARIN SOD (PORCINE) 5,000 UNIT/ML 1 ML VIAL SUBCUT SCH ×3 (06:24→21:08)
[2019-03-17] MEDS: NORMAL SALINE 1000 ML 1,000 ML IV PRN ×3 (06:47→21:08)
[2019-03-17] MEDS: KETOROLAC TROMETHAMINE INJ/PF 30 MG/1 ML SDV IV SCH ×4 (06:48→23:33)
--- NOTE | 2019-03-17 08:45 | PDOC PROGRESS REPORT ---
Subjective Progress Note for:: 03/17/19 Subjective:: Patient comfortable, no complaints, no bowel function has returned yet Reason For Visit: POSTCHEMOTHERAPY GASTROENTERITIS Physical Exam Vital Signs: Temp Pulse Resp BP Pulse Ox 97.3 F 56 L 17 118/74 97 03/16/19 23:16 03/17/19 07:00 03/16/19 23:16 03/16/19 23:16 03/16/19 23:16 Intake & Output 03/16/19 03/17/19 03/18/19 06:59 06:59 06:59 Intake Total 3550 4297 Output Total 1270 1400 400 Balance 2280 2897 -400 Weight 74.2 kg 76.7 kg General appearance: PRESENT: no acute distress Respiratory exam: PRESENT: clear to auscultation magui Cardiovascular exam: PRESENT: RRR GI/Abdominal exam: PRESENT: soft - Not distended, not tender, no bowel sounds Results Laboratory Results: 03/17/19 04:40 03/17/19 04:40 03/17/19 03/17/19 04:40 04:40 WBC 5.1 RBC 3.52 L Hgb 8.6 L Hct 26.5 L MCV 75 L MCH 24.6 L MCHC 32.6 RDW 20.9 H Plt Count 338 Seg Neutrophils % 73.9 Sodium 136.4 L Potassium 4.3 Chloride 106 Carbon Dioxide 23 Anion Gap 7 BUN 29 H Creatinine 1.41 H Est GFR ( Amer) > 60 Glucose 94 Calcium 7.9 L Impressions: Abdomen/Pelvis CT 03/12/19 19:07 IMPRESSION: Dilated fluid-filled loops of small bowel without a discrete transition point, however there is relative decompression of distal loops of ileum in the lower abdomen and pelvis. Findings have worsened slightly from the prior exam. Findings could reflect worsening ileus however partial or incomplete obstruction is also considered. Multiple pulmonary nodules seen in the lung bases for which metastatic disease is considered. Status post left nephrectomy. Large left adrenal mass. Correlate with biopsy results. Mixed lytic and sclerotic lesions, with an associated compression deformity of the L2 vertebral body. Findings are concerning for metastatic disease. Similar findings were present previously. TECHNICAL DOCUMENTATION: Quality ID # 436: Final reports with documentation of one or more dose reduction techniques (e.g., Automated exposure control, adjustment of the mA and/or kV according to patient size, use of iterative reconstruction technique) copyright 2011 [employer]- All Rights Reserved Small Bowel X-Ray 03/14/19 00:00 IMPRESSION: Persistent dilated small bowel loops measuring up to 4.2 cm compatible with obstruction. Gas and previously administered oral contrast now within the colon compatible with partial process. Exam was prematurely terminated secondary to patient intolerance of additional contrast material. Correlation with prior CT demonstrates dilated small bowel loops to level of the distal jejunum with transition point within the right lower quadrant (series 3, image [id number]) with questionable associated soft tissue mass at this location. There are foci of curvilinear gas at this location possibly luminal although pneumatosis is not entirely excluded. Findings were discussed with ordering provider Dr. Cornejo at 1423 hours on 03/14/2019 KUB X-Ray 03/15/19 06:00 IMPRESSION: Findings as detailed above consistent with a resolving/partial small bowel obstruction. Continued radiographic follow-up is recommended. Assessment & Plan - Diagnosis (1) Jejunal cancer Is this a current diagnosis for this admission?: Yes (2) renal cell carcinoma stage 4 Is this a current diagnosis for this admission?: Yes (3) Ileus Is this a current diagnosis for this admission?: Yes (4) Renal cell carcinoma Qualifiers: Laterality: right Qualified Code(s): C64.1 - Malignant neoplasm of right kidney, except renal pelvis Is this a current diagnosis for this admission?: Yes - Time Time Spent with patient: 25-34 minutes - Plan Summary Plan Summary: Assessment: Postoperative day #2 following laparotomy, small bowel resection for proximal jejunal obstructing tumor and a feeding jejunostomy easement Vital signs stable, patient afebrile Good urine output Nasogastric tube output crease due to 400 mL during the past 24 hours Blood work within normal limits except for slight drop of the H&H most likely due to hemodilution due to IV fluids received during and after surgery Abdomen soft No bowel function present yet Feeding jejunostomy use with normal saline tolerated Plan: Continue current management Start feeding jejunostomy with Ensure foods 25 mL per hour Once bowel function returned and the nasogastric tube output is minimal, the nasogastric tube can be removed
[2019-03-17] MEDS: CARVEDILOL 12.5 MG TABLET PO SCH (09:40)
[2019-03-17] MEDS: RANOLAZINE 500 MG TAB.SR.12H PO SCH ×2 (09:40→17:44)
[2019-03-17] MEDS: PANTOPRAZOLE SODIUM 40 MG VIAL IV SCH ×2 (09:40→21:08)
--- NOTE | 2019-03-17 16:24 | PDOC PROGRESS REPORT ---
Subjective Progress Note for:: 03/17/19 Subjective:: The patient is resting in bed. His is sitting at the side massaging his feet. He continues to verbalize constantly. He is tolerating the tube feed trickle. His urine is dark. He does state that his mouth is dry but he is still n.p.o. As is his usual he has multiple questions. Reason For Visit: POSTCHEMOTHERAPY GASTROENTERITIS Physical Exam Vital Signs: Temp Pulse Resp BP Pulse Ox 97.8 F 63 17 101/71 95 03/17/19 12:00 03/17/19 14:00 03/17/19 12:00 03/17/19 12:00 03/17/19 12:00 Intake & Output 03/16/19 03/17/19 03/18/19 06:59 06:59 06:59 Intake Total 3550 4297 1150 Output Total 1270 1400 400 Balance 2280 2897 750 Weight 74.2 kg 76.7 kg General appearance: PRESENT: no acute distress, cooperative, well-developed, well-nourished Head exam: PRESENT: atraumatic, normocephalic Ear exam: PRESENT: normal external ear exam. ABSENT: bleeding, drainage Mouth exam: PRESENT: other - NG tube in place Respiratory exam: PRESENT: rales - Right base, symmetrical, unlabored. ABSENT: rhonchi, tachypnea, wheezes Cardiovascular exam: PRESENT: RRR, +S1, +S2 GI/Abdominal exam: PRESENT: hypoactive bowel sounds, soft, tenderness, other - Jejunostomy tube in place. Dressing on incision.. ABSENT: distended Rectal exam: PRESENT: deferred Gentrourinary exam: PRESENT: indwelling catheter - Urine is quite dark. Extremities exam: ABSENT: pedal edema Musculoskeletal exam: PRESENT: ambulatory, full ROM. ABSENT: deformity Neurological exam: PRESENT: alert, awake, oriented to person, oriented to place, oriented to time, oriented to situation, CN II-XII grossly intact Psychiatric exam: PRESENT: appropriate affect. ABSENT: agitated, anxious Results Laboratory Results: 03/17/19 04:40 03/17/19 04:40 03/17/19 03/17/19 04:40 04:40 WBC 5.1 RBC 3.52 L Hgb 8.6 L Hct 26.5 L MCV 75 L MCH 24.6 L MCHC 32.6 RDW 20.9 H Plt Count 338 Seg Neutrophils % 73.9 Sodium 136.4 L Potassium 4.3 Chloride 106 Carbon Dioxide 23 Anion Gap 7 BUN 29 H Creatinine 1.41 H Est GFR ( Amer) > 60 Glucose 94 Calcium 7.9 L 03/12/19 16:02 Blood Blood Culture - Final NO GROWTH IN 5 DAYS Impressions: Abdomen/Pelvis CT 03/12/19 19:07 IMPRESSION: Dilated fluid-filled loops of small bowel without a discrete transition point, however there is relative decompression of distal loops of ileum in the lower abdomen and pelvis. Findings have worsened slightly from the prior exam. Findings could reflect worsening ileus however partial or incomplete obstruction is also considered. Multiple pulmonary nodules seen in the lung bases for which metastatic disease is considered. Status post left nephrectomy. Large left adrenal mass. Correlate with biopsy results. Mixed lytic and sclerotic lesions, with an associated compression deformity of the L2 vertebral body. Findings are concerning for metastatic disease. Similar findings were present previously. TECHNICAL DOCUMENTATION: Quality ID # 436: Final reports with documentation of one or more dose reduction techniques (e.g., Automated exposure control, adjustment of the mA and/or kV according to patient size, use of iterative reconstruction technique) copyright 2011 [employer]- All Rights Reserved Small Bowel X-Ray 03/14/19 00:00 IMPRESSION: Persistent dilated small bowel loops measuring up to 4.2 cm compatible with obstruction. Gas and previously administered oral contrast now within the colon compatible with partial process. Exam was prematurely terminated secondary to patient intolerance of additional contrast material. Correlation with prior CT demonstrates dilated small bowel loops to level of the distal jejunum with transition point within the right lower quadrant (series 3, image [id number]) with questionable associated soft tissue mass at this location. There are foci of curvilinear gas at this location possibly luminal although pneumatosis is not entirely excluded. Findings were discussed with ordering provider Dr. Cornejo at 1423 hours on 03/14/2019 KUB X-Ray 03/15/19 06:00 IMPRESSION: Findings as detailed above consistent with a resolving/partial small bowel obstruction. Continued radiographic follow-up is recommended. Assessment and Plan - Diagnosis (1) Intractable nausea and vomiting Is this a current diagnosis for this admission?: Yes Plan: 03/13/2019-since placement of the nasogastric tube the patient has had less mari sea and no vomiting. His throat is slightly sore from the tube itself. It is believed that the nausea and vomiting could be related to a chemotherapeutic agent. This certainly could contribute to the ileus or the ileus may have formed with subsequent nausea, vomiting and diarrhea. Regardless, he will receive suction with nasogastric tube and he will be kept n.p.o. for right now except for medications. Antiemetics are available. We will continue IV fluids at this time. 03/14/2019-antiemetics available. Continue IV fluids and nasogastric tube 03/15/2019-nasogastric tube remains in place. Patient now has a jejunostomy tube and underwent bowel resection. 03/16/2019-resolved now that obstruction has been resected. Nasogastric tube remains in place postoperatively. 03/17/2019-still with nasogastric tube in place. Obstructed portion of bowel has been resected. No more nausea or vomiting. (2) Diarrhea Qualifiers: Diarrhea type: unspecified type Qualified Code(s): R19.7 - Diarrhea, unspecified Is this a current diagnosis for this admission?: Yes Plan: 03/13/2019-diarrhea does not appear to be infectious. Will monitor output and try and match losses with IV fluids. Will monitor electrolytes. 03/14/2019-patient is no longer passing any significant stool. We will continue to monitor. 03/15/2019-not currently an acute issue. Will monitor for bowel output status post abdominal surgery. 03/16/2019-monitoring for flatus or passing of stool postoperatively. 03/17/2019-still waiting for flatus (3) Ileus Is this a current diagnosis for this admission?: Yes Plan: 03/13/2019-CT scan showed dilated loops of bowel with some fluid. The patient is having bowel sounds. He stated that he did pass some watery stool earlier. Hopefully with bowel rest the ileus will resolve. Once it does we will resume clear liquids initially and then advance his diet. 03/14/2019-I did order a small bowel series. The patient was unable to complete intake of the oral contrast. The radiologist did call me and upon review of previous studies he feels that there is a transition point identified. Dr. Jackson did review the imaging with the radiologist. He feels there is no acute ischemia or necrotic bowel at this time. We will continue a conservative course. 03/15/2019-patient underwent abdominal surgery today after a lengthy discussion with oncology and surgery. He did well. We will monitor closely. This should have resolved the ileus. 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 Now awaiting typical postoperative activity of the bowel. The tube feed trickle should also stimulate the bowel. (4) Abdominal bloating Is this a current diagnosis for this admission?: Yes Plan: 03/13/2019-the patient's abdomen is tympanitic. This is consistent with the imaging and ileus. If there does not appear to be any improvement I will reimage the abdomen tomorrow. Conservative management as above. 03/14/2019-consistent with ileus. Continue conservative management. 03/15/2019-status post laparotomy. No longer a clinical issue. 03/16/2019-resolved 03/17/2019-slight bloating now but this is expected postoperatively and we are awaiting for improved bowel function. (5) Coronary artery disease Qualifiers: Coronary Disease-Associated Artery/Lesion type: [place] artery [place] vs. transplanted heart: [place] heart Associated angina: without angina Qualified Code(s): I25.10 - Atherosclerotic heart disease of [place] coronary artery without angina pectoris Is this a current diagnosis for this admission?: Yes Plan: 03/13/2019-we will continue cardiac medications as tolerated. With the n asogastric tube in place suction will need to be held for administration of medications. I have held several of his medications and will decide on administration based on daily evaluation. 03/14/2019-the patient was seen by cardiology for potential preop clearance. The patient has a history of alcoholic cardiomyopathy. He has not exhibited any acute issues at this point. We will add back his carvedilol and continue his Ranexa. The NG tube will be clamped for 2 hours after administration of the medication. 03/15/2019-the patient remains on his carvedilol and Ranexa. No evidence of acute coronary syndrome. He tolerated his surgery without difficulty. 03/16/2019-continue current regimen. No evidence of acute coronary syndrome. 03/17/2019-continue Ranexa and Coreg (6) renal cell carcinoma stage 4 Is this a current diagnosis for this admission?: Yes Plan: 03/13/2019-the patient has already had a nephrectomy and it has been discovered that there is now renal cell carcinoma on the other kidney. The primary treatme nt will be by oncology. Certainly no active treatment in his current state. Oncology will be seeing the patient as well. 03/14/2019-Per the radiologist it is possible that malignancy could be compro mising the bowel. It is not clear. Oncology continues to follow the patient. 03/15/2019-no acute intervention until current issues are resolved. 03/16/2019-Dr. Hurtado reviewed the treatment plan with the patient. Currently on hold. Awaiting biopsy report from small bowel tumor. 03/17/2019-the patient is extremely anxious to get back on his chemotherapy. We impressed upon him the need for this episode to resolve completely and allow bowel healing before resuming any chemotherapeutic medications. (7) Hyperlipidemia Qualifiers: Hyperlipidemia type: unspecified Qualified Code(s): E78.5 - Hyperlipidemia, unspecified Is this a current diagnosis for this admission?: Yes Plan: 03/13/2019-we will resume cardiac diet once the patient is able to tolerate oral intake. I am holding his statin at this time as it is not critical. Will resume statin therapy when appropriate. 03/14/2019-resume statin therapy after ileus has resolved 03/15/2019-statin therapy currently on hold 03/16/2019-consider resuming statin therapy when the patient is able to eat 03/17/2019-statin therapy is noncritical during this acute surgical issue. Resume when the patient is on a regular diet. (8) Raynauds disease Qualifiers: Raynaud?s-associated gangrene presence: without gangrene Qualified Code(s): I73.00 - Raynaud's syndrome without gangrene Is this a current diagnosis for this admission?: Yes Plan: 03/15/2019-the patient's fingers and hands will get cold. I have not observed typical discoloration yet. This makes pulse oximetry difficult and therefore we will not utilize continuous oximetry. We did discuss the use of hand warmers and possibly gloves during his hospitalization. 03/16/2019-conservative therapy. Hand warmers and gloves if needed. 03/17/2019-continue conservative therapy. - Plan Summary Summary: Patient is admitted to the medical floor where he will receive routine supportive and symptomatic cares. He will be maintained on IV fluids and treated aggressively with an antiemetic therapy regimen. He will be followed by the surgical service in consultation (Dr. Sheffield). Patient CBC and metabolic profile be followed closely. He will initially be treated with a NG tube utilizing low intermittent suction. - Time Time Spent with patient: 15-24 minutes Medications reviewed and adjusted accordingly: Yes Anticipated discharge: Home with Homehealth
[2019-03-17] MEDS ORDERED: CARVEDILOL 12.5 MG TABLET PO SCH (19:00)
[2019-03-17] MEDS ORDERED: NORMAL SALINE 1000 ML 1,000 ML IV ONE ×2 (19:12→20:30)
--- NOTE | 2019-03-17 19:17 | PDOC PROGRESS REPORT ---
Subjective Progress Note for:: 03/17/19 Subjective:: I was called emergently to the patient's bedside. Evidently the patient was ambulating in the foy. During my visit earlier today it was noted that his urine was dark but he was getting IV fluids. He did not report any lightheadedness or dizziness. He was walking in the foy earlier this evening and began to feel lightheaded. He went back to his room and sat in the chair. At this point his systolic blood pressure was in the 60s. He was placed in bed in the Trendelenburg position and his systolic pressure climbed into the 80s. The nurse immediately started a normal saline bolus wide open. When I arrived at the bedside the patient was in Trendelenburg position meditating. Reason For Visit: POSTCHEMOTHERAPY GASTROENTERITIS Physical Exam Vital Signs: Temp Pulse Resp BP Pulse Ox 97.6 F 61 17 111/73 100 03/17/19 16:00 03/17/19 16:00 03/17/19 16:00 03/17/19 16:00 03/17/19 16:00 Intake & Output 03/16/19 03/17/19 03/18/19 06:59 06:59 06:59 Intake Total 3550 4297 1300 Output Total 1270 1400 400 Balance 2280 2897 900 Weight 74.2 kg 76.7 kg General appearance: PRESENT: cooperative, mild distress - Despite the acuity of the situation the patient was actively meditating to try and keep his pulse down. He was acutely aware of the surroundings., well-developed, well-nourished Head exam: PRESENT: atraumatic, normocephalic Respiratory exam: PRESENT: clear to auscultation magui - Anteriorly, symmetrical, unlabored. ABSENT: rales, rhonchi, tachypnea, wheezes Cardiovascular exam: PRESENT: RRR - Borderline bradycardic, +S1, +S2 GI/Abdominal exam: PRESENT: diminished bowel sounds, soft, tenderness Gentrourinary exam: PRESENT: indwelling catheter - Urine still dark yellow Extremities exam: ABSENT: pedal edema Neurological exam: PRESENT: awake, oriented to person, oriented to place, oriented to situation, other - As noted above patient is actively medicating during this episode. He asked to have his eyes covered because of the light. He would count his pulse. He made us aware of all of his sensations and fee lings including muscle twitching. Intermittently he would update us on the change in his mental status and let us know that he was no longer dizzy or no longer seeing floaters or not feeling confused etc. Results Laboratory Results: 03/17/19 04:40 03/17/19 04:40 03/17/19 03/17/19 04:40 04:40 WBC 5.1 RBC 3.52 L Hgb 8.6 L Hct 26.5 L MCV 75 L MCH 24.6 L MCHC 32.6 RDW 20.9 H Plt Count 338 Seg Neutrophils % 73.9 Sodium 136.4 L Potassium 4.3 Chloride 106 Carbon Dioxide 23 Anion Gap 7 BUN 29 H Creatinine 1.41 H Est GFR ( Amer) > 60 Glucose 94 Calcium 7.9 L 03/12/19 16:57 Blood Blood Culture - Final NO GROWTH IN 5 DAYS 03/12/19 16:02 Blood Blood Culture - Final NO GROWTH IN 5 DAYS Impressions: Abdomen/Pelvis CT 03/12/19 19:07 IMPRESSION: Dilated fluid-filled loops of small bowel without a discrete transition point, however there is relative decompression of distal loops of ileum in the lower abdomen and pelvis. Findings have worsened slightly from the prior exam. Findings could reflect worsening ileus however partial or incomplete obstruction is also considered. Multiple pulmonary nodules seen in the lung bases for which metastatic disease is considered. Status post left nephrectomy. Large left adrenal mass. Correlate with biopsy results. Mixed lytic and sclerotic lesions, with an associated compression deformity of the L2 vertebral body. Findings are concerning for metastatic disease. Similar findings were present previously. TECHNICAL DOCUMENTATION: Quality ID # 436: Final reports with documentation of one or more dose reduction techniques (e.g., Automated exposure control, adjustment of the mA and/or kV according to patient size, use of iterative reconstruction technique) copyright 2011 [employer]- All Rights Reserved Small Bowel X-Ray 03/14/19 00:00 IMPRESSION: Persistent dilated small bowel loops measuring up to 4.2 cm compatible with obstruction. Gas and previously administered oral contrast now within the colon compatible with partial process. Exam was prematurely terminated secondary to patient intolerance of additional contrast material. Correlation with prior CT demonstrates dilated small bowel loops to level of the distal jejunum with transition point within the right lower quadrant (series 3, image [id number]) with questionable associated soft tissue mass at this location. There are foci of curvilinear gas at this location possibly luminal although pneumatosis is not entirely excluded. Findings were discussed with ordering provider Dr. Cornejo at 1423 hours on 03/14/2019 K[facility] X-Ray 03/15/19 06:00 IMPRESSION: Findings as detailed above consistent with a resolving/partial small bowel obstruction. Continued radiographic follow-up is recommended. Assessment and Plan - Diagnosis (1) Intractable nausea and vomiting Is this a current diagnosis for this admission?: Yes (2) Diarrhea Qualifiers: Diarrhea type: unspecified type Qualified Code(s): R19.7 - Diarrhea, unspecified Is this a current diagnosis for this admission?: Yes (3) Ileus Is this a current diagnosis for this admission?: Yes (4) Abdominal bloating Is this a current diagnosis for this admission?: Yes (5) Coronary artery disease Qualifiers: Coronary Disease-Associated Artery/Lesion type: [place] artery [place] vs. transplanted heart: [place] heart Associated angina: without angina Qualified Code(s): I25.10 - Atherosclerotic heart disease of [place] coronary artery without angina pectoris Is this a current diagnosis for this admission?: Yes (6) renal cell carcinoma stage 4 Is this a current diagnosis for this admission?: Yes (7) Hyperlipidemia Qualifiers: Hyperlipidemia type: unspecified Qualified Code(s): E78.5 - Hyperlipidemia, unspecified Is this a current diagnosis for this admission?: Yes (8) Raynauds disease Qualifiers: Raynaud?s-associated gangrene presence: without gangrene Qualified Code(s): I73.00 - Raynaud's syndrome without gangrene Is this a current diagnosis for this admission?: Yes (9) Hypotension due to hypovolemia Is this a current diagnosis for this admission?: Yes Plan: 03/17/2019-the patient was likely volume contracted and then when he got up to walk he experienced a significant drop in the blood pressure. In Trendelenburg position his systolic pressure was 80. Simultaneous IV boluses of normal saline were started. The right arm had difficulties with blown veins. After receiving approximately 1-1/2 L the patient's blood pressure was approximately 112 systol ic in Trendelenburg. Subsequently he was taken out of Trendelenburg and was lying flat. His systolic pressure did drop to 104. His pulse remained in the 60s. He was sensing muscle twitching in his arms. I explained that this could be the volumes of fluid being administered. When the second IV in the right arm infiltrated I elected to continue to use the left arm only. We repeated the patient's blood pressure again and systolic was approximately 108. At that point I instructed the nurse to let the remainder of the 2 L of bolus run and and then try to sit the patient up. We will continue his normal saline at 150 mL an hour through the night. I expect increased urine output with significant change in urine concentration. Because of the delusional effect of large bolus fluid administration I have asked for a CBC, basic metabolic panel and magnesium to be drawn at 8:00 tonight. The patient's remained at the bedside during the whole episode. Both the patient and his asked intermittent questions and these were answered to the best of my ability and they were satisfied with the explanations. As his pressure came up you could certainly see the leaf and the patient's 's face. Approximately 45 minutes was spent in critical care time during this encounter. - Plan Summary Summary: Patient is admitted to the medical floor where he will receive routine supportive and symptomatic cares. He will be maintained on IV fluids and treated aggressively with an antiemetic therapy regimen. He will be followed by the surgical service in consultation (Dr. Sheffield). Patient CBC and metabolic profile be followed closely. He will initially be treated with a NG tube utilizing low intermittent suction. - Time Total Critical Time (Minutes): 40 Medications reviewed and adjusted accordingly: Yes
[2019-03-17 20:13] LABS: HEMOGLOBIN 9.2 g/dL (13.5-17.0); MEAN CORPUSCULAR HGB CONC 31.7 g/dL (32.0-36.0); MEAN CORPUSCULAR VOLUME 76 fl (80-97); PLATELET COUNT 311 10^3/uL (150-450); RED BLOOD COUNT 3.83 10^6/uL (4.35-5.55); RED CELL DISTRIBUTION WIDTH 21.5 % (11.5-14.0); WHITE BLOOD COUNT 4.6 10^3/uL (4.0-10.5)
[2019-03-17 20:31] LABS: ANION GAP 11 (5-19); BLOOD UREA NITROGEN 27 mg/dL (7-20); CALCIUM 7.5 mg/dL (8.4-10.2); CARBON DIOXIDE 20 mmol/L (22-30); CHLORIDE 106 mmol/L (98-107); GLUCOSE 76 mg/dL (75-110); POTASSIUM 3.6 mmol/L (3.6-5.0)
[2019-03-17] MEDS: ZOLPIDEM TARTRATE 5 MG TABLET NG PRN (22:46)
[2019-03-18] MEDS: DEXTROSE 5% IV SCH (01:47)
[2019-03-18] MEDS: WATER IV SCH (01:47)
[2019-03-18] MEDS: CEFOXITIN SODIUM IV SCH (01:47)
[2019-03-18] MEDS: ACETAMINOPHEN 1,000 MG/100 ML RTUPB IV SCH ×2 (03:57→09:41)
[2019-03-18] MEDS: ZOLPIDEM TARTRATE 5 MG TABLET NG PRN ×2 (04:13→21:48)
[2019-03-18] MEDS: NORMAL SALINE 1000 ML 1,000 ML IV PRN (04:18)
[2019-03-18] MEDS: KETOROLAC TROMETHAMINE INJ/PF 30 MG/1 ML SDV IV SCH ×3 (05:02→18:24)
[2019-03-18] MEDS: HEPARIN SOD (PORCINE) 5,000 UNIT/ML 1 ML VIAL SUBCUT SCH ×3 (05:02→21:47)
[2019-03-18 06:01] LABS: ABSOLUTE EOSINOPHILS # (AUTO) 0.2 10^3/uL (0.0-0.6); ABSOLUTE LYMPHOCYTES (AUTO) 0.5 10^3/uL (0.5-4.7); ABSOLUTE MONOCYTES (AUTO) 0.5 10^3/uL (0.1-1.4); ABSOLUTE NEUT (AUTO) 4.1 10^3/uL (1.7-8.2); BASOPHILS % (AUTO) 0.5 % (0-2); EOSINOPHILS % (AUTO) 3.9 % (0-6); HEMATOCRIT 25.5 % (37.9-51.0); HEMOGLOBIN 8.2 g/dL (13.5-17.0); LYMPHOCYTES % (AUTO) 9.2 % (13-45); MEAN CORPUSCULAR HEMOGLOBIN 24.2 pg (27.0-33.4); MEAN CORPUSCULAR VOLUME 76 fl (80-97); MONOCYTES % (AUTO) 8.7 % (3-13); PLATELET COUNT 337 10^3/uL (150-450); RED BLOOD COUNT 3.37 10^6/uL (4.35-5.55); RED CELL DISTRIBUTION WIDTH 20.7 % (11.5-14.0); SEGMENTED NEUTROPHILS % (AUTO) 77.7 % (42-78); TOTAL CELLS COUNTED % (AUTO) 100 %; WHITE BLOOD COUNT 5.3 10^3/uL (4.0-10.5)
[2019-03-18 06:25] LABS: ANION GAP 13 (5-19); BLOOD UREA NITROGEN 23 mg/dL (7-20); CALCIUM 7.5 mg/dL (8.4-10.2); CARBON DIOXIDE 17 mmol/L (22-30); CHLORIDE 108 mmol/L (98-107); GLUCOSE 76 mg/dL (75-110); POTASSIUM 3.8 mmol/L (3.6-5.0)
[2019-03-18] MEDS ORDERED: CARVEDILOL 12.5 MG TABLET NG SCH (07:00)
--- NOTE | 2019-03-18 08:55 | PDOC PROGRESS REPORT ---
Subjective Progress Note for:: 03/18/19 Subjective:: Yesterday patient had what sounds like a vasovagal episode. But was doing well otherwise, seems to be tolerating feeds well thus far. I discussed with him the use of a port, he apparently got stuck several times over the last few days looking for IVs. Discussed with surgery who will be planning this in the next couple days. Reason For Visit: POSTCHEMOTHERAPY GASTROENTERITIS Physical Exam Vital Signs: Temp Pulse Resp BP Pulse Ox 97.6 F 75 16 105/65 95 03/18/19 08:00 03/18/19 08:00 03/18/19 08:00 03/18/19 08:00 03/18/19 08:00 Intake & Output 03/17/19 03/18/19 03/19/19 06:59 06:59 06:59 Intake Total 4297 5700 Output Total 1400 1350 100 Balance 2897 4350 -100 Weight 76.7 kg 76.7 kg General appearance: PRESENT: no acute distress, well-developed, well-nourished Head exam: PRESENT: atraumatic, normocephalic Eye exam: PRESENT: conjunctiva pink, EOMI, PERRLA. ABSENT: scleral icterus Ear exam: PRESENT: normal external ear exam Mouth exam: PRESENT: moist, tongue midline Neck exam: ABSENT: carotid bruit, JVD, lymphadenopathy, thyromegaly Respiratory exam: PRESENT: clear to auscultation magui. ABSENT: rales, rhonchi, wheezes Cardiovascular exam: PRESENT: RRR. ABSENT: diastolic murmur, rubs, systolic murmur Pulses: PRESENT: normal dorsalis pedis pul Vascular exam: PRESENT: normal capillary refill GI/Abdominal exam: PRESENT: normal bowel sounds, soft. ABSENT: distended, guarding, mass, organolmegaly, rebound, tenderness Rectal exam: PRESENT: deferred Extremities exam: PRESENT: full ROM. ABSENT: calf tenderness, clubbing, pedal edema Neurological exam: PRESENT: alert, awake, oriented to person, oriented to place, oriented to time, oriented to situation, CN II-XII grossly intact. ABSENT: motor sensory deficit Psychiatric exam: PRESENT: appropriate affect, normal mood. ABSENT: homicidal ideation, suicidal ideation Skin exam: PRESENT: dry, intact, warm. ABSENT: cyanosis, rash Results Laboratory Results: 03/18/19 05:04 12/30/19 05:04 03/17/19 03/17/19 03/18/19 19:50 19:50 05:04 WBC 4.6 RBC 3.83 L Hgb 9.2 L Hct 29.0 L MCV 76 L MCH 24.0 L MCHC 31.7 L RDW 21.5 H Plt Count 311 Seg Neutrophils % Sodium 136.8 L 137.6 Potassium 3.6 3.8 Chloride 106 108 H Carbon Dioxide 20 L 17 L Anion Gap 11 13 BUN 27 H 23 H Creatinine 1.21 1.17 Est GFR ( Amer) > 60 > 60 Glucose 76 76 Calcium 7.5 L 7.5 L Magnesium 2.0 03/18/19 05:04 WBC 5.3 RBC 3.37 L Hgb 8.2 L Hct 25.5 L MCV 76 L MCH 24.2 L MCHC 32.0 RDW 20.7 H Plt Count 337 Seg Neutrophils % 77.7 Sodium Potassium Chloride Carbon Dioxide Anion Gap BUN Creatinine Est GFR ( Amer) Glucose Calcium Magnesium 03/12/19 16:57 Blood Blood Culture - Final NO GROWTH IN 5 DAYS 03/12/19 16:02 Blood Blood Culture - Final NO GROWTH IN 5 DAYS Impressions: Abdomen/Pelvis CT 03/12/19 19:07 IMPRESSION: Dilated fluid-filled loops of small bowel without a discrete transition point, however there is relative decompression of distal loops of ileum in the lower abdomen and pelvis. Findings have worsened slightly from the prior exam. Findings could reflect worsening ileus however partial or incomplete obstruction is also considered. Multiple pulmonary nodules seen in the lung bases for which metastatic disease is considered. Status post left nephrectomy. Large left adrenal mass. Correlate with biopsy results. Mixed lytic and sclerotic lesions, with an associated compression deformity of the L2 vertebral body. Findings are concerning for metastatic disease. Similar findings were present previously. TECHNICAL DOCUMENTATION: Quality ID # 436: Final reports with documentation of one or more dose reduction techniques (e.g., Automated exposure control, adjustment of the mA and/or kV according to patient size, use of iterative reconstruction technique) copyright 2011 [employer]- All Rights Reserved Small Bowel X-Ray 03/14/19 00:00 IMPRESSION: Persistent dilated small bowel loops measuring up to 4.2 cm compatible with obstruction. Gas and previously administered oral contrast now within the colon compatible with partial process. Exam was prematurely terminated secondary to patient intolerance of additional contrast material. Correlation with prior CT demonstrates dilated small bowel loops to level of the distal jejunum with transition point within the right lower quadrant (series 3, image [id number]) with questionable associated soft tissue mass at this location. There are foci of curvilinear gas at this location possibly luminal although pneumatosis is not entirely excluded. Findings were discussed with ordering provider Dr. Cornejo at 1423 hours on 03/14/2019 [facility] X-Ray 03/15/19 06:00 IMPRESSION: Findings as detailed above consistent with a resolving/partial small bowel obstruction. Continued radiographic follow-up is recommended. Assessment & Plan - Diagnosis (1) Partial small bowel obstruction Is this a current diagnosis for this admission?: Yes Plan: Improving, continue with feeds continue follow-up per surgical and hospitalist team (2) renal cell carcinoma stage 4 Is this a current diagnosis for this admission?: Yes Plan: We will follow-up oral medication, he will be able to start this for another 6 to 7 days, but will make sure they have it. - Time Time Spent with patient: 35 or more minutes
[2019-03-18] MEDS: PANTOPRAZOLE SODIUM 40 MG VIAL IV SCH ×2 (09:40→21:46)
[2019-03-18] MEDS: RANOLAZINE 500 MG TAB.SR.12H PO SCH ×2 (09:41→18:24)
--- NOTE | 2019-03-18 12:16 | PDOC PROGRESS REPORT ---
Subjective Progress Note for:: 03/18/19 Subjective:: Patient doing well; minimal nasogastric drainage. No flatus. Patient pleasantly confused Reason For Visit: POSTCHEMOTHERAPY GASTROENTERITIS Physical Exam Vital Signs: Temp Pulse Resp BP Pulse Ox 97.6 F 75 16 105/65 95 03/18/19 08:00 03/18/19 08:00 03/18/19 08:00 03/18/19 08:00 03/18/19 08:00 Intake & Output 03/17/19 03/18/19 03/19/19 06:59 06:59 06:59 Intake Total 4297 5700 Output Total 1400 1350 100 Balance 2897 4350 -100 Weight 76.7 kg 76.7 kg General appearance: PRESENT: no acute distress GI/Abdominal exam: PRESENT: other - Abdomen examined. Dressing dry and intact. Nasogastric tube inspected; minimal drainage. Abdomen soft nontender. Results Laboratory Results: 03/18/19 05:04 03/18/19 05:04 03/17/19 03/17/19 03/18/19 19:50 19:50 05:04 WBC 4.6 RBC 3.83 L Hgb 9.2 L Hct 29.0 L MCV 76 L MCH 24.0 L MCHC 31.7 L RDW 21.5 H Plt Count 311 Seg Neutrophils % Sodium 136.8 L 137.6 Potassium 3.6 3.8 Chloride 106 108 H Carbon Dioxide 20 L 17 L Anion Gap 11 13 BUN 27 H 23 H Creatinine 1.21 1.17 Est GFR ( Amer) > 60 > 60 Glucose 76 76 Calcium 7.5 L 7.5 L Magnesium 2.0 03/18/19 05:04 WBC 5.3 RBC 3.37 L Hgb 8.2 L Hct 25.5 L MCV 76 L MCH 24.2 L MCHC 32.0 RDW 20.7 H Plt Count 337 Seg Neutrophils % 77.7 Sodium Potassium Chloride Carbon Dioxide Anion Gap BUN Creatinine Est GFR ( Amer) Glucose Calcium Magnesium 03/12/19 16:57 Blood Blood Culture - Final NO GROWTH IN 5 DAYS 03/12/19 16:02 Blood Blood Culture - Final NO GROWTH IN 5 DAYS Impressions: Abdomen/Pelvis CT 03/12/19 19:07 IMPRESSION: Dilated fluid-filled loops of small bowel without a discrete transition point, however there is relative decompression of distal loops of ileum in the lower abdomen and pelvis. Findings have worsened slightly from the prior exam. Findings could reflect worsening ileus however partial or incomplete obstruction is also considered. Multiple pulmonary nodules seen in the lung bases for which metastatic disease is considered. Status post left nephrectomy. Large left adrenal mass. Correlate with biopsy results. Mixed lytic and sclerotic lesions, with an associated compression deformity of the L2 vertebral body. Findings are concerning for metastatic disease. Similar findings were present previously. TECHNICAL DOCUMENTATION: Quality ID # 436: Final reports with documentation of one or more dose reduction techniques (e.g., Automated exposure control, adjustment of the mA and/or kV according to patient size, use of iterative reconstruction technique) copyright 2011 [employer]- All Rights Reserved Small Bowel X-Ray 03/14/19 00:00 IMPRESSION: Persistent dilated small bowel loops measuring up to 4.2 cm compatible with obstruction. Gas and previously administered oral contrast now within the colon compatible with partial process. Exam was prematurely terminated secondary to patient intolerance of additional contrast material. Correlation with prior CT demonstrates dilated small bowel loops to level of the distal jejunum with transition point within the right lower quadrant (series 3, image [id number]) with questionable associated soft tissue mass at this location. There are foci of curvilinear gas at this location possibly luminal although pn eumatosis is not entirely excluded. Findings were discussed with ordering provider Dr. Cornejo at 1423 hours on 03/14/2019 [facility] X-Ray 03/15/19 06:00 IMPRESSION: Findings as detailed above consistent with a resolving/partial small bowel obstruction. Continued radiographic follow-up is recommended. Assessment & Plan - Diagnosis (1) Partial small bowel obstruction Is this a current diagnosis for this admission?: Yes Plan: Impression: Postoperative day 3 status post exploratory laparotomy, small bowel resection, jejunostomy with stable postoperative course. Patient tolerating jejunal feedings. Rapid response yesterday likely due to overmedication, now resolved. Recommendations: 1. Get out of bed, ambulate 2. DC Oliveira catheter 3. Clamp nasogastric tube. (3) Coronary artery disease Qualifiers: Coronary Disease-Associated Artery/Lesion type: [place] artery [place] vs. transplanted heart: [place] heart Associated angina: without angina Qualified Code(s): I25.10 - Atherosclerotic heart disease of [place] coronary artery without angina pectoris Is this a current diagnosis for this admission?: Yes (4) Diarrhea Qualifiers: Diarrhea type: unspecified type Qualified Code(s): R19.7 - Diarrhea, unspecified Is this a current diagnosis for this admission?: Yes (5) Hyperlipidemia Qualifiers: Hyperlipidemia type: unspecified Qualified Code(s): E78.5 - Hyperlipidemia, unspecified Is this a current diagnosis for this admission?: Yes (6) renal cell carcinoma stage 4 Is this a current diagnosis for this admission?: Yes (7) Alcoholic cardiomyopathy Is this a current diagnosis for this admission?: Yes (8) Dysrhythmia Is this a current diagnosis for this admission?: Yes - Time Time Spent with patient: Less than 15 minutes Medications reviewed and adjusted accordingly: Yes Anticipated discharge: Home
[2019-03-18 15:24] LABS: APPEARANCE,URINE CLEAR; BILIRUBIN,URINE NEGATIVE (NEGATIVE); COLOR,URINE AMBER; GLUCOSE, URINE NEGATIVE (NEGATIVE); KETONES,URINE 20 mg/dL (NEGATIVE); LEUKOCYTE ESTERASE,URINE NEGATIVE (NEGATIVE); NITRITE,URINE NEGATIVE (NEGATIVE); PROTEIN,URINE 30 mg/dL (NEGATIVE)
[2019-03-18] MEDS ORDERED: NORMAL SALINE 1000 ML 1,000 ML IV PRN (18:05)
--- NOTE | 2019-03-18 18:17 | PDOC PROGRESS REPORT ---
Subjective Progress Note for:: 03/18/19 Subjective:: The patient is a 69-year-old male with a past medical history of CAD, hyperlipidemia, CKD, renal cancer status post nephrectomy, alcohol and tobacco dependency who was admitted 03/12/2019 for Intractable nausea and vomiting and subsequently underwent an exploratory laparotomy resulting in small bowel resection and feeding jejunostomy placement due to stage IV renal cell carcinoma with intra-abdominal seeding/mass. Patient was seen on morning rounds with his spouse present. He is found resting in bed comfortably on room air. He denies abdominal discomfort. He does confirm that he has been passing gas; no bowel movement as of yet. He requests to ambulate today; no further episodes of syncope/near syncope. He further denies fever, chills, chest pain, palpitations, dyspnea, orthopnea, cough. I have no other questions or concerns at this time. No concerns per nursing. Reason For Visit: POSTCHEMOTHERAPY GASTROENTERITIS Physical Exam Vital Signs: Temp Pulse Resp BP Pulse Ox 97.5 F 75 18 117/72 97 03/18/19 16:00 03/18/19 16:00 03/18/19 16:00 03/18/19 16:00 03/18/19 16:00 Intake & Output 03/17/19 03/18/19 03/19/19 06:59 06:59 06:59 Intake Total 4297 5700 1100 Output Total 1400 1350 600 Balance 2897 4350 500 Weight 76.7 kg 76.7 kg General appearance: PRESENT: no acute distress, cooperative, well-developed, well-nourished Head exam: PRESENT: atraumatic, normocephalic Eye exam: PRESENT: conjunctiva pink, EOMI, PERRLA. ABSENT: scleral icterus Ear exam: PRESENT: normal external ear exam Mouth exam: PRESENT: moist, tongue midline Respiratory exam: PRESENT: clear to auscultation magui, symmetrical, unlabored. ABSENT: rales, rhonchi, wheezes Cardiovascular exam: PRESENT: RRR, +S1, +S2. ABSENT: diastolic murmur, rubs, systolic murmur Pulses: PRESENT: normal dorsalis pedis pul Vascular exam: PRESENT: normal capillary refill GI/Abdominal exam: PRESENT: diminished bowel sounds, distended, soft, other - NG tube, j-tube. ABSENT: guarding, mass, organolmegaly, rebound, tenderness Rectal exam: PRESENT: deferred Extremities exam: PRESENT: full ROM. ABSENT: calf tenderness, clubbing, pedal edema Musculoskeletal exam: PRESENT: ambulatory Neurological exam: PRESENT: alert, awake, oriented to person, oriented to place, oriented to time, oriented to situation, CN II-XII grossly intact. ABSENT: motor sensory deficit Psychiatric exam: PRESENT: appropriate affect, normal mood, unusual affect. ABSENT: homicidal ideation, suicidal ideation Skin exam: PRESENT: dry, intact, warm. ABSENT: cyanosis, rash Results Laboratory Results: 03/18/19 05:04 03/18/19 05:04 03/17/19 03/17/19 03/18/19 19:50 19:50 05:04 WBC 4.6 RBC 3.83 L Hgb 9.2 L Hct 29.0 L MCV 76 L MCH 24.0 L MCHC 31.7 L RDW 21.5 H Plt Count 311 Seg Neutrophils % Sodium 136.8 L 137.6 Potassium 3.6 3.8 Chloride 106 108 H Carbon Dioxide 20 L 17 L Anion Gap 11 13 BUN 27 H 23 H Creatinine 1.21 1.17 Est GFR ( Amer) > 60 > 60 Glucose 76 76 Calcium 7.5 L 7.5 L Magnesium 2.0 Urine Color Urine Appearance Urine pH Ur Specific [place] Urine Protein Urine Glucose (UA) Urine Ketones Urine Blood Urine Nitrite Ur Leukocyte Esterase Urine WBC (Auto) Urine RBC (Auto) 03/18/19 03/18/19 05:04 15:00 WBC 5.3 RBC 3.37 L Hgb 8.2 L Hct 25.5 L MCV 76 L MCH 24.2 L MCHC 32.0 RDW 20.7 H Plt Count 337 Seg Neutrophils % 77.7 Sodium Potassium Chloride Carbon Dioxide Anion Gap BUN Creatinine Est GFR ( Amer) Glucose Calcium Magnesium Urine Color SANDI Urine Appearance CLEAR Urine pH 6.0 Ur Specific [place] 1.030 Urine Protein 30 H Urine Glucose (UA) NEGATIVE Urine Ketones 20 H Urine Blood MODERATE H Urine Nitrite NEGATIVE Ur Leukocyte Esterase NEGATIVE Urine WBC (Auto) 11 Urine RBC (Auto) 106 03/12/19 16:57 Blood Blood Culture - Final NO GROWTH IN 5 DAYS 03/12/19 16:02 Blood Blood Culture - Final NO GROWTH IN 5 DAYS Impressions: Abdomen/Pelvis CT 03/12/19 19:07 IMPRESSION: Dilated fluid-filled loops of small bowel without a discrete transition point, however there is relative decompression of distal loops of ileum in the lower abdomen and pelvis. Findings have worsened slightly from the prior exam. Findings could reflect worsening ileus however partial or incomplete obstruction is also considered. Multiple pulmonary nodules seen in the lung bases for which metastatic disease is considered. Status post left nephrectomy. Large left adrenal mass. Correlate with biopsy results. Mixed lytic and sclerotic lesions, with an associated compression deformity of the L2 vertebral body. Findings are concerning for metastatic disease. Similar findings were present previously. TECHNICAL DOCUMENTATION: Quality ID # 436: Final reports with documentation of one or more dose reduction techniques (e.g., Automated exposure control, adjustment of the mA and/or kV according to patient size, use of iterative reconstruction technique) copyright 2011 [employer]- All Rights Reserved Small Bowel X-Ray 03/14/19 00:00 IMPRESSION: Persistent dilated small bowel loops measuring up to 4.2 cm compatible with obstruction. Gas and previously administered oral contrast now within the colon compatible with partial process. Exam was prematurely terminated secondary to patient intolerance of additional contrast material. Correlation with prior CT demonstrates dilated small bowel loops to level of the distal jejunum with transition point within the right lower quadrant (series 3, image [id number]) with questionable associated soft tissue mass at this location. There are foci of curvilinear gas at this location possibly luminal although pneumatosis is not entirely excluded. Findings were discussed with ordering provider Dr. Cornejo at 1423 hours on 03/14/2019 [facility] X-Ray 03/15/19 06:00 IMPRESSION: Findings as detailed above consistent with a resolving/partial small bowel obstruction. Continued radiographic follow-up is recommended. Assessment and Plan - Diagnosis (1) Intractable nausea and vomiting Is this a current diagnosis for this admission?: Yes Plan: Resolved. Obstructive portion of the bowel has been resected. NG tube to clamp today. Antiemetics as needed. Remaining management of ileus as outlined below. (2) Ileus Is this a current diagnosis for this admission?: Yes Plan: Original ileus has resolved. Now awaiting return of bowel function postoperatively. Patient reports he is passing flatus. Has not yet had a bowel movement. Receiving trickle tube feedings via jejunostomy tube. NG tube clamped today. Encourage ambulation. Primary management per surgery. (3) Abdominal bloating Is this a current diagnosis for this admission?: Yes Plan: 03/13/2019-the patient's abdomen is tympanitic. This is consistent with the imaging and ileus. If there does not appear to be any improvement I will reimage the abdomen tomorrow. Conservative management as above. 03/14/2019-consistent with ileus. Continue conservative management. 03/15/2019-status post laparotomy. No longer a clinical issue. 03/16/2019-resolved 03/17/2019-slight bloating now but this is expected postoperatively and we are awaiting for improved bowel function. 03/18/2019-abdomen continues to be distended. Patient denies bowel movement though is now actively passing gas. NG tube clamped today. Encouraging ambulation. Primary management per the surgical service. (4) Coronary artery disease Qualifiers: Coronary Disease-Associated Artery/Lesion type: [place] artery [place] vs. transplanted heart: [place] heart Associated angina: without angina Qualified Code(s): I25.10 - Atherosclerotic heart disease of [place] coronary artery without angina pectoris Is this a current diagnosis for this admission?: Yes Plan: 03/13/2019-we will continue cardiac medications as tolerated. With the nasogastric tube in place suction will need to be held for administration of medications. I have held several of his medications and will decide on administration based on daily evaluation. 03/14/2019-the patient was seen by cardiology for potential preop clearance. The patient has a history of alcoholic cardiomyopathy. He has not exhibited any acute issues at this point. We will add back his carvedilol and continue his Ranexa. The NG tube will be clamped for 2 hours after administration of the medication. 03/15/2019-the patient remains on his carvedilol and Ranexa. No evidence of acute coronary syndrome. He tolerated his surgery without difficulty. 03/16/2019-continue current regimen. No evidence of acute coronary syndrome. 03/17/2019-continue Ranexa and Coreg 03/18/2019- Stable and without chest pain at this time. Continue Ranexa and Coreg; have placed holding parameters on both. Patient to take Ranexa p.o.; this medication is not to be crushed and administered via J-tube. No active chest pain. (5) Diarrhea Qualifiers: Diarrhea type: unspecified type Qualified Code(s): R19.7 - Diarrhea, unspecified Is this a current diagnosis for this admission?: Yes Plan: Resolved. Now passing flatus; has not yet had a bowel movement postoperatively. (6) Hyperlipidemia Qualifiers: Hyperlipidemia type: unspecified Qualified Code(s): E78.5 - Hyperlipidemia, unspecified Is this a current diagnosis for this admission?: Yes Plan: Statin therapy remains on hold; will resume once cleared for p.o. intake. (7) Hypotension due to hypovolemia Is this a current diagnosis for this admission?: Yes Plan: Resolved. Multifactorial secondary to hypovolemia and possible medication reaction. No further episodes of hypotension. Holding parameters now in place for patient's cardiac medications. Resume ambulation with assist. Fall precautions. (8) Raynauds disease Qualifiers: Raynaud?s-associated gangrene presence: without gangrene Qualified Code(s): I73.00 - Raynaud's syndrome without gangrene Is this a current diagnosis for this admission?: Yes Plan: Stable; conservative therapy. Consider hand warmers and gloves if needed. (9) renal cell carcinoma stage 4 Is this a current diagnosis for this admission?: Yes Plan: Oncology has been consulted; management per Dr. Hurtado's expertise. - Time Time Spent with patient: 25-34 minutes Medications reviewed and adjusted accordingly: Yes Anticipated discharge: Home with Homehealth Within: within 72 hours
[2019-03-18] MEDS: CARVEDILOL 12.5 MG TABLET NG SCH (21:18)
[2019-03-19] MEDS: KETOROLAC TROMETHAMINE INJ/PF 30 MG/1 ML SDV IV SCH ×5 (00:39→23:55)
[2019-03-19] MEDS: ZOLPIDEM TARTRATE 5 MG TABLET NG PRN ×2 (03:14→21:56)
[2019-03-19] MEDS: HEPARIN SOD (PORCINE) 5,000 UNIT/ML 1 ML VIAL SUBCUT SCH ×3 (05:55→21:58)
[2019-03-19 06:41] LABS: ABSOLUTE BASOPHILS # (AUTO) 0.1 10^3/uL (0.0-0.2); ABSOLUTE EOSINOPHILS # (AUTO) 0.2 10^3/uL (0.0-0.6); ABSOLUTE LYMPHOCYTES (AUTO) 0.8 10^3/uL (0.5-4.7); ABSOLUTE MONOCYTES (AUTO) 0.7 10^3/uL (0.1-1.4); ABSOLUTE NEUT (AUTO) 5.4 10^3/uL (1.7-8.2); BASOPHILS % (AUTO) 1.3 % (0-2); EOSINOPHILS % (AUTO) 2.3 % (0-6); HEMATOCRIT 27.9 % (37.9-51.0); HEMOGLOBIN 9.1 g/dL (13.5-17.0); LYMPHOCYTES % (AUTO) 10.6 % (13-45); MEAN CORPUSCULAR HEMOGLOBIN 24.4 pg (27.0-33.4); MEAN CORPUSCULAR HGB CONC 32.6 g/dL (32.0-36.0); MEAN CORPUSCULAR VOLUME 75 fl (80-97); MONOCYTES % (AUTO) 10.4 % (3-13); PLATELET COUNT 380 10^3/uL (150-450); RED BLOOD COUNT 3.73 10^6/uL (4.35-5.55); RED CELL DISTRIBUTION WIDTH 21.3 % (11.5-14.0); SEGMENTED NEUTROPHILS % (AUTO) 75.4 % (42-78); TOTAL CELLS COUNTED % (AUTO) 100 %; WHITE BLOOD COUNT 7.1 10^3/uL (4.0-10.5)
[2019-03-19 06:57] LABS: ANION GAP 11 (5-19); BLOOD UREA NITROGEN 20 mg/dL (7-20); CALCIUM 8.2 mg/dL (8.4-10.2); CARBON DIOXIDE 20 mmol/L (22-30); CHLORIDE 107 mmol/L (98-107); GLUCOSE 82 mg/dL (75-110); POTASSIUM 3.9 mmol/L (3.6-5.0)
--- NOTE | 2019-03-19 08:22 | PDOC PROGRESS REPORT ---
Subjective Progress Note for:: 03/19/19 Subjective:: Complains of lower extremity swelling and heaviness had a large bowel movement this morning Reason For Visit: POSTCHEMOTHERAPY GASTROENTERITIS Physical Exam Vital Signs: Temp Pulse Resp BP Pulse Ox 97.7 F 81 17 115/67 97 03/19/19 00:00 03/19/19 02:00 03/19/19 00:00 03/19/19 00:00 03/19/19 00:00 Intake & Output 03/18/19 03/19/19 03/20/19 06:59 06:59 06:59 Intake Total 5700 1805 Output Total 1350 600 Balance 4350 1205 Weight 76.7 kg 83.5 kg General appearance: PRESENT: no acute distress, mild distress Head exam: PRESENT: normocephalic Eye exam: PRESENT: EOMI Ear exam: PRESENT: normal external ear exam Mouth exam: PRESENT: moist Neck exam: PRESENT: full ROM Respiratory exam: PRESENT: clear to auscultation magui Cardiovascular exam: PRESENT: RRR Pulses: PRESENT: normal radial pulses, normal femoral pulses GI/Abdominal exam: PRESENT: soft, other - Abdomen is soft nontender there is a incision is clean selina intact a jejunostomy tube is noted functioning Rectal exam: PRESENT: deferred Extremities exam: PRESENT: full ROM, +2 edema Musculoskeletal exam: PRESENT: full ROM Neurological exam: PRESENT: alert, awake, oriented to person, oriented to place Psychiatric exam: PRESENT: appropriate affect Skin exam: PRESENT: dry Results Laboratory Results: 03/19/19 05:20 03/19/19 05:20 03/18/19 03/19/19 03/19/19 15:00 05:20 05:20 WBC 7.1 RBC 3.73 L Hgb 9.1 L Hct 27.9 L MCV 75 L MCH 24.4 L MCHC 32.6 RDW 21.3 H Plt Count 380 Seg Neutrophils % 75.4 Sodium 138.3 Potassium 3.9 Chloride 107 Carbon Dioxide 20 L Anion Gap 11 BUN 20 Creatinine 1.20 Est GFR ( Amer) > 60 Glucose 82 Calcium 8.2 L Urine Color SANDI Urine Appearance CLEAR Urine pH 6.0 Ur Specific [place] 1.030 Urine Protein 30 H Urine Glucose (UA) NEGATIVE Urine Ketones 20 H Urine Blood MODERATE H Urine Nitrite NEGATIVE Ur Leukocyte Esterase NEGATIVE Urine WBC (Auto) 11 Urine RBC (Auto) 106 Impressions: Abdomen/Pelvis CT 03/12/19 19:07 IMPRESSION: Dilated fluid-filled loops of small bowel without a discrete transition point, however there is relative decompression of distal loops of ileum in the lower abdomen and pelvis. Findings have worsened slightly from the prior exam. Findings could reflect worsening ileus however partial or incomplete obstruction is also considered. Multiple pulmonary nodules seen in the lung bases for which metastatic disease is considered. Status post left nephrectomy. Large left adrenal mass. Correlate with biopsy results. Mixed lytic and sclerotic lesions, with an associated compression deformity of the L2 vertebral body. Findings are concerning for metastatic disease. Similar findings were present previously. TECHNICAL DOCUMENTATION: Quality ID # 436: Final reports with documentation of one or more dose reduction techniques (e.g., Automated exposure control, adjustment of the mA and/or kV according to patient size, use of iterative reconstruction technique) copyright 2011 [employer]- All Rights Reserved Small Bowel X-Ray 03/14/19 00:00 IMPRESSION: Persistent dilated small bowel loops measuring up to 4.2 cm compatible with obstruction. Gas and previously administered oral contrast now within the colon compatible with partial process. Exam was prematurely terminated secondary to patient intolerance of additional contrast material. Correlation with prior CT demonstrates dilated small bowel loops to level of the distal jejunum with transition point within the right lower quadrant (series 3, image [id number]) with questionable associated soft tissue mass at this location. There are foci of curvilinear gas at this location possibly luminal although pneumatosis is not entirely excluded. Findings were discussed with ordering provider Dr. Cornejo at 1423 hours on 03/14/2019 K[facility] X-Ray 03/15/19 06:00 IMPRESSION: Findings as detailed above consistent with a resolving/partial small bowel obstruction. Continued radiographic follow-up is recommended. Assessment & Plan - Time Time Spent with patient: 25-34 minutes - Plan Summary Plan Summary: Status post a exploratory laparotomy and small bowel resection for intussusception. Now with return of bowel function with normal bowel movements this morning jejunostomy currently running at 10 cc an hour. We will increase jejunostomy tube feedings to 25 cc an hour and start him on clear liquid diet Patient also complaining of heaviness of both lower extremities with 2+ pitting edema noted he was given Lasix this morning by oncology.
--- NOTE | 2019-03-19 08:42 | PDOC PROGRESS REPORT ---
Subjective Progress Note for:: 03/19/19 Subjective:: Had a long discussion with patient once again, spent greater than 35 minutes in discussion. Patient feels like his legs are weak and heavy, he certainly does have 2+ pitting edema bilaterally. We discussed the use of Lasix this morning. We discussed getting physical therapy involved as well. He tells me he had good BM this morning, formed. Reason For Visit: POSTCHEMOTHERAPY GASTROENTERITIS Physical Exam Vital Signs: Temp Pulse Resp BP Pulse Ox 98.3 F 83 16 113/69 93 03/19/19 08:00 03/19/19 08:00 03/19/19 08:00 03/19/19 08:00 03/19/19 08:00 Intake & Output 03/18/19 03/19/19 03/20/19 06:59 06:59 06:59 Intake Total 5700 1805 Output Total 1350 600 Balance 4350 1205 Weight 76.7 kg 83.5 kg General appearance: PRESENT: no acute distress, well-developed, well-nourished Head exam: PRESENT: atraumatic, normocephalic Eye exam: PRESENT: conjunctiva pink, EOMI, PERRLA. ABSENT: scleral icterus Ear exam: PRESENT: normal external ear exam Mouth exam: PRESENT: moist, tongue midline Neck exam: ABSENT: carotid bruit, JVD, lymphadenopathy, thyromegaly Respiratory exam: PRESENT: clear to auscultation magui. ABSENT: rales, rhonchi, wheezes Cardiovascular exam: PRESENT: RRR. ABSENT: diastolic murmur, rubs, systolic murmur Pulses: PRESENT: normal dorsalis pedis pul Vascular exam: PRESENT: normal capillary refill GI/Abdominal exam: PRESENT: normal bowel sounds, soft. ABSENT: distended, guarding, mass, organolmegaly, rebound, tenderness Rectal exam: PRESENT: deferred Extremities exam: PRESENT: full ROM. ABSENT: calf tenderness, clubbing, pedal edema Neurological exam: PRESENT: alert, awake, oriented to person, oriented to place, oriented to time, oriented to situation, CN II-XII grossly intact. ABSENT: motor sensory deficit Psychiatric exam: PRESENT: appropriate affect, normal mood. ABSENT: homicidal ideation, suicidal ideation Skin exam: PRESENT: dry, intact, warm. ABSENT: cyanosis, rash Results Laboratory Results: 03/19/19 05:20 03/19/19 05:20 03/18/19 03/19/19 03/19/19 15:00 05:20 05:20 WBC 7.1 RBC 3.73 L Hgb 9.1 L Hct 27.9 L MCV 75 L MCH 24.4 L MCHC 32.6 RDW 21.3 H Plt Count 380 Seg Neutrophils % 75.4 Sodium 138.3 Potassium 3.9 Chloride 107 Carbon Dioxide 20 L Anion Gap 11 BUN 20 Creatinine 1.20 Est GFR ( Amer) > 60 Glucose 82 Calcium 8.2 L Urine Color SANDI Urine Appearance CLEAR Urine pH 6.0 Ur Specific [place] 1.030 Urine Protein 30 H Urine Glucose (UA) NEGATIVE Urine Ketones 20 H Urine Blood MODERATE H Urine Nitrite NEGATIVE Ur Leukocyte Esterase NEGATIVE Urine WBC (Auto) 11 Urine RBC (Auto) 106 Impressions: Abdomen/Pelvis CT 03/12/19 19:07 IMPRESSION: Dilated fluid-filled loops of small bowel without a discrete transition point, however there is relative decompression of distal loops of ileum in the lower abdomen and pelvis. Findings have worsened slightly from the prior exam. Findings could reflect worsening ileus however partial or incomplete obstruction is also considered. Multiple pulmonary nodules seen in the lung bases for which metastatic disease is considered. Status post left nephrectomy. Large left adrenal mass. Correlate with biopsy results. Mixed lytic and sclerotic lesions, with an associated compression deformity of the L2 vertebral body. Findings are concerning for metastatic disease. Similar findings were present previously. TECHNICAL DOCUMENTATION: Quality ID # 436: Final reports with documentation of one or more dose reduction techniques (e.g., Automated exposure control, adjustment of the mA and/or kV according to patient size, use of iterative reconstruction technique) copyright 2011 [employer]- All Rights Reserved Small Bowel X-Ray 03/14/19 00:00 IMPRESSION: Persistent dilated small bowel loops measuring up to 4.2 cm compatible with obstruction. Gas and previously administered oral contrast now within the colon compatible with partial process. Exam was prematurely terminated secondary to patient intolerance of additional contrast material. Correlation with prior CT demonstrates dilated small bowel loops to level of the distal jejunum with transition point within the right lower quadrant (series 3, image [id number]) with questionable associated soft tissue mass at this location. There are foci of curvilinear gas at this location possibly luminal although pneumatosis is not entirely excluded. Findings were discussed with ordering provider Dr. Cornejo at 1423 hours on 03/14/2019 [facility] X-Ray 03/15/19 06:00 IMPRESSION: Findings as detailed above consistent with a resolving/partial small bowel obstruction. Continued radiographic follow-up is recommended. Assessment & Plan - Diagnosis (1) Partial small bowel obstruction Is this a current diagnosis for this admission?: Yes Plan: Status post surgery, improving, continue with tube feeds per surgical team (2) renal cell carcinoma stage 4 Is this a current diagnosis for this admission?: Yes Plan: Continue further therapy as an outpatient - Time Time Spent with patient: 35 or more minutes - Inpatient Certification Based on my medical assessment, after consideration of the patient's comorbidities, presenting symptoms, or acuity I expect that the services needed warrant INPATIENT care.: Yes I certify that my determination is in accordance with my understanding of Medicare's requirements for reasonable and necessary INPATIENT services [42 CFR 412.3e].: Yes Medical Necessity: Risk of Complication if Not Cared For in Hospital
[2019-03-19] MEDS: CARVEDILOL 12.5 MG TABLET NG SCH ×2 (08:44→19:38)
[2019-03-19] MEDS ORDERED: FUROSEMIDE INJ/PF 20 MG/2 ML SDV IV ONE (10:00)
[2019-03-19] MEDS: PANTOPRAZOLE SODIUM 40 MG VIAL IV SCH ×2 (11:26→21:57)
[2019-03-19] MEDS: RANOLAZINE 500 MG TAB.SR.12H PO SCH ×2 (11:28→19:38)
--- NOTE | 2019-03-19 18:29 | PDOC PROGRESS REPORT ---
Subjective Progress Note for:: 03/19/19 Subjective:: The patient is a 69-year-old male with a past medical history of CAD, hyperlipidemia, CKD, renal cancer status post nephrectomy, alcohol and tobacco dependency who was admitted 03/12/2019 for Intractable nausea and vomiting and subsequently underwent an exploratory laparotomy resulting in small bowel resection and feeding jejunostomy placement due to stage IV renal cell carcinoma with intra-abdominal seeding/mass. Patient was seen on afternoon rounds with his spouse present. He is found sitting up the the recliner, comfortably, on room air. He denies abdominal discomfort. He does confirm that he has been passing gas and large bm today. Tolerating clear liquids well. He denies fever, chills, chest pain, palpitations, dyspnea, orthopnea, cough, abdominal pain, nausea and vomiting They have no other questions or concerns at this time. No concerns per nursing. Reason For Visit: POSTCHEMOTHERAPY GASTROENTERITIS Physical Exam Vital Signs: Temp Pulse Resp BP Pulse Ox 98.1 F 74 18 85/57 L 96 03/19/19 15:58 03/19/19 15:58 03/19/19 15:58 03/19/19 15:58 03/19/19 15:58 Intake & Output 03/18/19 03/19/19 03/20/19 06:59 06:59 06:59 Intake Total 5700 1805 Output Total 1350 600 Balance 4350 1205 Weight 76.7 kg 83.5 kg General appearance: PRESENT: no acute distress, cooperative, well-developed, well-nourished - Overweight Head exam: PRESENT: atraumatic, normocephalic Eye exam: PRESENT: conjunctiva pink, EOMI, PERRLA. ABSENT: scleral icterus Ear exam: PRESENT: normal external ear exam Mouth exam: PRESENT: moist, tongue midline Respiratory exam: PRESENT: clear to auscultation magui, symmetrical, unlabored. ABSENT: rales, rhonchi, wheezes Cardiovascular exam: PRESENT: RRR, +S1, +S2. ABSENT: diastolic murmur, rubs, systolic murmur Pulses: PRESENT: normal dorsalis pedis pul Vascular exam: PRESENT: normal capillary refill GI/Abdominal exam: PRESENT: distended, normal bowel sounds, soft, other - J- tube. ABSENT: guarding, mass, organolmegaly, rebound, tenderness Rectal exam: PRESENT: deferred Extremities exam: PRESENT: full ROM. ABSENT: calf tenderness, clubbing, pedal edema Musculoskeletal exam: PRESENT: ambulatory - With front wheel walker Neurological exam: PRESENT: alert, awake, oriented to person, oriented to place, oriented to time, oriented to situation, CN II-XII grossly intact. ABSENT: motor sensory deficit Psychiatric exam: PRESENT: appropriate affect, normal mood. ABSENT: homicidal ideation, suicidal ideation Skin exam: PRESENT: dry, intact, warm. ABSENT: cyanosis, rash Results Laboratory Results: 03/19/19 05:20 03/19/19 05:20 03/19/19 03/19/19 05:20 05:20 WBC 7.1 RBC 3.73 L Hgb 9.1 L Hct 27.9 L MCV 75 L MCH 24.4 L MCHC 32.6 RDW 21.3 H Plt Count 380 Seg Neutrophils % 75.4 Sodium 138.3 Potassium 3.9 Chloride 107 Carbon Dioxide 20 L Anion Gap 11 BUN 20 Creatinine 1.20 Est GFR ( Amer) > 60 Glucose 82 Calcium 8.2 L Impressions: Abdomen/Pelvis CT 03/12/19 19:07 IMPRESSION: Dilated fluid-filled loops of small bowel without a discrete transition point, however there is relative decompression of distal loops of ileum in the lower abdomen and pelvis. Findings have worsened slightly from the prior exam. Findings could reflect worsening ileus however partial or incomplete obstruction is also considered. Multiple pulmonary nodules seen in the lung bases for which metastatic disease is considered. Status post left nephrectomy. Large left adrenal mass. Correlate with biopsy results. Mixed lytic and sclerotic lesions, with an associated compression deformity of the L2 vertebral body. Findings are concerning for metastatic disease. Similar findings were present previously. TECHNICAL DOCUMENTATION: Quality ID # 436: Final reports with documentation of one or more dose reduction techniques (e.g., Automated exposure control, adjustment of the mA and/or kV according to patient size, use of iterative reconstruction technique) copyright 2011 [employer]- All Rights Reserved Small Bowel X-Ray 03/14/19 00:00 IMPRESSION: Persistent dilated small bowel loops measuring up to 4.2 cm compatible with obstruction. Gas and previously administered oral contrast now within the colon compatible with partial process. Exam was prematurely terminated secondary to patient intolerance of additional contrast material. Correlation with prior CT demonstrates dilated small bowel loops to level of the distal jejunum with transition point within the right lower quadrant (series 3, image [id number]) with questionable associated soft tissue mass at this location. There are foci of curvilinear gas at this location possibly luminal although pneumatosis is not entirely excluded. Findings were discussed with ordering provider Dr. Cornejo at 1423 hours on 03/14/2019 [facility] X-Ray 03/15/19 06:00 IMPRESSION: Findings as detailed above consistent with a resolving/partial small bowel obstruction. Continued radiographic follow-up is recommended. Assessment and Plan - Diagnosis (1) Intractable nausea and vomiting Is this a current diagnosis for this admission?: Yes Plan: Resolved. Obstructive portion of the bowel has been resected. NG tube has been removed. Advance to clear liquid diet today. Antiemetics as needed. (2) Ileus Is this a current diagnosis for this admission?: Yes Plan: Original ileus has resolved. Now awaiting return of bowel function postoperatively. Patient reports he is passing flatus and has had a bowel movement. Tube feedings via jejunostomy tube. Encourage ambulation. Primary management per surgery. (3) Abdominal bloating Is this a current diagnosis for this admission?: Yes Plan: Significantly improved; now passing gas and having bowel movements. Tolerating clear liquid diet. (4) Coronary artery disease Qualifiers: Coronary Disease-Associated Artery/Lesion type: [place] artery [place] vs. transplanted heart: [place] heart Associated angina: without angina Qualified Code(s): I25.10 - Atherosclerotic heart disease of council coronary artery without angina pectoris Is this a current diagnosis for this admission?: Yes Plan: 03/13/2019-we will continue cardiac medications as tolerated. With the nasogastric tube in place suction will need to be held for administration of medications. I have held several of his medications and will decide on administration based on daily evaluation. 03/14/2019-the patient was seen by cardiology for potential preop clearance. The patient has a history of alcoholic cardiomyopathy. He has not exhibited any acute issues at this point. We will add back his carvedilol and continue his Ranexa. The NG tube will be clamped for 2 hours after administration of the medication. 03/15/2019-the patient remains on his carvedilol and Ranexa. No evidence of acute coronary syndrome. He tolerated his surgery without difficulty. 03/16/2019-continue current regimen. No evidence of acute coronary syndrome. 03/17/2019-continue Ranexa and Coreg 03/18/2019- Stable and without chest pain at this time. Continue Ranexa and C oreg; have placed holding parameters on both. Patient to take Ranexa p.o.; this medication is not to be crushed and administered via J-tube. No active chest pain. (5) Diarrhea Qualifiers: Diarrhea type: unspecified type Qualified Code(s): R19.7 - Diarrhea, unspecified Is this a current diagnosis for this admission?: Yes Plan: Resolved. (6) Hyperlipidemia Qualifiers: Hyperlipidemia type: unspecified Qualified Code(s): E78.5 - Hyperlipidemia, unspecified Is this a current diagnosis for this admission?: Yes Plan: Statin therapy remains on hold; will resume at discharge. (7) Hypotension due to hypovolemia Is this a current diagnosis for this admission?: Yes Plan: Resolved. Multifactorial secondary to hypovolemia and possible medication reaction. No further episodes of hypotension. Holding parameters now in place for patient's cardiac medications. Resume ambulation with assist. Fall precautions. (8) Raynauds disease Qualifiers: Raynaud?s-associated gangrene presence: without gangrene Qualified Code(s): I73.00 - Raynaud's syndrome without gangrene Is this a current diagnosis for this admission?: Yes Plan: Stable; conservative therapy. Consider hand warmers and gloves if needed. (9) renal cell carcinoma stage 4 Is this a current diagnosis for this admission?: Yes Plan: Oncology has been consulted; management per Dr. Hurtado's expertise. - Time Time Spent with patient: 25-34 minutes Medications reviewed and adjusted accordingly: Yes Anticipated discharge: Home with Homehealth Within: within 48 hours
[2019-03-20] MEDS: ZOLPIDEM TARTRATE 5 MG TABLET NG PRN (03:17)
[2019-03-20 05:28] LABS: ABSOLUTE EOSINOPHILS # (AUTO) 0.3 10^3/uL (0.0-0.6); ABSOLUTE LYMPHOCYTES (AUTO) 0.6 10^3/uL (0.5-4.7); ABSOLUTE NEUT (AUTO) 5.5 10^3/uL (1.7-8.2); BASOPHILS % (AUTO) 0.5 % (0-2); EOSINOPHILS % (AUTO) 3.7 % (0-6); HEMATOCRIT 27.3 % (37.9-51.0); HEMOGLOBIN 8.8 g/dL (13.5-17.0); LYMPHOCYTES % (AUTO) 8.1 % (13-45); MEAN CORPUSCULAR HEMOGLOBIN 24.4 pg (27.0-33.4); MEAN CORPUSCULAR HGB CONC 32.2 g/dL (32.0-36.0); MEAN CORPUSCULAR VOLUME 76 fl (80-97); MONOCYTES % (AUTO) 13.7 % (3-13); PLATELET COUNT 311 10^3/uL (150-450); RED BLOOD COUNT 3.61 10^6/uL (4.35-5.55); RED CELL DISTRIBUTION WIDTH 21.3 % (11.5-14.0); TOTAL CELLS COUNTED % (AUTO) 100 %; WHITE BLOOD COUNT 7.5 10^3/uL (4.0-10.5)
[2019-03-20 05:47] LABS: ANION GAP 12 (5-19); BLOOD UREA NITROGEN 21 mg/dL (7-20); CALCIUM 7.9 mg/dL (8.4-10.2); CARBON DIOXIDE 21 mmol/L (22-30); CHLORIDE 103 mmol/L (98-107); GLUCOSE 92 mg/dL (75-110); POTASSIUM 3.6 mmol/L (3.6-5.0)
[2019-03-20] MEDS: KETOROLAC TROMETHAMINE INJ/PF 30 MG/1 ML SDV IV SCH (06:10)
[2019-03-20] MEDS: RANOLAZINE 500 MG TAB.SR.12H PO SCH ×2 (06:10→18:02)
[2019-03-20] MEDS: CARVEDILOL 12.5 MG TABLET NG SCH (06:11)
[2019-03-20] MEDS: HEPARIN SOD (PORCINE) 5,000 UNIT/ML 1 ML VIAL SUBCUT SCH ×3 (06:12→21:07)
[2019-03-20] MEDS ORDERED: PANTOPRAZOLE SODIUM 40 MG TABLET.DR PO SCH (10:00)
[2019-03-20] MEDS ORDERED: FUROSEMIDE INJ/PF 20 MG/2 ML SDV IV ONE (10:01)
[2019-03-20] MEDS ORDERED: ZOLPIDEM TARTRATE 5 MG TABLET PO PRN (10:39)
--- NOTE | 2019-03-20 13:16 | PDOC PROGRESS REPORT ---
Subjective Progress Note for:: 03/20/19 Subjective:: Still complaining of heaviness of both legs though a little bit less swelling today. Tolerating tube feedings at 25 cc an hour Reason For Visit: POSTCHEMOTHERAPY GASTROENTERITIS Physical Exam Vital Signs: Temp Pulse Resp BP Pulse Ox 98.2 F 77 19 119/71 93 03/20/19 08:00 03/20/19 08:00 03/20/19 08:00 03/20/19 08:00 03/20/19 08:00 Intake & Output 03/19/19 03/20/19 03/21/19 06:59 06:59 06:59 Intake Total 1805 284 Output Total 600 500 Balance 1205 -216 Weight 83.5 kg 83.4 kg Exam: Abdomen is soft with no tenderness. Incision is clean and dry. Jejunostomy tube in place and functioning well. Results Laboratory Results: 03/20/19 05:08 03/20/19 05:08 03/20/19 03/20/19 05:08 05:08 WBC 7.5 RBC 3.61 L Hgb 8.8 L Hct 27.3 L MCV 76 L MCH 24.4 L MCHC 32.2 RDW 21.3 H Plt Count 311 Seg Neutrophils % 74.0 Sodium 136.0 L Potassium 3.6 Chloride 103 Carbon Dioxide 21 L Anion Gap 12 BUN 21 H Creatinine 1.13 Est GFR ( Amer) > 60 Glucose 92 Calcium 7.9 L Impressions: Abdomen/Pelvis CT 03/12/19 19:07 IMPRESSION: Dilated fluid-filled loops of small bowel without a discrete transition point, however there is relative decompression of distal loops of ileum in the lower abdomen and pelvis. Findings have worsened slightly from the prior exam. Findings could reflect worsening ileus however partial or incomplete obstruction is also considered. Multiple pulmonary nodules seen in the lung bases for which metastatic disease is considered. Status post left nephrectomy. Large left adrenal mass. Correlate with biopsy results. Mixed lytic and sclerotic lesions, with an associated compression deformity of the L2 vertebral body. Findings are concerning for metastatic disease. Similar findings were present previously. TECHNICAL DOCUMENTATION: Quality ID # 436: Final reports with documentation of one or more dose reduction techniques (e.g., Automated exposure control, adjustment of the mA and/or kV according to patient size, use of iterative reconstruction technique) copyright 2011 [employer]- All Rights Reserved Small Bowel X-Ray 03/14/19 00:00 IMPRESSION: Persistent dilated small bowel loops measuring up to 4.2 cm compatible with obstruction. Gas and previously administered oral contrast now within the colon compatible with partial process. Exam was prematurely terminated secondary to patient intolerance of additional contrast material. Correlation with prior CT demonstrates dilated small bowel loops to level of the distal jejunum with transition point within the right lower quadrant (series 3, image [id number]) with questionable associated soft tissue mass at this location. There are foci of curvilinear gas at this location possibly luminal although pneumatosis is not entirely excluded. Findings were discussed with ordering provider Dr. Cornejo at 1423 hours on 03/14/2019 [facility] X-Ray 03/15/19 06:00 IMPRESSION: Findings as detailed above consistent with a resolving/partial small bowel obstruction. Continued radiographic follow-up is recommended. Assessment & Plan - Diagnosis (1) Jejunal cancer Is this a current diagnosis for this admission?: Yes (2) Partial small bowel obstruction Is this a current diagnosis for this admission?: Yes (3) renal cell carcinoma stage 4 Is this a current diagnosis for this admission?: Yes - Time Time Spent with patient: 15-24 minutes - Inpatient Certification Medical Necessity: Need Close Monitoring Due to Risk of Patient Decompensation, Need For IV Fluids, Risk of Complication if Not Cared For in Hospital - Plan Summary Plan Summary: Postop day #5 for small bowel intussusception due to metastatic renal cancer. Patient having bowel movement with flatus. He is tolerating tube feedings and gradually being increased. Plans: Start full liquid diet today Discharge planning consultation for [facility] follow-up at home Above plans discussed with the hospitalist
--- NOTE | 2019-03-20 16:02 | PDOC PROGRESS REPORT ---
Subjective Progress Note for:: 03/20/19 Subjective:: The patient is a 69-year-old male with a past medical history of CAD, hyperlipidemia, CKD, renal cancer status post nephrectomy, alcohol and tobacco dependency who was admitted 03/12/2019 for Intractable nausea and vomiting and subsequently underwent an exploratory laparotomy resulting in small bowel resection and feeding jejunostomy placement due to stage IV renal cell carcinoma with intra-abdominal seeding/mass. Patient was seen on morning rounds with his spouse present. He is found sitting up the the recliner, comfortably, on room air. He denies abdominal discomfort. Tolerating clear liquids well. He denies fever, chills, chest pain, palpitations, dyspnea, orthopnea, cough, abdominal pain, nausea and vomiting They have no other questions or concerns at this time. No concerns per nursing. Reason For Visit: POSTCHEMOTHERAPY GASTROENTERITIS Physical Exam Vital Signs: Temp Pulse Resp BP Pulse Ox 98.8 F 77 16 120/72 88 L 03/20/19 12:00 03/20/19 12:00 03/20/19 12:00 03/20/19 12:00 03/20/19 12:00 Intake & Output 03/19/19 03/20/19 03/21/19 06:59 06:59 06:59 Intake Total 1805 284 Output Total 600 500 450 Balance 1205 -216 -450 Weight 83.5 kg 83.4 kg General appearance: PRESENT: no acute distress, cooperative, well-developed, well-nourished Head exam: PRESENT: atraumatic, normocephalic Eye exam: PRESENT: conjunctiva pink, EOMI, PERRLA. ABSENT: scleral icterus Ear exam: PRESENT: normal external ear exam Mouth exam: PRESENT: moist, tongue midline Respiratory exam: PRESENT: clear to auscultation magui, symmetrical, unlabored. ABSENT: rales, rhonchi, wheezes Cardiovascular exam: PRESENT: RRR, +S1, +S2. ABSENT: diastolic murmur, rubs, systolic murmur Pulses: PRESENT: normal dorsalis pedis pul Vascular exam: PRESENT: normal capillary refill GI/Abdominal exam: PRESENT: normal bowel sounds, soft, other - J-tube. ABSENT: distended, guarding, mass, organolmegaly, rebound, tenderness Rectal exam: PRESENT: deferred Extremities exam: PRESENT: full ROM. ABSENT: calf tenderness, clubbing, pedal edema Musculoskeletal exam: PRESENT: ambulatory Neurological exam: PRESENT: alert, awake, oriented to person, oriented to place, oriented to time, oriented to situation, CN II-XII grossly intact. ABSENT: motor sensory deficit Psychiatric exam: PRESENT: appropriate affect, normal mood. ABSENT: homicidal ideation, suicidal ideation Skin exam: PRESENT: dry, intact, warm. ABSENT: cyanosis, rash Results Laboratory Results: 03/20/19 05:08 03/20/19 05:08 03/20/19 03/20/19 05:08 05:08 WBC 7.5 RBC 3.61 L Hgb 8.8 L Hct 27.3 L MCV 76 L MCH 24.4 L MCHC 32.2 RDW 21.3 H Plt Count 311 Seg Neutrophils % 74.0 Sodium 136.0 L Potassium 3.6 Chloride 103 Carbon Dioxide 21 L Anion Gap 12 BUN 21 H Creatinine 1.13 Est GFR ( Amer) > 60 Glucose 92 Calcium 7.9 L Impressions: Abdomen/Pelvis CT 03/12/19 19:07 IMPRESSION: Dilated fluid-filled loops of small bowel without a discrete transition point, however there is relative decompression of distal loops of ileum in the lower abdomen and pelvis. Findings have worsened slightly from the prior exam. Findings could reflect worsening ileus however partial or incomplete obstruction is also considered. Multiple pulmonary nodules seen in the lung bases for which metastatic disease is considered. Status post left nephrectomy. Large left adrenal mass. Correlate with biopsy results. Mixed lytic and sclerotic lesions, with an associated compression deformity of the L2 vertebral body. Findings are concerning for metastatic disease. Similar findings were present previously. TECHNICAL DOCUMENTATION: Quality ID # 436: Final reports with documentation of one or more dose reduction techniques (e.g., Automated exposure control, adjustment of the mA and/or kV according to patient size, use of iterative reconstruction technique) copyright 2011 [employer]- All Rights Reserved Small Bowel X-Ray 03/14/19 00:00 IMPRESSION: Persistent dilated small bowel loops measuring up to 4.2 cm compatible with obstruction. Gas and previously administered oral contrast now within the colon compatible with partial process. Exam was prematurely terminated secondary to patient intolerance of additional contrast material. Correlation with prior CT demonstrates dilated small bowel loops to level of the distal jejunum with transition point within the right lower quadrant (series 3, image [id number]) with questionable associated soft tissue mass at this location. There are foci of curvilinear gas at this location possibly luminal although pneumatosis is not entirely excluded. Findings were discussed with ordering provider Dr. Cornejo at 1423 hours on 03/14/2019 KUB X-Ray 03/15/19 06:00 IMPRESSION: Findings as detailed above consistent with a resolving/partial small bowel obstruction. Continued radiographic follow-up is recommended. Assessment and Plan - Diagnosis (1) Intractable nausea and vomiting Is this a current diagnosis for this admission?: Yes Plan: Resolved. Obstructive portion of the bowel has been resected. NG tube has been removed. Advance to full liquid diet today. Antiemetics as needed. (2) Ileus Is this a current diagnosis for this admission?: Yes Plan: Resolved Tube feedings via jejunostomy tube. Encourage ambulation. Primary management per surgery. (3) Abdominal bloating Is this a current diagnosis for this admission?: Yes Plan: Resolved (4) Coronary artery disease Qualifiers: Coronary Disease-Associated Artery/Lesion type: [place] artery [place] vs. transplanted heart: [place] heart Associated angina: without angina Qualified Code(s): I25.10 - Atherosclerotic heart disease of [place] coronary artery without angina pectoris Is this a current diagnosis for this admission?: Yes Plan: Stable and without chest pain at this time. Continue Ranexa and Coreg; have placed holding parameters on both. (5) Diarrhea Qualifiers: Diarrhea type: unspecified type Qualified Code(s): R19.7 - Diarrhea, unspecified Is this a current diagnosis for this admission?: Yes Plan: Resolved. (6) Hyperlipidemia Qualifiers: Hyperlipidemia type: unspecified Qualified Code(s): E78.5 - Hyperlipidemia, unspecified Is this a current diagnosis for this admission?: Yes Plan: Statin therapy remains on hold; will resume at discharge. (7) Hypotension due to hypovolemia Is this a current diagnosis for this admission?: Yes Plan: Resolved. Multifactorial secondary to hypovolemia and possible medication reaction. No further episodes of hypotension. Holding parameters now in place for patient's cardiac medications. Resume ambulation with assist. Fall precautions. (8) Raynauds disease Qualifiers: Raynaud?s-associated gangrene presence: without gangrene Qualified Code(s): I73.00 - Raynaud's syndrome without gangrene Is this a current diagnosis for this admission?: Yes Plan: Stable; conservative therapy. Consider hand warmers and gloves if needed. (9) renal cell carcinoma stage 4 Is this a current diagnosis for this admission?: Yes Plan: Oncology has been consulted; management per Dr. Hurtado's expertise. - Time Time Spent with patient: 25-34 minutes Medications reviewed and adjusted accordingly: Yes Anticipated discharge: Home with Homehealth Within: within 24 hours
[2019-03-20] MEDS: ONDANSETRON HCL INJ/PF 4 MG/2 ML SDV IV PRN ×2 (16:29→21:04)
[2019-03-20] MEDS ORDERED: CARVEDILOL 12.5 MG TABLET PO SCH (19:00)
[2019-03-21] MEDS: ONDANSETRON HCL INJ/PF 4 MG/2 ML SDV IV PRN (03:53)
[2019-03-21] MEDS: HEPARIN SOD (PORCINE) 5,000 UNIT/ML 1 ML VIAL SUBCUT SCH ×3 (05:17→21:46)
[2019-03-21] MEDS ORDERED: PHARMACY COMMUNICATION ORDER MC NR (06:00)
[2019-03-21 07:09] LABS: HEMATOCRIT 29.1 % (37.9-51.0); HEMOGLOBIN 9.4 g/dL (13.5-17.0); MEAN CORPUSCULAR HGB CONC 32.4 g/dL (32.0-36.0); MEAN CORPUSCULAR VOLUME 74 fl (80-97); PLATELET COUNT 405 10^3/uL (150-450); RED BLOOD COUNT 3.93 10^6/uL (4.35-5.55); RED CELL DISTRIBUTION WIDTH 22.5 % (11.5-14.0)
[2019-03-21] MEDS ORDERED: ACETAMINOPHEN 325 MG TABLET NG PRN (07:10)
[2019-03-21 07:26] LABS: ANION GAP 14 (5-19); BLOOD UREA NITROGEN 17 mg/dL (7-20); CALCIUM 8.3 mg/dL (8.4-10.2); CARBON DIOXIDE 24 mmol/L (22-30); CHLORIDE 99 mmol/L (98-107); GLUCOSE 96 mg/dL (75-110); POTASSIUM 3.4 mmol/L (3.6-5.0)
[2019-03-21] MEDS ORDERED: ACETAMINOPHEN SOLN 325 MG/10.15 ML UDCUP NG PRN (07:49)
[2019-03-21 08:09] LABS: ABSOLUTE LYMPHOCYTES# (MANUAL) 1.1 10^3/uL (0.5-4.7); ABSOLUTE MONOCYTES # (MANUAL) 0.7 10^3/uL (0.1-1.4); BAND NEUTROPHILS % (MANUAL) 9 % (3-5); BASOPHILS % (MANUAL) 0 % (0-2); EOSINOPHILS % (MANUAL) 0 % (0-6); LYMPHOCYTES % (MANUAL) 11 % (13-45); MONOCYTES % (MANUAL) 7 % (3-13); SEGMENTED NEUTROPHILS % (MAN) 73 % (42-78); TOTAL CELLS COUNTED 100
[2019-03-21 08:11] LABS: TOXIC GRANULATION 1+; TOXIC VACUOLATION PRESENT
[2019-03-21 08:12] LABS: HYPOCHROMASIA SLIGHT; OVALOCYTES SLIGHT; PLATELET COMMENT INCREASED; POLYCHROMASIA SLIGHT
--- NOTE | 2019-03-21 08:29 | PDOC PROGRESS REPORT ---
Subjective Progress Note for:: 03/21/19 Subjective:: Patient had a rough night, he had 3 episodes of severe vomiting, large-volume, brownish in color, per patient smelled like stool. He feels bloated this morning, but on physical exam has no peritoneal signs. Reason For Visit: POSTCHEMOTHERAPY GASTROENTERITIS Physical Exam Vital Signs: Temp Pulse Resp BP Pulse Ox 98.7 F 87 20 111/59 L 92 03/21/19 03:44 03/21/19 03:44 03/21/19 00:13 03/21/19 03:44 03/21/19 03:44 Intake & Output 03/20/19 03/21/19 03/22/19 06:59 06:59 06:59 Intake Total 284 50 Output Total 500 1400 Balance -216 -1350 Weight 83.4 kg 81.5 kg General appearance: PRESENT: no acute distress, well-developed, well-nourished Head exam: PRESENT: atraumatic, normocephalic Eye exam: PRESENT: conjunctiva pink, EOMI, PERRLA. ABSENT: scleral icterus Ear exam: PRESENT: normal external ear exam Mouth exam: PRESENT: moist, tongue midline Neck exam: ABSENT: carotid bruit, JVD, lymphadenopathy, thyromegaly Respiratory exam: PRESENT: clear to auscultation magui. ABSENT: rales, rhonchi, wheezes Cardiovascular exam: PRESENT: RRR. ABSENT: diastolic murmur, rubs, systolic murmur Pulses: PRESENT: normal dorsalis pedis pul Vascular exam: PRESENT: normal capillary refill GI/Abdominal exam: PRESENT: normal bowel sounds, soft. ABSENT: distended, guarding, mass, organolmegaly, rebound, tenderness Rectal exam: PRESENT: deferred Extremities exam: PRESENT: full ROM. ABSENT: calf tenderness, clubbing, pedal edema Neurological exam: PRESENT: alert, awake, oriented to person, oriented to place, oriented to time, oriented to situation, CN II-XII grossly intact. ABSENT: m otor sensory deficit Psychiatric exam: PRESENT: appropriate affect, normal mood. ABSENT: homicidal ideation, suicidal ideation Skin exam: PRESENT: dry, intact, warm. ABSENT: cyanosis, rash Results Laboratory Results: 03/21/19 06:40 03/21/19 06:40 01/02/20 01/02/20 06:40 06:40 WBC 10.0 RBC 3.93 L Hgb 9.4 L Hct 29.1 L MCV 74 L MCH 24.0 L MCHC 32.4 RDW 22.5 H Plt Count 405 Seg Neutrophils % Not Reportable Sodium 136.7 L Potassium 3.4 L Chloride 99 Carbon Dioxide 24 Anion Gap 14 BUN 17 Creatinine 1.06 Est GFR ( Amer) > 60 Glucose 96 Calcium 8.3 L Impressions: Abdomen/Pelvis CT 03/12/19 19:07 IMPRESSION: Dilated fluid-filled loops of small bowel without a discrete transition point, however there is relative decompression of distal loops of ileum in the lower abdomen and pelvis. Findings have worsened slightly from the prior exam. Findings could reflect worsening ileus however partial or incomplete obstruction is also considered. Multiple pulmonary nodules seen in the lung bases for which metastatic disease is considered. Status post left nephrectomy. Large left adrenal mass. Correlate with biopsy results. Mixed lytic and sclerotic lesions, with an associated compression deformity of the L2 vertebral body. Findings are concerning for metastatic disease. Similar findings were present previously. TECHNICAL DOCUMENTATION: Quality ID # 436: Final reports with documentation of one or more dose reduction techniques (e.g., Automated exposure control, adjustment of the mA and/or kV according to patient size, use of iterative reconstruction technique) copyright 2011 [employer]- All Rights Reserved Small Bowel X-Ray 03/14/19 00:00 IMPRESSION: Persistent dilated small bowel loops measuring up to 4.2 cm compatible with obstruction. Gas and previously administered oral contrast now within the colon compatible with partial process. Exam was prematurely terminated secondary to patient intolerance of additional contrast material. Correlation with prior CT demonstrates dilated small bowel loops to level of the distal jejunum with transition point within the right lower quadrant (series 3, image [id number]) with questionable associated soft tissue mass at this location. There are foci of curvilinear gas at this location possibly luminal although pneumatosis is not entirely excluded. Findings were discussed with ordering provider Dr. Cornejo at 1423 hours on 03/14/2019 KUB X-Ray 03/15/19 06:00 IMPRESSION: Findings as detailed above consistent with a resolving/partial small bowel obstruction. Continued radiographic follow-up is recommended. Assessment & Plan - Diagnosis (1) Partial small bowel obstruction Is this a current diagnosis for this admission?: Yes Plan: Was improving, but unfortunately had emesis, discussed with surgery who will be seeing him in deciding on next steps of care but replacing NG tube plus CT imaging may be needed. (2) renal cell carcinoma stage 4 Is this a current diagnosis for this admission?: Yes Plan: Continue further therapy as an outpatient - Time Time Spent with patient: 35 or more minutes
[2019-03-21] MEDS: RANOLAZINE 500 MG TAB.SR.12H PO SCH (09:32)
--- NOTE | 2019-03-21 10:09 | RADIOLOGY REPORT (SQ) ---
EXAM DESCRIPTION: KUB/ABDOMEN (SINGLE VIEW) COMPLETED DATE/TIME: 03/21/2019 9:56 am REASON FOR STUDY: Check Placement of NG Tube COMPARISON: 03/15/2019 NUMBER OF VIEWS: One view. TECHNIQUE: Supine radiographic image of the abdomen acquired. LIMITATIONS: None. FINDINGS: BOWEL GAS PATTERN: Persistent loops of dilated small bowel in the left upper quadrant. Na sogastric tube in the stomach. CALCIFICATIONS: No suspicious calcifications. SOFT TISSUES: No gross mass or suggestion of organomegaly. HARDWARE: None in the abdomen. BONES: No acute fracture. No worrisome bone lesions. OTHER: Small left pleural effusion. IMPRESSION: Good position of nasogastric tube. TECHNICAL DOCUMENTATION: JOB ID: [id number] [employer]- All Rights Reserved Reading location - IP/workstation name: [email or web address]
--- NOTE | 2019-03-21 11:12 | PDOC PROGRESS REPORT ---
Subjective Progress Note for:: 03/21/19 Subjective:: Vomited twice last night. Feels bloated especially when sitting up. Feels better after vomiting J-tube feeding-like material according to the patient Reason For Visit: POSTCHEMOTHERAPY GASTROENTERITIS Physical Exam Vital Signs: Temp Pulse Resp BP Pulse Ox 97.4 F 74 18 86/62 L 94 03/21/19 08:00 03/21/19 08:00 03/21/19 08:00 03/21/19 10:18 03/21/19 08:00 Intake & Output 03/20/19 03/21/19 03/22/19 06:59 06:59 06:59 Intake Total 284 50 Output Total 500 1400 Balance -216 -1350 Weight 83.4 kg 81.5 kg Exam: Abdomen is distended but soft and nontender. Incision is clean and dry. J-tube in place. Results Laboratory Results: 03/21/19 06:40 03/21/19 06:40 03/21/19 03/21/19 06:40 06:40 WBC 10.0 RBC 3.93 L Hgb 9.4 L Hct 29.1 L MCV 74 L MCH 24.0 L MCHC 32.4 RDW 22.5 H Plt Count 405 Seg Neutrophils % Not Reportable Sodium 136.7 L Potassium 3.4 L Chloride 99 Carbon Dioxide 24 Anion Gap 14 BUN 17 Creatinine 1.06 Est GFR ( Amer) > 60 Glucose 96 Calcium 8.3 L Impressions: Abdomen/Pelvis CT 03/12/19 19:07 IMPRESSION: Dilated fluid-filled loops of small bowel without a discrete transition point, however there is relative decompression of distal loops of ileum in the lower abdomen and pelvis. Findings have worsened slightly from the prior exam. Findings could reflect worsening ileus however partial or incomplete obstruction is also considered. Multiple pulmonary nodules seen in the lung bases for which metastatic disease is considered. Status post left nephrectomy. Large left adrenal mass. Correlate with biopsy results. Mixed lytic and sclerotic lesions, with an associated compression deformity of the L2 vertebral body. Findings are concerning for metastatic disease. Similar findings were present previously. TECHNICAL DOCUMENTATION: Quality ID # 436: Final reports with documentation of one or more dose reduction techniques (e.g., Automated exposure control, adjustment of the mA and/or kV according to patient size, use of iterative reconstruction technique) copyright 2011 [employer]- All Rights Reserved Small Bowel X-Ray 03/14/19 00:00 IMPRESSION: Persistent dilated small bowel loops measuring up to 4.2 cm compatible with obstruction. Gas and previously administered oral contrast now within the colon compatible with partial process. Exam was prematurely terminated secondary to patient intolerance of additional contrast material. Correlation with prior CT demonstrates dilated small bowel loops to level of the distal jejunum with transition point within the right lower quadrant (series 3, image [id number]) with questionable associated soft tissue mass at this location. There are foci of curvilinear gas at this location possibly luminal although pneumatosis is not entirely excluded. Findings were discussed with ordering provider Dr. Cornejo at 1423 hours on 03/14/2019 KUB X-Ray 03/21/19 09:00 IMPRESSION: Good position of nasogastric tube. Assessment & Plan - Diagnosis (1) Jejunal cancer Is this a current diagnosis for this admission?: Yes (2) Partial small bowel obstruction Is this a current diagnosis for this admission?: Yes (3) renal cell carcinoma stage 4 Is this a current diagnosis for this admission?: Yes - Time Time Spent with patient: 15-24 minutes - Inpatient Certification Medical Necessity: Need Close Monitoring Due to Risk of Patient Decompensation, Need For IV Fluids, Risk of Complication if Not Cared For in Hospital - Plan Summary Plan Summary: 69-year-old male with known history of renal cancer diagnosed initially about 8 years ago. His cancer appears to have returned in the past year according to . He had a small bowel intussusception due to metastatic renal can cer. A J-tube is also placed by Dr. Sheffield on 03/15/2019. Last night patient vomited twice with a low-grade fever. His abdomen is distended and NG tube was placed this morning with at KUB showing dilated small bowel. Blood cultures were obtained last night since his antibiotics has been stopped a few days ago. Plans: NGT to suction- just drained 900 ccs with patient having some relief of abd ominal bloating Re-evaluate in am for possible CT scan Replace K+ Hold J-tube feedings
[2019-03-21] MEDS ORDERED: POTASSI CL 20 MEQ/50 ML RIDER 20 MEQ/50 ML RTUPB IV ONE (11:30)
[2019-03-21] MEDS: PANTOPRAZOLE SODIUM 40 MG PACKET.DR NG SCH (12:36)
--- NOTE | 2019-03-21 18:14 | PDOC PROGRESS REPORT ---
Subjective Progress Note for:: 03/21/19 Subjective:: The patient is a 69-year-old male with a past medical history of CAD, hyperlipidemia, CKD, renal cancer status post nephrectomy, alcohol and tobacco dependency who was admitted 03/12/2019 for Intractable nausea and vomiting and subsequently underwent an exploratory laparotomy resulting in small bowel resection and feeding jejunostomy placement due to stage IV renal cell carcinoma with intra-abdominal seeding/mass. Patient was seen on afternoon rounds with his spouse present. He is found resting in bed, comfortably, on room air. He was sleeping, but woke easily. Unfortunately, the patient developed generalized abdominal discomfort, bloating, and nausea with emesis requiring placement of NG tube. Surgery has been reconsulted. Patient does report that he is feeling better following placement of the NG tube. He denies fever, chills, chest pain, palpitations, dyspnea, orthopnea, cough Reason For Visit: POSTCHEMOTHERAPY GASTROENTERITIS Physical Exam Vital Signs: Temp Pulse Resp BP Pulse Ox 97.5 F 68 17 98/58 L 96 03/21/19 16:00 03/21/19 16:00 03/21/19 16:00 03/21/19 16:00 03/21/19 16:00 Intake & Output 03/20/19 03/21/19 03/22/19 06:59 06:59 06:59 Intake Total 284 50 0 Output Total 500 1400 Balance -216 -1350 0 Weight 83.4 kg 81.5 kg General appearance: PRESENT: no acute distress, cooperative, well-developed, well-nourished - Overweight Head exam: PRESENT: atraumatic, normocephalic Eye exam: PRESENT: conjunctiva pink, EOMI, PERRLA. ABSENT: scleral icterus Ear exam: PRESENT: normal external ear exam Mouth exam: PRESENT: moist, tongue midline Respiratory exam: PRESENT: clear to auscultation magui, symmetrical, unlabored. ABSENT: rales, rhonchi, wheezes Cardiovascular exam: PRESENT: RRR, +S1, +S2. ABSENT: diastolic murmur, rubs, systolic murmur Pulses: PRESENT: normal dorsalis pedis pul Vascular exam: PRESENT: normal capillary refill GI/Abdominal exam: PRESENT: normal bowel sounds, soft, tenderness, other - NG tube to intermittent low suction. ABSENT: distended, guarding, mass, organolmegaly, rebound Rectal exam: PRESENT: deferred Extremities exam: PRESENT: full ROM. ABSENT: calf tenderness, clubbing, pedal edema Musculoskeletal exam: PRESENT: ambulatory Neurological exam: PRESENT: alert, awake, oriented to person, oriented to place, oriented to time, oriented to situation, CN II-XII grossly intact. ABSENT: motor sensory deficit Psychiatric exam: PRESENT: appropriate affect, normal mood. ABSENT: homicidal ideation, suicidal ideation Skin exam: PRESENT: dry, intact, warm. ABSENT: cyanosis, rash Results Laboratory Results: 03/21/19 06:40 03/21/19 06:40 03/21/19 03/21/19 06:40 06:40 WBC 10.0 RBC 3.93 L Hgb 9.4 L Hct 29.1 L MCV 74 L MCH 24.0 L MCHC 32.4 RDW 22.5 H Plt Count 405 Seg Neutrophils % Not Reportable Sodium 136.7 L Potassium 3.4 L Chloride 99 Carbon Dioxide 24 Anion Gap 14 BUN 17 Creatinine 1.06 Est GFR ( Amer) > 60 Glucose 96 Calcium 8.3 L Impressions: Abdomen/Pelvis CT 03/12/19 19:07 IMPRESSION: Dilated fluid-filled loops of small bowel without a discrete transition point, however there is relative decompression of distal loops of ileum in the lower abdomen and pelvis. Findings have worsened slightly from the prior exam. Findings could reflect worsening ileus however partial or incomplete obstruction is also considered. Multiple pulmonary nodules seen in the lung bases for which metastatic disease is considered. Status post left nephrectomy. Large left adrenal mass. Correlate with biopsy results. Mixed lytic and sclerotic lesions, with an associated compression deformity of the L2 vertebral body. Findings are concerning for metastatic disease. Similar findings were present previously. TECHNICAL DOCUMENTATION: Quality ID # 436: Final reports with documentation of one or more dose reduction techniques (e.g., Automated exposure control, adjustment of the mA and/or kV according to patient size, use of iterative reconstruction technique) copyright 2011 [employer]- All Rights Reserved Small Bowel X-Ray 03/14/19 00:00 IMPRESSION: Persistent dilated small bowel loops measuring up to 4.2 cm compatible with obstruction. Gas and previously administered oral contrast now within the colon compatible with partial process. Exam was prematurely terminated secondary to patient intolerance of additional contrast material. Correlation with prior CT demonstrates dilated small bowel loops to level of the distal jejunum with transition point within the right lower quadrant (series 3, image [id number]) with questionable associated soft tissue mass at this location. There are foci of curvilinear gas at this location possibly luminal although pneumatosis is not entirely excluded. Findings were discussed with ordering provider Dr. Cornejo at 1423 hours on 03/14/2019 KUB X-Ray 03/21/19 09:00 IMPRESSION: Good position of nasogastric tube. Assessment and Plan - Diagnosis (1) Ileus Is this a current diagnosis for this admission?: Yes Plan: Reoccurred. Patient is placed back in n.p.o. status; tube feedings have been discontinued. NG tube to low wall suction. Continue gentle IV fluids. Surgery has been reconsulted. (2) Intractable nausea and vomiting Is this a current diagnosis for this admission?: Yes Plan: Resolved. Obstructive portion of the bowel has been resected. Antiemetics as needed. (3) Abdominal bloating Is this a current diagnosis for this admission?: Yes Plan: As above. (4) Coronary artery disease Qualifiers: Coronary Disease-Associated Artery/Lesion type: [place] artery [place] vs. transplanted heart: [place] heart Associated angina: without angina Qualified Code(s): I25.10 - Atherosclerotic heart disease of [place] coronary artery without angina pectoris Is this a current diagnosis for this admission?: Yes Plan: Stable and without chest pain at this time. Ranexa and Coreg on hold secondary to n.p.o. status. (5) Diarrhea Qualifiers: Diarrhea type: unspecified type Qualified Code(s): R19.7 - Diarrhea, unspecified Is this a current diagnosis for this admission?: Yes Plan: Resolved. (6) Hyperlipidemia Qualifiers: Hyperlipidemia type: unspecified Qualified Code(s): E78.5 - Hyperlipidemia, unspecified Is this a current diagnosis for this admission?: Yes Plan: Statin therapy remains on hold; will resume at discharge. (7) Hypotension due to hypovolemia Is this a current diagnosis for this admission?: Yes Plan: Resolved. Multifactorial secondary to hypovolemia and possible medication reaction. No further episodes of hypotension. Holding parameters now in place for patient's cardiac medications. Resume ambulation with assist. Fall precautions. (8) Raynauds disease Qualifiers: Raynaud?s-associated gangrene presence: without gangrene Qualified Code(s): I73.00 - Raynaud's syndrome without gangrene Is this a current diagnosis for this admission?: Yes Plan: Stable; conservative therapy. Consider hand warmers and gloves if needed. (9) renal cell carcinoma stage 4 Is this a current diagnosis for this admission?: Yes Plan: Oncology has been consulted; management per Dr. Hurtado's expertise. - Time Time Spent with patient: 25-34 minutes Medications reviewed and adjusted accordingly: Yes Anticipated discharge: Home with Homehealth
[2019-03-21] MEDS ORDERED: CARVEDILOL 12.5 MG TABLET NG SCH (19:00)
[2019-03-21] MEDS: ZOLPIDEM TARTRATE 5 MG TABLET NG PRN (21:45)
[2019-03-22] MEDS: HEPARIN SOD (PORCINE) 5,000 UNIT/ML 1 ML VIAL SUBCUT SCH ×3 (05:58→21:25)
[2019-03-22 06:24] LABS: ABSOLUTE EOSINOPHILS # (AUTO) 0.3 10^3/uL (0.0-0.6); ABSOLUTE LYMPHOCYTES (AUTO) 0.6 10^3/uL (0.5-4.7); ABSOLUTE MONOCYTES (AUTO) 0.9 10^3/uL (0.1-1.4); BASOPHILS % (AUTO) 0.3 % (0-2); EOSINOPHILS % (AUTO) 2.3 % (0-6); HEMOGLOBIN 8.9 g/dL (13.5-17.0); LYMPHOCYTES % (AUTO) 5.7 % (13-45); MEAN CORPUSCULAR HEMOGLOBIN 24.3 pg (27.0-33.4); MEAN CORPUSCULAR HGB CONC 32.9 g/dL (32.0-36.0); MEAN CORPUSCULAR VOLUME 74 fl (80-97); MONOCYTES % (AUTO) 8.3 % (3-13); PLATELET COUNT 421 10^3/uL (150-450); RED BLOOD COUNT 3.66 10^6/uL (4.35-5.55); RED CELL DISTRIBUTION WIDTH 21.7 % (11.5-14.0); SEGMENTED NEUTROPHILS % (AUTO) 83.4 % (42-78); TOTAL CELLS COUNTED % (AUTO) 100 %; WHITE BLOOD COUNT 10.8 10^3/uL (4.0-10.5)
[2019-03-22 06:46] LABS: ANION GAP 12 (5-19); BLOOD UREA NITROGEN 21 mg/dL (7-20); CALCIUM 8.3 mg/dL (8.4-10.2); CARBON DIOXIDE 24 mmol/L (22-30); CHLORIDE 102 mmol/L (98-107); GLUCOSE 75 mg/dL (75-110); POTASSIUM 3.6 mmol/L (3.6-5.0)
--- NOTE | 2019-03-22 08:29 | PDOC PROGRESS REPORT ---
Subjective Progress Note for:: 03/22/19 Subjective:: c/o crampy abd pain passed small amts of stool x1 yesterday Reason For Visit: POSTCHEMOTHERAPY GASTROENTERITIS Physical Exam Vital Signs: Temp Pulse Resp BP Pulse Ox 97.7 F 65 17 97/57 L 97 03/22/19 00:00 03/22/19 00:00 03/22/19 00:00 03/22/19 00:00 03/22/19 00:00 Intake & Output 03/21/19 03/22/19 03/23/19 06:59 06:59 06:59 Intake Total 50 50 Output Total 1400 900 Balance -1350 -850 Weight 81.5 kg 80.3 kg General appearance: PRESENT: mild distress Head exam: PRESENT: normocephalic Eye exam: PRESENT: EOMI Mouth exam: PRESENT: dry mucosa Neck exam: PRESENT: full ROM Respiratory exam: PRESENT: clear to auscultation magui Cardiovascular exam: PRESENT: RRR Pulses: PRESENT: normal radial pulses, normal femoral pulses Vascular exam: PRESENT: normal capillary refill Breast: PRESENT: Normal GI/Abdominal exam: PRESENT: hyperactive bowel sounds Rectal exam: PRESENT: deferred Extremities exam: PRESENT: full ROM, +1 edema Musculoskeletal exam: PRESENT: ambulatory Neurological exam: PRESENT: alert, awake, oriented to person, oriented to place Psychiatric exam: PRESENT: appropriate affect Skin exam: PRESENT: dry Results Laboratory Results: 03/22/19 05:53 03/22/19 05:53 03/22/19 03/22/19 05:53 05:53 WBC 10.8 H RBC 3.66 L Hgb 8.9 L Hct 27.0 L MCV 74 L MCH 24.3 L MCHC 32.9 RDW 21.7 H Plt Count 421 Seg Neutrophils % 83.4 H Sodium 138.3 Potassium 3.6 Chloride 102 Carbon Dioxide 24 Anion Gap 12 BUN 21 H Creatinine 1.07 Est GFR ( Amer) > 60 Glucose 75 Calcium 8.3 L Impressions: Abdomen/Pelvis CT 03/12/19 19:07 IMPRESSION: Dilated fluid-filled loops of small bowel without a discrete transition point, however there is relative decompression of distal loops of ileum in the lower abdomen and pelvis. Findings have worsened slightly from the prior exam. Findings could reflect worsening ileus however partial or incomplete obstruction is also considered. Multiple pulmonary nodules seen in the lung bases for which metastatic disease is considered. Status post left nephrectomy. Large left adrenal mass. Correlate with biopsy results. Mixed lytic and sclerotic lesions, with an associated compression deformity of the L2 vertebral body. Findings are concerning for metastatic disease. Similar findings were present previously. TECHNICAL DOCUMENTATION: Quality ID # 436: Final reports with documentation of one or more dose reduction techniques (e.g., Automated exposure control, adjustment of the mA and/or kV according to patient size, use of iterative reconstruction technique) copyright 2011 [employer]- All Rights Reserved Small Bowel X-Ray 03/14/19 00:00 IMPRESSION: Persistent dilated small bowel loops measuring up to 4.2 cm compatible with obstruction. Gas and previously administered oral contrast now within the colon compatible with partial process. Exam was prematurely terminated secondary to patient intolerance of additional contrast material. Correlation with prior CT demonstrates dilated small bowel loops to level of the distal jejunum with transition point within the right lower quadrant (series 3, image [id number]) with questionable associated soft tissue mass at this location. There are foci of curvilinear gas at this location possibly luminal although pneumatosis is not entirely excluded. Findings were discussed with ordering provider Dr. Cornejo at 1423 hours on 03/14/2019 KUB X-Ray 03/21/19 09:00 IMPRESSION: Good position of nasogastric tube. Assessment & Plan - Time Time Spent with patient: 35 or more minutes - Plan Summary Plan Summary: s/p ileal resection for intususception due to metastatic renal cancer now not passing stool or flatus c/o crampy abd pain abd is soft, non tender will plan on ct scan with gastrografin
--- NOTE | 2019-03-22 08:52 | PDOC PROGRESS REPORT ---
Subjective Progress Note for:: 03/22/19 Subjective:: Patient had cramps about every 8 to 10 minutes last night, continuously, lot of output from NG tube. Dr. Ulloa saw patient this morning and is planning on ordering Gastrografin CT. Reason For Visit: POSTCHEMOTHERAPY GASTROENTERITIS Physical Exam Vital Signs: Temp Pulse Resp BP Pulse Ox 98.7 F 82 14 111/62 93 03/22/19 08:00 03/22/19 08:00 03/22/19 08:00 03/22/19 08:00 03/22/19 08:00 Intake & Output 03/21/19 03/22/19 03/23/19 06:59 06:59 06:59 Intake Total 50 50 Output Total 1400 900 Balance -1350 -850 Weight 81.5 kg 80.3 kg General appearance: PRESENT: no acute distress, well-developed, well-nourished Head exam: PRESENT: atraumatic, normocephalic Eye exam: PRESENT: conjunctiva pink, EOMI, PERRLA. ABSENT: scleral icterus Ear exam: PRESENT: normal external ear exam Mouth exam: PRESENT: moist, tongue midline Neck exam: ABSENT: carotid bruit, JVD, lymphadenopathy, thyromegaly Respiratory exam: PRESENT: clear to auscultation magui. ABSENT: rales, rhonchi, wheezes Cardiovascular exam: PRESENT: RRR. ABSENT: diastolic murmur, rubs, systolic murmur Pulses: PRESENT: normal dorsalis pedis pul Vascular exam: PRESENT: normal capillary refill GI/Abdominal exam: PRESENT: normal bowel sounds, soft. ABSENT: distended, guarding, mass, organolmegaly, rebound, tenderness Rectal exam: PRESENT: deferred Extremities exam: PRESENT: full ROM. ABSENT: calf tenderness, clubbing, pedal edema Neurological exam: PRESENT: alert, awake, oriented to person, oriented to place, oriented to time, oriented to situation, CN II-XII grossly intact. ABSENT: motor sensory deficit Psychiatric exam: PRESENT: appropriate affect, normal mood. ABSENT: homicidal ideation, suicidal ideation Skin exam: PRESENT: dry, intact, warm. ABSENT: cyanosis, rash Results Laboratory Results: 03/22/19 05:53 03/22/19 05:53 03/22/19 03/22/19 05:53 05:53 WBC 10.8 H RBC 3.66 L Hgb 8.9 L Hct 27.0 L MCV 74 L MCH 24.3 L MCHC 32.9 RDW 21.7 H Plt Count 421 Seg Neutrophils % 83.4 H Sodium 138.3 Potassium 3.6 Chloride 102 Carbon Dioxide 24 Anion Gap 12 BUN 21 H Creatinine 1.07 Est GFR ( Amer) > 60 Glucose 75 Calcium 8.3 L Impressions: Abdomen/Pelvis CT 03/12/19 19:07 IMPRESSION: Dilated fluid-filled loops of small bowel without a discrete transition point, however there is relative decompression of distal loops of ileum in the lower abdomen and pelvis. Findings have worsened slightly from the prior exam. Findings could reflect worsening ileus however partial or incomplete obstruction is also considered. Multiple pulmonary nodules seen in the lung bases for which metastatic disease is considered. Status post left nephrectomy. Large left adrenal mass. Correlate with biopsy results. Mixed lytic and sclerotic lesions, with an associated compression deformity of the L2 vertebral body. Findings are concerning for metastatic disease. Similar findings were present previously. TECHNICAL DOCUMENTATION: Quality ID # 436: Final reports with documentation of one or more dose reduction techniques (e.g., Automated exposure control, adjustment of the mA and/or kV according to patient size, use of iterative reconstruction technique) copyright 2011 [employer]- All Rights Reserved Small Bowel X-Ray 03/14/19 00:00 IMPRESSION: Persistent dilated small bowel loops measuring up to 4.2 cm compatible with obstruction. Gas and previously administered oral contrast now within the colon compatible with partial process. Exam was prematurely terminated secondary to patient intolerance of additional contrast material. Correlation with prior CT demonstrates dilated small bowel loops to level of the distal jejunum with transition point within the right lower quadrant (series 3, image [id number]) with questionable associated soft tissue mass at this location. There are foci of curvilinear gas at this location possibly luminal although pneumatosis is not entirely excluded. Findings were discussed with ordering provider Dr. Cornejo at 1423 hours on 03/14/2019 KUB X-Ray 03/21/19 09:00 IMPRESSION: Good position of nasogastric tube. Assessment & Plan - Diagnosis (1) Partial small bowel obstruction Is this a current diagnosis for this admission?: Yes Plan: Probable ileus again, hopefully not a full obstruction again, status post surgery, hopefully this will resolve and he can go back to tube feeds. (2) renal cell carcinoma stage 4 Is this a current diagnosis for this admission?: Yes Plan: Still would like to do further therapy as an outpatient. - Time Time Spent with patient: 35 or more minutes
[2019-03-22] MEDS: NORMAL SALINE 1000 ML 1,000 ML IV PRN ×3 (10:06→23:02)
[2019-03-22] MEDS: PANTOPRAZOLE SODIUM 40 MG PACKET.DR NG SCH ×2 (10:30→14:00)
--- NOTE | 2019-03-22 11:40 | RADIOLOGY REPORT (SQ) ---
EXAM DESCRIPTION: CT ABD/PELVIS ORAL ONLY COMPLETED DATE/TIME: 03/22/2019 11:13 am REASON FOR STUDY: s/p small bowel resction. COMPARISON: 03/12/2019 TECHNIQUE: CT scan of the abdomen and pelvis performed without intravenous. Patient was given oral contrast. Images reviewed with lung, soft tissue, and bone windows. Reconstructed coronal and sagitta l MPR images reviewed. All images stored on PACS. All CT scanners at this facility use dose modulation, iterative reconstruction, and/or weight based d osing when appropriate to reduce radiation dose to as low as reasonably achievable (ALARA). [facility]: Dose Right [facility]: CareDose [facility]: Dose Right [facility]: Teradose 4D [facility]: [employer] RADIATION DOSE: mGy. LIMITATIONS: None. FINDINGS: LOWER CHEST: Small bilateral pleural effusions with associated basilar consolidation, like ly atelectasis. NON-CONTRASTED LIVER, SPLEEN, ADRENALS: Evaluation limited by lack of IV contrast. Unchanged nodular ity of the left adrenal gland. Identified significant masses. PANCREAS: No masses. No peripancreatic inflammatory changes. GALLBLADDER: No radiopaque stones. Mild distended gallbladder measuring up to 4.7 cm transversely. No pericholecystic fluid or definitive wall thickening. RIGHT KIDNEY AND URETER: No suspicious masses. Assessment limited by lack of IV contrast. No signif icant calcifications. No hydronephrosis or hydroureter. LEFT KIDNEY AND URETER: Status post left nephrectomy. There is grossly stable appearance of the soft tissue mass within the nephrectomy bed measuring 7.8 x 5.3 cm. AORTA AND RETROPERITONEUM: No aneurysm. No retroperitoneal masses or adenopathy. BOWEL AND PERITONEAL CAVITY: Postsurgical changes from the right lower quadrant small bowel resection . There are multiple loops of dilated small bowel with associated gas fluid levels measuring up to 5 .2 cm. There is transition to decompressed bowel at the level of the right lower quadrant small sondra l resection. Scattered foci of extraluminal gas, likely postoperative. No large volume free fluid. No drainable collections. Percutaneous jejunostomy catheter present within decompressed distal sondra l loops. Nasoenteric tube within the gastric lumen. There is decompressed colonic loops. Again see n are multiple peritoneal masses which are similar in size in distribution to prior exam. For refere nce there is right perinephric nodule measuring 18 mm (series 2, image 44) there is a perisplenic mas s measuring 4.7 x 0 3.6 cm (series 2, image 21) multiple additional scattered implants are noted. APPENDIX: Normal. PELVIS, BLADDER, AND ABDOMINAL WALL:No abnormal masses. No free fluid. Bladder normal. BONES: No acute bony abnormality. Irregular lucent lesion within the proximal left femur, similar to prior. Mixed lytic and sclerotic appearance of the L2 vertebral body with moderate central height l oss, stable. OTHER: No other significant finding. IMPRESSION: 1. Postsurgical changes from recent right lower quadrant small bowel resection and rean astomosis. There are multiple loops of dilated small bowel measuring up to 5.2 cm with transition at the level of the anastomosis. Findings may be related to residual obstruction versus postoperative edema. Scattered foci of free intraperitoneal gas, presumably postoperative. No focal drainable col lection. 2. Postsurgical changes from the left nephrectomy. Grossly stable mass within the nephrectomy bed w ith additional scattered peritoneal implants compatible with metastatic disease. 3. Small bilateral effusion. Additional findings as above. Findings were discussed with Dr. Ulloa at 1132 hours on 03/22/2019. COMMENT: Quality ID # 436: Final reports with documentation of one or more dose reduction techniques (e.g., Automated exposure control, adjustment of the mA and/or kV according to patient size, use of iterative reconstruction technique) TECHNICAL DOCUMENTATION: JOB ID: [id number] [employer]- All Rights Reserved Reading location - IP/workstation name: [facility]
--- NOTE | 2019-03-22 18:09 | PDOC PROGRESS REPORT ---
Subjective Progress Note for:: 03/22/19 Subjective:: The patient is a 69-year-old male with a past medical history of CAD, hyperlipidemia, CKD, renal cancer status post nephrectomy, alcohol and tobacco dependency who was admitted 03/12/2019 for Intractable nausea and vomiting and subsequently underwent an exploratory laparotomy resulting in small bowel resection and feeding jejunostomy placement due to stage IV renal cell carcinoma with intra-abdominal seeding/mass. Patient was seen on afternoon rounds with his spouse present. He is found sitting up to the bedside commode, comfortably, on room air. He believes he has been passing gas, but no bm. He also reports occasional palpitations. He denies fever, chills, chest pain, dyspnea, orthopnea, cough They have no other questions or concerns. No concerns per nursing. Reason For Visit: POSTCHEMOTHERAPY GASTROENTERITIS Physical Exam Vital Signs: Temp Pulse Resp BP Pulse Ox 97.6 F 85 18 111/60 90 L 03/22/19 16:00 03/22/19 16:00 03/22/19 16:00 03/22/19 16:00 03/22/19 16:00 Intake & Output 03/21/19 03/22/19 03/23/19 06:59 06:59 06:59 Intake Total 50 50 691 Output Total 1002 034 2017 Balance -1350 -850 -309 Weight 81.5 kg 80.3 kg General appearance: PRESENT: no acute distress, cooperative, well-developed, well-nourished Head exam: PRESENT: atraumatic, normocephalic Eye exam: PRESENT: conjunctiva pink, EOMI, PERRLA. ABSENT: scleral icterus Ear exam: PRESENT: normal external ear exam Mouth exam: PRESENT: moist, tongue midline Respiratory exam: PRESENT: clear to auscultation magui, symmetrical, unlabored. ABSENT: rales, rhonchi, wheezes Cardiovascular exam: PRESENT: RRR, +S1, +S2. ABSENT: diastolic murmur, rubs, systolic murmur Pulses: PRESENT: normal dorsalis pedis pul Vascular exam: PRESENT: normal capillary refill GI/Abdominal exam: PRESENT: distended, hypoactive bowel sounds, soft, tenderness, other - NG tube. ABSENT: guarding, mass, organolmegaly, rebound Rectal exam: PRESENT: deferred Extremities exam: PRESENT: full ROM. ABSENT: calf tenderness, clubbing, pedal edema Musculoskeletal exam: PRESENT: ambulatory Neurological exam: PRESENT: alert, awake, oriented to person, oriented to place, oriented to time, oriented to situation, CN II-XII grossly intact. ABSENT: motor sensory deficit Psychiatric exam: PRESENT: appropriate affect, normal mood. ABSENT: homicidal ideation, suicidal ideation Skin exam: PRESENT: dry, intact, warm. ABSENT: cyanosis, rash Results Laboratory Results: 03/22/19 05:53 03/22/19 05:53 03/22/19 03/22/19 05:53 05:53 WBC 10.8 H RBC 3.66 L Hgb 8.9 L Hct 27.0 L MCV 74 L MCH 24.3 L MCHC 32.9 RDW 21.7 H Plt Count 421 Seg Neutrophils % 83.4 H Sodium 138.3 Potassium 3.6 Chloride 102 Carbon Dioxide 24 Anion Gap 12 BUN 21 H Creatinine 1.07 Est GFR ( Amer) > 60 Glucose 75 Calcium 8.3 L Impressions: Small Bowel X-Ray 03/14/19 00:00 IMPRESSION: Persistent dilated small bowel loops measuring up to 4.2 cm compatible with obstruction. Gas and previously administered oral contrast now within the colon compatible with partial process. Exam was prematurely terminated secondary to patient intolerance of additional contrast material. Correlation with prior CT demonstrates dilated small bowel loops to level of the distal jejunum with transition point within the right lower quadrant (series 3, image [id number]) with questionable associated soft tissue mass at this location. There are foci of curvilinear gas at this location possibly luminal although pneumatosis is not entirely excluded. Findings were discussed with ordering provider Dr. Cornejo at 1423 hours on 03/14/2019 KUB X-Ray 03/21/19 09:00 IMPRESSION: Good position of nasogastric tube. Abdomen/Pelvis CT 03/22/19 00:00 IMPRESSION: 1. Postsurgical changes from recent right lower quadrant small bowel resection and reanastomosis. There are multiple loops of dilated small bowel measuring up to 5.2 cm with transition at the level of the anastomosis. Findings may be related to residual obstruction versus postoperative edema. Scattered foci of free intraperitoneal gas, presumably postoperative. No focal drainable collection. 2. Postsurgical changes from the left nephrectomy. Grossly stable mass within the nephrectomy bed with additional scattered peritoneal implants compatible with metastatic disease. 3. Small bilateral effusion. Additional findings as above. Findings were discussed with Dr. Ulloa at 1132 hours on 03/22/2019. Assessment and Plan - Diagnosis (1) Ileus Is this a current diagnosis for this admission?: Yes Plan: Reoccurred. CT ABD/Pelvis today shows multiple loops of dilated small bowel measuring up to 5.2 cm with transition at the level of the anastomosis; may be related to residual obstruction versus postoperative edema. Patient is placed back in n.p.o. status; tube feedings have been discontinued. NG tube to low wall suction. Continue gentle IV fluids. Surgery has been reconsulted; primary management per their expertise. (2) Intractable nausea and vomiting Is this a current diagnosis for this admission?: Yes Plan: Resolved. Obstructive portion of the bowel has been resected. Antiemetics as needed. (3) Abdominal bloating Is this a current diagnosis for this admission?: Yes Plan: As above. (4) Coronary artery disease Qualifiers: Coronary Disease-Associated Artery/Lesion type: [place] artery [place] vs. transplanted heart: [place] heart Associated angina: without angina Qualified Code(s): I25.10 - Atherosclerotic heart disease of [place] coronary artery without angina pectoris Is this a current diagnosis for this admission?: Yes Plan: Stable and without chest pain at this time. Ranexa and Coreg on hold secondary to n.p.o. status. (5) Diarrhea Qualifiers: Diarrhea type: unspecified type Qualified Code(s): R19.7 - Diarrhea, unspecified Is this a current diagnosis for this admission?: Yes Plan: Resolved. (6) Hyperlipidemia Qualifiers: Hyperlipidemia type: unspecified Qualified Code(s): E78.5 - Hyperlipidemia, unspecified Is this a current diagnosis for this admission?: Yes Plan: Statin therapy remains on hold; will resume at discharge. (7) Hypotension due to hypovolemia Is this a current diagnosis for this admission?: Yes Plan: Resolved. A.m. cortisol 25 Multifactorial secondary to hypovolemia and possible medication reaction. No further episodes of hypotension. Holding parameters now in place for patient's cardiac medications. Resume ambulation with assist. Fall precautions. (8) Raynauds disease Qualifiers: Raynaud?s-associated gangrene presence: without gangrene Qualified Code(s): I73.00 - Raynaud's syndrome without gangrene Is this a current diagnosis for this admission?: Yes Plan: Stable; conservative therapy. Consider hand warmers and gloves if needed. (9) renal cell carcinoma stage 4 Is this a current diagnosis for this admission?: Yes Plan: Oncology has been consulted; management per Dr. Hurtado's expertise. (10) Palpitations Is this a current diagnosis for this admission?: Yes Plan: Patient reports frequent palpitations. His home dose carvedilol and Ranexa have been placed on hold secondary to n.p.o. status. We will place patient on cardiac telemetry for monitoring. Consider IV Lopressor or diltiazem if demonstrates frequent runs of PVCs. - Time Time Spent with patient: 25-34 minutes Medications reviewed and adjusted accordingly: Yes Anticipated discharge: Home with Homehealth
[2019-03-22 19:57] LABS: APPEARANCE,URINE CLEAR; BILIRUBIN,URINE NEGATIVE (NEGATIVE); COLOR,URINE AMBER; GLUCOSE, URINE NEGATIVE (NEGATIVE); KETONES,URINE 80 mg/dL (NEGATIVE); LEUKOCYTE ESTERASE,URINE NEGATIVE (NEGATIVE); NITRITE,URINE NEGATIVE (NEGATIVE); PROTEIN,URINE 100 mg/dL (NEGATIVE); URINE SPECIFIC GRAVITY 1.027
[2019-03-22] MEDS: ZOLPIDEM TARTRATE 5 MG TABLET NG PRN (21:25)
[2019-03-22] MEDS: PANTOPRAZOLE SODIUM 40 MG VIAL IV SCH (21:25)
[2019-03-22] MEDS ORDERED: METOPROLOL TARTRATE PF/INJ 5 MG/5 ML SDV IV ONE ×2 (21:50→23:15)
[2019-03-22] MEDS ORDERED: NORMAL SALINE 1000 ML 1,000 ML IV ONE (23:15)
[2019-03-23] MEDS ORDERED: METOPROLOL TARTRATE PF/INJ 5 MG/5 ML SDV IV ONE ×3 (01:06→17:00)
[2019-03-23] MEDS ORDERED: DILTIAZEM HCL/D5W 125 MG/125 ML RTUINJ IV PRN (04:31)
[2019-03-23] MEDS ORDERED: DILTIAZEM HCL INJ 25 MG/5 ML VIAL ONE (04:58)
[2019-03-23] MEDS: ONDANSETRON HCL INJ/PF 4 MG/2 ML SDV IV PRN (05:06)
[2019-03-23] MEDS ORDERED: DILTIAZEM HCL INJ 25 MG/5 ML VIAL IV ONE (05:30)
[2019-03-23 05:45] LABS: HEMATOCRIT 28.6 % (37.9-51.0); HEMOGLOBIN 9.3 g/dL (13.5-17.0); MEAN CORPUSCULAR HGB CONC 32.3 g/dL (32.0-36.0); MEAN CORPUSCULAR VOLUME 74 fl (80-97); PLATELET COUNT 441 10^3/uL (150-450); RED BLOOD COUNT 3.86 10^6/uL (4.35-5.55); RED CELL DISTRIBUTION WIDTH 22.2 % (11.5-14.0); WHITE BLOOD COUNT 15.2 10^3/uL (4.0-10.5)
[2019-03-23] MEDS: HEPARIN SOD (PORCINE) 5,000 UNIT/ML 1 ML VIAL SUBCUT SCH ×3 (05:51→22:22)
[2019-03-23 06:02] LABS: ANION GAP 15 (5-19); BLOOD UREA NITROGEN 20 mg/dL (7-20); CALCIUM 8.5 mg/dL (8.4-10.2); CARBON DIOXIDE 22 mmol/L (22-30); CHLORIDE 103 mmol/L (98-107); GLUCOSE 81 mg/dL (75-110); POTASSIUM 3.8 mmol/L (3.6-5.0)
[2019-03-23] MEDS ORDERED: NORMAL SALINE 1000 ML 1,000 ML IV ONE ×2 (06:33→09:48)
--- NOTE | 2019-03-23 08:50 | EKG REPORT ---
SEVERITY:- ABNORMAL ECG - SINUS RHYTHM ATRIAL PREMATURE COMPLEX POOR R WAVE PROGRESSION ANTERIOR LEADS, CONSIDER OLD ANT OH : Confirmed by: Joe Pace MD 23-Mar-2019 08:49:57
[2019-03-23] MEDS: PANTOPRAZOLE SODIUM 40 MG VIAL IV SCH ×2 (09:46→22:22)
[2019-03-23] MEDS: NORMAL SALINE 1000 ML 1,000 ML IV PRN ×3 (10:45→20:56)
--- NOTE | 2019-03-23 12:11 | PDOC PROGRESS REPORT ---
Subjective Progress Note for:: 03/23/19 Subjective:: Yesterday patient went into A. fib continuous, and needed Cardizem drip was transferred to the ICU because there were no IMCU beds. Heart rate seems to be better controlled now but still tachycardic. He did have some liquid BMs today but mostly yellowish. Still having cramps but seems to be a little bit better. Reviewed CT with the patient, at the anastomotic site there is dilated loops of bowel proximally and decompressed bowel distally. It was noted that it could be secondary to continued disease causing obstruction versus postsurgical inflammatory changes. NG tube was removed because it basically came out this morning, so monitoring off NG tube for now. Reason For Visit: AFIB Physical Exam Vital Signs: Temp Pulse Resp BP Pulse Ox 98.0 F 126 H 16 105/70 93 03/23/19 08:00 03/23/19 08:00 03/23/19 08:00 03/23/19 08:00 03/23/19 08:00 Intake & Output 03/22/19 03/23/19 03/24/19 06:59 06:59 06:59 Intake Total 50 2851 Output Total 900 1550 Balance -850 1301 Weight 80.3 kg 81 kg General appearance: PRESENT: no acute distress, well-developed, well-nourished Head exam: PRESENT: atraumatic, normocephalic Eye exam: PRESENT: conjunctiva pink, EOMI, PERRLA. ABSENT: scleral icterus Ear exam: PRESENT: normal external ear exam Mouth exam: PRESENT: moist, tongue midline Neck exam: ABSENT: carotid bruit, JVD, lymphadenopathy, thyromegaly Respiratory exam: PRESENT: clear to auscultation magui. ABSENT: rales, rhonchi, wheezes Cardiovascular exam: PRESENT: RRR. ABSENT: diastolic murmur, rubs, systolic murmur Pulses: PRESENT: normal dorsalis pedis pul Vascular exam: PRESENT: normal capillary refill GI/Abdominal exam: PRESENT: normal bowel sounds, soft. ABSENT: distended, guarding, mass, organolmegaly, rebound, tenderness Rectal exam: PRESENT: deferred Extremities exam: PRESENT: full ROM. ABSENT: calf tenderness, clubbing, pedal edema Neurological exam: PRESENT: alert, awake, oriented to person, oriented to place, oriented to time, oriented to situation, CN II-XII grossly intact. ABSENT: motor sensory deficit Psychiatric exam: PRESENT: appropriate affect, normal mood. ABSENT: homicidal ideation, suicidal ideation Skin exam: PRESENT: dry, intact, warm. ABSENT: cyanosis, rash Results Laboratory Results: 03/23/19 05:04 03/23/19 05:04 03/22/19 03/23/19 03/23/19 16:10 05:04 05:04 WBC 15.2 H RBC 3.86 L Hgb 9.3 L Hct 28.6 L MCV 74 L MCH 24.0 L MCHC 32.3 RDW 22.2 H Plt Count 441 Sodium 139.6 Potassium 3.8 Chloride 103 Carbon Dioxide 22 Anion Gap 15 BUN 20 Creatinine 0.97 Est GFR ( Amer) > 60 Glucose 81 Calcium 8.5 Urine Color SANDI Urine Appearance CLEAR Urine pH 5.0 Ur Specific [place] 1.027 Urine Protein 100 H Urine Glucose (UA) NEGATIVE Urine Ketones 80 H Urine Blood NEGATIVE Urine Nitrite NEGATIVE Ur Leukocyte Esterase NEGATIVE Urine WBC (Auto) 1 Urine RBC (Auto) 0 Impressions: Small Bowel X-Ray 03/14/19 00:00 IMPRESSION: Persistent dilated small bowel loops measuring up to 4.2 cm compatible with obstruction. Gas and previously administered oral contrast now within the colon compatible with partial process. Exam was prematurely terminated secondary to patient intolerance of additional contrast material. Correlation with prior CT demonstrates dilated small bowel loops to level of the distal jejunum with transition point within the right lower quadrant (series 3, image [id number]) with questionable associated soft tissue mass at this location. There are foci of curvilinear gas at this location possibly luminal although p neumatosis is not entirely excluded. Findings were discussed with ordering provider Dr. Cornejo at 1423 hours on 03/14/2019 KUB X-Ray 03/21/19 09:00 IMPRESSION: Good position of nasogastric tube. Abdomen/Pelvis CT 03/22/19 00:00 IMPRESSION: 1. Postsurgical changes from recent right lower quadrant small bowel resection and reanastomosis. There are multiple loops of dilated small bowel measuring up to 5.2 cm with transition at the level of the anastomosis. Findings may be related to residual obstruction versus postoperative edema. Scattered foci of free intraperitoneal gas, presumably postoperative. No focal drainable collection. 2. Postsurgical changes from the left nephrectomy. Grossly stable mass within the nephrectomy bed with additional scattered peritoneal implants compatible with metastatic disease. 3. Small bilateral effusion. Additional findings as above. Findings were discussed with Dr. Ulloa at 1132 hours on 03/22/2019. Assessment & Plan - Diagnosis (1) Partial small bowel obstruction Is this a current diagnosis for this admission?: Yes Plan: Continue per surgical and hospitalist team, I had a long discussion with the and hopefully things will improve. (2) renal cell carcinoma stage 4 Is this a current diagnosis for this admission?: Yes Plan: Continue therapy as an outpatient - Time Time Spent with patient: 35 or more minutes
--- NOTE | 2019-03-23 15:43 | PDOC PROGRESS REPORT ---
Subjective Progress Note for:: 03/23/19 Subjective:: Abdominal pains when being turned to sides by nurses No nausea/vomiting Has liquid stools with small amount of flatus since gastrograffin study yesterday Reason For Visit: AFIB Physical Exam Vital Signs: Temp Pulse Resp BP Pulse Ox 100.9 F H 109 H 26 H 94/73 L 93 03/23/19 12:00 03/23/19 12:00 03/23/19 13:02 03/23/19 13:02 03/23/19 12:17 Intake & Output 03/22/19 03/23/19 03/24/19 06:59 06:59 06:59 Intake Total 50 2851 1000 Output Total 900 1550 Balance -850 1301 1000 Weight 80.3 kg 81 kg Exam: Abdomen is slightly distended but soft with no definite tenderness. He claims he has pains inside the abdomen when he is turned to the sides by the nurses. The NG tube is almost out and was discontinued by Dr. Ulloa. Abdominal incision is clean and dry. Results Laboratory Results: 03/23/19 05:04 03/22/19 03/23/19 03/23/19 16:10 05:04 05:04 WBC 15.2 H RBC 3.86 L Hgb 9.3 L Hct 28.6 L MCV 74 L MCH 24.0 L MCHC 32.3 RDW 22.2 H Plt Count 441 Sodium 139.6 Potassium 3.8 Chloride 103 Carbon Dioxide 22 Anion Gap 15 BUN 20 Creatinine 0.97 Est GFR ( Amer) > 60 Glucose 81 Calcium 8.5 Urine Color SANDI Urine Appearance CLEAR Urine pH 5.0 Ur Specific [place] 1.027 Urine Protein 100 H Urine Glucose (UA) NEGATIVE Urine Ketones 80 H Urine Blood NEGATIVE Urine Nitrite NEGATIVE Ur Leukocyte Esterase NEGATIVE Urine WBC (Auto) 1 Urine RBC (Auto) 0 Impressions: Small Bowel X-Ray 03/14/19 00:00 IMPRESSION: Persistent dilated small bowel loops measuring up to 4.2 cm compatible with obstruction. Gas and previously administered oral contrast now within the colon compatible with partial process. Exam was prematurely terminated secondary to patient intolerance of additional contrast material. Correlation with prior CT demonstrates dilated small bowel loops to level of the distal jejunum with transition point within the right lower quadrant (series 3, image [id number]) with questionable associated soft tissue mass at this location. There are foci of curvilinear gas at this location possibly luminal although pneumatosis is not entirely excluded. Findings were discussed with ordering provider Dr. Cornejo at 1423 hours on 03/14/2019 KUB X-Ray 03/21/19 09:00 IMPRESSION: Good position of nasogastric tube. Abdomen/Pelvis CT 03/22/19 00:00 IMPRESSION: 1. Postsurgical changes from recent right lower quadrant small b owel resection and reanastomosis. There are multiple loops of dilated small bowel measuring up to 5.2 cm with transition at the level of the anastomosis. Findings may be related to residual obstruction versus postoperative edema. Scattered foci of free intraperitoneal gas, presumably postoperative. No focal drainable collection. 2. Postsurgical changes from the left nephrectomy. Grossly stable mass within the nephrectomy bed with additional scattered peritoneal implants compatible with metastatic disease. 3. Small bilateral effusion. Additional findings as above. Findings were discussed with Dr. Ulloa at 1132 hours on 03/22/2019. Assessment & Plan - Diagnosis (1) Jejunal cancer Is this a current diagnosis for this admission?: Yes (2) Partial small bowel obstruction Is this a current diagnosis for this admission?: Yes (3) renal cell carcinoma stage 4 Is this a current diagnosis for this admission?: Yes - Time Time Spent with patient: 15-24 minutes - Inpatient Certification Medical Necessity: Need Close Monitoring Due to Risk of Patient Decompensation, Need For IV Fluids - Plan Summary Plan Summary: Gastrografin CT scan yesterday which showed narrowing at the area of the anastomosis but dye got into the large bowel indicating partial obstruction. Since the study patient is been having liquid bowel movement with small amount of flatus. Denies any nausea no vomiting after removal of the NG tube and appears to be tolerating ice chips. He is got a low-grade fever with a white count slightly elevated. Not sure about the etiology of this may be related to his tumor. There is no leak on the anastomosis on the CAT scan. Plans: Continue with ice chips today. Repeat the CBC in the morning If the patient remains febrile and with white count elevation will then will start him on IV antibiotics. Check urine for any evidence of UTI Check chest x-ray Patient will be transferred to [facility] when his bed is available. Meantime continue in ICU.
[2019-03-23 15:50] LABS: POTASSIUM 3.7 mmol/L (3.6-5.0)
[2019-03-23 16:03] LABS: CREATINE KINASE MB 0.34 ng/mL (<4.55)
[2019-03-23 16:06] LABS: TROPONIN I 0.053 ng/mL
[2019-03-23] MEDS ORDERED: DIGOXIN INJ 0.5 MG/2 ML AMPULE ONE (17:00)
[2019-03-23] MEDS: METOPROLOL TARTRATE PF/INJ 5 MG/5 ML SDV IV PRN (17:05)
[2019-03-23] MEDS ORDERED: DIGOXIN INJ 0.5 MG/2 ML AMPULE IV ONE ×2 (17:15→23:15)
--- NOTE | 2019-03-23 17:55 | EKG REPORT ---
SEVERITY:- ABNORMAL ECG - ECTOPIC ATRIAL TACHYCARDIA INFERIOR INFARCT, AGE INDETERMINATE LATERAL LEADS ARE ALSO INVOLVED : Confirmed by: Joe Pace MD 23-Mar-2019 17:54:48
[2019-03-23 18:10] LABS: APPEARANCE,URINE SLIGHTLY-CLOUDY; BILIRUBIN,URINE NEGATIVE (NEGATIVE); COLOR,URINE AMBER; GLUCOSE, URINE NEGATIVE (NEGATIVE); KETONES,URINE 80 mg/dL (NEGATIVE); LEUKOCYTE ESTERASE,URINE NEGATIVE (NEGATIVE); NITRITE,URINE NEGATIVE (NEGATIVE); PROTEIN,URINE 100 mg/dL (NEGATIVE); URINE SPECIFIC GRAVITY 1.025
--- NOTE | 2019-03-23 18:46 | PDOC PROGRESS REPORT ---
Subjective Progress Note for:: 03/23/19 Subjective:: The patient is a 69-year-old male with a past medical history of CAD, hyperlipidemia, CKD, renal cancer status post nephrectomy, alcohol and tobacco dependency who was admitted 03/12/2019 for Intractable nausea and vomiting and subsequently underwent an exploratory laparotomy resulting in small bowel resection and feeding jejunostomy placement due to stage IV renal cell carcinoma with intra-abdominal seeding/mass. Patient was seen on morning rounds with his spouse present. He is found resting in bed, comfortably, on room air. He reports generalized malaise and fatigue. He also reports occasional palpitations. He reports small-volume, watery, bowel movement associated with cramping. He denies fever, chills, chest pain, dyspnea, orthopnea, cough. They have no other questions or concerns. No concerns per nursing. Reason For Visit: AFIB Physical Exam Vital Signs: Temp Pulse Resp BP Pulse Ox 99.0 F 97 24 H 90/59 L 94 03/23/19 16:00 03/23/19 16:00 03/23/19 16:17 03/23/19 16:17 03/23/19 16:00 Intake & Output 03/22/19 03/23/19 03/24/19 06:59 06:59 06:59 Intake Total 50 2851 2788 Output Total 900 1550 50 Balance -850 1301 2738 Weight 80.3 kg 81 kg 81 kg General appearance: PRESENT: no acute distress, cooperative, well-developed, well-nourished - Overweight Head exam: PRESENT: atraumatic, normocephalic Eye exam: PRESENT: conjunctiva pink, EOMI, PERRLA. ABSENT: scleral icterus Ear exam: PRESENT: normal external ear exam Mouth exam: PRESENT: moist, tongue midline Respiratory exam: PRESENT: clear to auscultation magui, symmetrical, unlabored. ABSENT: rales, rhonchi, wheezes Cardiovascular exam: PRESENT: irregular rhythm, +S1, +S2, tachycardia. ABSENT: diastolic murmur, rubs, systolic murmur Pulses: PRESENT: normal dorsalis pedis pul Vascular exam: PRESENT: normal capillary refill GI/Abdominal exam: PRESENT: normal bowel sounds, soft. ABSENT: distended, guar ding, mass, organolmegaly, rebound, tenderness Rectal exam: PRESENT: deferred Extremities exam: PRESENT: full ROM, pedal edema - Trace bilaterally. ABSENT: calf tenderness, clubbing Neurological exam: PRESENT: alert, awake, oriented to person, oriented to place, oriented to time, oriented to situation, CN II-XII grossly intact. ABSENT: motor sensory deficit Psychiatric exam: PRESENT: anxious, normal mood. ABSENT: homicidal ideation, suicidal ideation Skin exam: PRESENT: dry, intact, warm. ABSENT: cyanosis, rash Results Laboratory Results: 03/23/19 05:04 03/23/19 15:20 03/22/19 03/23/19 03/23/19 16:10 05:04 05:04 WBC 15.2 H RBC 3.86 L Hgb 9.3 L Hct 28.6 L MCV 74 L MCH 24.0 L MCHC 32.3 RDW 22.2 H Plt Count 441 Sodium 139.6 Potassium 3.8 Chloride 103 Carbon Dioxide 22 Anion Gap 15 BUN 20 Creatinine 0.97 Est GFR ( Amer) > 60 Glucose 81 Calcium 8.5 Magnesium Urine Color SANDI Urine Appearance CLEAR Urine pH 5.0 Ur Specific [place] 1.027 Urine Protein 100 H Urine Glucose (UA) NEGATIVE Urine Ketones 80 H Urine Blood NEGATIVE Urine Nitrite NEGATIVE Ur Leukocyte Esterase NEGATIVE Urine WBC (Auto) 1 Urine RBC (Auto) 0 03/23/19 03/23/19 15:20 17:35 WBC RBC Hgb Hct MCV MCH MCHC RDW Plt Count Sodium Potassium 3.7 Chloride Carbon Dioxide Anion Gap BUN Creatinine Est GFR ( Amer) Glucose Calcium Magnesium 1.9 Urine Color SANDI Urine Appearance SLIGHTLY-CLOUDY Urine pH 5.0 Ur Specific [place] 1.025 Urine Protein 100 H Urine Glucose (UA) NEGATIVE Urine Ketones 80 H Urine Blood NEGATIVE Urine Nitrite NEGATIVE Ur Leukocyte Esterase NEGATIVE Urine WBC (Auto) 2 Urine RBC (Auto) 2 03/23/19 03/23/19 15:20 15:20 Creatine Kinase 25 L CK-MB (CK-2) 0.34 Troponin I 0.053 NT-Pro-B Natriuret Pep 3190 H Impressions: Small Bowel X-Ray 03/14/19 00:00 IMPRESSION: Persistent dilated small bowel loops measuring up to 4.2 cm compatible with obstruction. Gas and previously administered oral contrast now within the colon compatible with partial process. Exam was prematurely terminated secondary to patient intolerance of additional contrast material. Correlation with prior CT demonstrates dilated small bowel loops to level of the distal jejunum with transition point within the right lower quadrant (series 3, image [id number]) with questionable associated soft tissue mass at this location. There are foci of curvilinear gas at this location possibly luminal although pneumatosis is not entirely excluded. Findings were discussed with ordering provider Dr. Cornejo at 1423 hours on 03/14/2019 KUB X-Ray 03/21/19 09:00 IMPRESSION: Good position of nasogastric tube. Abdomen/Pelvis CT 03/22/19 00:00 IMPRESSION: 1. Postsurgical changes from recent right lower quadrant small bowel resection and reanastomosis. There are multiple loops of dilated small bowel measuring up to 5.2 cm with transition at the level of the anastomosis. Findings may be related to residual obstruction versus postoperative edema. Scattered foci of free intraperitoneal gas, presumably postoperative. No focal drainable collection. 2. Postsurgical changes from the left nephrectomy. Grossly stable mass within the nephrectomy bed with additional scattered peritoneal implants compatible with metastatic disease. 3. Small bilateral effusion. Additional findings as above. Findings were discussed with Dr. Ulloa at 1132 hours on 03/22/2019. Assessment and Plan - Diagnosis (1) Atrial fibrillation with RVR Is this a current diagnosis for this admission?: Yes Plan: Patient is now in atrial fibrillation with rapid ventricular rate. Nonresponsive to IV fluids and diltiazem push. He is upgraded to IMCU on continuous cardiac telemetry. Start diltiazem drip; titrate per protocol. Chads VASc Score 2; however would advise against chronic anticoagulation at this time as the patient may need additional surgeries and has metastatic disease. We will need to discuss long-term anticoagulation options with full surgery and hematology prior to initiating at time of discharge. (2) Ileus Is this a current diagnosis for this admission?: Yes Plan: Reoccurred. CT ABD/Pelvis shows multiple loops of dilated small bowel measuring up to 5.2 cm with transition at the level of the anastomosis; may be related to residual ob struction versus postoperative edema. Patient is placed back in n.p.o. status; tube feedings have been discontinued. Continue gentle IV fluids. Surgery has been reconsulted; primary management per their expertise. (3) Intractable nausea and vomiting Is this a current diagnosis for this admission?: Yes Plan: Resolved. Obstructive portion of the bowel has been resected. Antiemetics as needed. (4) Abdominal bloating Is this a current diagnosis for this admission?: Yes Plan: As above. (5) Coronary artery disease Qualifiers: Coronary Disease-Associated Artery/Lesion type: [place] artery [place] vs. tr ansplanted heart: [place] heart Associated angina: without angina Qualified Code(s): I25.10 - Atherosclerotic heart disease of [place] coronary artery without angina pectoris Is this a current diagnosis for this admission?: Yes Plan: Stable and without chest pain at this time. Ranexa and Coreg on hold secondary to n.p.o. status. (6) Diarrhea Qualifiers: Diarrhea type: unspecified type Qualified Code(s): R19.7 - Diarrhea, unspecified Is this a current diagnosis for this admission?: Yes Plan: Secondary to ileus. Primary management per surgery. (7) Hyperlipidemia Qualifiers: Hyperlipidemia type: unspecified Qualified Code(s): E78.5 - Hyperlipidemia, unspecified Is this a current diagnosis for this admission?: Yes Plan: Statin therapy remains on hold; will resume at discharge. (8) Hypotension due to hypovolemia Is this a current diagnosis for this admission?: Yes Plan: A.m. cortisol 25 Multifactorial secondary to hypovolemia and possible medication reaction. 1 L normal saline bolus followed by maintenance IV fluids today. Out of bed with assistance; fall precautions. (9) Raynauds disease Qualifiers: Raynaud?s-associated gangrene presence: without gangrene Qualified Code(s): I73.00 - Raynaud's syndrome without gangrene Is this a current diagnosis for this admission?: Yes Plan: Stable; conservative therapy. Consider hand warmers and gloves if needed. (10) renal cell carcinoma stage 4 Is this a current diagnosis for this admission?: Yes Plan: Oncology has been consulted; management per Dr. Hurtado's expertise. (11) Palpitations Is this a current diagnosis for this admission?: Yes Plan: Secondary to atrial fibrillation; see above. (12) Elevated troponin Is this a current diagnosis for this admission?: Yes Plan: Indeterminately elevated troponin of 0.05 EKG is stable; no acute changes. Likely secondary to atrial fibrillation RVR. Management as above. Low threshold for reconsulting cardiology services. - Time Time Spent with patient: 35 or more minutes Medications reviewed and adjusted accordingly: Yes Anticipated discharge: Home with Homehealth
[2019-03-23 21:47] LABS: CREATINE KINASE MB 0.34 ng/mL (<4.55); TROPONIN I 0.029 ng/mL
[2019-03-23] MEDS ORDERED: DEXTROSE 50%-WATER 25 GM/50 ML DISP.SYRIN IV PRN ×2 (22:31)
[2019-03-23] MEDS ORDERED: GLUCAGON,HUMAN RECOMB 1 MG INJ SUBCUT PRN (22:31)
[2019-03-23] MEDS ORDERED: DEXTROSE 40% GEL 15 GM TUBE PO PRN ×2 (22:31)
[2019-03-24] MEDS: METOPROLOL TARTRATE PF/INJ 5 MG/5 ML SDV IV PRN ×4 (00:14→23:17)
--- NOTE | 2019-03-24 00:43 | CRITICAL CARE ADMISSION REPORT ---
HPI Date:: 03/23/19 Time:: 08:30 Reason for ICU Reason:: Afib with RVR HPI: Mr. Fish is a 69 yo M with Stage IV metastatic renal cancer, EtOH induced cardiomyopathy, and CAD. He initially presented on 03/12/2019 with nausea and vomiting. He had received chemotherapy just a few days prior to admission. CT at that time showed a small bowel obstruction and patient underwent exploratory laparotomy with partial small bowel resection and feeding jejunostomy placement on 03/15. Post surgery, patient had multiple episodes of vomiting and began to develop atrial fibrillation with RVR. His home dose of Coreg and Ranexa were held due to inability to take p.o. Medications could not be crushed and placed into J-tube. He is being transferred to intensive care due to his uncontrolled intermittent RVR in the setting of relative hypotension. He has been given mul tiple liters of normal saline since his surgery and is beginning to develop worsening peripheral edema. Patient is showing no signs of distress related to his atrial fibrillation other than mild anxiety and inability to sleep. He has not been nauseous since transfer of care to ICU. History obtained from:: Patient and prior medical record notes. - Diagnosis/Plan (1) Atrial fibrillation with RVR Is this a current diagnosis for this admission?: Yes Plan: Patient was started on digoxin which has not been effective with most recent dose. His blood pressure seems to have improved with his last 1 L bolus of normal saline. I have therefore feel comfortable giving him his long-acting beta dg, Lopressor. We will consider esmolol drip if blood pressure does not tend to tolerate Lopre ssor administration. (2) Partial small bowel obstruction Is this a current diagnosis for this admission?: Yes Plan: Status post partial small bowel resection with jejunostomy tube placement. NG tube removed earlier today. We will defer details of his surgical management to his surgical team. Given his recent CT results which show decompression of bowel distal to the anastomosis, I suspect that he will tolerate resuming J-tube feeds in the near future. -Keep n.p.o. for now. -Antiemetics as needed -We will discuss with surgery when to restart slow J-tube feeding. (3) renal cell carcinoma stage 4 Is this a current diagnosis for this admission?: Yes Plan: Patient is aware of the severity of his stage IV disease. Given his multiple sites of metastases, as well as his cardiac comorbidities, I believe a palliative care consult would be appropriate to discuss his medical options and plan of care. Past Medical History Cardiac Medical History: Reports: Coronary Artery Disease, Hyperlipidema, Other Denies: Myocardial Infarction, Hypertension Cardiac History Note: EtOH induced cardiomyopathy. Pulmonary Medical History: Reports: Other Denies: Asthma, Chronic Obstructive Pulmonary Disease (COPD) Pulmonary History Note: Tobacco use for 30 years. No known confirmation of COPD. EENT Medical History: Denies: Cataracts, Ears - Hearing aids Neurological Medical History: Denies: Hemorrhagic CVA, Ischemic CVA, Seizures Endocrine Medical History: Denies: Diabetes Mellitus Type 1, Diabetes Mellitus Type 2, Hyperthyroidism, Hypothyroidism, Obesity Renal/ Medical History: Reports: Chronic Kidney Disease Denies: Nephrolithiasis Malignancy Medical History: Reports: Renal (Kidney) Cancer Malignancy History Note: Stage IV renal cancer with metastatic disease to bone, abdomen and possible lung. GI Medical History: Denies: Cirrhosis, Crohn's Disease, Hepatitis, Ulcerative Colitis GI History Note: Listed in HPI, small bowel obstruction and peritoneal carcinomatosis. Musculoskeltal Medical History: Denies: Arthritis, Gout Musculoskeletal History Note: Bone metastases, Status post unrelated shoulder surgery. Skin Medical History: Denies: Eczema, Psoriasis Psychiatric Medical History: Reports: Alcohol Dependency, Tobacco Dependency Denies: Substance Abuse Psychiatric History Note: No longer using alcohol or tobacco. Traumatic Medical History: Reports: None Hematology: Denies: Anemia, Bleeding Tendencies Infectious Medical History: Reports: None Past Surgical History Past Surgical History: Reports: Orthopedic Surgery - Right shoulder surgery, Other - Left nephrectomy Social/Family History - Social History Lives with: Spouse/Significant other Smoking Status: Former Smoker Cigarettes Packs Per Day: 1 Number of Years Smokin Last Time Smoked: 2016 Frequency of Alcohol Use: None - Former alcoholic stopped drinking November 2016 Hx Recreational Drug Use: No Drugs: None Hx Prescription Drug Abuse: No - Medication/Allergies Home Medications: Carvedilol [Coreg] 12.5 mg PO Q12 03/12/19 Docusate Sodium [Colace 100 mg Capsule] 100 mg PO BID 03/12/19 Dronabinol 5 mg PO BID 03/12/19 Multivitamin [Multivitamins] 1 cap PO DAILY 03/12/19 Ondansetron HCl [Zofran 8 mg Tablet] 8 mg PO Q8HP PRN 03/12/19 Polyethylene Glycol 3350 [Miralax Powder 17 gm/Packet] 17 gm PO DAILY 03/12/19 Promethazine HCl [Phenergan 25 mg Tablet] 25 mg PO Q4HP PRN 03/12/19 Ranolazine [Ranexa 500 mg Tab.sr] 500 mg PO BID 03/12/19 Rosuvastatin Calcium [Crestor 5 mg Tablet] 5 mg PO QHS 03/12/19 Tramadol HCl [Ultram] 50 mg PO Q6HP PRN 03/12/19 Ubidecarenone/Vitamin E Mixed [Coq10 Sg 100 Softgel] 2 cap PO DAILY 03/12/19 Acetaminophen [Tylenol Soln 325 mg/10.15 ml Udcup] 975 mg NG Q6HP PRN udc 03/21/19 Carvedilol [Coreg 12.5 mg Tablet] 12.5 mg NG Q12@0700,1900 tablet 03/21/19 Phenol/Sodium Phenolate [Chloraseptic Sore Throat [place] 177 ml] 1 spray PO Q1HP PRN bottle 03/21/19 Allergies/Adverse Reactions: No Known Allergies Allergy (Verified 03/12/19 15:24) Review of Systems Constitutional: PRESENT: other - Intermittent nausea. No vomiting since transfer to ICU care. Cardiovascular: PRESENT: edema, palpitations Gastrointestinal: PRESENT: as per HPI, nausea Physical Exam Vital Signs: Temp Pulse Resp BP Pulse Ox 99.0 F 97 24 H 90/59 L 94 03/23/19 16:00 03/23/19 16:00 03/23/19 16:17 03/23/19 16:17 03/23/19 16:00 Intake & Output 03/22/19 03/23/19 03/24/19 06:59 06:59 06:59 Intake Total 50 2851 3024 Output Total 900 1550 50 Balance -850 1301 2974 Weight 80.3 kg 81 kg 81 kg Weight/Height Weight 81 kg Height 5 ft 11 in General appearance: PRESENT: no acute distress, cooperative, well-nourished Head exam: PRESENT: atraumatic Eye exam: PRESENT: EOMI, PERRLA Ear exam: PRESENT: normal external ear exam Mouth exam: PRESENT: dry mucosa Neck exam: PRESENT: full ROM. ABSENT: JVD, lymphadenopathy, tracheal deviation Respiratory exam: PRESENT: decreased breath sounds - Breath sounds are diminished at bilateral bases. No crackles no increased work of breathing., symmetrical. ABSENT: accessory muscle use, chest wall tenderness, rales, rhonchi, wheezes Cardiovascular exam: PRESENT: irregular rhythm - Intermittent A. fib with RVR. Pulses: PRESENT: normal carotid pulses, normal radial pulses Vascular exam: PRESENT: pallor GI/Abdominal exam: PRESENT: normal bowel sounds, soft. ABSENT: distended Rectal exam: PRESENT: deferred Extremities exam: PRESENT: pedal edema, +2 edema Musculoskeletal exam: PRESENT: full ROM, normal inspection. ABSENT: tenderness Neurological exam: PRESENT: alert, altered, awake, oriented to person, oriented to place, oriented to time, oriented to situation, CN II-XII grossly intact Psychiatric exam: PRESENT: appropriate affect, normal mood Skin exam: PRESENT: intact, pallor, warm Tubes/Lines: PRESENT: Other - J-tube in place. Placed on 03/15/2019. Laboratory/Radiographs Laboratory Results: 03/23/19 05:04 03/23/19 15:20 03/23/19 03/23/19 03/23/19 05:04 05:04 15:20 WBC 15.2 H RBC 3.86 L Hgb 9.3 L Hct 28.6 L MCV 74 L MCH 24.0 L MCHC 32.3 RDW 22.2 H Plt Count 441 Sodium 139.6 Potassium 3.8 3.7 Chloride 103 Carbon Dioxide 22 Anion Gap 15 BUN 20 Creatinine 0.97 Est GFR ( Amer) > 60 Glucose 81 Calcium 8.5 Magnesium 1.9 Urine Color Urine Appearance Urine pH Ur Specific [place] Urine Protein Urine Glucose (UA) Urine Ketones Urine Blood Urine Nitrite Ur Leukocyte Esterase Urine WBC (Auto) Urine RBC (Auto) 03/23/19 17:35 WBC RBC Hgb Hct MCV MCH MCHC RDW Plt Count Sodium Potassium Chloride Carbon Dioxide Anion Gap BUN Creatinine Est GFR ( Amer) Glucose Calcium Magnesium Urine Color SANDI Urine Appearance SLIGHTLY-CLOUDY Urine pH 5.0 Ur Specific [place] 1.025 Urine Protein 100 H Urine Glucose (UA) NEGATIVE Urine Ketones 80 H Urine Blood NEGATIVE Urine Nitrite NEGATIVE Ur Leukocyte Esterase NEGATIVE Urine WBC (Auto) 2 Urine RBC (Auto) 2 03/23/19 03/23/19 03/23/19 15:20 15:20 20:57 Creatine Kinase 25 L 25 L CK-MB (CK-2) 0.34 Troponin I 0.053 NT-Pro-B Natriuret Pep 3190 H 03/23/19 20:57 Creatine Kinase CK-MB (CK-2) 0.34 Troponin I 0.029 NT-Pro-B Natriuret Pep Impressions: Small Bowel X-Ray 03/14/19 00:00 IMPRESSION: Persistent dilated small bowel loops measuring up to 4.2 cm compatible with obstruction. Gas and previously administered oral contrast now within the colon compatible with partial process. Exam was prematurely terminated secondary to patient intolerance of additional contrast material. Correlation with prior CT demonstrates dilated small bowel loops to level of the distal jejunum with transition point within the right lower quadrant (series 3, image [id number]) with questionable associated soft tissue mass at this location. There are foci of curvilinear gas at this location possibly luminal although pneumatosis is not entirely excluded. Findings were discussed with ordering provider Dr. Cornejo at 1423 hours on 03/14/2019 KUB X-Ray 03/21/19 09:00 IMPRESSION: Good position of nasogastric tube. Abdomen/Pelvis CT 03/22/19 00:00 IMPRESSION: 1. Postsurgical changes from recent right lower quadrant small bowel resection and reanastomosis. There are multiple loops of dilated small bowel measuring up to 5.2 cm with transition at the level of the anastomosis. Findings may be related to residual obstruction versus postoperative edema. Scattered foci of free intraperitoneal gas, presumably postoperative. No focal drainable collection. 2. Postsurgical changes from the left nephrectomy. Grossly stable mass within the nephrectomy bed with additional scattered peritoneal implants compatible with metastatic disease. 3. Small bilateral effusion. Additional findings as above. Findings were discussed with Dr. Ulloa at 1132 hours on 03/22/2019. All labs, radiographs, diagnostic studies and EKGs were personally reviewed: Yes In addition, reports of radiographic and diagnostic studies were read: Yes Critical Time Critical Time (minutes): 75 -: The care of a critically ill patient is dynamic. This note represents a static moment in the admission process. Orders and treatments may be given simultaneously and urgently, and time is not office services representative of the treatment process. This patient requires Critical Care secondary to life threatening organ or limb dysfunction. Without Critical Care services, the patient is at risk for increased mortality and morbidity.
[2019-03-24 02:47] LABS: HEMATOCRIT 32.7 % (37.9-51.0); HEMOGLOBIN 10.1 g/dL (13.5-17.0); MEAN CORPUSCULAR VOLUME 74 fl (80-97); PLATELET COUNT 481 10^3/uL (150-450); RED BLOOD COUNT 4.41 10^6/uL (4.35-5.55); RED CELL DISTRIBUTION WIDTH 22.1 % (11.5-14.0); WHITE BLOOD COUNT 29.7 10^3/uL (4.0-10.5)
[2019-03-24 03:06] LABS: ANION GAP 13 (5-19); BLOOD UREA NITROGEN 23 mg/dL (7-20); CARBON DIOXIDE 20 mmol/L (22-30); CHLORIDE 107 mmol/L (98-107); CREATINE KINASE 78 U/L (55-170); GLUCOSE 93 mg/dL (75-110); POTASSIUM 4.1 mmol/L (3.6-5.0)
[2019-03-24 03:08] LABS: CREATINE KINASE MB 0.97 ng/mL (<4.55); TROPONIN I 0.022 ng/mL
[2019-03-24 03:14] LABS: ABSOLUTE LYMPHOCYTES# (MANUAL) 0.9 10^3/uL (0.5-4.7); ABSOLUTE MONOCYTES # (MANUAL) 1.2 10^3/uL (0.1-1.4); BASOPHILS % (MANUAL) 0 % (0-2); EOSINOPHILS % (MANUAL) 0 % (0-6); LYMPHOCYTES % (MANUAL) 3 % (13-45); MONOCYTES % (MANUAL) 4 % (3-13); SEGMENTED NEUTROPHILS % (MAN) 93 % (42-78); TOTAL CELLS COUNTED 100
[2019-03-24 03:15] LABS: TOXIC GRANULATION SLIGHT
[2019-03-24 03:17] LABS: ANISOCYTOSIS 3+; BURR CELLS 1+; OVALOCYTES 1+; PLATELET COMMENT ADEQUATE; POIKILOCYTOSIS 2+; TEAR DROP CELLS 1+
[2019-03-24] MEDS: HEPARIN SOD (PORCINE) 5,000 UNIT/ML 1 ML VIAL SUBCUT SCH ×3 (05:00→21:16)
[2019-03-24] MEDS: NORMAL SALINE 1000 ML 1,000 ML IV PRN ×3 (06:47→21:30)
--- NOTE | 2019-03-24 07:45 | RADIOLOGY REPORT (SQ) ---
EXAM DESCRIPTION: CHEST SINGLE VIEW COMPLETED DATE/TIME: 03/24/2019 6:45 am REASON FOR STUDY: elevated WBC COMPARISON: CT chest 02/21/2019 KUB 03/21/2019 EXAM PARAMETERS: NUMBER OF VIEWS: One view. TECHNIQUE: Single frontal radiographic view of the chest acquired. RADIATION DOSE: NA LIMITATIONS: None. FINDINGS: LUNGS AND PLEURA: Multiple tiny pulmonary nodules seen on the CT exam from 02/21/2019 are n ot apparent by plain film. On today's study, there is dense consolidation in the left lower lobe with air bronchograms worrisome for pneumonia. Small left pleural effusion could not be excluded. Aspiration pneumonia should be c onsidered There is patchy airspace disease in the medial right lung base atelectasis versus pneumonia. No right pleural effusion. No right or left pneumothorax MEDIASTINUM AND HILAR STRUCTURES: No masses. Contour normal. HEART AND VASCULAR STRUCTURES: Mild cardiomegaly BONES: No acute findings. HARDWARE: None in the chest. OTHER: No other significant finding. IMPRESSION: Dense consolidation left lower lobe worrisome for pneumonia. Patchy airspace disease right lung base. Tiny pulmonary nodules worrisome for metastatic disease seen on chest CT 02/21/2019 are not apparent p chandler film TECHNICAL DOCUMENTATION: JOB ID: [id number] [employer]- All Rights Reserved Reading location - IP/workstation name: [email or web address]
[2019-03-24 09:45] LABS: C DIFFICILE GDH NEGATIVE (NEGATIVE)
[2019-03-24 10:02] LABS: CREATINE KINASE MB 0.99 ng/mL (<4.55); TROPONIN I 0.019 ng/mL
--- NOTE | 2019-03-24 10:22 | PDOC PROGRESS REPORT ---
Subjective Progress Note for:: 03/24/19 Subjective:: Patient in the ICU, on oxygen, NG tube out, n.p.o., on TPN, on and off Cardizem drip for A. fib, states he feels better today. Had large loose bowel movement with gas today. Reason For Visit: AFIB WITH RVR,SMALL BOWEL OBSTRUCTION S/P PARTIAL Physical Exam Vital Signs: Temp Pulse Resp BP Pulse Ox 97.9 F 80 17 87/59 L 97 03/24/19 04:00 03/23/19 20:31 03/24/19 06:15 03/24/19 06:12 03/24/19 06:15 Intake & Output 03/23/19 03/24/19 03/25/19 06:59 06:59 06:59 Intake Total 2851 4009 Output Total 1550 1315 Balance 1301 2694 Weight 81 kg 79.5 kg General appearance: PRESENT: mild distress, other - Moderately anxious GI/Abdominal exam: PRESENT: other - Fluid through J-tube. Abdomen exposed. Midline incision healing satisfactorily with selina in place. The upper abdomen is soft slightly distended. J-tube site clean; J-tube clamped; unable to flush Results Laboratory Results: 03/24/19 02:23 03/24/19 02:23 03/23/19 03/23/19 03/24/19 15:20 17:35 02:23 WBC RBC Hgb Hct MCV MCH MCHC RDW Plt Count Seg Neutrophils % Sodium 139.5 Potassium 3.7 4.1 Chloride 107 Carbon Dioxide 20 L Anion Gap 13 BUN 23 H Creatinine 1.20 Est GFR ( Amer) > 60 Glucose 93 Calcium 8.0 L Phosphorus 5.0 H Magnesium 1.9 1.9 Urine Color SANDI Urine Appearance SLIGHTLY-CLOUDY Urine pH 5.0 Ur Specific [place] 1.025 Urine Protein 100 H Urine Glucose (UA) NEGATIVE Urine Ketones 80 H Urine Blood NEGATIVE Urine Nitrite NEGATIVE Ur Leukocyte Esterase NEGATIVE Urine WBC (Auto) 2 Urine RBC (Auto) 2 03/24/19 02:23 WBC 29.7 H RBC 4.41 Hgb 10.1 L Hct 32.7 L MCV 74 L MCH 23.0 L MCHC 31.0 L RDW 22.1 H Plt Count 481 H Seg Neutrophils % Not Reportable Sodium Potassium Chloride Carbon Dioxide Anion Gap BUN Creatinine Est GFR ( Amer) Glucose Calcium Phosphorus Magnesium Urine Color Urine Appearance Urine pH Ur Specific [place] Urine Protein Urine Glucose (UA) Urine Ketones Urine Blood Urine Nitrite Ur Leukocyte Esterase Urine WBC (Auto) Urine RBC (Auto) 03/23/19 03/23/19 03/23/19 15:20 15:20 20:57 Creatine Kinase 25 L 25 L CK-MB (CK-2) 0.34 Troponin I 0.053 NT-Pro-B Natriuret Pep 3190 H 03/23/19 03/24/19 03/24/19 20:57 02:23 02:23 Creatine Kinase 78 CK-MB (CK-2) 0.34 0.97 Troponin I 0.029 0.022 NT-Pro-B Natriuret Pep 03/24/19 03/24/19 09:14 09:14 Creatine Kinase 92 CK-MB (CK-2) 0.99 Troponin I 0.019 NT-Pro-B Natriuret Pep Impressions: Small Bowel X-Ray 03/14/19 00:00 IMPRESSION: Persistent dilated small bowel loops measuring up to 4.2 cm compatible with obstruction. Gas and previously administered oral contrast now within the colon compatible with partial process. Exam was prematurely terminated secondary to patient intolerance of additional contrast material. Correlation with prior CT demonstrates dilated small bowel loops to level of the distal jejunum with transition point within the right lower quadrant (series 3, image [id number]) with questionable associated soft tissue mass at this location. There are foci of curvilinear gas at this location possibly luminal although pneumatosis is not entirely excluded. Findings were discussed with ordering provider Dr. Cornejo at 1423 hours on 03/14/2019 KUB X-Ray 03/21/19 09:00 IMPRESSION: Good position of nasogastric tube. Abdomen/Pelvis CT 03/22/19 00:00 IMPRESSION: 1. Postsurgical changes from recent right lower quadrant small bowel resection and reanastomosis. There are multiple loops of dilated small bowel measuring up to 5.2 cm with transition at the level of the anastomosis. Findings may be related to residual obstruction versus postoperative edema. Scattered foci of free intraperitoneal gas, presumably postoperative. No focal drainable collection. 2. Postsurgical changes from the left nephrectomy. Grossly stable mass within the nephrectomy bed with additional scattered peritoneal implants compatible with metastatic disease. 3. Small bilateral effusion. Additional findings as above. Findings were discussed with Dr. Ulloa at 1132 hours on 03/22/2019. Chest X-Ray 03/24/19 00:00 IMPRESSION: Dense consolidation left lower lobe worrisome for pneumonia. Patchy airspace disease right lung base. Tiny pulmonary nodules worrisome for metastatic disease seen on chest CT 02/21/2019 are not apparent plain film Assessment & Plan - Diagnosis (1) Partial small bowel obstruction Is this a current diagnosis for this admission?: Yes Plan: Impression: Clinically metastable; GI tract may be opening up; C. difficile titer is negative; clogged jejunostomy tube: Persisting leukocytosis, etiology unclear, probably due to pneumonia: Chest x-ray shows bilateral airspace disease. Note: patient has a distended gallbladder on CT scan Recommendations: 1. We will attempt to unclog J-tube at bedside with wire 2. Will consider starting him on surgical sips later today; 3. Is unclear if patient is hypoadrenal, and whether he would benefit from uric steroid therapy. 4. Discussed above management with intensive care team (3) Coronary artery disease Qualifiers: Coronary Disease-Associated Artery/Lesion type: [place] artery [place] vs. transplanted heart: [place] heart Associated angina: without angina Qualified Code(s): I25.10 - Atherosclerotic heart disease of [place] coronary artery without angina pectoris Is this a current diagnosis for this admission?: Yes (4) Diarrhea Qualifiers: Diarrhea type: unspecified type Qualified Code(s): R19.7 - Diarrhea, unspecified Is this a current diagnosis for this admission?: Yes (5) Hyperlipidemia Qualifiers: Hyperlipidemia type: unspecified Qualified Code(s): E78.5 - Hyperlipidemia, unspecified Is this a current diagnosis for this admission?: Yes (6) renal cell carcinoma stage 4 Is this a current diagnosis for this admission?: Yes (7) Alcoholic cardiomyopathy Is this a current diagnosis for this admission?: Yes (8) Dysrhythmia Is this a current diagnosis for this admission?: Yes - Time Time Spent with patient: 15-24 minutes Medications reviewed and adjusted accordingly: Yes Anticipated discharge: Home
[2019-03-24] MEDS ORDERED: LIDOCAINE 1% INJ-PF (10 MG/ML) 30 ML SDV ONE (11:46)
--- NOTE | 2019-03-24 12:27 | PDOC CRITICAL CARE PROG REPORT ---
General Date:: 03/24/19 ICU Day:: 2 Hospital Day:: 12 Resuscitation Status: Full Code Events in the past 12 to 24 Hours:: Dehydrated, episodes of rapid afib treated with fluid. Review of systems relevant to events:: CV, GI Reason for ICU Addmission:: Afib with RVR, dehydration. - Medications: Medications reviewed and adjusted accordingly: Yes Vasopressors:: None Sedation:: None Physical Exam Vital Signs: Temp Pulse Resp BP Pulse Ox 99.3 F 133 H 22 H 96/69 L 98 03/24/19 10:00 03/24/19 10:00 03/24/19 10:45 03/24/19 10:44 03/24/19 10:45 Intake & Output 03/23/19 03/24/19 03/25/19 06:59 06:59 06:59 Intake Total 2851 4009 Output Total 1550 1315 Balance 1301 2694 Weight 81 kg 79.5 kg Weight/Height Weight 79.5 kg Height 5 ft 11 in General appearance: PRESENT: no acute distress, cooperative, thin, other - Very weak. Head exam: PRESENT: atraumatic, normocephalic Eye exam: PRESENT: conjunctiva pink, EOMI, PERRLA. ABSENT: scleral icterus Ear exam: PRESENT: normal external ear exam Mouth exam: PRESENT: moist, tongue midline Respiratory exam: PRESENT: clear to auscultation magui, crackles, decreased breath sounds. ABSENT: rales, rhonchi, wheezes Cardiovascular exam: PRESENT: irregular rhythm Vascular exam: PRESENT: normal capillary refill GI/Abdominal exam: PRESENT: diminished bowel sounds, distended, hypoactive bowel sounds, tenderness, other - Tender at incision. J feeding tube clogged or kinked. To be manipulated by Dr. Jackson. Rectal exam: PRESENT: deferred Gentrourinary exam: PRESENT: indwelling catheter Extremities exam: PRESENT: full ROM. ABSENT: calf tenderness, clubbing, pedal edema Neurological exam: PRESENT: alert, awake, oriented to person, oriented to place, oriented to time, oriented to situation, CN II-XII grossly intact. ABSENT: motor sensory deficit Skin exam: PRESENT: dry, intact, warm. ABSENT: cyanosis, rash Tubes/Lines: PRESENT: Other - Feeding J-tube. Laboratory/Radiographs Laboratory Results: 03/24/19 02:23 03/24/19 02:23 03/23/19 03/23/19 03/24/19 15:20 17:35 02:23 WBC RBC Hgb Hct MCV MCH MCHC RDW Plt Count Seg Neutrophils % Sodium 139.5 Potassium 3.7 4.1 Chloride 107 Carbon Dioxide 20 L Anion Gap 13 BUN 23 H Creatinine 1.20 Est GFR ( Amer) > 60 Glucose 93 Calcium 8.0 L Phosphorus 5.0 H Magnesium 1.9 1.9 Urine Color SANDI Urine Appearance SLIGHTLY-CLOUDY Urine pH 5.0 Ur Specific [place] 1.025 Urine Protein 100 H Urine Glucose (UA) NEGATIVE Urine Ketones 80 H Urine Blood NEGATIVE Urine Nitrite NEGATIVE Ur Leukocyte Esterase NEGATIVE Urine WBC (Auto) 2 Urine RBC (Auto) 2 03/24/19 02:23 WBC 29.7 H RBC 4.41 Hgb 10.1 L Hct 32.7 L MCV 74 L MCH 23.0 L MCHC 31.0 L RDW 22.1 H Plt Count 481 H Seg Neutrophils % Not Reportable Sodium Potassium Chloride Carbon Dioxide Anion Gap BUN Creatinine Est GFR ( Amer) Glucose Calcium Phosphorus Magnesium Urine Color Urine Appearance Urine pH Ur Specific [place] Urine Protein Urine Glucose (UA) Urine Ketones Urine Blood Urine Nitrite Ur Leukocyte Esterase Urine WBC (Auto) Urine RBC (Auto) 03/23/19 03/23/19 03/23/19 15:20 15:20 20:57 Creatine Kinase 25 L 25 L CK-MB (CK-2) 0.34 Troponin I 0.053 NT-Pro-B Natriuret Pep 3190 H 03/23/19 03/24/19 03/24/19 20:57 02:23 02:23 Creatine Kinase 78 CK-MB (CK-2) 0.34 0.97 Troponin I 0.029 0.022 NT-Pro-B Natriuret Pep 03/24/19 03/24/19 09:14 09:14 Creatine Kinase 92 CK-MB (CK-2) 0.99 Troponin I 0.019 NT-Pro-B Natriuret Pep Impressions: Small Bowel X-Ray 03/14/19 00:00 IMPRESSION: Persistent dilated small bowel loops measuring up to 4.2 cm compatible with obstruction. Gas and previously administered oral contrast now within the colon compatible with partial process. Exam was prematurely terminated secondary to patient intolerance of additional contrast material. Correlation with prior CT demonstrates dilated small bowel loops to level of the distal jejunum with transition point within the right lower quadrant (series 3, image [id number]) with questionable associated soft tissue mass at this location. There are foci of curvilinear gas at this location possibly luminal although pneumatosis is not entirely excluded. Findings were discussed with ordering provider Dr. Cornejo at 1423 hours on 03/14/2019 KUB X-Ray 03/21/19 09:00 IMPRESSION: Good position of nasogastric tube. Abdomen/Pelvis CT 03/22/19 00:00 IMPRESSION: 1. Postsurgical changes from recent right lower quadrant small bowel resection and reanastomosis. There are multiple loops of dilated small bowel measuring up to 5.2 cm with transition at the level of the anastomosis. Findings may be related to residual obstruction versus postoperative edema. Scattered foci of free intraperitoneal gas, presumably postoperative. No focal drainable collection. 2. Postsurgical changes from the left nephrectomy. Grossly stable mass within the nephrectomy bed with additional scattered peritoneal implants compatible with metastatic disease. 3. Small bilateral effusion. Additional findings as above. Findings were discussed with Dr. Ulloa at 1132 hours on 03/22/2019. Chest X-Ray 03/24/19 00:00 IMPRESSION: Dense consolidation left lower lobe worrisome for pneumonia. Patchy airspace disease right lung base. 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 He is under stress. However his cortisol is 34. Ideally it should be higher but he does respond to fluid. Holding off on steroids due to wound healing concerns. (2) Atrial fibrillation with RVR Is this a current diagnosis for this admission?: Yes (3) Diarrhea Qualifiers: Diarrhea type: unspecified type Qualified Code(s): R19.7 - Diarrhea, unspecified Is this a current diagnosis for this admission?: Yes Plan: His Cdif is negative. Nevertheless gut motility agents such as lomotil may do more harm than good in the post op period. (4) Hypotension due to hypovolemia Is this a current diagnosis for this admission?: Yes Plan: Responds to fluid. (5) Ileus Is this a current diagnosis for this admission?: Yes Plan: There is some movement of his GI tract. Improving. (6) renal cell carcinoma stage 4 Is this a current diagnosis for this admission?: Yes Plan: Unfortunately not treatable at this time. (7) Aspiration into airway Qualifiers: Encounter type: initial encounter Qualified Code(s): T17.908A - Unspecified foreign body in respiratory tract, part unspecified causing other injury, initial encounter Is this a current diagnosis for this admission?: Yes Plan: His CXR shows some RLL haziness. He relates a story of N/V whalanna NG was being manipulated and finally removed yesterday. This would account for his dehydration this many days post-op and his afib. No respiratory issues though. Treatment is supportive care. Plan Summary: Provide supportive care. Dr. Jackson to manipulate catheter. Try to get OOB. Critical Time Critical Time (minutes): 40 Level of Care: ICU Anticipated discharge: SNF Within: Other - Too soon to tell. -: 1. The care of a critical patient is a dynamic process. This note is a human resources representative synopsis but static in nature. The timeframe for treatments given in order is not necessarily the actual time these treatments may have been done. 2. This patient requires critical care secondary to ongoing requirements for therapy not offered or safe outside the critical care environment. Transfer to a lower level of care will result in altered life or limb morbidity and mortality. 3. Multidisciplinary rounds completed. 4. ABCDE bundle addressed.
[2019-03-24] MEDS ORDERED: SODIUM BICARBONATE 650 MG TABLET JT ONE (12:30)
[2019-03-24] MEDS: PANTOPRAZOLE SODIUM 40 MG VIAL IV SCH ×2 (12:38→21:16)
--- NOTE | 2019-03-24 12:39 | Operative Report ---
Operative Report DATE OF SURGERY: 03/24/19 PREOPERATIVE DIAGNOSIS: Malfunctioning jejunostomy tube POSTOPERATIVE DIAGNOSIS: Kinked jejunostomy tube OPERATION: 1. Manipulation of jejunostomy tube. 2. Attempt at declotting jejunostomy tube with wires SURGEON: GA CHE ANESTHESIA: Local TISSUE REMOVED OR ALTERED: None COMPLICATIONS: None ESTIMATED BLOOD LOSS: None INTRAOPERATIVE FINDINGS: See below PROCEDURE: The patient remains in the intensive care unit. He had an existing jejunostomy tube placed, operative Bonner type, using a 10 [place] tube, placed [address] Sheffield. Patient had been receiving jejunostomy feeds till recently. It is unknown whether the tube was being flushed. A bedside attempt was made to flush the J-tube with Pepsi but was unsuccessful. I then used a Dobbhoff wire followed by a 0.035 inch Glidewire and an attempt to unclog the tube but these efforts were unsuccessful. I reviewed the CT scan of the patient's abdomen performed 48 hours ago. It appeared that there may be a kink in the J-tube as it was going through the anterior abdominal wall. Therefore at bedside, I remove the existing J-tube sutures at the skin level, and pulled the J-tube back approximately 4 to 5 cm. A kink in the tube was revealed. I now used the wires again in attempt to advance the wire beyond this point, however despite relieving the identified kink, I could not get the wire to advance several centimeters beyond the kinked area. Multiple attempts were made to flush the catheter but again were unsuccessful. With lidocaine, 1%, I resecured the J-tube to the skin with 2-0 Prolene suture. A sterile dressing was applied. Patient tolerated the procedure well. Plan: 1. Whether the J-tube is still kinked further into the abdomen, or whether it is clogged with tube feeding, is uncertain. We Will attempt declogging solution including sodium bicarb and Pancrease. This is being mixed and injected by the nursing staff. 2. Above explained to the patient and his . Additional intervention, manipulation may be required to restore J-tube function.
[2019-03-24] MEDS ORDERED: LIPASE/PROTEASE/AMYLASE 1 CAP CAPSULE.DR PO ONE (13:00)
[2019-03-24] MEDS: ONDANSETRON HCL INJ/PF 4 MG/2 ML SDV IV PRN (13:06)
[2019-03-24] MEDS ORDERED: MORPHINE SULFATE 10 MG/ML INJ ONE (13:41)
[2019-03-24 15:01] LABS: APPEARANCE,URINE SLIGHTLY-CLOUDY; COLOR,URINE AMBER; GLUCOSE, URINE NEGATIVE (NEGATIVE)
[2019-03-24 15:02] LABS: BILIRUBIN,URINE NEGATIVE (NEGATIVE); KETONES,URINE 20 mg/dL (NEGATIVE); LEUKOCYTE ESTERASE,URINE NEGATIVE (NEGATIVE); NITRITE,URINE NEGATIVE (NEGATIVE); PROTEIN,URINE 100 mg/dL (NEGATIVE); URINE SPECIFIC GRAVITY 1.026
[2019-03-24] MEDS ORDERED: NORMAL SALINE 1000 ML 1,000 ML IV ONE (17:00)
--- NOTE | 2019-03-24 19:05 | PDOC PROGRESS REPORT ---
Subjective Progress Note for:: 03/24/19 Reason For Visit: AFIB WITH RVR,SMALL BOWEL OBSTRUCTION S/P PARTIAL Physical Exam Vital Signs: Temp Pulse Resp BP Pulse Ox 101.8 F H 97 22 H 109/67 99 03/24/19 18:00 03/24/19 18:00 03/24/19 18:20 03/24/19 18:20 03/24/19 18:20 Intake & Output 03/23/19 03/24/19 03/25/19 06:59 06:59 06:59 Intake Total 2851 5009 2000 Output Total 1550 1315 205 Balance 1301 3694 1795 Weight 81 kg 79.5 kg General appearance: PRESENT: no acute distress, thin Head exam: PRESENT: atraumatic, normocephalic Eye exam: PRESENT: EOMI Mouth exam: PRESENT: dry mucosa Respiratory exam: PRESENT: symmetrical Cardiovascular exam: PRESENT: RRR, +S1, +S2 Pulses: PRESENT: normal radial pulses Rectal exam: PRESENT: deferred Musculoskeletal exam: PRESENT: normal inspection Skin exam: PRESENT: dry Results Laboratory Results: 03/24/19 02:23 03/24/19 02:23 03/24/19 03/24/19 03/24/19 02:23 02:23 14:34 WBC 29.7 H RBC 4.41 Hgb 10.1 L Hct 32.7 L MCV 74 L MCH 23.0 L MCHC 31.0 L RDW 22.1 H Plt Count 481 H Seg Neutrophils % Not Reportable Sodium 139.5 Potassium 4.1 Chloride 107 Carbon Dioxide 20 L Anion Gap 13 BUN 23 H Creatinine 1.20 Est GFR ( Amer) > 60 Glucose 93 Calcium 8.0 L Phosphorus 5.0 H Magnesium 1.9 Urine Color SANDI Urine Appearance SLIGHTLY-CLOUDY Urine pH 5.0 Ur Specific [place] 1.026 Urine Protein 100 H Urine Glucose (UA) NEGATIVE Urine Ketones 20 H Urine Blood NEGATIVE Urine Nitrite NEGATIVE Ur Leukocyte Esterase NEGATIVE Urine WBC (Auto) 0 Urine RBC (Auto) 1 03/23/19 03/23/19 03/23/19 15:20 15:20 20:57 Creatine Kinase 25 L 25 L CK-MB (CK-2) 0.34 Troponin I 0.053 NT-Pro-B Natriuret Pep 3190 H 03/23/19 03/24/19 03/24/19 20:57 02:23 02:23 Creatine Kinase 78 CK-MB (CK-2) 0.34 0.97 Troponin I 0.029 0.022 NT-Pro-B Natriuret Pep 03/24/19 03/24/19 09:14 09:14 Creatine Kinase 92 CK-MB (CK-2) 0.99 Troponin I 0.019 NT-Pro-B Natriuret Pep EKG Comments: Telemetry strips were reviewed. Episodes of sinus rhythm as well as episodes of paroxysmal atrial tachycardia. Impressions: Small Bowel X-Ray 03/14/19 00:00 IMPRESSION: Persistent dilated small bowel loops measuring up to 4.2 cm compatible with obstruction. Gas and previously administered oral contrast now within the colon compatible with partial process. Exam was prematurely terminated secondary to patient intolerance of additional contrast material. Correlation with prior CT demonstrates dilated small bowel loops to level of the distal jejunum with transition point within the right lower quadrant (series 3, image [id number]) with questionable associated soft tissue mass at this location. There are foci of curvilinear gas at this location possibly luminal although pneumatosis is not entirely excluded. Findings were discussed with ordering provider Dr. Cornejo at 1423 hours on 03/14/2019 KUB X-Ray 03/21/19 09:00 IMPRESSION: Good position of nasogastric tube. Abdomen/Pelvis CT 03/22/19 00:00 IMPRESSION: 1. Postsurgical changes from recent right lower quadrant small bowel resection and reanastomosis. There are multiple loops of dilated small bowel measuring up to 5.2 cm with transition at the level of the anastomosis. Findings may be related to residual obstruction versus postoperative edema. Scattered foci of free intraperitoneal gas, presumably postoperative. No focal drainable collection. 2. Postsurgical changes from the left nephrectomy. Grossly stable mass within the nephrectomy bed with additional scattered peritoneal implants compatible with metastatic disease. 3. Small bilateral effusion. Additional findings as above. Findings were discussed with Dr. Ulloa at 1132 hours on 03/22/2019. Chest X-Ray 03/24/19 00:00 IMPRESSION: Dense consolidation left lower lobe worrisome for pneumonia. Patchy airspace disease right lung base. Tiny pulmonary nodules worrisome for metastatic disease seen on chest CT 02/21/2019 are not apparent plain film Assessment & Plan - Diagnosis (1) Atrial tachycardia, paroxysmal Is this a current diagnosis for this admission?: Yes Plan: Episodes of paroxysmal atrial tachycardia. These are likely a reflection of his overall illness. Would recommend suppressive therapy with beta-blockers or calcium blockers. It appears that oral intake is difficult to limited in account of surgical problems. Given the above circumstance it may be reasonable to continue intravenous beta- blockade [id number] with small doses of metoprolol 2.5 mg every 2-4 hours with parameters on blood pressure. Sustained beta-blockade will decrease the likelihood of repetitive firing and atrial tachycardia episodes. If oral intake or GI route can be resumed for medications would recommend low- dose of oral beta-dg or oral diltiazem for the same effect. Given very organized rhythm and given present surgical situation would not be f orceful on the recommendation for systemic anticoagulation. We will follow (2) Alcoholic cardiomyopathy Is this a current diagnosis for this admission?: Yes Plan: He appears to be compensated from a volume standpoint.
[2019-03-24] MEDS ORDERED: RINGERS SOLUTION,LACTATED 1,000 ML IV PRN (23:06)
[2019-03-25] MEDS ORDERED: DIGOXIN INJ 0.5 MG/2 ML AMPULE ONE (00:17)
[2019-03-25] MEDS ORDERED: DIGOXIN INJ 0.5 MG/2 ML AMPULE IV ONE (00:45)
[2019-03-25] MEDS: METOPROLOL TARTRATE PF/INJ 5 MG/5 ML SDV IV PRN (01:15)
[2019-03-25] MEDS ORDERED: METRONIDAZOLE RTU 500 MG/NS 100 ML IV ONE (01:45)
[2019-03-25] MEDS ORDERED: METOPROLOL TARTRATE PF/INJ 5 MG/5 ML SDV IV SCH (04:00)
[2019-03-25] MEDS: METOPROLOL TARTRATE PF/INJ 5 MG/5 ML SDV IV SCH ×10 (04:04→22:28)
[2019-03-25 04:26] LABS: HEMATOCRIT 31.1 % (37.9-51.0); HEMOGLOBIN 9.6 g/dL (13.5-17.0); MEAN CORPUSCULAR HEMOGLOBIN 23.1 pg (27.0-33.4); MEAN CORPUSCULAR VOLUME 75 fl (80-97); PLATELET COUNT 444 10^3/uL (150-450); RED BLOOD COUNT 4.17 10^6/uL (4.35-5.55); RED CELL DISTRIBUTION WIDTH 22.5 % (11.5-14.0); WHITE BLOOD COUNT 21.8 10^3/uL (4.0-10.5)
[2019-03-25 04:44] LABS: ABSOLUTE LYMPHOCYTES# (MANUAL) 0.2 10^3/uL (0.5-4.7); ABSOLUTE MONOCYTES # (MANUAL) 0.4 10^3/uL (0.1-1.4); ANION GAP 11 (5-19); BASOPHILS % (MANUAL) 0 % (0-2); BLOOD UREA NITROGEN 27 mg/dL (7-20); CALCIUM 7.9 mg/dL (8.4-10.2); CARBON DIOXIDE 19 mmol/L (22-30); CHLORIDE 111 mmol/L (98-107); EOSINOPHILS % (MANUAL) 0 % (0-6); GLUCOSE 81 mg/dL (75-110); LYMPHOCYTES % (MANUAL) 1 % (13-45); MONOCYTES % (MANUAL) 2 % (3-13); PHOSPHORUS 3.5 mg/dL (2.5-4.5); POTASSIUM 3.8 mmol/L (3.6-5.0); SEGMENTED NEUTROPHILS % (MAN) 97 % (42-78); TOTAL CELLS COUNTED 100
[2019-03-25 04:47] LABS: ANISOCYTOSIS 3+; HYPOCHROMASIA 1+; OVALOCYTES 1+; POIKILOCYTOSIS 2+; TOXIC GRANULATION SLIGHT
[2019-03-25 04:48] LABS: BURR CELLS 2+; PLATELET COMMENT ADEQUATE
[2019-03-25] MEDS: HEPARIN SOD (PORCINE) 5,000 UNIT/ML 1 ML VIAL SUBCUT SCH ×3 (06:16→21:01)
[2019-03-25] MEDS: NORMAL SALINE 1000 ML 1,000 ML IV PRN (06:20)
--- NOTE | 2019-03-25 08:48 | PDOC PROGRESS REPORT ---
Subjective Progress Note for:: 03/25/19 Subjective:: Passing gas today, had BM liquid this am, being considered for TPN Reason For Visit: AFIB WITH RVR,SMALL BOWEL OBSTRUCTION S/P PARTIAL Physical Exam Vital Signs: Temp Pulse Resp BP Pulse Ox 99.6 F 93 24 H 96/67 L 100 03/25/19 04:00 03/25/19 08:00 03/25/19 06:00 03/25/19 05:49 03/25/19 06:00 Intake & Output 03/24/19 03/25/19 03/26/19 06:59 06:59 06:59 Intake Total 5009 4000 Output Total 1315 464 23 Balance 3694 3536 -23 Weight 79.5 kg 83.7 kg General appearance: PRESENT: no acute distress, well-developed, well-nourished Head exam: PRESENT: atraumatic, normocephalic Eye exam: PRESENT: conjunctiva pink, EOMI, PERRLA. ABSENT: scleral icterus Ear exam: PRESENT: normal external ear exam Mouth exam: PRESENT: moist, tongue midline Neck exam: ABSENT: carotid bruit, JVD, lymphadenopathy, thyromegaly Respiratory exam: PRESENT: clear to auscultation magui. ABSENT: rales, rhonchi, wheezes Cardiovascular exam: PRESENT: RRR. ABSENT: diastolic murmur, rubs, systolic murmur Pulses: PRESENT: normal dorsalis pedis pul Vascular exam: PRESENT: normal capillary refill GI/Abdominal exam: PRESENT: normal bowel sounds, soft. ABSENT: distended, guarding, mass, organolmegaly, rebound, tenderness Rectal exam: PRESENT: deferred Extremities exam: PRESENT: full ROM. ABSENT: calf tenderness, clubbing, pedal edema Neurological exam: PRESENT: alert, awake, oriented to person, oriented to place, oriented to time, oriented to situation, CN II-XII grossly intact. ABSENT: motor sensory deficit Psychiatric exam: PRESENT: appropriate affect, normal mood. ABSENT: homicidal ideation, suicidal ideation Skin exam: PRESENT: dry, intact, warm. ABSENT: cyanosis, rash Results Laboratory Results: 03/25/19 03:41 03/25/19 03:41 03/24/19 03/25/19 03/25/19 14:34 03:41 03:41 WBC 21.8 H RBC 4.17 L Hgb 9.6 L Hct 31.1 L MCV 75 L MCH 23.1 L MCHC 31.0 L RDW 22.5 H Plt Count 444 Seg Neutrophils % Not Reportable Sodium 140.6 Potassium 3.8 Chloride 111 H Carbon Dioxide 19 L Anion Gap 11 BUN 27 H Creatinine 1.16 Est GFR ( Amer) > 60 Glucose 81 Calcium 7.9 L Phosphorus 3.5 Urine Color SANDI Urine Appearance SLIGHTLY-CLOUDY Urine pH 5.0 Ur Specific [place] 1.026 Urine Protein 100 H Urine Glucose (UA) NEGATIVE Urine Ketones 20 H Urine Blood NEGATIVE Urine Nitrite NEGATIVE Ur Leukocyte Esterase NEGATIVE Urine WBC (Auto) 0 Urine RBC (Auto) 1 03/23/19 03/23/19 03/23/19 15:20 15:20 20:57 Creatine Kinase 25 L 25 L CK-MB (CK-2) 0.34 Troponin I 0.053 NT-Pro-B Natriuret Pep 3190 H 03/23/19 03/24/19 03/24/19 20:57 02:23 02:23 Creatine Kinase 78 CK-MB (CK-2) 0.34 0.97 Troponin I 0.029 0.022 NT-Pro-B Natriuret Pep 03/24/19 03/24/19 09:14 09:14 Creatine Kinase 92 CK-MB (CK-2) 0.99 Troponin I 0.019 NT-Pro-B Natriuret Pep Impressions: Small Bowel X-Ray 03/14/19 00:00 IMPRESSION: Persistent dilated small bowel loops measuring up to 4.2 cm compatible with obstruction. Gas and previously administered oral contrast now within the colon compatible with partial process. Exam was prematurely term inated secondary to patient intolerance of additional contrast material. Correlation with prior CT demonstrates dilated small bowel loops to level of the distal jejunum with transition point within the right lower quadrant (series 3, image [id number]) with questionable associated soft tissue mass at this location. There are foci of curvilinear gas at this location possibly luminal although pneumatosis is not entirely excluded. Findings were discussed with ordering provider Dr. Cornejo at 1423 hours on 03/14/2019 KUB X-Ray 03/21/19 09:00 IMPRESSION: Good position of nasogastric tube. Abdomen/Pelvis CT 03/22/19 00:00 IMPRESSION: 1. Postsurgical changes from recent right lower quadrant small bowel resection and reanastomosis. There are multiple loops of dilated small bowel measuring up to 5.2 cm with transition at the level of the anastomosis. Findings may be related to residual obstruction versus postoperative edema. Scattered foci of free intraperitoneal gas, presumably postoperative. No focal drainable collection. 2. Postsurgical changes from the left nephrectomy. Grossly stable mass within the nephrectomy bed with additional scattered peritoneal implants compatible with metastatic disease. 3. Small bilateral effusion. Additional findings as above. Findings were discussed with Dr. Ulloa at 1132 hours on 03/22/2019. Chest X-Ray 03/24/19 00:00 IMPRESSION: Dense consolidation left lower lobe worrisome for pneumonia. Patchy airspace disease right lung base. Tiny pulmonary nodules worrisome for metastatic disease seen on chest CT 02/21/2019 are not apparent plain film Assessment & Plan - Diagnosis (1) Partial small bowel obstruction Is this a current diagnosis for this admission?: Yes Plan: Cont per surgicalist team (2) renal cell carcinoma stage 4 Is this a current diagnosis for this admission?: Yes Plan: further rx as outpt - Time Time Spent with patient: 25-34 minutes
[2019-03-25] MEDS ORDERED: FENTANYL CITRATE INJ/PF 100 MCG/2 ML AMPUL ONE (09:25)
[2019-03-25] MEDS ORDERED: FENTANYL CITRATE INJ/PF 100 MCG/2 ML AMPUL IV ONE (10:00)
[2019-03-25] MEDS ORDERED: DIGOXIN INJ 0.5 MG/2 ML AMPULE IV SCH (10:00)
[2019-03-25] MEDS ORDERED: METRONIDAZOLE RTU 500 MG/NS 100 ML IV SCH (10:00)
[2019-03-25] MEDS ORDERED: FENTANYL CITRATE INJ/PF 100 MCG/2 ML AMPUL IV PRN (10:02)
[2019-03-25] MEDS ORDERED: VANCOMYCIN HCL 0 MG in DEXTROSE 5%-WATER 250 ML IV NR (10:15)
[2019-03-25] MEDS ORDERED: FLUCONAZOLE 400 MG/NS RTU 400 MG/200 ML RTUPB IV ONE (10:30)
[2019-03-25] MEDS ORDERED: MEROPENEM 1 GM in NORMAL SALINE 50 ML IV SCH (10:30)
[2019-03-25] MEDS: RINGERS SOLUTION,LACTATED 1,000 ML IV PRN (11:17)
[2019-03-25] MEDS: PANTOPRAZOLE SODIUM 40 MG VIAL IV SCH (11:18)
[2019-03-25] MEDS: VANCOMYCIN HCL 1,000 MG in DEXTROSE 5%-WATER 250 ML IV SCH ×3 (11:18→21:01)
[2019-03-25] MEDS ORDERED: ONDANSETRON HCL INJ/PF 4 MG/2 ML SDV IV PRN (11:30)
--- NOTE | 2019-03-25 11:54 | PDOC PROGRESS REPORT ---
Subjective Progress Note for:: 03/25/19 Subjective:: Mild pains along the jejunostomy site Still having some diarrheic stools small amount of flatus. Reason For Visit: AFIB WITH RVR,SMALL BOWEL OBSTRUCTION S/P PARTIAL Physical Exam Vital Signs: Temp Pulse Resp BP Pulse Ox 97.9 F 90 23 H 104/65 100 03/25/19 08:00 03/25/19 10:00 03/25/19 11:00 03/25/19 11:15 03/25/19 10:46 Intake & Output 03/24/19 03/25/19 03/26/19 06:59 06:59 06:59 Intake Total 5009 4000 Output Total 1315 464 48 Balance 3694 3536 -48 Weight 79.5 kg 83.7 kg Exam: Just have a contrast study via the jejunostomy tube. Radiologist called me and said there is small amount of leak at the area of the skin and into the peritoneal cavity. However the catheter appears to be inside the bowel. Results Laboratory Results: 03/25/19 03:41 03/25/19 03:41 03/24/19 03/25/19 03/25/19 14:34 03:41 03:41 WBC 21.8 H RBC 4.17 L Hgb 9.6 L Hct 31.1 L MCV 75 L MCH 23.1 L MCHC 31.0 L RDW 22.5 H Plt Count 444 Seg Neutrophils % Not Reportable Sodium 140.6 Potassium 3.8 Chloride 111 H Carbon Dioxide 19 L Anion Gap 11 BUN 27 H Creatinine 1.16 Est GFR ( Amer) > 60 Glucose 81 Calcium 7.9 L Phosphorus 3.5 Urine Color SANDI Urine Appearance SLIGHTLY-CLOUDY Urine pH 5.0 Ur Specific [place] 1.026 Urine Protein 100 H Urine Glucose (UA) NEGATIVE Urine Ketones 20 H Urine Blood NEGATIVE Urine Nitrite NEGATIVE Ur Leukocyte Esterase NEGATIVE Urine WBC (Auto) 0 Urine RBC (Auto) 1 03/23/19 03/23/19 03/23/19 15:20 15:20 20:57 Creatine Kinase 25 L 25 L CK-MB (CK-2) 0.34 Troponin I 0.053 NT-Pro-B Natriuret Pep 3190 H 03/23/19 03/24/19 03/24/19 20:57 02:23 02:23 Creatine Kinase 78 CK-MB (CK-2) 0.34 0.97 Troponin I 0.029 0.022 NT-Pro-B Natriuret Pep 03/24/19 03/24/19 09:14 09:14 Creatine Kinase 92 CK-MB (CK-2) 0.99 Troponin I 0.019 NT-Pro-B Natriuret Pep Impressions: Small Bowel X-Ray 03/14/19 00:00 IMPRESSION: Persistent dilated small bowel loops measuring up to 4.2 cm compatible with obstruction. Gas and previously administered oral contrast now within the colon compatible with partial process. Exam was prematurely terminated secondary to patient intolerance of additional contrast material. Correlation with prior CT demonstrates dilated small bowel loops to level of the distal jejunum with transition point within the right lower quadrant (series 3, image [id number]) with questionable associated soft tissue mass at this location. There are foci of curvilinear gas at this location possibly luminal although pneumatosis is not entirely excluded. Findings were discussed with ordering provider Dr. Cornejo at 1423 hours on 03/14/2019 KUB X-Ray 03/21/19 09:00 IMPRESSION: Good position of nasogastric tube. Abdomen/Pelvis CT 03/22/19 00:00 IMPRESSION: 1. Postsurgical changes from recent right lower quadrant small bowel resection and reanastomosis. There are multiple loops of dilated small bowel measuring up to 5.2 cm with transition at the level of the anastomosis. Findings may be related to residual obstruction versus postoperative edema. Scattered foci of free intraperitoneal gas, presumably postoperative. No focal drainable collection. 2. Postsurgical changes from the left nephrectomy. Grossly stable mass within the nephrectomy bed with additional scattered peritoneal implants compatible with metastatic disease. 3. Small bilateral effusion. Additional findings as above. Findings were discussed with Dr. Ulloa at 1132 hours on 03/22/2019. Chest X-Ray 03/24/19 00:00 IMPRESSION: Dense consolidation left lower lobe worrisome for pneumonia. Patchy airspace disease right lung base. Tiny pulmonary nodules worrisome for metastatic disease seen on chest CT 02/21/2019 are not apparent plain film Assessment & Plan - Diagnosis (1) Jejunal cancer Is this a current diagnosis for this admission?: Yes (2) Partial small bowel obstruction Is this a current diagnosis for this admission?: Yes (3) renal cell carcinoma stage 4 Is this a current diagnosis for this admission?: Yes - Time Time Spent with patient: 15-24 minutes - Inpatient Certification Medical Necessity: Significant Comorbidiites Make Outpatient Treatment Too Risky, Need For IV Fluids, Need for IV Antibiotics, Risk of Complication if Not Cared For in Hospital - Plan Summary Plan Summary: Plans: Have discussed patient's situation with the automotive general sales manager and we all agreed to hold off using the jejunostomy tube for now and start TPN. He was started on IV antibiotics yesterday for pneumonia with start decreasing white count from 29,000-21,000 this morning.
--- NOTE | 2019-03-25 13:02 | RADIOLOGY REPORT (SQ) ---
EXAM DESCRIPTION: INJECT EXISTING/TUBE PLACEMENT COMPLETED DATE/TIME: 03/25/2019 9:30 am REASON FOR STUDY: Contrast study through jejunostomy tube COMPARISON: CT abdomen and pelvis 03/22/2019 FLUOROSCOPY TIME: None, fluoroscopy not used. None images saved to PACS. TECHNIQUE: Injection of contrast through existing catheter. Overhead radiographs obtained and saved to pac's. LIMITATIONS: None. FINDINGS: CONTRAST INJECTED: 40 ml of Gastrografin. TUBE POSITION: The jejunostomy tube has folded upon itself at approximately 9 cm from the tip of the catheter. The catheter appears to be within loop of jejunum as there is contrast seen within a coupl e of the small bowel loops. There is extravasation of contrast along the anterior abdominal skin kristan face which obscures evaluation. Questionable additional intraperitoneal extravasation although evalu ation limited on single frontal projections. IMPRESSION: Jejunostomy tube is folded upon itself within a loop of jejunum. There is extravasation of contrast along the anterior abdominal skin surface which obscures evaluation. Questionable addit ional intraperitoneal extravasation although evaluation limited on the frontal projections. Repeat i njection with additional CT or lateral images could be considered for confirmation. FINDINGS WERE DISCUSSED WITH DR. HAMMER AT APPROXIMATELY 1000 HOURS. COMMENT: Quality ID 145: Final reports for procedures using fluoroscopy that document radiation exp osure indices, or exposure time and number of fluorographic images (if radiation exposure indices are not available) TECHNICAL DOCUMENTATION: JOB ID: [id number] [employer]- All Rights Reserved Reading location - IP/workstation name: [email or web address] [id number]
[2019-03-25] MEDS: MEROPENEM 1 GM in NORMAL SALINE 50 ML IV SCH ×2 (15:57→21:01)
--- NOTE | 2019-03-25 16:18 | RADIOLOGY REPORT (SQ) ---
EXAM DESCRIPTION: PICC INSERTION; U/S GUIDE FOR VASCULAR ACCESS COMPLETED DATE/TIME: 03/25/2019 3:34 pm REASON FOR STUDY: need for Parenteral nutrition; IV ACCESS COMPARISON: 03/24/2019. FLUOROSCOPY TIME: 5 second 2 images saved to PACS. TECHNIQUE: Fluoroscopic and ultrasound guided PICC placement. LIMITATIONS: None. PROCEDURE: After written consent and assessment were obtained, the patient was brought into the fluo roscopy room and placed supine on the table. Ultrasound evaluation of potential access sites were per formed. After successfully identifying a patent right basilic vein, the right arm was prepped and reynaldo ped in a sterile fashion along with the ultrasound probe. The entry site was anesthetized with 1% lid ocaine. A 21 gauge 7 cm needle was advanced through the skin and into the basilic vein under live ult rasound guidance. An ultrasound image was saved to PACS confirming access site. A .018 guide wire w as then inserted through the needle and into the venous system. The needle was then removed and an 11 blade scalpel was used to make a 1cm skin incision. A 5 fr peel-away sheath was advanced over the w gerhard and into the venous system. A measurement was then made using the existing wire and live fluorosc opic guidance. The wire was then removed and trimmed. The PICC was advanced through the peel-away she ath and into the venous system. The peel-away sheath was removed and the catheter was adhered to the patients arm with a stat lock. The catheter was then aspirated and flushed and a sterile bandage was placed over the access site. A fluoroscopic spot image was saved to PACS confirming the catheter tip within the superior vena cava. IMPRESSION: SUCCESSFUL PLACEMENT OF A 5 FR DUAL LUMEN PICC IN THE RIGHT BASILIC VEIN. COMMENT: Patient medication list reviewed: Yes- Quality ID# 130:Eligible professional attests to doc umenting in the medical record they obtained, updated, or reviewed the patient's current medications. . Quality ID 145: Final reports for procedures using fluoroscopy that document radiation exposure hong farhan, or exposure time and number of fluorographic images (if radiation exposure indices are not avail able) Quality ID #76: The patient was prepped and draped using maximum sterile barrier technique including cap, mask, sterile gown, sterile gloves, a large sterile sheet, hand hygiene, and 2% Chlorhexidine fo r cutaneous antisepsis. When ultrasound is used, sterile ultrasound techniques are followed requiring sterile gel and sterile probes. TECHNICAL DOCUMENTATION: JOB ID: [id number] [employer]- All Rights Reserved rev-08/04 Reading location - IP/workstation name: [email or web address]
[2019-03-25] MEDS ORDERED: NORMAL SALINE 10 ML SDV (AFTER EACH USE) IV PRN (16:30)
--- NOTE | 2019-03-25 18:25 | XCELERA REPORT ---
[address] [address] Transthoracic Echocardiogram Report Name: SONIA PALACIOS Age: 69 yrs Gender: Male : 1950 Patient Status: Inpatient Patient Location: ICU^[id number]^A Study Date: 03/25/2019 11:06 AM History: Atrial tachycardia, Cardiomyopathy Height: 71 in Weight: 184 lb BSA: 2.0 m2 Procedure: A complete two-dimensional transthoracic echocardiogram was performed (2D, M-mode, spectral and color flow Doppler). The study was technically difficult with many images being suboptimal in quality. There was technical limitations during this study due to poor acoustic windows secondary to lung disease. Reason For Study: chemotherapy Previous Evaluation: No previous studies were available. History: CHF. Ordering Physician: DARNELL SMITH Performed By: Franca Novoa Interpretation Summary Underfilled left and right ventricles with hyperdynamic LV systolic function. Poor quality of study makes it difficult to comment on valves. The study was technically difficult with many images being suboptimal in quality. The left ventricle is grossly normal size. The left ventricle is hyperdynamic. The Ejection Fraction estimate is >70% The right ventricle is hyperdynamic. There is a mild amount of mitral regurgitation There is a mild amount of tricuspid regurgitation There is no pericardial effusion. The aortic root is mildly dilated Underfilled left and right ventricles with hyperdynamic LV systolic function. Poor quality of study makes it difficult to comment on valves. MMode/2D Measurements & Calculations RVDd: 3.2 cm LVIDd: 5.2 cm FS: 41.9 % Ao root diam: 3.9 cm IVSd: 0.90 cm LVIDs: 3.0 cm EDV(Teich): 131.8 ml Ao root area: 12.2 cm2 LVPWd: 0.95 cm ESV(Teich): 36.3 ml EF(Teich): 72.5 % Doppler Measurements & Calculations MV E max nestor: MV dec slope: PA V2 max: TR max nestor: 55.2 cm/sec 335.5 cm/sec2 91.0 cm/sec 277.7 cm/sec MV A max nestor: MV dec time: 0.16 secPA max PG: TR max P.0 cm/sec 3.4 mmHg 31.0 mmHg MV E/A: 0.66 Left Ventricle The left ventricle is grossly normal size. There is normal left ventricular wall thickness. The left ventricle is hyperdynamic. The Ejection Fraction estimate is >70%. Right Ventricle The right ventricle is normal in size and function. The right ventricular cavity is small. The right ventricle is hyperdynamic. Atria The right atrium is normal. Mitral Valve The mitral valve is grossly normal. There is no mitral valve stenosis. There is a mild amount of mitral regurgitation. Aortic Valve The aortic valve opens well. The aortic valve is sclerotic, but shows no functional abnormality. The aortic valve is not well visualized secondary to technical limitations. Doppler interrogation of aortic valve is suboptimal. There is a mild amount of aortic regurgitation. Tricuspid Valve The tricuspid valve is not well visualized, but is grossly normal. There is a mild amount of tricuspid regurgitation. There is mild pulmonary hypertension by echo. Pulmonic Valve The pulmonic valve is not well visualized. Great Vessels The aortic root is mildly dilated. The inferior vena cava appeared small and collapsed with respiration (RAP 0-5 mmHg). Effusions There is no pericardial effusion. Moderate size left pleural effusion. : DARNELL SMITH Anil
--- NOTE | 2019-03-25 18:58 | PDOC CRITICAL CARE PROG REPORT ---
General Date:: 03/25/19 ICU Day:: 3 Hospital Day:: 13 Resuscitation Status: Full Code Events in the past 12 to 24 Hours:: 03.25.2019: Patient's rapid heart rate has improved and he has been hemodynamically stable overnight. Evaluation of his feeding jejunostomy tube showed kinking and a leak into the intraperitoneal cavity. 03.24.2019:Dehydrated, episodes of rapid afib treated with fluid. Review of systems relevant to events:: Patient describes 5 out of 5 abdominal pain at times with movement yesterday. This has improved today. He responded to low-dose fentanyl. He complains of extreme mouth dryness. Surgery has requested complete n.p.o. status given the leak at the anastomotic site. 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 He also would multiple lymph nodes positive and evidence of carcinomatosis. Reason for ICU Addmission:: Afib with RVR, dehydration. - Medications: Medications reviewed and adjusted accordingly: Yes Vasopressors:: None Physical Exam Vital Signs: Temp Pulse Resp BP Pulse Ox 97.9 F 93 24 H 114/78 95 03/25/19 16:00 03/25/19 18:00 03/25/19 18:00 03/25/19 18:00 03/25/19 18:00 Intake & Output 03/24/19 03/25/19 03/26/19 06:59 06:59 06:59 Intake Total 5009 4000 2773 Output Total 1315 464 648 Balance 3694 3536 2125 Weight 79.5 kg 83.7 kg 83.7 kg Weight/Height Weight 83.7 kg Height 5 ft 11 in General appearance: PRESENT: no acute distress, cooperative, well-developed, well-nourished Exam: Nonintubated ill-appearing nontoxic 69-year-old male who appears younger than stated age no active distress he is awake aware oriented x4 Head exam: PRESENT: atraumatic, normocephalic Eye exam: PRESENT: EOMI, PERRLA. ABSENT: conjunctival injection, nystagmus, scleral icterus Mouth exam: PRESENT: dry mucosa, neck supple, tongue midline Teeth exam: ABSENT: edentulous Throat exam: ABSENT: post pharyngeal erythema, tonsillar erythema, tonsillar exudate Neck exam: ABSENT: carotid bruit, JVD, lymphadenopathy, thyromegaly Respiratory exam: PRESENT: clear to auscultation magui, unlabored. ABSENT: accessory muscle use, rales, rhonchi, tachypnea, wheezes Cardiovascular exam: PRESENT: RRR. ABSENT: diastolic murmur, rubs, systolic murmur Vascular exam: PRESENT: normal capillary refill. ABSENT: pallor GI/Abdominal exam: PRESENT: diminished bowel sounds, guarding, tenderness - mid- line and bilateral, other - incision clean, dry, no erythema. ABSENT: distended Rectal exam: PRESENT: deferred Gentrourinary exam: PRESENT: indwelling catheter Extremities exam: ABSENT: pedal edema Musculoskeletal exam: ABSENT: deformity, dislocation Neurological exam: PRESENT: alert, awake, oriented to person, oriented to place, oriented to time, oriented to situation, CN II-XII grossly intact. ABSENT: motor sensory deficit Psychiatric exam: PRESENT: appropriate affect, normal mood Focused psych exam: ABSENT: pressured speech, psychomotor agitation, restlessness Skin exam: PRESENT: dry, intact, normal color, warm. ABSENT: cyanosis, pallor, rash Tubes/Lines: PRESENT: Peg Tube, Other - Oliveira. Required, Patient had difficulty with catheter placment originally Laboratory/Radiographs Laboratory Results: 03/25/19 03:41 03/25/19 03:41 03/25/19 03/25/19 03:41 03:41 WBC 21.8 H RBC 4.17 L Hgb 9.6 L Hct 31.1 L MCV 75 L MCH 23.1 L MCHC 31.0 L RDW 22.5 H Plt Count 444 Seg Neutrophils % Not Reportable Sodium 140.6 Potassium 3.8 Chloride 111 H Carbon Dioxide 19 L Anion Gap 11 BUN 27 H Creatinine 1.16 Est GFR ( Amer) > 60 Glucose 81 Calcium 7.9 L Phosphorus 3.5 03/23/19 03/23/19 03/23/19 15:20 15:20 20:57 Creatine Kinase 25 L 25 L CK-MB (CK-2) 0.34 Troponin I 0.053 NT-Pro-B Natriuret Pep 3190 H 03/23/19 03/24/19 03/24/19 20:57 02:23 02:23 Creatine Kinase 78 CK-MB (CK-2) 0.34 0.97 Troponin I 0.029 0.022 NT-Pro-B Natriuret Pep 03/24/19 03/24/19 09:14 09:14 Creatine Kinase 92 CK-MB (CK-2) 0.99 Troponin I 0.019 NT-Pro-B Natriuret Pep Impressions: Small Bowel X-Ray 03/14/19 00:00 IMPRESSION: Persistent dilated small bowel loops measuring up to 4.2 cm compatible with obstruction. Gas and previously administered oral contrast now within the colon compatible with partial process. Exam was prematurely terminated secondary to patient intolerance of additional contrast material. Correlation with prior CT demonstrates dilated small bowel loops to level of the distal jejunum with transition point within the right lower quadrant (series 3, image [id number]) with questionable associated soft tissue mass at this location. There are foci of curvilinear gas at this location possibly luminal although pneumatosis is not entirely excluded. Findings were discussed with ordering provider Dr. Cornejo at 1423 hours on 03/14/2019 KUB X-Ray 03/21/19 09:00 IMPRESSION: Good position of nasogastric tube. Abdomen/Pelvis CT 03/22/19 00:00 IMPRESSION: 1. Postsurgical changes from recent right lower quadrant small bowel resection and reanastomosis. There are multiple loops of dilated small bowel measuring up to 5.2 cm with transition at the level of the anastomosis. Findings may be related to residual obstruction versus postoperative edema. Sc attered foci of free intraperitoneal gas, presumably postoperative. No focal drainable collection. 2. Postsurgical changes from the left nephrectomy. Grossly stable mass within the nephrectomy bed with additional scattered peritoneal implants compatible with metastatic disease. 3. Small bilateral effusion. Additional findings as above. Findings were discussed with Dr. Ulloa at 1132 hours on 03/22/2019. Chest X-Ray 03/24/19 00:00 IMPRESSION: Dense consolidation left lower lobe worrisome for pneumonia. Patchy airspace disease right lung base. Tiny pulmonary nodules worrisome for metastatic disease seen on chest CT 02/21/2019 are not apparent plain film Interventional Vascular Procedure 03/25/19 00:00 IMPRESSION: SUCCESSFUL PLACEMENT OF A 5 FR DUAL LUMEN PICC IN THE RIGHT BASILIC VEIN. PICC Line Insertion 03/25/19 00:00 IMPRESSION: SUCCESSFUL PLACEMENT OF A 5 FR DUAL LUMEN PICC IN THE RIGHT BASILIC VEIN. Tube Placement 03/25/19 09:00 IMPRESSION: Jejunostomy tube is folded upon itself within a loop of jejunum. There is extravasation of contrast along the anterior abdominal skin surface which obscures evaluation. Questionable additional intraperitoneal extr avasation although evaluation limited on the frontal projections. Repeat injection with additional CT or lateral images could be considered for confirmation. FINDINGS WERE DISCUSSED WITH DR. HAMMER AT APPROXIMATELY 1000 HOURS. All labs, radiographs, diagnostic studies and EKGs were personally reviewed: Yes In addition, reports of radiographic and diagnostic studies were read: Yes Assessment and Plan - Diagnosis (1) Acute peritonitis Is this a current diagnosis for this admission?: Yes (2) Anastomotic leak of intestine Is this a current diagnosis for this admission?: Yes (3) Metastatic renal cell carcinoma to intra-abdominal site Is this a current diagnosis for this admission?: Yes (4) Jejunal cancer Is this a current diagnosis for this admission?: Yes (5) Atrial fibrillation with RVR Is this a current diagnosis for this admission?: Yes Plan: stable (6) Hypotension due to hypovolemia Is this a current diagnosis for this admission?: Yes Plan: Responded to fluids Improved. (7) Partial small bowel obstruction Is this a current diagnosis for this admission?: Yes Plan Summary: Patient is noted to have an anastomotic leak at the jejunal resection site. So has a kink in the jejunostomy tube. I had a long discussion with surgery today and they have requested complete n.p.o. status and initiation of TPN. A PICC li ne will be placed. Patient appears to have advanced metastatic disease with possible carcinomatosis, multiple positive lymph nodes and now involvement of the bowel. Appreciate the involvement of the oncology team and assisting us with his care. At this point patient is at high risk for infection and complications associated with this leak. His white count had been elevated and we have placed him on broad-spectrum antibiotics to include an antifungal. We may need to consider an advance antifungal given his immune status. I am most concerned that this will be an ongoing process and will discuss with surgery about the possibility of reexploration. The other possibility would be to allow for healing and we have made the patient n.p.o. Continue to monitor his status. Continue in ICU Critical Time Critical Time (minutes): 60 Level of Care: ICU -: 1. The care of a critical patient is a dynamic process. This note is a financial services sales representative synopsis but static in nature. The timeframe for treatments giv en in order is not necessarily the actual time these treatments may have been done. 2. This patient requires critical care secondary to ongoing requirements for therapy not offered or safe outside the critical care environment. Transfer to a lower level of care will result in altered life or limb morbidity and mortality. 3. Multidisciplinary rounds completed. 4. ABCDE bundle addressed.
[2019-03-25] MEDS: NORMAL SALINE 10 ML SDV (SCHEDULED) IV SCH (21:02)
--- NOTE | 2019-03-25 21:12 | PDOC PROGRESS REPORT ---
Subjective Progress Note for:: 03/25/19 Subjective:: Patient seen and examined. He is in good spirits. During the day today had he had fewer episodes of tachycardia. Reports no complaints of chest palpitations or chest pain. Reason For Visit: AFIB WITH RVR,SMALL BOWEL OBSTRUCTION S/P PARTIAL Physical Exam Vital Signs: Temp Pulse Resp BP Pulse Ox 98.5 F 93 24 H 114/78 96 03/25/19 20:00 03/25/19 18:00 03/25/19 18:00 03/25/19 18:00 03/25/19 20:00 Intake & Output 03/24/19 03/25/19 03/26/19 06:59 06:59 06:59 Intake Total 5009 4000 2773 Output Total 1315 464 898 Balance 3694 3536 1875 Weight 79.5 kg 83.7 kg 83.7 kg General appearance: PRESENT: no acute distress, cooperative Head exam: PRESENT: atraumatic, normocephalic Eye exam: PRESENT: EOMI Mouth exam: PRESENT: moist Respiratory exam: PRESENT: clear to auscultation magui, decreased breath sounds - At the bases Cardiovascular exam: PRESENT: RRR, +S1, +S2 Pulses: PRESENT: normal radial pulses GI/Abdominal exam: PRESENT: soft Rectal exam: PRESENT: deferred Musculoskeletal exam: PRESENT: normal inspection Skin exam: PRESENT: dry, intact Results Laboratory Results: 03/25/19 03:41 03/25/19 03:41 03/25/19 03/25/19 03:41 03:41 WBC 21.8 H RBC 4.17 L Hgb 9.6 L Hct 31.1 L MCV 75 L MCH 23.1 L MCHC 31.0 L RDW 22.5 H Plt Count 444 Seg Neutrophils % Not Reportable Sodium 140.6 Potassium 3.8 Chloride 111 H Carbon Dioxide 19 L Anion Gap 11 BUN 27 H Creatinine 1.16 Est GFR ( Amer) > 60 Glucose 81 Calcium 7.9 L Phosphorus 3.5 03/23/19 03/23/19 03/23/19 15:20 15:20 20:57 Creatine Kinase 25 L 25 L CK-MB (CK-2) 0.34 Troponin I 0.053 NT-Pro-B Natriuret Pep 3190 H 03/23/19 03/24/19 03/24/19 20:57 02:23 02:23 Creatine Kinase 78 CK-MB (CK-2) 0.34 0.97 Troponin I 0.029 0.022 NT-Pro-B Natriuret Pep 03/24/19 03/24/19 09:14 09:14 Creatine Kinase 92 CK-MB (CK-2) 0.99 Troponin I 0.019 NT-Pro-B Natriuret Pep Impressions: Small Bowel X-Ray 03/14/19 00:00 IMPRESSION: Persistent dilated small bowel loops measuring up to 4.2 cm compatible with obstruction. Gas and previously administered oral contrast now within the colon compatible with partial process. Exam was prematurely termina xiomara secondary to patient intolerance of additional contrast material. Correlation with prior CT demonstrates dilated small bowel loops to level of the distal jejunum with transition point within the right lower quadrant (series 3, image [id number]) with questionable associated soft tissue mass at this location. There are foci of curvilinear gas at this location possibly luminal although pneumatosis is not entirely excluded. Findings were discussed with ordering provider Dr. Cornejo at 1423 hours on 03/14/2019 KUB X-Ray 03/21/19 09:00 IMPRESSION: Good position of nasogastric tube. Abdomen/Pelvis CT 03/22/19 00:00 IMPRESSION: 1. Postsurgical changes from recent right lower quadrant small bowel resection and reanastomosis. There are multiple loops of dilated small bowel measuring up to 5.2 cm with transition at the level of the anastomosis. Findings may be related to residual obstruction versus postoperative edema. Scattered foci of free intraperitoneal gas, presumably postoperative. No focal drainable collection. 2. Postsurgical changes from the left nephrectomy. Grossly stable mass within the nephrectomy bed with additional scattered peritoneal implants compatible with metastatic disease. 3. Small bilateral effusion. Additional findings as above. Findings were discussed with Dr. Ulloa at 1132 hours on 03/22/2019. Chest X-Ray 03/24/19 00:00 IMPRESSION: Dense consolidation left lower lobe worrisome for pneumonia. Patchy airspace disease right lung base. Tiny pulmonary nodules worrisome for metastatic disease seen on chest CT 02/21/2019 are not apparent plain film Interventional Vascular Procedure 03/25/19 00:00 IMPRESSION: SUCCESSFUL PLACEMENT OF A 5 FR DUAL LUMEN PICC IN THE RIGHT BASILIC VEIN. PICC Line Insertion 03/25/19 00:00 IMPRESSION: SUCCESSFUL PLACEMENT OF A 5 FR DUAL LUMEN PICC IN THE RIGHT BASILIC VEIN. Tube Placement 03/25/19 09:00 IMPRESSION: Jejunostomy tube is folded upon itself within a loop of jejunum. There is extravasation of contrast along the anterior abdominal skin surface which obscures evaluation. Questionable additional intraperitoneal extravasation although evaluation limited on the frontal projections. Repeat injection with additional CT or lateral images could be considered for confirmation. FINDINGS WERE DISCUSSED WITH DR. HAMMER AT APPROXIMATELY 1000 HOURS. Assessment & Plan - Diagnosis (1) Atrial tachycardia, paroxysmal Is this a current diagnosis for this admission?: Yes Plan: Episodes of paroxysmal atrial tachycardia. These are likely a reflection of his overall illness. Would recommend continuing intravenous doses of metoprolol in small amounts as tolerated for blood pressure. This would likely suppress atrial tachycardia. Transthoracic echocardiogram was performed-poor quality study. Hyperdynamic left ventricular and right ventricular function which suggest volume depletion. Quality of the study precludes assessment of valve function. (2) Alcoholic cardiomyopathy Is this a current diagnosis for this admission?: Yes Plan: He appears to be compensated from a volume standpoint.
[2019-03-26] MEDS: METOPROLOL TARTRATE PF/INJ 5 MG/5 ML SDV IV SCH ×9 (00:20→23:11)
[2019-03-26 01:29] LABS: HEMATOCRIT 23.4 % (37.9-51.0); MEAN CORPUSCULAR HEMOGLOBIN 23.7 pg (27.0-33.4); MEAN CORPUSCULAR HGB CONC 31.5 g/dL (32.0-36.0); MEAN CORPUSCULAR VOLUME 75 fl (80-97); PLATELET COUNT 370 10^3/uL (150-450); RED BLOOD COUNT 3.11 10^6/uL (4.35-5.55); RED CELL DISTRIBUTION WIDTH 21.9 % (11.5-14.0); WHITE BLOOD COUNT 14.4 10^3/uL (4.0-10.5)
[2019-03-26 01:31] LABS: ALBUMIN 1.7 g/dL (3.5-5.0); ALKALINE PHOSPHATASE 115 U/L (38-126); ANION GAP 8 (5-19); ASPARTATE AMINO TRANSFERASE 123 U/L (17-59); BILIRUBIN,DIRECT 0.4 mg/dL (0.0-0.4); BILIRUBIN,TOTAL 0.6 mg/dL (0.2-1.3); BLOOD UREA NITROGEN 20 mg/dL (7-20); CALCIUM 7.7 mg/dL (8.4-10.2); CARBON DIOXIDE 20 mmol/L (22-30); CHLORIDE 112 mmol/L (98-107); GLUCOSE 87 mg/dL (75-110); POTASSIUM 3.6 mmol/L (3.6-5.0)
[2019-03-26 01:47] LABS: ABSOLUTE LYMPHOCYTES# (MANUAL) 0.4 10^3/uL (0.5-4.7); ABSOLUTE MONOCYTES # (MANUAL) 0.3 10^3/uL (0.1-1.4); BASOPHILS % (MANUAL) 0 % (0-2); EOSINOPHILS % (MANUAL) 0 % (0-6); LYMPHOCYTES % (MANUAL) 3 % (13-45); MONOCYTES % (MANUAL) 2 % (3-13); SEGMENTED NEUTROPHILS % (MAN) 95 % (42-78); TOTAL CELLS COUNTED 100; TOXIC GRANULATION 1+; TOXIC VACUOLATION PRESENT
[2019-03-26 01:48] LABS: ANISOCYTOSIS 3+; HYPOCHROMASIA 1+; OVALOCYTES 2+; POIKILOCYTOSIS 2+
[2019-03-26 01:49] LABS: PLATELET COMMENT ADEQUATE; TEAR DROP CELLS SLIGHT
[2019-03-26 01:55] LABS: HEMOGLOBIN 7.4 g/dL (13.5-17.0)
[2019-03-26] MEDS: RINGERS SOLUTION,LACTATED 1,000 ML IV PRN (03:00)
[2019-03-26] MEDS ORDERED: METOPROLOL TARTRATE PF/INJ 5 MG/5 ML SDV IV ONE (03:48)
[2019-03-26 04:12] LABS: HEMATOCRIT 25.6 % (37.9-51.0); MEAN CORPUSCULAR HEMOGLOBIN 23.5 pg (27.0-33.4); MEAN CORPUSCULAR HGB CONC 31.3 g/dL (32.0-36.0); MEAN CORPUSCULAR VOLUME 75 fl (80-97); PLATELET COUNT 384 10^3/uL (150-450); RED BLOOD COUNT 3.41 10^6/uL (4.35-5.55); RED CELL DISTRIBUTION WIDTH 22.1 % (11.5-14.0)
[2019-03-26] MEDS: HEPARIN SOD (PORCINE) 5,000 UNIT/ML 1 ML VIAL SUBCUT SCH ×2 (05:20→14:39)
[2019-03-26] MEDS: ALBUMIN HUMAN 12.5 GM/50 ML RTUINJ IV SCH ×4 (05:20→07:06)
[2019-03-26] MEDS: DEXTROSE 5%-1/2 NORMAL SALINE 1,000 ML IV PRN (05:23)
[2019-03-26] MEDS: MEROPENEM 1 GM in NORMAL SALINE 50 ML IV SCH ×3 (06:09→23:11)
[2019-03-26] MEDS ORDERED: POTASSIUM PHOS,M-BASIC-D-BASIC 30 MMOL in DEXTROSE 5%-WATER 250 ML IV ONE (08:00)
--- NOTE | 2019-03-26 08:00 | EKG REPORT ---
SEVERITY:- ABNORMAL ECG - SINUS RHYTHM ABNRM R PROG, CONSIDER ASMI OR LEAD PLACEMENT NONSPECIFIC IVCD : Confirmed on behalf of: Joe Pace MD 26-Mar-2019 07:59:52
[2019-03-26] MEDS: VANCOMYCIN HCL 1,000 MG in DEXTROSE 5%-WATER 250 ML IV SCH (09:22)
[2019-03-26] MEDS ORDERED: DEXTROSE 40% GEL 15 GM TUBE PO PRN (09:30)
[2019-03-26] MEDS ORDERED: GLUCAGON,HUMAN RECOMB 1 MG INJ IM PRN (09:30)
[2019-03-26] MEDS ORDERED: DEXTROSE 50%-WATER SYRINGE 25 GM/50 ML DOSE IV PRN (09:30)
[2019-03-26] MEDS ORDERED: DEXTROSE 50%-WATER SYRINGE 12.5 GM/25 ML DOSE IV PRN (09:30)
[2019-03-26] MEDS ORDERED: DEXTROSE 40% GEL 15 GM TUBE X 2 PO PRN (09:30)
[2019-03-26] MEDS: FLUCONAZOLE 400 MG/NS RTU 400 MG/200 ML RTUPB IV SCH (09:33)
[2019-03-26] MEDS: NORMAL SALINE 10 ML SDV (SCHEDULED) IV SCH ×2 (09:35→23:01)
--- NOTE | 2019-03-26 10:01 | RADIOLOGY REPORT (SQ) ---
EXAM DESCRIPTION: CHEST SINGLE VIEW COMPLETED DATE/TIME: 03/26/2019 9:46 am REASON FOR STUDY: dyspnea COMPARISON: 03/25/2019. EXAM PARAMETERS: NUMBER OF VIEWS: One view. TECHNIQUE: Single frontal radiographic view of the chest acquired. RADIATION DOSE: NA LIMITATIONS: None. FINDINGS: LUNGS AND PLEURA: Airspace disease in the lower lobes, left greater than right, unchanged. Left pleural effusion. MEDIASTINUM AND HILAR STRUCTURES: No masses. Contour normal. HEART AND VASCULAR STRUCTURES: Heart normal in size. Normal vasculature. BONES: No acute findings. HARDWARE: PICC line. Hardware in the left shoulder. Clips in the upper abdomen. OTHER: No other significant finding. IMPRESSION: NO SIGNIFICANT CHANGE. TECHNICAL DOCUMENTATION: JOB ID: [id number] [employer]- All Rights Reserved Reading location - IP/workstation name: [email or web address]
--- NOTE | 2019-03-26 10:03 | RADIOLOGY REPORT (SQ) ---
EXAM DESCRIPTION: KUB/ABDOMEN (SINGLE VIEW) COMPLETED DATE/TIME: 03/26/2019 9:46 am REASON FOR STUDY: ABD distention/ Pain post op COMPARISON: 03/21/2019. NUMBER OF VIEWS: One view. TECHNIQUE: Supine radiographic image of the abdomen acquired. LIMITATIONS: None. FINDINGS: BOWEL GAS PATTERN: A few dilated loops of small bowel. CALCIFICATIONS: No suspicious calcifications. SOFT TISSUES: No gross mass or suggestion of organomegaly. HARDWARE: Surgical clips, surgical drain, and skin selina. BONES: No acute fracture. No worrisome bone lesions. OTHER: No other significant finding. IMPRESSION: MILD SMALL BOWEL DILATION, NONSPECIFIC. MAY BE DUE TO POSTOPERATIVE ILEUS. TECHNICAL DOCUMENTATION: JOB ID: [id number] [employer]- All Rights Reserved Reading location - IP/workstation name: [email or web address]
[2019-03-26] MEDS ORDERED: LIDOCAINE 2% JELLY 30 ML TUBE TOP ONE (12:30)
[2019-03-26] MEDS: INSULIN REG, HUMAN 100 UNIT/ML 3 ML VIAL (PYX) SUBCUT SCH ×3 (14:12→23:34)
[2019-03-26 14:19] LABS: HEMATOCRIT 21.3 % (37.9-51.0); MEAN CORPUSCULAR HEMOGLOBIN 23.8 pg (27.0-33.4); MEAN CORPUSCULAR HGB CONC 31.1 g/dL (32.0-36.0); MEAN CORPUSCULAR VOLUME 77 fl (80-97); PLATELET COUNT 319 10^3/uL (150-450); RED BLOOD COUNT 2.79 10^6/uL (4.35-5.55); RED CELL DISTRIBUTION WIDTH 22.1 % (11.5-14.0); WHITE BLOOD COUNT 8.8 10^3/uL (4.0-10.5)
[2019-03-26 14:22] LABS: HEMOGLOBIN 6.6 g/dL (13.5-17.0)
--- NOTE | 2019-03-26 16:12 | PDOC PROGRESS REPORT ---
Subjective Progress Note for:: 03/26/19 Subjective:: Patient states that he is still having discomfort due to the J-tube. As long as he has pain meds, this is tolerable. Family is at bedside. Patient tells me plans are to start TPN today through PICC line to get him some nutrition as he has been "without any nutrition since [place]." He continues to have some BMs. He is glad that this is getting flushed out. He wants to make sure he can continue his Keytruda treatments. He has only had 1. He also asks about starting Inlyta. Reason For Visit: AFIB WITH RVR,SMALL BOWEL OBSTRUCTION S/P PARTIAL Physical Exam Vital Signs: Temp Pulse Resp BP Pulse Ox 98.1 F 70 20 106/71 100 03/26/19 12:00 03/26/19 12:00 03/26/19 12:00 03/26/19 12:00 03/26/19 12:00 Intake & Output 03/25/19 03/26/19 03/27/19 06:59 06:59 06:59 Intake Total 4000 4102 19 Output Total 464 2498 600 Balance 3536 1604 -581 Weight 83.7 kg 85 kg General appearance: PRESENT: thin Head exam: PRESENT: normocephalic Eye exam: PRESENT: PERRLA Mouth exam: PRESENT: tongue midline Respiratory exam: PRESENT: clear to auscultation magui, unlabored Cardiovascular exam: PRESENT: RRR Neurological exam: PRESENT: alert, awake Psychiatric exam: PRESENT: appropriate affect Skin exam: PRESENT: normal color Results Laboratory Results: 03/26/19 03:10 03/26/19 00:11 03/26/19 03/26/19 03/26/19 00:11 00:11 03:10 WBC 14.4 H 15.0 H RBC 3.11 L 3.41 L Hgb 7.4 L D 8.0 L Hct 23.4 L 25.6 L MCV 75 L 75 L MCH 23.7 L 23.5 L MCHC 31.5 L 31.3 L RDW 21.9 H 22.1 H Plt Count 370 384 Seg Neutrophils % Not Reportable Sodium 139.6 Potassium 3.6 Chloride 112 H Carbon Dioxide 20 L Anion Gap 8 BUN 20 Creatinine 0.90 Est GFR ( Amer) > 60 Glucose 87 Calcium 7.7 L Phosphorus Magnesium 1.8 Total Bilirubin 0.6 AST 123 H Alkaline Phosphatase 115 Total Protein 4.0 L Albumin 1.7 L 03/26/19 04:07 WBC RBC Hgb Hct MCV MCH MCHC RDW Plt Count Seg Neutrophils % Sodium Potassium Chloride Carbon Dioxide Anion Gap BUN Creatinine Est GFR ( Amer) Glucose Calcium Phosphorus 2.3 L Magnesium Total Bilirubin AST Alkaline Phosphatase Total Protein Albumin 03/24/19 14:34 Catheterized Urine Urine Culture - Final NO GROWTH 2 DAYS 03/21/19 06:43 Blood Blood Culture - Final NO GROWTH IN 5 DAYS 03/21/19 06:40 Blood Blood Culture - Final NO GROWTH IN 5 DAYS 03/23/19 03/23/19 03/23/19 15:20 15:20 20:57 Creatine Kinase 25 L 25 L CK-MB (CK-2) 0.34 Troponin I 0.053 NT-Pro-B Natriuret Pep 3190 H 03/23/19 03/24/19 03/24/19 20:57 02:23 02:23 Creatine Kinase 78 CK-MB (CK-2) 0.34 0.97 Troponin I 0.029 0.022 NT-Pro-B Natriuret Pep 03/24/19 03/24/19 09:14 09:14 Creatine Kinase 92 CK-MB (CK-2) 0.99 Troponin I 0.019 NT-Pro-B Natriuret Pep Impressions: Small Bowel X-Ray 03/14/19 00:00 IMPRESSION: Persistent dilated small bowel loops measuring up to 4.2 cm compatible with obstruction. Gas and previously administered oral contrast now within the colon compatible with partial process. Exam was prematurely te rminated secondary to patient intolerance of additional contrast material. Correlation with prior CT demonstrates dilated small bowel loops to level of the distal jejunum with transition point within the right lower quadrant (series 3, image [id number]) with questionable associated soft tissue mass at this location. There are foci of curvilinear gas at this location possibly luminal although pneumatosis is not entirely excluded. Findings were discussed with ordering provider Dr. Cornejo at 1423 hours on 03/14/2019 Abdomen/Pelvis CT 03/22/19 00:00 IMPRESSION: 1. Postsurgical changes from recent right lower quadrant small bowel resection and reanastomosis. There are multiple loops of dilated small bowel measuring up to 5.2 cm with transition at the level of the anastomosis. Findings may be related to residual obstruction versus postoperative edema. Scattered foci of free intraperitoneal gas, presumably postoperative. No focal drainable collection. 2. Postsurgical changes from the left nephrectomy. Grossly stable mass within the nephrectomy bed with additional scattered peritoneal implants compatible with metastatic disease. 3. Small bilateral effusion. Additional findings as above. Findings were discussed with Dr. Ulloa at 1132 hours on 03/22/2019. Interventional Vascular Procedure 03/25/19 00:00 IMPRESSION: SUCCESSFUL PLACEMENT OF A 5 FR DUAL LUMEN PICC IN THE RIGHT BASILIC VEIN. PICC Line Insertion 03/25/19 00:00 IMPRESSION: SUCCESSFUL PLACEMENT OF A 5 FR DUAL LUMEN PICC IN THE RIGHT BASILIC VEIN. Tube Placement 03/25/19 09:00 IMPRESSION: Jejunostomy tube is folded upon itself within a loop of jejunum. There is extravasation of contrast along the anterior abdominal skin surface which obscures evaluation. Questionable additional intraperitoneal extravasation although evaluation limited on the frontal projections. Repeat injection with additional CT or lateral images could be considered for confirmation. FINDINGS WERE DISCUSSED WITH DR. HAMMER AT APPROXIMATELY 1000 HOURS. Chest X-Ray 03/26/19 00:00 IMPRESSION: NO SIGNIFICANT CHANGE. KUB X-Ray 03/26/19 08:49 IMPRESSION: MILD SMALL BOWEL DILATION, NONSPECIFIC. MAY BE DUE TO POSTOPERATIVE ILEUS. Assessment & Plan - Diagnosis (1) Acute peritonitis Is this a current diagnosis for this admission?: Yes Plan: No further tube feedings. Await surgical intervention for possible removal of the J-tube. (2) Ileus Is this a current diagnosis for this admission?: Yes Plan: NPO. TPN to start today. (3) Metastatic renal cell carcinoma to intra-abdominal site Is this a current diagnosis for this admission?: Yes Plan: We discussed the fact that if he is doing well, may continue Keytruda while in the hospital. However, Inlyta will need to wait until he is much stronger and no evidence of acute infections. Will discuss further in a few weeks. - Time Time Spent with patient: 15-24 minutes - Plan Summary Plan Summary: Patient was discussed with antenna rigger.
--- NOTE | 2019-03-26 16:14 | RADIOLOGY REPORT (SQ) ---
EXAM DESCRIPTION: KUB/ABDOMEN (SINGLE VIEW) COMPLETED DATE/TIME: 03/26/2019 3:50 pm REASON FOR STUDY: tube placement COMPARISON: 03/26/2019. NUMBER OF VIEWS: One view. TECHNIQUE: Supine radiographic image of the abdomen acquired. LIMITATIONS: None. FINDINGS: BOWEL GAS PATTERN: Mild small bowel dilation. CALCIFICATIONS: No suspicious calcifications. SOFT TISSUES: No gross mass or suggestion of organomegaly. HARDWARE: Nasogastric tube. Tip in the stomach. Surgical clips, skin selina, and ostomy tube. BONES: No acute fracture. No worrisome bone lesions. OTHER: No other significant finding. IMPRESSION: INTERVAL PLACEMENT OF THE NASOGASTRIC TUBE IN SATISFACTORY POSITION. OTHERWISE NO LIGHT E. TECHNICAL DOCUMENTATION: JOB ID: [id number] [employer]- All Rights Reserved Reading location - IP/workstation name: [email or web address]
[2019-03-26] MEDS: AMINO ACIDS 5 %/DEXTROSE 20 % 1,000 ML IV PRN (17:06)
[2019-03-26 17:11] LABS: HEMATOCRIT 22.9 % (37.9-51.0); MEAN CORPUSCULAR HEMOGLOBIN 23.7 pg (27.0-33.4); MEAN CORPUSCULAR HGB CONC 31.8 g/dL (32.0-36.0); MEAN CORPUSCULAR VOLUME 75 fl (80-97); PLATELET COUNT 348 10^3/uL (150-450); RED BLOOD COUNT 3.07 10^6/uL (4.35-5.55); RED CELL DISTRIBUTION WIDTH 21.4 % (11.5-14.0); WHITE BLOOD COUNT 10.4 10^3/uL (4.0-10.5)
[2019-03-26 17:19] LABS: HEMOGLOBIN 7.3 g/dL (13.5-17.0)
--- NOTE | 2019-03-26 17:19 | PDOC PROGRESS REPORT ---
Subjective Progress Note for:: 03/26/19 Subjective:: Abdominal pains Reason For Visit: AFIB WITH RVR,SMALL BOWEL OBSTRUCTION S/P PARTIAL Physical Exam Vital Signs: Temp Pulse Resp BP Pulse Ox 97.7 F 70 17 115/70 99 03/26/19 16:00 03/26/19 16:00 03/26/19 16:00 03/26/19 16:00 03/26/19 16:00 Intake & Output 03/25/19 03/26/19 03/27/19 06:59 06:59 06:59 Intake Total 4000 4152 19 Output Total 464 2498 860 Balance 3536 7574 -841 Weight 83.7 kg 85 kg Exam: Abdomen is soft incision is clean and dry. Mild tenderness in the right paraumbilical area and around the J-tube site. Mild reddish discoloration in the skin just inferior to the J-tube. Had a KUB today which showed ileus. Results Laboratory Results: 03/26/19 00:11 03/26/19 03/26/19 03/26/19 00:11 00:11 03:10 WBC 14.4 H 15.0 H RBC 3.11 L 3.41 L Hgb 7.4 L D 8.0 L Hct 23.4 L 25.6 L MCV 75 L 75 L MCH 23.7 L 23.5 L MCHC 31.5 L 31.3 L RDW 21.9 H 22.1 H Plt Count 370 384 Seg Neutrophils % Not Reportable Sodium 139.6 Potassium 3.6 Chloride 112 H Carbon Dioxide 20 L Anion Gap 8 BUN 20 Creatinine 0.90 Est GFR ( Amer) > 60 Glucose 87 Calcium 7.7 L Phosphorus Magnesium 1.8 Total Bilirubin 0.6 AST 123 H Alkaline Phosphatase 115 Total Protein 4.0 L Albumin 1.7 L 03/26/19 03/26/19 04:07 13:40 WBC 8.8 RBC 2.79 L Hgb 6.6 L Hct 21.3 L MCV 77 L MCH 23.8 L MCHC 31.1 L RDW 22.1 H Plt Count 319 Seg Neutrophils % Sodium Potassium Chloride Carbon Dioxide Anion Gap BUN Creatinine Est GFR ( Amer) Glucose Calcium Phosphorus 2.3 L Magnesium Total Bilirubin AST Alkaline Phosphatase Total Protein Albumin 03/24/19 14:34 Catheterized Urine Urine Culture - Final NO GROWTH 2 DAYS 03/21/19 06:43 Blood Blood Culture - Final NO GROWTH IN 5 DAYS 03/21/19 06:40 Blood Blood Culture - Final NO GROWTH IN 5 DAYS 03/23/19 03/23/19 03/23/19 15:20 15:20 20:57 Creatine Kinase 25 L 25 L CK-MB (CK-2) 0.34 Troponin I 0.053 NT-Pro-B Natriuret Pep 3190 H 03/23/19 03/24/19 03/24/19 20:57 02:23 02:23 Creatine Kinase 78 CK-MB (CK-2) 0.34 0.97 Troponin I 0.029 0.022 NT-Pro-B Natriuret Pep 03/24/19 03/24/19 09:14 09:14 Creatine Kinase 92 CK-MB (CK-2) 0.99 Troponin I 0.019 NT-Pro-B Natriuret Pep Impressions: Small Bowel X-Ray 03/14/19 00:00 IMPRESSION: Persistent dilated small bowel loops measuring up to 4.2 cm compatible with obstruction. Gas and previously administered oral contrast now within the colon compatible with partial process. Exam was prematurely terminated secondary to patient intolerance of additional contrast material. Correlation with prior CT demonstrates dilated small bowel loops to level of the distal jejunum with transition point within the right lower quadrant (series 3, image [id number]) with questionable associated soft tissue mass at this location. There are foci of curvilinear gas at this location possibly luminal although pneumatosis is not entirely excluded. Findings were discussed with ordering provider Dr. Cornejo at 1423 hours on 03/14/2019 Abdomen/Pelvis CT 03/22/19 00:00 IMPRESSION: 1. Postsurgical changes from recent right lower quadrant small bowel resection and reanastomosis. There are multiple loops of dilated small bowel measuring up to 5.2 cm with transition at the level of the anastomosis. Findings may be related to residual obstruction versus postoperative edema. Scattered foci of free intraperitoneal gas, presumably postoperative. No focal drainable collection. 2. Postsurgical changes from the left nephrectomy. Grossly stable mass within the nephrectomy bed with additional scattered peritoneal implants compatible with metastatic disease. 3. Small bilateral effusion. Additional findings as above. Findings were discussed with Dr. Ulloa at 1132 hours on 03/22/2019. Interventional Vascular Procedure 03/25/19 00:00 IMPRESSION: SUCCESSFUL PLACEMENT OF A 5 FR DUAL LUMEN PICC IN THE RIGHT BASILIC VEIN. PICC Line Insertion 03/25/19 00:00 IMPRESSION: SUCCESSFUL PLACEMENT OF A 5 FR DUAL LUMEN PICC IN THE RIGHT BASILIC VEIN. Tube Placement 03/25/19 09:00 IMPRESSION: Jejunostomy tube is folded upon itself within a loop of jejunum. There is extravasation of contrast along the anterior abdominal skin surface which obscures evaluation. Questionable additional intraperitoneal extravasation although evaluation limited on the frontal projections. Repeat injection with additional CT or lateral images could be considered for confirmation. FINDINGS WERE DISCUSSED WITH DR. HAMMER AT APPROXIMATELY 1000 HOURS. Chest X-Ray 03/26/19 00:00 IMPRESSION: NO SIGNIFICANT CHANGE. KUB X-Ray 03/26/19 08:49 IMPRESSION: MILD SMALL BOWEL DILATION, NONSPECIFIC. MAY BE DUE TO POSTOPERATIVE ILEUS. 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 Catheter appears to be in the lumen of small bowel. KUB today showed mild dilatation of small bowel compatible with ileus. His white count remains elevated though trending down slightly. I have discussed further management with the interactive media marketing director will start him today on TPN. There is a question of a need for CT scan of the abdomen to see if there is any intra-abdominal collection or or anastomotic leak. The interactive media marketing director were ordered CT scan with p.o. and IV contrast.
--- NOTE | 2019-03-26 17:25 | PDOC CRITICAL CARE PROG REPORT ---
General Date:: 03/26/19 ICU Day:: 4 Hospital Day:: 14 Resuscitation Status: Full Code Medical Power of Law Firm Administrator: : Elisa Events in the past 12 to 24 Hours:: 03.26.2019: Patient had intermittent episodes of tachycardia which was relieved with IV metoprolol. His pain crises are less however when they do occur are on a scale of 4/5. Patient appears to have limited ability to complete sentences without breathing. When asked he endorsed some dyspnea. His mouth appears to be less dry and he has been using candy/lozenge years to prevent mouth dryness. There has been no hypotension or fever. CBC done earlier this morning showed a decrease in hemoglobin and hematocrit. Repeat done which shows some decrease but not severe. His white blood cell count has improved. He was started on antifungal's and antibiotics yesterday. There was some question regarding a leak at the anastomotic site. He was made n.p.o. and a PICC line was placed with the anticipation to start TPN this morning. 03.25.2019: Patient's rapid heart rate has improved and he has been hemodynamically stable overnight. Evaluation of his feeding jejunostomy tube showed kinking and a leak into the intraperitoneal cavity. 03.24.2019:Dehydrated, episodes of rapid afib treated with fluid. Review of systems relevant to events:: 03.26.2019: Patient endorses dyspnea today. His pain appears to be somewhat improved. He does have intermittent abdominal pain. He is having more frequent bowel movements which appear to be to poorly related to the pain. There is no blood in his bowel movements. His Oliveira was maintained secondary to urinary retention and possible prostatic enlargement. His heart rate is currently controlled in normal sinus at 80 bpm. During exam he had active pain in the right upper quadrant which was relieved over time without any medications. 03.25.2019:Patient describes 5 out of 5 abdominal pain at times with movement yesterday. This has improved today. He responded to low-dose fentanyl. He complains of extreme mouth dryness. Surgery has requested complete n.p.o. status given the leak at the anastomotic site. 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 He also would multiple lymph nodes positive and evidence of carcinomatosis. Reason for ICU Addmission:: Afib with RVR, dehydration. - Medications: Medications reviewed and adjusted accordingly: Yes Vasopressors:: None Physical Exam Vital Signs: Temp Pulse Resp BP Pulse Ox 98.0 F 93 23 H 106/60 96 03/26/19 06:00 03/25/19 18:00 03/26/19 06:15 03/26/19 05:15 03/26/19 06:15 Intake & Output 03/25/19 03/26/19 03/27/19 06:59 06:59 06:59 Intake Total 4000 3852 19 Output Total 464 2498 300 Balance 3536 1354 -281 Weight 83.7 kg 85 kg Weight/Height Weight 85 kg Height 5 ft 11 in General appearance: PRESENT: no acute distress, cooperative, well-developed, well-nourished Exam: Nonintubated nontoxic but ill 69-year-old white male who is in no acute distress during initial exam but developed acute abdominal pain at one point resolving over time. Head exam: PRESENT: atraumatic, normocephalic Eye exam: PRESENT: conjunctiva pink, EOMI, PERRLA. ABSENT: conjunctival injection, nystagmus, scleral icterus Mouth exam: PRESENT: dry mucosa, neck supple, tongue midline Teeth exam: ABSENT: edentulous, poor dentation Throat exam: ABSENT: post pharyngeal erythema Neck exam: ABSENT: carotid bruit, JVD, lymphadenopathy, thyromegaly Respiratory exam: PRESENT: clear to auscultation magui. ABSENT: accessory muscle use, rales, rhonchi, tachypnea, unlabored - Slightly labored today. Has 4-5 word sentences before requiring breath., wheezes Cardiovascular exam: PRESENT: RRR, +S1, +S2. ABSENT: rubs, systolic murmur Pulses: PRESENT: +1 pedal pulses bilateral Vascular exam: PRESENT: normal capillary refill. ABSENT: pallor GI/Abdominal exam: PRESENT: ascites - Especially LLQ, guarding, hypoactive bowel sounds, rebound, tenderness - RUQ, midline, epigastric and LLQ, other - Pain with movement to side.. ABSENT: distended, firm, rigid Rectal exam: PRESENT: deferred Gentrourinary exam: PRESENT: indwelling catheter Extremities exam: PRESENT: pedal edema. ABSENT: tenderness Musculoskeletal exam: ABSENT: deformity, dislocation, full ROM - Decreased strength Neurological exam: PRESENT: alert, awake, oriented to person, oriented to place, oriented to time, oriented to situation, CN II-XII grossly intact, motor sensory deficit - Weak lower extremities global and symmetrical. No focal deficits Psychiatric exam: PRESENT: appropriate affect, normal mood Focused psych exam: ABSENT: pressured speech, psychomotor agitation, restlessness Skin exam: PRESENT: dry, intact, warm. ABSENT: cyanosis, rash Additional comments: Sacrum: No decubiti. Tubes/Lines: PRESENT: Arterial Catheter Laboratory/Radiographs Laboratory Results: 03/26/19 03:10 03/26/19 00:11 03/26/19 03/26/19 03/26/19 00:11 00:11 03:10 WBC 14.4 H 15.0 H RBC 3.11 L 3.41 L Hgb 7.4 L D 8.0 L Hct 23.4 L 25.6 L MCV 75 L 75 L MCH 23.7 L 23.5 L MCHC 31.5 L 31.3 L RDW 21.9 H 22.1 H Plt Count 370 384 Seg Neutrophils % Not Reportable Sodium 139.6 Potassium 3.6 Chloride 112 H Carbon Dioxide 20 L Anion Gap 8 BUN 20 Creatinine 0.90 Est GFR ( Amer) > 60 Glucose 87 Calcium 7.7 L Phosphorus Magnesium 1.8 Total Bilirubin 0.6 AST 123 H Alkaline Phosphatase 115 Total Protein 4.0 L Albumin 1.7 L 03/26/19 04:07 WBC RBC Hgb Hct MCV MCH MCHC RDW Plt Count Seg Neutrophils % Sodium Potassium Chloride Carbon Dioxide Anion Gap BUN Creatinine Est GFR ( Amer) Glucose Calcium Phosphorus 2.3 L Magnesium Total Bilirubin AST Alkaline Phosphatase Total Protein Albumin 03/21/19 06:43 Blood Blood Culture - Final NO GROWTH IN 5 DAYS 03/21/19 06:40 Blood Blood Culture - Final NO GROWTH IN 5 DAYS 03/23/19 03/23/19 03/23/19 15:20 15:20 20:57 Creatine Kinase 25 L 25 L CK-MB (CK-2) 0.34 Troponin I 0.053 NT-Pro-B Natriuret Pep 3190 H 03/23/19 03/24/19 03/24/19 20:57 02:23 02:23 Creatine Kinase 78 CK-MB (CK-2) 0.34 0.97 Troponin I 0.029 0.022 NT-Pro-B Natriuret Pep 03/24/19 03/24/19 09:14 09:14 Creatine Kinase 92 CK-MB (CK-2) 0.99 Troponin I 0.019 NT-Pro-B Natriuret Pep Impressions: Small Bowel X-Ray 03/14/19 00:00 IMPRESSION: Persistent dilated small bowel loops measuring up to 4.2 cm compatible with obstruction. Gas and previously administered oral contrast now within the colon compatible with partial process. Exam was prematurely terminated secondary to patient intolerance of additional contrast material. Correlation with prior CT demonstrates dilated small bowel loops to level of the distal jejunum with transition point within the right lower quadrant (series 3, image [id number]) with questionable associated soft tissue mass at this location. There are foci of curvilinear gas at this location possibly luminal although pneumatosis is not entirely excluded. Findings were discussed with ordering provider Dr. Cornejo at 1423 hours on 03/14/2019 KUB X-Ray 03/21/19 09:00 IMPRESSION: Good position of nasogastric tube. Abdomen/Pelvis CT 03/22/19 00:00 IMPRESSION: 1. Postsurgical changes from recent right lower quadrant small bowel resection and reanastomosis. There are multiple loops of dilated small bowel measuring up to 5.2 cm with transition at the level of the anastomosis. Findings may be related to residual obstruction versus postoperative edema. Scattered foci of free intraperitoneal gas, presumably postoperative. No focal drainable collection. 2. Postsurgical changes from the left nephrectomy. Grossly stable mass within the nephrectomy bed with additional scattered peritoneal implants compatible with metastatic disease. 3. Small bilateral effusion. Additional findings as above. Findings were discussed with Dr. Ulloa at 1132 hours on 03/22/2019. Chest X-Ray 03/24/19 00:00 IMPRESSION: Dense consolidation left lower lobe worrisome for pneumonia. Patchy airspace disease right lung base. Tiny pulmonary nodules worrisome for metastatic disease seen on chest CT 02/21/2019 are not apparent plain film Interventional Vascular Procedure 03/25/19 00:00 IMPRESSION: SUCCESSFUL PLACEMENT OF A 5 FR DUAL LUMEN PICC IN THE RIGHT BASILIC VEIN. PICC Line Insertion 03/25/19 00:00 IMPRESSION: SUCCESSFUL PLACEMENT OF A 5 FR DUAL LUMEN PICC IN THE RIGHT BASILIC VEIN. Tube Placement 03/25/19 09:00 IMPRESSION: Jejunostomy tube is folded upon itself within a loop of jejunum. There is extravasation of contrast along the anterior abdominal skin surface which obscures evaluation. Questionable additional intraperitoneal extravasation although evaluation limited on the frontal projections. Repeat injection with additional CT or lateral images could be considered for confirmation. FINDINGS WERE DISCUSSED WITH DR. HAMMER AT APPROXIMATELY 1000 HOURS. All labs, radiographs, diagnostic studies and EKGs were personally reviewed: Yes In addition, reports of radiographic and diagnostic studies were read: Yes Assessment and Plan - Diagnosis (1) Acute peritonitis Is this a current diagnosis for this admission?: Yes Plan: Pain still intermittent. On antibiotics/antifungals. Still ambiguity regarding possible leak at small bowel anastamosis. Will most likely need CT of abdomen with oral contrast. Obtain KUB to evaluate for residual contrast load. (2) Anastomotic leak of intestine Is this a current diagnosis for this admission?: Yes Plan: Possible, given pain. NPO, starting on TPN. 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 Have increased BB to 5 mg Q4 (6) Hypotension due to hypovolemia Is this a current diagnosis for this admission?: Yes Plan: Resolved; responded to fluids Improved. (7) Partial small bowel obstruction Is this a current diagnosis for this admission?: Yes Plan Summary: 03.26.2019: Patient still has intermittent severe abdominal pain. There is a questionable suggestion of possible anastomotic leak and patient was made n.p.o. Will be started on TPN today and have discussed the case with the surgeon. They have already ordered a KUB. After the KUB is done will most likely obtain a CT of the abdomen and pelvis with oral contrast. Patient has significant protein calorie malnutrition of moderate nature. He is unable to take anything enterally and we have started TPN today. He is at high risk for anastomotic breakdown, decubiti, poor wound healing and increased morbidity. He also has extensive tumor burden and is not currently being treated. He does appear to still be volume depleted and we will continue IV fluids at current rate in addition to TPN. He will need to be maintained in the ICU given his paroxysmal tachycardia, possibility of anastomotic leak, significant pain and complex processes. Afternoon rounds: The patient did have KUB and chest x-ray which does show moderate dilatation of the stomach and proximal small bowel. The patient does have bile colored bowel movements but no blood noted. I do not appreciate any contrast on the KUB that may have been extravasated however unsure given the limited possibility and size of anastomotic leak that this would be a fail safe determination that no leak exist. He has significant pain for out of 5 with any movement. Has been n.p.o. so unable to determine whether he would tolerate any oral intake. Discussed the x-ray findings with surgery and they have asked for an NG tube to be placed. The plan will be to try to decompress the proximal gut and possibly give contrast to evaluate the surgical site. The percutaneously placed jejunostomy tube appears to be kinked and unable to be used. Will also obtain CT of abdomen. At this point, I am less concerned about a leak but more concerned about obstruction. Will give contrast to r/o both. Placed lidocaine in nasal passage and back of tongue to facilitate placement of NGT. Successful and KUB shows placement in stomach 1.6.2020:Patient is noted to have an anastomotic leak at the jejunal resection site. So has a kink in the jejunostomy tube. I had a long discussion with surgery today and they have requested complete n.p.o. status and initiation of TPN. A PICC line will be placed. Patient appears to have advanced metastatic disease with possible carcinomatosis, multiple positive lymph nodes and now involvement of the bowel. Appreciate the involvement of the oncology team and assisting us with his care. At this point patient is at high risk for infection and complications associated with this leak. His white count had been elevated and we have placed him on broad-spectrum antibiotics to include an antifungal. We may need to consider an advance antifungal given his immune status. I am most concerned that this will be an ongoing process and will discuss with surgery about the possibility of reexploration. The other possibility would be to allow for healing and we have made the patient n.p.o. Continue to monitor his status. Continue in ICU Critical Time Critical Time (minutes): 65 Level of Care: ICU Anticipated discharge: Acute Rehab -: 1. The care of a critical patient is a dynamic process. This note is a r epresentative synopsis but static in nature. The timeframe for treatments given in order is not necessarily the actual time these treatments may have been done. 2. This patient requires critical care secondary to ongoing requirements for therapy not offered or safe outside the critical care environment. Transfer to a lower level of care will result in altered life or limb morbidity and mortali ty. 3. Multidisciplinary rounds completed. 4. ABCDE bundle addressed.
--- NOTE | 2019-03-26 18:13 | PDOC PROGRESS REPORT ---
Subjective Subjective:: Patient seen and examined. No chest pain. Tele shows SR Reason For Visit: AFIB WITH RVR,SMALL BOWEL OBSTRUCTION S/P PARTIAL Physical Exam Vital Signs: Temp Pulse Resp BP Pulse Ox 97.7 F 70 17 115/70 99 03/26/19 16:00 03/26/19 16:00 03/26/19 16:00 03/26/19 16:00 03/26/19 16:00 Intake & Output 03/25/19 03/26/19 03/27/19 06:59 06:59 06:59 Intake Total 4000 4152 19 Output Total 464 2498 860 Balance 3536 1654 -841 Weight 83.7 kg 85 kg General appearance: PRESENT: no acute distress Head exam: PRESENT: atraumatic, normocephalic Eye exam: PRESENT: EOMI Respiratory exam: PRESENT: decreased breath sounds, unlabored Cardiovascular exam: PRESENT: RRR, +S1, +S2 Pulses: PRESENT: normal radial pulses GI/Abdominal exam: PRESENT: soft Rectal exam: PRESENT: deferred Musculoskeletal exam: PRESENT: normal inspection Neurological exam: PRESENT: alert, oriented to person, oriented to place, oriented to time, oriented to situation Psychiatric exam: PRESENT: appropriate affect Skin exam: PRESENT: dry, intact, normal color Results Laboratory Results: 03/26/19 16:57 03/26/19 00:11 03/26/19 03/26/19 03/26/19 00:11 00:11 03:10 WBC 14.4 H 15.0 H RBC 3.11 L 3.41 L Hgb 7.4 L D 8.0 L Hct 23.4 L 25.6 L MCV 75 L 75 L MCH 23.7 L 23.5 L MCHC 31.5 L 31.3 L RDW 21.9 H 22.1 H Plt Count 370 384 Seg Neutrophils % Not Reportable Sodium 139.6 Potassium 3.6 Chloride 112 H Carbon Dioxide 20 L Anion Gap 8 BUN 20 Creatinine 0.90 Est GFR ( Amer) > 60 Glucose 87 Calcium 7.7 L Phosphorus Magnesium 1.8 Total Bilirubin 0.6 AST 123 H Alkaline Phosphatase 115 Total Protein 4.0 L Albumin 1.7 L Blood Type Antibody Screen 03/26/19 03/26/19 03/26/19 04:07 13:40 16:57 WBC 8.8 10.4 RBC 2.79 L 3.07 L Hgb 6.6 L 7.3 L Hct 21.3 L 22.9 L MCV 77 L 75 L MCH 23.8 L 23.7 L MCHC 31.1 L 31.8 L RDW 22.1 H 21.4 H Plt Count 319 348 Seg Neutrophils % Sodium Potassium Chloride Carbon Dioxide Anion Gap BUN Creatinine Est GFR ( Amer) Glucose Calcium Phosphorus 2.3 L Magnesium Total Bilirubin AST Alkaline Phosphatase Total Protein Albumin Blood Type Antibody Screen 03/26/19 16:57 WBC RBC Hgb Hct MCV MCH MCHC RDW Plt Count Seg Neutrophils % Sodium Potassium Chloride Carbon Dioxide Anion Gap BUN Creatinine Est GFR ( Amer) Glucose Calcium Phosphorus Magnesium Total Bilirubin AST Alkaline Phosphatase Total Protein Albumin Blood Type O POSITIVE Antibody Screen NEGATIVE 03/24/19 14:34 Catheterized Urine Urine Culture - Final NO GROWTH 2 DAYS 03/21/19 06:43 Blood Blood Culture - Final NO GROWTH IN 5 DAYS 03/21/19 06:40 Blood Blood Culture - Final NO GROWTH IN 5 DAYS 03/23/19 03/23/19 03/23/19 15:20 15:20 20:57 Creatine Kinase 25 L 25 L CK-MB (CK-2) 0.34 Troponin I 0.053 NT-Pro-B Natriuret Pep 3190 H 03/23/19 03/24/19 03/24/19 20:57 02:23 02:23 Creatine Kinase 78 CK-MB (CK-2) 0.34 0.97 Troponin I 0.029 0.022 NT-Pro-B Natriuret Pep 03/24/19 03/24/19 09:14 09:14 Creatine Kinase 92 CK-MB (CK-2) 0.99 Troponin I 0.019 NT-Pro-B Natriuret Pep Impressions: Small Bowel X-Ray 03/14/19 00:00 IMPRESSION: Persistent dilated small bowel loops measuring up to 4.2 cm compatible with obstruction. Gas and previously administered oral contrast now within the colon compatible with partial process. Exam was prematurely termina xiomara secondary to patient intolerance of additional contrast material. Correlation with prior CT demonstrates dilated small bowel loops to level of the distal jejunum with transition point within the right lower quadrant (series 3, image [id number]) with questionable associated soft tissue mass at this location. There are foci of curvilinear gas at this location possibly luminal although pneumatosis is not entirely excluded. Findings were discussed with ordering provider Dr. Cornejo at 1423 hours on 03/14/2019 Abdomen/Pelvis CT 03/22/19 00:00 IMPRESSION: 1. Postsurgical changes from recent right lower quadrant small bowel resection and reanastomosis. There are multiple loops of dilated small bowel measuring up to 5.2 cm with transition at the level of the anastomosis. Findings may be related to residual obstruction versus postoperative edema. Scattered foci of free intraperitoneal gas, presumably postoperative. No focal drainable collection. 2. Postsurgical changes from the left nephrectomy. Grossly stable mass within the nephrectomy bed with additional scattered peritoneal implants compatible with metastatic disease. 3. Small bilateral effusion. Additional findings as above. Findings were discussed with Dr. Ulloa at 1132 hours on 03/22/2019. Interventional Vascular Procedure 03/25/19 00:00 IMPRESSION: SUCCESSFUL PLACEMENT OF A 5 FR DUAL LUMEN PICC IN THE RIGHT BASILIC VEIN. PICC Line Insertion 03/25/19 00:00 IMPRESSION: SUCCESSFUL PLACEMENT OF A 5 FR DUAL LUMEN PICC IN THE RIGHT BASILIC VEIN. Tube Placement 03/25/19 09:00 IMPRESSION: Jejunostomy tube is folded upon itself within a loop of jejunum. There is extravasation of contrast along the anterior abdominal skin surface which obscures evaluation. Questionable additional intraperitoneal extravasation although evaluation limited on the frontal projections. Repeat injection with additional CT or lateral images could be considered for confirmation. FINDINGS WERE DISCUSSED WITH DR. HAMMER AT APPROXIMATELY 1000 HOURS. Chest X-Ray 03/26/19 00:00 IMPRESSION: NO SIGNIFICANT CHANGE. KUB X-Ray 03/26/19 08:49 IMPRESSION: MILD SMALL BOWEL DILATION, NONSPECIFIC. MAY BE DUE TO POSTOPERATIVE ILEUS. Assessment & Plan - Diagnosis (1) Atrial tachycardia, paroxysmal Is this a current diagnosis for this admission?: Yes Plan: Episodes of paroxysmal atrial tachycardia. These are likely a reflection of his overall illness. Would recommend continuing intravenous doses of metoprolol in small amounts as tolerated for blood pressure. This would likely suppress atrial tachycardia. Transthoracic echocardiogram was performed-poor quality study. Hyperdynamic left ventricular and right ventricular function which suggest volume depletion. Quality of the study precludes assessment of valve function. (2) Alcoholic cardiomyopathy Is this a current diagnosis for this admission?: Yes
--- NOTE | 2019-03-26 21:28 | RADIOLOGY REPORT (SQ) ---
EXAM DESCRIPTION: CT abdomen pelvis with IV and oral contrast CLINICAL HISTORY: 69 years Male abdominal pain with recent jejunal anastomosis COMPARISON: Studies from 03/12/2019 and 03/22/2019. TECHNIQUE: Study performed with 100 mL of Omnipaque 300. Oral contrast administered. Sagittal coronal reconstruction. This exam was performed according to our departmental dose-optimization program, which includes automated exposure control, adjustment of the mA and/or kV according to patient size and/or use of iterative reconstruction technique.. FINDINGS: Moderate bilateral lower lobe consolidations. [id number] pleural effusions possibly partially loculated. Previous CT demonstrated nodules in the lung bases. These are currently mostly obscured by the consolidations and effusions. Liver spleen pancreas are unremarkable. Previously gallbladder distention appears resolved. Left nephrectomy. Soft tissue mass in the left nephrectomy bed that measures 67 x 65 x 50 mm. Measurement for several days ago was 78 x 53 x 57 mm. Previous swelling associated with the anterior left psoas muscle is also reduced. Adrenal glands aorta and aortic regions without acute findings. Mild dilatation of stomach. Moderate dilatation of small bowel loops. Distention reduced since four days ago. Omental stranding appears increased. Series 3 image 40. Mesenteric abnormalities are increased. Series 3 image 55. There is additional extensive mesenteric abnormality which is new relative low density. Series 3 image 44. Image 67.. Anasarca has increased. Compression sclerosis of L2 vertebral body is unchanged. CT of the pelvis demonstrates new peritoneal abnormalities in the peritoneal cavity of the pelvis. Mild thickening of the sigmoid colon is unchanged. Anasarca has increased. Destructive process in the head of the left femur. Urinary bladder contracted secondary to catheter. IMPRESSION: 1. Previous study demonstrated lung metastasis. These are less obvious today because of increase in bilateral lower lobe consolidations and effusions. 2. Compared to previous recent studies, gastric and small bowel dilatation is currently decreased but is still significant. There is however obvious increase in mesenteric abnormalities. Includes omental thickening and areas of low density thickening in the mesentery surrounding small bowel loops. The rapid progression suggests an infectious process. Cannot exclude combination of infectious and neoplastic process in the mesentery. 3. Absent left kidney. A relatively large mass in the left renal surgical bed is minimally smaller since several days ago. Mass versus hematoma. Could be both. Previous left anterior psoas thickening is decreased. 4. Lytic lesion in the left femoral head. Sclerosis and collapse of the L2 vertebral body unchanged. 5. Anasarca has increased.
[2019-03-26 23:09] LABS: HEMATOCRIT 23.2 % (37.9-51.0); MEAN CORPUSCULAR HEMOGLOBIN 23.8 pg (27.0-33.4); MEAN CORPUSCULAR HGB CONC 31.8 g/dL (32.0-36.0); MEAN CORPUSCULAR VOLUME 75 fl (80-97); PLATELET COUNT 356 10^3/uL (150-450); RED CELL DISTRIBUTION WIDTH 21.9 % (11.5-14.0); WHITE BLOOD COUNT 9.6 10^3/uL (4.0-10.5)
[2019-03-26 23:13] LABS: HEMOGLOBIN 7.4 g/dL (13.5-17.0)
[2019-03-26 23:28] LABS: VANCOMYCIN,TROUGH 10.3 ug/mL (5.0-20.0)
[2019-03-27] MEDS: VANCOMYCIN HCL 1,000 MG in DEXTROSE 5%-WATER 250 ML IV SCH ×2 (00:23→10:47)
[2019-03-27] MEDS: METOPROLOL TARTRATE PF/INJ 5 MG/5 ML SDV IV SCH ×6 (02:17→22:08)
[2019-03-27 04:53] LABS: ABSOLUTE BASOPHILS # (AUTO) 0.1 10^3/uL (0.0-0.2); ABSOLUTE EOSINOPHILS # (AUTO) 0.2 10^3/uL (0.0-0.6); ABSOLUTE LYMPHOCYTES (AUTO) 0.6 10^3/uL (0.5-4.7); ABSOLUTE MONOCYTES (AUTO) 0.7 10^3/uL (0.1-1.4); ABSOLUTE NEUT (AUTO) 7.5 10^3/uL (1.7-8.2); BASOPHILS % (AUTO) 0.6 % (0-2); EOSINOPHILS % (AUTO) 2.3 % (0-6); HEMATOCRIT 22.8 % (37.9-51.0); LYMPHOCYTES % (AUTO) 6.4 % (13-45); MEAN CORPUSCULAR HEMOGLOBIN 23.7 pg (27.0-33.4); MEAN CORPUSCULAR HGB CONC 31.5 g/dL (32.0-36.0); MEAN CORPUSCULAR VOLUME 75 fl (80-97); MONOCYTES % (AUTO) 7.3 % (3-13); PLATELET COUNT 345 10^3/uL (150-450); RED BLOOD COUNT 3.04 10^6/uL (4.35-5.55); RED CELL DISTRIBUTION WIDTH 21.6 % (11.5-14.0); SEGMENTED NEUTROPHILS % (AUTO) 83.4 % (42-78); TOTAL CELLS COUNTED % (AUTO) 100 %
[2019-03-27 04:55] LABS: HEMOGLOBIN 7.2 g/dL (13.5-17.0)
[2019-03-27 05:16] LABS: ALKALINE PHOSPHATASE 118 U/L (38-126); ANION GAP 6 (5-19); ASPARTATE AMINO TRANSFERASE 104 U/L (17-59); BILIRUBIN,DIRECT 0.4 mg/dL (0.0-0.4); BILIRUBIN,TOTAL 0.4 mg/dL (0.2-1.3); BLOOD UREA NITROGEN 16 mg/dL (7-20); CALCIUM 7.7 mg/dL (8.4-10.2); CARBON DIOXIDE 24 mmol/L (22-30); CHLORIDE 108 mmol/L (98-107); GLUCOSE 136 mg/dL (75-110); POTASSIUM 3.1 mmol/L (3.6-5.0); TOTAL PROTEIN 4.4 g/dL (6.3-8.2)
[2019-03-27] MEDS: INSULIN REG, HUMAN 100 UNIT/ML 3 ML VIAL (PYX) SUBCUT SCH ×4 (05:18→23:30)
[2019-03-27] MEDS: MEROPENEM 1 GM in NORMAL SALINE 50 ML IV SCH ×3 (05:19→22:19)
--- NOTE | 2019-03-27 09:16 | RADIOLOGY REPORT (SQ) ---
EXAM DESCRIPTION: CHEST SINGLE VIEW COMPLETED DATE/TIME: 03/27/2019 6:27 am REASON FOR STUDY: dyspnea COMPARISON: AP view of the chest from 03/26/2019. EXAM PARAMETERS: NUMBER OF VIEWS: One view. TECHNIQUE: An AP view of the chest was obtained. RADIATION DOSE: NA LIMITATIONS: None. FINDINGS: LUNGS AND PLEURA: Low inspiratory lung volumes. The dense opacity in the left base that o bscures the contours of the left hemidiaphragm and descending thoracic aorta and blunts the left late ral costophrenic sulcus is unchanged. The strands of atelectasis in the right base are also unchange d. There is no pneumothorax. MEDIASTINUM AND HILAR STRUCTURES: Stable mediastinal and hilar contours. HEART AND VASCULAR STRUCTURES: Stable cardiac silhouette. BONES: Left shoulder prosthesis. HARDWARE: The tip of the right upper extremity PICC projects within the SVC. The tip of the enteric tube projects past the gastroesophageal junction and within the gastric lumen. OTHER: No other finding. IMPRESSION: The tip of the enteric tube projects within the gastric lumen. Otherwise unchanged radi ographic appearance of the chest. TECHNICAL DOCUMENTATION: JOB ID: [id number] [employer]- All Rights Reserved Reading location - IP/workstation name: [email or web address]
[2019-03-27] MEDS: POTASSI CL 20 MEQ/50 ML RIDER 20 MEQ/50 ML RTUPB IV SCH ×4 (09:22→23:32)
[2019-03-27] MEDS: DEXTROSE 5%-1/2 NORMAL SALINE 1,000 ML IV PRN ×2 (09:23→18:33)
[2019-03-27] MEDS: FLUCONAZOLE 400 MG/NS RTU 400 MG/200 ML RTUPB IV SCH (09:23)
[2019-03-27] MEDS: NORMAL SALINE 10 ML SDV (SCHEDULED) IV SCH ×2 (09:24→22:17)
--- NOTE | 2019-03-27 09:37 | PDOC PROGRESS REPORT ---
Subjective Progress Note for:: 03/27/19 Subjective:: Long discussion with patient, reviewed recent CT imaging, discussed CODE STATUS and patient agrees to DNR. Reason For Visit: AFIB WITH RVR,SMALL BOWEL OBSTRUCTION S/P PARTIAL Physical Exam Vital Signs: Temp Pulse Resp BP Pulse Ox 98.8 F 67 24 H 117/74 97 03/27/19 08:00 03/27/19 08:00 03/27/19 08:00 03/27/19 08:00 03/27/19 08:00 Intake & Output 03/26/19 03/27/19 03/28/19 06:59 06:59 06:59 Intake Total 4152 1819 Output Total 2498 2280 Balance 1654 -461 Weight 85 kg 85.2 kg General appearance: PRESENT: no acute distress, well-developed, well-nourished Head exam: PRESENT: atraumatic, normocephalic Eye exam: PRESENT: conjunctiva pink, EOMI, PERRLA. ABSENT: scleral icterus Ear exam: PRESENT: normal external ear exam Mouth exam: PRESENT: moist, tongue midline Neck exam: ABSENT: carotid bruit, JVD, lymphadenopathy, thyromegaly Respiratory exam: PRESENT: clear to auscultation magui. ABSENT: rales, rhonchi, wheezes Cardiovascular exam: PRESENT: RRR. ABSENT: diastolic murmur, rubs, systolic murmur Pulses: PRESENT: normal dorsalis pedis pul Vascular exam: PRESENT: normal capillary refill GI/Abdominal exam: PRESENT: normal bowel sounds, soft. ABSENT: distended, guarding, mass, organolmegaly, rebound, tenderness Rectal exam: PRESENT: deferred Extremities exam: PRESENT: full ROM. ABSENT: calf tenderness, clubbing, pedal edema Neurological exam: PRESENT: alert, awake, oriented to person, oriented to place, oriented to time, oriented to situation, CN II-XII grossly intact. ABSENT: motor sensory deficit Psychiatric exam: PRESENT: appropriate affect, normal mood. ABSENT: homicidal ideation, suicidal ideation Skin exam: PRESENT: dry, intact, warm. ABSENT: cyanosis, rash Results Laboratory Results: 03/27/19 04:40 03/27/19 04:40 03/26/19 03/26/19 03/26/19 13:40 16:57 16:57 WBC 8.8 10.4 RBC 2.79 L 3.07 L Hgb 6.6 L 7.3 L Hct 21.3 L 22.9 L MCV 77 L 75 L MCH 23.8 L 23.7 L MCHC 31.1 L 31.8 L RDW 22.1 H 21.4 H Plt Count 319 348 Seg Neutrophils % Sodium Potassium Chloride Carbon Dioxide Anion Gap BUN Creatinine Est GFR ( Amer) Glucose Calcium Phosphorus Total Bilirubin AST Alkaline Phosphatase Total Protein Albumin Blood Type O POSITIVE Antibody Screen NEGATIVE 03/26/19 03/26/19 03/27/19 22:55 22:55 04:40 WBC 9.6 9.0 RBC 3.10 L 3.04 L Hgb 7.4 L 7.2 L Hct 23.2 L 22.8 L MCV 75 L 75 L MCH 23.8 L 23.7 L MCHC 31.8 L 31.5 L RDW 21.9 H 21.6 H Plt Count 356 345 Seg Neutrophils % 83.4 H Sodium Potassium Chloride Carbon Dioxide Anion Gap BUN Creatinine 0.84 Est GFR ( Amer) > 60 Glucose Calcium Phosphorus Total Bilirubin AST Alkaline Phosphatase Total Protein Albumin Blood Type Antibody Screen 03/27/19 04:40 WBC RBC Hgb Hct MCV MCH MCHC RDW Plt Count Seg Neutrophils % Sodium 138.4 Potassium 3.1 L Chloride 108 H Carbon Dioxide 24 Anion Gap 6 BUN 16 Creatinine 0.81 Est GFR ( Amer) > 60 Glucose 136 H Calcium 7.7 L Phosphorus 2.0 L Total Bilirubin 0.4 AST 104 H Alkaline Phosphatase 118 Total Protein 4.4 L Albumin 2.0 L Blood Type Antibody Screen 03/24/19 14:34 Catheterized Urine Urine Culture - Final NO GROWTH 2 DAYS 03/21/19 06:43 Blood Blood Culture - Final NO GROWTH IN 5 DAYS 03/21/19 06:40 Blood Blood Culture - Final NO GROWTH IN 5 DAYS 03/23/19 03/23/19 03/23/19 15:20 15:20 20:57 Creatine Kinase 25 L 25 L CK-MB (CK-2) 0.34 Troponin I 0.053 NT-Pro-B Natriuret Pep 3190 H 03/23/19 03/24/19 03/24/19 20:57 02:23 02:23 Creatine Kinase 78 CK-MB (CK-2) 0.34 0.97 Troponin I 0.029 0.022 NT-Pro-B Natriuret Pep 03/24/19 03/24/19 09:14 09:14 Creatine Kinase 92 CK-MB (CK-2) 0.99 Troponin I 0.019 NT-Pro-B Natriuret Pep Impressions: Small Bowel X-Ray 03/14/19 00:00 IMPRESSION: Persistent dilated small bowel loops measuring up to 4.2 cm compatible with obstruction. Gas and previously administered oral contrast now within the colon compatible with partial process. Exam was prematurely terminated secondary to patient intolerance of additional contrast material. Correlation with prior CT demonstrates dilated small bowel loops to level of the distal jejunum with transition point within the right lower quadrant (series 3, image [id number]) with questionable associated soft tissue mass at this location. There are foci of curvilinear gas at this location possibly luminal although pneumatosis is not entirely excluded. Findings were discussed with ordering provider Dr. Cornejo at 1423 hours on 03/14/2019 Interventional Vascular Procedure 03/25/19 00:00 IMPRESSION: SUCCESSFUL PLACEMENT OF A 5 FR DUAL LUMEN PICC IN THE RIGHT BASILIC VEIN. PICC Line Insertion 03/25/19 00:00 IMPRESSION: SUCCESSFUL PLACEMENT OF A 5 FR DUAL LUMEN PICC IN THE RIGHT BASILIC VEIN. Tube Placement 03/25/19 09:00 IMPRESSION: Jejunostomy tube is folded upon itself within a loop of jejunum. There is extravasation of contrast along the anterior abdominal skin surface which obscures evaluation. Questionable additional intraperitoneal extravasati on although evaluation limited on the frontal projections. Repeat injection with additional CT or lateral images could be considered for confirmation. FINDINGS WERE DISCUSSED WITH DR. HAMMER AT APPROXIMATELY 1000 HOURS. Abdomen/Pelvis CT 03/26/19 00:00 IMPRESSION: 1. Previous study demonstrated lung metastasis. These are less obvious today because of increase in bilateral lower lobe consolidations and effusions. 2. Compared to previous recent studies, gastric and small bowel dilatation is currently decreased but is still significant. There is however obvious increase in mesenteric abnormalities. Includes omental thickening and areas of low density thickening in the mesentery surrounding small bowel loops. The rapid progression suggests an infectious process. Cannot exclude combination of infectious and neoplastic process in the mesentery. 3. Absent left kidney. A relatively large mass in the left renal surgical bed is minimally smaller since several days ago. Mass versus hematoma. Could be both. Previous left anterior psoas thickening is decreased. 4. Lytic lesion in the left femoral head. Sclerosis and collapse of the L2 vertebral body unchanged. 5. Anasarca has increased. KUB X-Ray 03/26/19 08:49 IMPRESSION: MILD SMALL BOWEL DILATION, NONSPECIFIC. MAY BE DUE TO POSTOPERATIVE ILEUS. Chest X-Ray 03/27/19 06:00 IMPRESSION: The tip of the enteric tube projects within the gastric lumen. Otherwise unchanged radiographic appearance of the chest. Assessment & Plan - Diagnosis (1) Partial small bowel obstruction Is this a current diagnosis for this admission?: Yes Plan: Agree with TPN, told patient that we should give at least 5 to 7 days of TPN to see if bowels will improve and he is able to have bowel function return. If it does not over this prescribed time, I told him I would not recommend repeating surgical exploration unless something minimally invasive possible. (2) renal cell carcinoma stage 4 Is this a current diagnosis for this admission?: Yes Plan: Interestingly, the primary renal fossa mass has decreased in size by about 1/2 cm, unsure if this is differences in technique of imaging versus Keytruda effect. - Time Time Spent with patient: 35 or more minutes
[2019-03-27] MEDS ORDERED: PANTOPRAZOLE SODIUM 40 MG VIAL IV SCH (11:00)
--- NOTE | 2019-03-27 13:15 | PDOC PROGRESS REPORT ---
Subjective Progress Note for:: 03/27/19 Subjective:: Patient seen and examined. No chest pain. Tele shows SR complains of abdominal distention. Reason For Visit: AFIB WITH RVR,SMALL BOWEL OBSTRUCTION S/P PARTIAL Physical Exam Vital Signs: Temp Pulse Resp BP Pulse Ox 98.8 F 77 16 124/83 100 03/27/19 12:00 03/27/19 12:00 03/27/19 12:00 03/27/19 12:00 03/27/19 12:00 Intake & Output 03/26/19 03/27/19 03/28/19 06:59 06:59 06:59 Intake Total 4152 1819 41 Output Total 8151 2283 250 Balance 7729 -596 -025 Weight 85 kg 85.2 kg General appearance: PRESENT: no acute distress Head exam: PRESENT: atraumatic, normocephalic Eye exam: PRESENT: conjunctiva pink, EOMI Respiratory exam: PRESENT: crackles, decreased breath sounds, unlabored Cardiovascular exam: PRESENT: RRR, +S1, +S2 Pulses: PRESENT: normal radial pulses GI/Abdominal exam: PRESENT: soft Rectal exam: PRESENT: deferred Neurological exam: PRESENT: alert, awake, oriented to person, oriented to place, oriented to time, oriented to situation Psychiatric exam: PRESENT: appropriate affect Skin exam: PRESENT: dry, intact, normal color Results Laboratory Results: 03/27/19 04:40 03/27/19 04:40 03/26/19 03/26/19 03/26/19 13:40 16:57 16:57 WBC 8.8 10.4 RBC 2.79 L 3.07 L Hgb 6.6 L 7.3 L Hct 21.3 L 22.9 L MCV 77 L 75 L MCH 23.8 L 23.7 L MCHC 31.1 L 31.8 L RDW 22.1 H 21.4 H Plt Count 319 348 Seg Neutrophils % Sodium Potassium Chloride Carbon Dioxide Anion Gap BUN Creatinine Est GFR ( Amer) Glucose Calcium Phosphorus Total Bilirubin AST Alkaline Phosphatase Total Protein Albumin Blood Type O POSITIVE Antibody Screen NEGATIVE 03/26/19 03/26/19 03/27/19 22:55 22:55 04:40 WBC 9.6 9.0 RBC 3.10 L 3.04 L Hgb 7.4 L 7.2 L Hct 23.2 L 22.8 L MCV 75 L 75 L MCH 23.8 L 23.7 L MCHC 31.8 L 31.5 L RDW 21.9 H 21.6 H Plt Count 356 345 Seg Neutrophils % 83.4 H Sodium Potassium Chloride Carbon Dioxide Anion Gap BUN Creatinine 0.84 Est GFR ( Amer) > 60 Glucose Calcium Phosphorus Total Bilirubin AST Alkaline Phosphatase Total Protein Albumin Blood Type Antibody Screen 03/27/19 04:40 WBC RBC Hgb Hct MCV MCH MCHC RDW Plt Count Seg Neutrophils % Sodium 138.4 Potassium 3.1 L Chloride 108 H Carbon Dioxide 24 Anion Gap 6 BUN 16 Creatinine 0.81 Est GFR ( Amer) > 60 Glucose 136 H Calcium 7.7 L Phosphorus 2.0 L Total Bilirubin 0.4 AST 104 H Alkaline Phosphatase 118 Total Protein 4.4 L Albumin 2.0 L Blood Type Antibody Screen 03/24/19 14:34 Catheterized Urine Urine Culture - Final NO GROWTH 2 DAYS 03/23/19 03/23/19 03/23/19 15:20 15:20 20:57 Creatine Kinase 25 L 25 L CK-MB (CK-2) 0.34 Troponin I 0.053 NT-Pro-B Natriuret Pep 3190 H 03/23/19 03/24/19 03/24/19 20:57 02:23 02:23 Creatine Kinase 78 CK-MB (CK-2) 0.34 0.97 Troponin I 0.029 0.022 NT-Pro-B Natriuret Pep 03/24/19 03/24/19 09:14 09:14 Creatine Kinase 92 CK-MB (CK-2) 0.99 Troponin I 0.019 NT-Pro-B Natriuret Pep Impressions: Small Bowel X-Ray 03/14/19 00:00 IMPRESSION: Persistent dilated small bowel loops measuring up to 4.2 cm compatible with obstruction. Gas and previously administered oral contrast now within the colon compatible with partial process. Exam was prematurely terminated secondary to patient intolerance of additional contrast material. Correlation with prior CT demonstrates dilated small bowel loops to level of the distal jejunum with transition point within the right lower quadrant (series 3, image [id number]) with questionable associated soft tissue mass at this location. There are foci of curvilinear gas at this location possibly luminal although pn eumatosis is not entirely excluded. Findings were discussed with ordering provider Dr. Cornejo at 1423 hours on 03/14/2019 Interventional Vascular Procedure 03/25/19 00:00 IMPRESSION: SUCCESSFUL PLACEMENT OF A 5 FR DUAL LUMEN PICC IN THE RIGHT BASILIC VEIN. PICC Line Insertion 03/25/19 00:00 IMPRESSION: SUCCESSFUL PLACEMENT OF A 5 FR DUAL LUMEN PICC IN THE RIGHT BASILIC VEIN. Tube Placement 03/25/19 09:00 IMPRESSION: Jejunostomy tube is folded upon itself within a loop of jejunum. There is extravasation of contrast along the anterior abdominal skin surface which obscures evaluation. Questionable additional intraperitoneal extravasation although evaluation limited on the frontal projections. Repeat injection with additional CT or lateral images could be considered for confirmation. FINDINGS WERE DISCUSSED WITH DR. HAMMER AT APPROXIMATELY 1000 HOURS. Abdomen/Pelvis CT 03/26/19 00:00 IMPRESSION: 1. Previous study demonstrated lung metastasis. These are less obvious today because of increase in bilateral lower lobe consolidations and effusions. 2. Compared to previous recent studies, gastric and small bowel dilatation is currently decreased but is still significant. There is however obvious increase in mesenteric abnormalities. Includes omental thickening and areas of low density thickening in the mesentery surrounding small bowel loops. The rapid progression suggests an infectious process. Cannot exclude combination of infectious and neoplastic process in the mesentery. 3. Absent left kidney. A relatively large mass in the left renal surgical bed is minimally smaller since several days ago. Mass versus hematoma. Could be both. Previous left anterior psoas thickening is decreased. 4. Lytic lesion in the left femoral head. Sclerosis and collapse of the L2 vertebral body unchanged. 5. Anasarca has increased. KUB X-Ray 03/26/19 08:49 IMPRESSION: MILD SMALL BOWEL DILATION, NONSPECIFIC. MAY BE DUE TO POSTOPE RATIVE ILEUS. Chest X-Ray 03/27/19 06:00 IMPRESSION: The tip of the enteric tube projects within the gastric lumen. Otherwise unchanged radiographic appearance of the chest. Assessment & Plan - Diagnosis (1) Atrial tachycardia, paroxysmal Is this a current diagnosis for this admission?: Yes Plan: No sustained episodes of atrial tachycardia Continue metoprolol intravenously in low doses scheduled with parameters. As opposed to as needed. (2) Alcoholic cardiomyopathy Is this a current diagnosis for this admission?: Yes Plan: He appears to be compensated from a volume standpoint.
[2019-03-27] MEDS: AMINO ACIDS 5 %/DEXTROSE 20 % 1,000 ML IV PRN (16:13)
[2019-03-27 19:01] LABS: ANION GAP 7 (5-19); BLOOD UREA NITROGEN 13 mg/dL (7-20); CALCIUM 7.5 mg/dL (8.4-10.2); CARBON DIOXIDE 24 mmol/L (22-30); CHLORIDE 106 mmol/L (98-107); GLUCOSE 131 mg/dL (75-110); POTASSIUM 3.4 mmol/L (3.6-5.0)
--- NOTE | 2019-03-27 19:52 | PDOC CRITICAL CARE PROG REPORT ---
General Date:: 03/27/19 ICU Day:: 6 Hospital Day:: 16 Resuscitation Status: Do Not Resuscitate - Do Not Intubate Medical Power of Wire Spiral Binder: : Elisa Events in the past 12 to 24 Hours:: 03.27.2019: Patient underwent CT scan yesterday which shows possible hematoma in the removed kidney bed. There are anatomical changes to surgery as well. The distention and dilation appear to be improved with the placement of the NG tube. There is possibility that this also may be the mass. Patient has had not had any further tachycardia. Discussion with oncology this morning resulted in a DNR/DNI status. 03.26.2019: Patient had intermittent episodes of tachycardia which was relieved with IV metoprolol. His pain crises are less however when they do occur are on a scale of 4/5. Patient appears to have limited ability to complete sentences without breathing. When asked he endorsed some dyspnea. His mouth appears to be less dry and he has been using candy/lozenge years to prevent mouth dryness. There has been no hypotension or fever. CBC done earlier this morning showed a decrease in hemoglobin and hematocrit. Repeat done which shows some decrease but not severe. His white blood cell count has improved. He was started on antifungal's and antibiotics yesterday. There was some question regarding a leak at the anastomotic site. He was made n.p.o. and a PICC line was placed with the anticipation to start TPN this morning. 03.25.2019: Patient's rapid heart rate has improved and he has been hemodynamical ly stable overnight. Evaluation of his feeding jejunostomy tube showed kinking and a leak into the intraperitoneal cavity. 03.24.2019:Dehydrated, episodes of rapid afib treated with fluid. Review of systems relevant to events:: 03.27.2019: Patient's pain has been intermittent. Had short run of V. tach today was nonspecific and asymptomatic. Otherwise, hemodynamics not been labile. Is had frequent bowel movements but they are not bloody. C. difficile was ordered. He had some degree of confusion late afternoon. Given the V. tach the Diflucan was stopped and concern for QT prolongation. An EKG did not show QT prolongation but it was for 50 ms. Magnesium was 1.9 and was replaced as well as potassium. 03.26.2019: Patient endorses dyspnea today. His pain appears to be somewhat improved. He does have intermittent abdominal pain. He is having more frequent bowel movements which appear to be to poorly related to the pain. There is no blood in his bowel movements. His Tatum was maintained secondary to urinary retention and possible prostatic enlargement. His heart rate is currently controlled in normal sinus at 80 bpm. During exam he had active pain in the right upper quadrant which was relieved over time without any medications. 03.25.2019:Patient describes 5 out of 5 abdominal pain at times with movement yesterday. This has improved today. He responded to low-dose fentanyl. He complains of extreme mouth dryness. Surgery has requested complete n.p.o. status given the leak at the anastomotic site. 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 He also would multiple lymph nodes positive and evidence of carcinomatosis. Reason for ICU Addmission:: Afib with RVR, dehydration. - Medications: Medications reviewed and adjusted accordingly: Yes Vasopressors:: None Physical Exam Vital Signs: Temp Pulse Resp BP Pulse Ox 98.8 F 67 24 H 117/74 97 03/27/19 08:00 03/27/19 08:00 03/27/19 08:00 03/27/19 08:00 03/27/19 08:00 Intake & Output 03/26/19 03/27/19 03/28/19 06:59 06:59 06:59 Intake Total 4152 1819 Output Total 2498 2280 Balance 1654 -461 Weight 85 kg 85.2 kg Weight/Height Weight 85.2 kg Height 5 ft 11 in General appearance: PRESENT: no acute distress, thin Exam: Ill nontoxic 69-year-old male no acute distress he is awake and aware x4 on this examination. Head exam: PRESENT: atraumatic, normocephalic Eye exam: PRESENT: EOMI, PERRLA. ABSENT: conjunctival injection, nystagmus, scleral icterus Mouth exam: PRESENT: moist, neck supple, tongue midline Neck exam: ABSENT: carotid bruit, JVD, lymphadenopathy, thyromegaly Respiratory exam: PRESENT: clear to auscultation magui, unlabored. ABSENT: rales, rhonchi, tachypnea, wheezes Cardiovascular exam: PRESENT: RRR Pulses: PRESENT: +1 pedal pulses bilateral GI/Abdominal exam: PRESENT: diminished bowel sounds, firm, guarding, tenderness. ABSENT: ascites, distended Gentrourinary exam: PRESENT: scrotal swelling, indwelling catheter. ABSENT: ecchymosis, erythema Extremities exam: PRESENT: pedal edema Musculoskeletal exam: ABSENT: deformity, dislocation Neurological exam: PRESENT: alert, awake, oriented to person, oriented to place, oriented to time, oriented to situation, CN II-XII grossly intact. ABSENT: motor sensory deficit Psychiatric exam: PRESENT: appropriate affect, normal mood Focused psych exam: ABSENT: pressured speech, psychomotor agitation, restlessness Skin exam: PRESENT: dry, intact, warm. ABSENT: cyanosis, rash Tubes/Lines: PRESENT: Other - PICC line right arm, tatum catheter Laboratory/Radiographs Laboratory Results: 03/27/19 04:40 03/27/19 04:40 03/26/19 03/26/19 03/26/19 13:40 16:57 16:57 WBC 8.8 10.4 RBC 2.79 L 3.07 L Hgb 6.6 L 7.3 L Hct 21.3 L 22.9 L MCV 77 L 75 L MCH 23.8 L 23.7 L MCHC 31.1 L 31.8 L RDW 22.1 H 21.4 H Plt Count 319 348 Seg Neutrophils % Sodium Potassium Chloride Carbon Dioxide Anion Gap BUN Creatinine Est GFR ( Amer) Glucose Calcium Phosphorus Total Bilirubin AST Alkaline Phosphatase Total Protein Albumin Blood Type O POSITIVE Antibody Screen NEGATIVE 03/26/19 03/26/19 03/27/19 22:55 22:55 04:40 WBC 9.6 9.0 RBC 3.10 L 3.04 L Hgb 7.4 L 7.2 L Hct 23.2 L 22.8 L MCV 75 L 75 L MCH 23.8 L 23.7 L MCHC 31.8 L 31.5 L RDW 21.9 H 21.6 H Plt Count 356 345 Seg Neutrophils % 83.4 H Sodium Potassium Chloride Carbon Dioxide Anion Gap BUN Creatinine 0.84 Est GFR ( Amer) > 60 Glucose Calcium Phosphorus Total Bilirubin AST Alkaline Phosphatase Total Protein Albumin Blood Type Antibody Screen 03/27/19 04:40 WBC RBC Hgb Hct MCV MCH MCHC RDW Plt Count Seg Neutrophils % Sodium 138.4 Potassium 3.1 L Chloride 108 H Carbon Dioxide 24 Anion Gap 6 BUN 16 Creatinine 0.81 Est GFR ( Amer) > 60 Glucose 136 H Calcium 7.7 L Phosphorus 2.0 L Total Bilirubin 0.4 AST 104 H Alkaline Phosphatase 118 Total Protein 4.4 L Albumin 2.0 L Blood Type Antibody Screen 03/24/19 14:34 Catheterized Urine Urine Culture - Final NO GROWTH 2 DAYS 03/21/19 06:43 Blood Blood Culture - Final NO GROWTH IN 5 DAYS 03/21/19 06:40 Blood Blood Culture - Final NO GROWTH IN 5 DAYS 03/23/19 03/23/19 03/23/19 15:20 15:20 20:57 Creatine Kinase 25 L 25 L CK-MB (CK-2) 0.34 Troponin I 0.053 NT-Pro-B Natriuret Pep 3190 H 03/23/19 03/24/19 03/24/19 20:57 02:23 02:23 Creatine Kinase 78 CK-MB (CK-2) 0.34 0.97 Troponin I 0.029 0.022 NT-Pro-B Natriuret Pep 03/24/19 03/24/19 09:14 09:14 Creatine Kinase 92 CK-MB (CK-2) 0.99 Troponin I 0.019 NT-Pro-B Natriuret Pep Impressions: Small Bowel X-Ray 03/14/19 00:00 IMPRESSION: Persistent dilated small bowel loops measuring up to 4.2 cm compatible with obstruction. Gas and previously administered oral contrast now within the colon compatible with partial process. Exam was prematurely terminated secondary to patient intolerance of additional contrast material. Correlation with prior CT demonstrates dilated small bowel loops to level of the distal jejunum with transition point within the right lower quadrant (series 3, image [id number]) with questionable associated soft tissue mass at this location. There are foci of curvilinear gas at this location possibly luminal although pneumatosis is not entirely excluded. Findings were discussed with ordering provider Dr. Cornejo at 1423 hours on 03/14/2019 Interventional Vascular Procedure 03/25/19 00:00 IMPRESSION: SUCCESSFUL PLACEMENT OF A 5 FR DUAL LUMEN PICC IN THE RIGHT BASILIC VEIN. PICC Line Insertion 03/25/19 00:00 IMPRESSION: SUCCESSFUL PLACEMENT OF A 5 FR DUAL LUMEN PICC IN THE RIGHT BASILIC VEIN. Tube Placement 03/25/19 09:00 IMPRESSION: Jejunostomy tube is folded upon itself within a loop of jejunum. There is extravasation of contrast along the anterior abdominal skin surface which obscures evaluation. Questionable additional intraperitoneal extravasation although evaluation limited on the frontal projections. Repeat injection with additional CT or lateral images could be considered for confirmation. FINDINGS WERE DISCUSSED WITH DR. HAMMER AT APPROXIMATELY 1000 HOURS. Abdomen/Pelvis CT 03/26/19 00:00 IMPRESSION: 1. Previous study demonstrated lung metastasis. These are less obvious today because of increase in bilateral lower lobe consolidations and effusions. 2. Compared to previous recent studies, gastric and small bowel dilatation is currently decreased but is still significant. There is however obvious increase in mesenteric abnormalities. Includes omental thickening and areas of low density thickening in the mesentery surrounding small bowel loops. The rapid progression suggests an infectious process. Cannot exclude combination of infectious and neoplastic process in the mesentery. 3. Absent left kidney. A relatively large mass in the left renal surgical bed is minimally smaller since several days ago. Mass versus hematoma. Could be both. Previous left anterior psoas thickening is decreased. 4. Lytic lesion in the left femoral head. Sclerosis and collapse of the L2 vertebral body unchanged. 5. Anasarca has increased. KUB X-Ray 03/26/19 08:49 IMPRESSION: MILD SMALL BOWEL DILATION, NONSPECIFIC. MAY BE DUE TO POSTOPERATIVE ILEUS. Chest X-Ray 03/27/19 06:00 IMPRESSION: The tip of the enteric tube projects within the gastric lumen. Otherwise unchanged radiographic appearance of the chest. All labs, radiographs, diagnostic studies and EKGs were personally reviewed: Yes In addition, reports of radiographic and diagnostic studies were read: Yes Assessment and Plan - Diagnosis (1) Acute peritonitis Is this a current diagnosis for this admission?: Yes Plan: 03.27.2019: Appears to be improving we will continue antibiotics for the time being. Diflucan discontinued secondary to EKG concerns. 03.26.2019:Pain still intermittent. On antibiotics/antifungals. Still ambiguity regarding possible leak at small bowel anastamosis. Will most likely need CT of abdomen with oral contrast. Obtain KUB to evaluate for residual contrast load. (2) Delirium due to another medical condition, acute, mixed level of activity Is this a current diagnosis for this admission?: Yes (3) Anastomotic leak of intestine Is this a current diagnosis for this admission?: No Plan: 03.27.2019: This was a concern but no longer significant. There does not appear to be anastomotic leak however on lateral view of the CT scan there is air juxtaposed to small bowel which may be the early initiation of a fistula. Will discuss and review imaging with surgery. Patient would not want repeat surgery or aggressive procedures. 03.26.2019:Possible, given pain. NPO, starting on TPN. 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 Replace Electrolytes and discontinued Diflucan 03.26.2019:stable this am. Have increased BB to 5 mg Q4 (7) Hypotension due to hypovolemia Is this a current diagnosis for this admission?: Yes Plan: Resolved; responded to fluids Improved. (8) Partial small bowel obstruction Is this a current diagnosis for this admission?: Yes Plan Summary: 03.27.2019: The patient CT scan did not show any leak from the anastomosis however the J- tube appears to be bowel of the bowel according to surgery. Plan is to maintain this in current position given the circumstances. Concerned that there is going to be the development of a gastric small bowel fistula given the findings on CT. It is at risk for significant complications and has a large tumor burden. I had a lengthy discussion with oncology and the patient's family as well as the patient. Patient would not want surgery and oncology is asked that this not be done should any complications occur. Keytruda may be of value however patient is unable to take this orally. He still may be a candidate and oncology is working with us to see if this would be of some utilization. Knowing that his situation is poor and prognosis dismal, patient has self declared DNR DNI under the counseling of oncology and critical care at bedside. He would still want conservative aggressive care but no surgery. His chest x-ray shows slight to moderate effusion on the left and he is weak. He appears to be tolerating the TPN but has a high catabolic process with limited anabolic progression. He is at high risk for skin breakdown, VTE and persistent nutritional depletion. Given the possibility of bleeding in the tumor bed we have discontinued his heparin for now. His hemoglobin hematocrit have been slowly declining and will need to continue to monitor this. As far as his SVT will continue to replace electrolytes. He may need an increase in his beta-dg. Has had what appears to be an episode of delirium late this afternoon which may be medication related , related to the ICU or combination of all the above. Will discontinue any possible inciting medications and continue to monitor. It may be in his best interest to transfer out of the ICU if he remains stable in the next 24 hours. At this point given his labile hemodynamic process and his abdominal discomfort he would be best kept in the ICU. We have sent stool for C. difficile and will watch for bleeding. 03.26.2019: Patient still has intermittent severe abdominal pain. There is a questionable suggestion of possible anastomotic leak and patient was made n.p.o. Will be started on TPN today and have discussed the case with the surgeon. They have already ordered a KUB. After the KUB is done will most likely obtain a CT of the abdomen and pelvis with oral contrast. Patient has significant protein calorie malnutrition of moderate nature. He is unable to take anything enterally and we have started TPN today. He is at high risk for anastomotic breakdown, decubiti, poor wound healing and increased morbidity. He also has extensive tumor burden and is not currently being treated. He does appear to still be volume depleted and we will continue IV fluids at current rate in addition to TPN. He will need to be maintained in the ICU given his paroxysmal tachycardia, possibility of anastomotic leak, significant pain and complex processes. Afternoon rounds: The patient did have KUB and chest x-ray which does show moderate dilatation of the stomach and proximal small bowel. The patient does have bile colored bowel movements but no blood noted. I do not appreciate any contrast on the KUB that may have been extravasated however unsure given the limited possibility and size of anastomotic leak that this wou ld be a fail safe determination that no leak exist. He has significant pain for out of 5 with any movement. Has been n.p.o. so unable to determine whether he would tolerate any oral intake. Discussed the x-ray findings with surgery and they have asked for an NG tube to be placed. The plan will be to try to decompress the proximal gut and possibly give contrast to evaluate the surgical site. The percutaneously placed jejunostomy tube appears to be kinked and unable to be used. Will also obtain CT of abdomen. At this point, I am less concerned about a leak but more concerned about obstruction. Will give contrast to r/o both. Placed lidocaine in nasal passage and back of tongue to facilitate placement of NGT. Successful and KUB shows placement in stomach 03.25.2019:Patient is noted to have an anastomotic leak at the jejunal resection site. So has a kink in the jejunostomy tube. I had a long discussion with surgery today and they have requested complete n.p.o. status and initiation of TPN. A PICC line will be placed. Patient appears to have advanced metastatic disease with possible carcinomatosis, multiple positive lymph nodes and now involvement of the bowel. Appreciate the involvement of the oncology team and assisting us with his care. At this point patient is at high risk for infection and complications associated with this leak. His white count had been elevated and we have placed him on broad-spectrum antibiotics to include an antifungal. We may need to consider an advance antifungal given his immune status. I am most concerned that this will be an ongoing process and will discuss with surgery about the possibility of reexploration. The other possibility would be to allow for healing and we have made the patient n.p.o. Continue to monitor his status. Continue in ICU Critical Time Critical Time (minutes): 45 - with end-of-life discussion Level of Care: ICU Anticipated discharge: Acute Rehab Within: within 72 hours -: 1. The care of a critical patient is a dynamic process. This note is a major account representative synopsis but static in nature. The timeframe for treatments given in order is not necessarily the actual time these treatments may have been done. 2. This patient requires critical care secondary to ongoing requirements for therapy not offered or safe outside the critical care environment. Transfer to a lower level of care will result in altered life or limb morbidity and mortality. 3. Multidisciplinary rounds completed. 4. ABCDE bundle addressed.
[2019-03-27] MEDS: MAGNESIUM SULFATE/D5W 1 GM/100 ML RTUPB IV SCH ×3 (20:24→23:39)
[2019-03-27] MEDS ORDERED: VANCOMYCIN HCL 1,500 MG in DEXTROSE 5%-WATER 250 ML IV SCH (22:00)
[2019-03-27] MEDS: DEXTROSE 10%-WATER 1,000 ML IV PRN (22:34)
[2019-03-27] MEDS: FENTANYL CITRATE INJ/PF 100 MCG/2 ML AMPUL IV PRN (23:40)
[2019-03-28] MEDS: METOPROLOL TARTRATE PF/INJ 5 MG/5 ML SDV IV SCH ×3 (02:28→09:06)
--- NOTE | 2019-03-28 02:39 | RADIOLOGY REPORT (SQ) ---
EXAM DESCRIPTION: US SCROTUM COMPLETED DATE/TME: 03/28/2019 00:00 CLINICAL HISTORY: 69 years, Male, worsening swelling COMPARISON: 03/26/2019 CT TECHNIQUE: Transverse and longitudinal sonographic images of the testes LIMITATIONS: None. FINDINGS: The right testes measures 4.0 x 2.9 x 3.0 cm. Left testicle measures 3.5 x 2.8 x 2.9 cm. Doppler flow is present to each testicle. Negative for intratesticular mass. Diffuse scrotal edema is present and scrotal skin thickening. Slight heterogeneity of the right epididymis. Epididymis is otherwise unremarkable bilaterally. Moderate-sized right hydrocele. IMPRESSION: Moderate right hydrocele. Diffuse scrotal wall edema and skin thickening. copyright 2010 [employer]- All Rights Reserved
[2019-03-28 03:58] LABS: ALKALINE PHOSPHATASE 121 U/L (38-126); ANION GAP 6 (5-19); ASPARTATE AMINO TRANSFERASE 68 U/L (17-59); BILIRUBIN,DIRECT 0.3 mg/dL (0.0-0.4); BILIRUBIN,TOTAL 0.4 mg/dL (0.2-1.3); BLOOD UREA NITROGEN 10 mg/dL (7-20); CALCIUM 7.4 mg/dL (8.4-10.2); CARBON DIOXIDE 25 mmol/L (22-30); CHLORIDE 105 mmol/L (98-107); GLUCOSE 131 mg/dL (75-110); PHOSPHORUS 1.5 mg/dL (2.5-4.5); POTASSIUM 3.6 mmol/L (3.6-5.0); TOTAL PROTEIN 4.7 g/dL (6.3-8.2)
[2019-03-28 04:00] LABS: ABSOLUTE BASOPHILS # (AUTO) 0.1 10^3/uL (0.0-0.2); ABSOLUTE EOSINOPHILS # (AUTO) 0.3 10^3/uL (0.0-0.6); ABSOLUTE LYMPHOCYTES (AUTO) 0.6 10^3/uL (0.5-4.7); ABSOLUTE MONOCYTES (AUTO) 0.8 10^3/uL (0.1-1.4); ABSOLUTE NEUT (AUTO) 8.1 10^3/uL (1.7-8.2); BASOPHILS % (AUTO) 0.6 % (0-2); EOSINOPHILS % (AUTO) 2.9 % (0-6); HEMATOCRIT 24.9 % (37.9-51.0); LYMPHOCYTES % (AUTO) 6.5 % (13-45); MEAN CORPUSCULAR HEMOGLOBIN 23.6 pg (27.0-33.4); MEAN CORPUSCULAR HGB CONC 31.9 g/dL (32.0-36.0); MEAN CORPUSCULAR VOLUME 74 fl (80-97); MONOCYTES % (AUTO) 8.4 % (3-13); PLATELET COUNT 359 10^3/uL (150-450); RED BLOOD COUNT 3.36 10^6/uL (4.35-5.55); RED CELL DISTRIBUTION WIDTH 21.4 % (11.5-14.0); SEGMENTED NEUTROPHILS % (AUTO) 81.6 % (42-78); TOTAL CELLS COUNTED % (AUTO) 100 %; WHITE BLOOD COUNT 9.9 10^3/uL (4.0-10.5)
[2019-03-28 04:01] LABS: HEMOGLOBIN 7.9 g/dL (13.5-17.0)
[2019-03-28] MEDS: DEXTROSE 5%-1/2 NORMAL SALINE 1,000 ML IV PRN (04:40)
[2019-03-28] MEDS: MEROPENEM 1 GM in NORMAL SALINE 50 ML IV SCH (05:00)
[2019-03-28] MEDS: INSULIN REG, HUMAN 100 UNIT/ML 3 ML VIAL (PYX) SUBCUT SCH (05:07)
--- NOTE | 2019-03-28 06:16 | PDOC PROGRESS REPORT ---
Subjective Progress Note for:: 03/27/19 Reason For Visit: AFIB WITH RVR,SMALL BOWEL OBSTRUCTION S/P PARTIAL Physical Exam Vital Signs: Temp Pulse Resp BP Pulse Ox 98.9 F 71 20 142/91 H 100 03/28/19 03:43 03/28/19 03:43 03/28/19 03:43 03/28/19 03:43 03/28/19 03:43 Intake & Output 03/26/19 03/27/19 03/28/19 06:59 06:59 06:59 Intake Total 4152 1869 2697 Output Total 5177 2280 2180 Balance 1572 -728 584 Weight 85 kg 85.2 kg 86.2 kg Results Laboratory Results: 03/28/19 03:29 03/28/19 03:29 03/27/19 03/27/19 03/27/19 17:05 17:05 18:25 WBC RBC Hgb Hct MCV MCH MCHC RDW Plt Count Seg Neutrophils % Sodium Cancelled 137.2 Potassium Cancelled 3.4 L Chloride Cancelled 106 Carbon Dioxide Cancelled 24 Anion Gap Cancelled 7 BUN Cancelled 13 Creatinine Cancelled 0.76 Est GFR ( Amer) Cancelled > 60 Est GFR (Non-Af Amer) Cancelled Glucose Cancelled 131 H Calcium Cancelled 7.5 L Phosphorus Magnesium 2.1 1.9 Total Bilirubin AST Alkaline Phosphatase Total Protein Albumin 03/28/19 03/28/19 03:29 03:29 WBC 9.9 RBC 3.36 L Hgb 7.9 L Hct 24.9 L MCV 74 L MCH 23.6 L MCHC 31.9 L RDW 21.4 H Plt Count 359 Seg Neutrophils % 81.6 H Sodium 136.4 L Potassium 3.6 Chloride 105 Carbon Dioxide 25 Anion Gap 6 BUN 10 Creatinine 0.70 Est GFR ( Amer) > 60 Est GFR (Non-Af Amer) Glucose 131 H Calcium 7.4 L Phosphorus 1.5 L Magnesium Total Bilirubin 0.4 AST 68 H Alkaline Phosphatase 121 Total Protein 4.7 L Albumin 2.0 L 03/23/19 03/23/19 03/23/19 15:20 15:20 20:57 Creatine Kinase 25 L 25 L CK-MB (CK-2) 0.34 Troponin I 0.053 NT-Pro-B Natriuret Pep 3190 H 03/23/19 03/24/19 03/24/19 20:57 02:23 02:23 Creatine Kinase 78 CK-MB (CK-2) 0.34 0.97 Troponin I 0.029 0.022 NT-Pro-B Natriuret Pep 03/24/19 03/24/19 09:14 09:14 Creatine Kinase 92 CK-MB (CK-2) 0.99 Troponin I 0.019 NT-Pro-B Natriuret Pep Impressions: Small Bowel X-Ray 03/14/19 00:00 IMPRESSION: Persistent dilated small bowel loops measuring up to 4.2 cm compatible with obstruction. Gas and previously administered oral contrast now within the colon compatible with partial process. Exam was prematurely termina xiomara secondary to patient intolerance of additional contrast material. Correlation with prior CT demonstrates dilated small bowel loops to level of the distal jejunum with transition point within the right lower quadrant (series 3, image [id number]) with questionable associated soft tissue mass at this location. There are foci of curvilinear gas at this location possibly luminal although pneumatosis is not entirely excluded. Findings were discussed with ordering provider Dr. Cornejo at 1423 hours on 03/14/2019 Interventional Vascular Procedure 03/25/19 00:00 IMPRESSION: SUCCESSFUL PLACEMENT OF A 5 FR DUAL LUMEN PICC IN THE RIGHT BASILIC VEIN. PICC Line Insertion 03/25/19 00:00 IMPRESSION: SUCCESSFUL PLACEMENT OF A 5 FR DUAL LUMEN PICC IN THE RIGHT BASILIC VEIN. Tube Placement 03/25/19 09:00 IMPRESSION: Jejunostomy tube is folded upon itself within a loop of jejunum. There is extravasation of contrast along the anterior abdominal skin surface which obscures evaluation. Questionable additional intraperitoneal extravasation although evaluation limited on the frontal projections. Repeat injection with additional CT or lateral images could be considered for confirmation. FINDINGS WERE DISCUSSED WITH DR. HAMMER AT APPROXIMATELY 1000 HOURS. Abdomen/Pelvis CT 03/26/19 00:00 IMPRESSION: 1. Previous study demonstrated lung metastasis. These are less obvious today because of increase in bilateral lower lobe consolidations and effusions. 2. Compared to previous recent studies, gastric and small bowel dilatation is currently decreased but is still significant. There is however obvious increase in mesenteric abnormalities. Includes omental thickening and areas of low density thickening in the mesentery surrounding small bowel loops. The rapid progression suggests an infectious process. Cannot exclude combination of infectious and neoplastic process in the mesentery. 3. Absent left kidney. A relatively large mass in the left renal surgical bed is minimally smaller since several days ago. Mass versus hematoma. Could be both. Previous left anterior psoas thickening is decreased. 4. Lytic lesion in the left femoral head. Sclerosis and collapse of the L2 vertebral body unchanged. 5. Anasarca has increased. KUB X-Ray 03/26/19 08:49 IMPRESSION: MILD SMALL BOWEL DILATION, NONSPECIFIC. MAY BE DUE TO POSTOPERATIVE ILEUS. Chest X-Ray 03/27/19 06:00 IMPRESSION: The tip of the enteric tube projects within the gastric lumen. Otherwise unchanged radiographic appearance of the chest. Scrotum Ultrasound 03/28/19 00:00 IMPRESSION: Moderate right hydrocele. Diffuse scrotal wall edema and skin thickening. 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 Patient appears to be doing reasonably well. His abdominal pain is controlled. There is question regarding his jejunostomy tube. I am suspicious that that the feeding jejunostomy is not in correct placement. I have recommended to the medical team that the jejunostomy tube not be used. It is too early for the tube to be removed, however in 3 more weeks, removal is feasible. At this time I will allow the small bowel to heal. The patient does not appear to have leakage of intraluminal contrast into the intra-abdominal sp oliva. This was confirmed on CT scan. Overall the patient is improving. I will continue to follow his clinical course.
--- NOTE | 2019-03-28 08:34 | PDOC CRITICAL CARE PROG REPORT ---
General Date:: 03/28/19 ICU Day:: 7 Hospital Day:: 17 Resuscitation Status: Do Not Resuscitate - Do Not Intubate Medical Power of Carpentry Specialist: : Elisa Events in the past 12 to 24 Hours:: 03.28.2019: Patient had an episode of V. tach that was nonsustained and not symptomatic. Diflucan was stopped because of concern that this may be contributing to this. EKG showed no QTC elongation. He was given 3 g of magnesium and his symptoms and tachycardia have subsided. Notably, patient and had a lengthy discussion and he has decided to be transitioned to hospice. Currently he is not dyspneic. He would like his NG t ube removed. 03.27.2019: Patient underwent CT scan yesterday which shows possible hematoma in the removed kidney bed. There are anatomical changes to surgery as well. The distention and dilation appear to be improved with the placement of the NG tube. There is possibility that this also may be the mass. Patient has had not had any further tachycardia. Discussion with oncology this morning resulted in a DNR/DNI status. 03.26.2019: Patient had intermittent episodes of tachycardia which was relieved with IV metoprolol. His pain crises are less however when they do occur are on a scale of 4/5. Patient appears to have limited ability to complete sentences without breathing. When asked he endorsed some dyspnea. His mouth appears to be less dry and he has been using candy/lozenge years to prevent mouth dryness. There has been no hypotension or fever. CBC done earlier this morning showed a decrease in hemoglobin and hematocrit. Repeat done which shows some decrease but not severe. His white blood cell count has improved. He was started on antifungal's and antibiotics yesterday. There was some question regarding a leak at the anastomotic site. He was made n.p.o. and a PICC line was placed with the anticipation to start TPN this morning. 03.25.2019: Patient's rapid heart rate has improved and he has been hemodynamically stable overnight. Evaluation of his feeding jejunostomy tube showed kinking and a leak into the intraperitoneal cavity. 03.24.2019:Dehydrated, episodes of rapid afib treated with fluid. Review of systems relevant to events:: 03.28.2019: Patient has had frequent bowel movements and these are keeping him awake at night. Type of movement or manipulation of his abdomen causes somewhat explosive bowel movement. There is been no blood. He has been afebrile. 03.27.2019: Patient's pain has been intermittent. Had short run of V. tach today was nonspecific and asymptomatic. Otherwise, hemodynamics not been labile. Is had frequent bowel movements but they are not bloody. C. difficile was ordered. He had some degree of confusion late afternoon. Given the V. tach the Diflucan was stopped and concern for QT prolongation. An EKG did not show QT prolongation but it was for 50 ms. Magnesium was 1.9 and was replaced as well as potassium. 03.26.2019: Patient endorses dyspnea today. His pain appears to be somewhat improved. He does have intermittent abdominal pain. He is having more frequent bowel movements which appear to be to poorly related to the pain. There is no blood in his bowel movements. His Oliveira was maintained secondary to urinary retention and possible prostatic enlargement. His heart rate is currently controlled in normal sinus at 80 bpm. During exam he had active pain in the right upper quadrant which was relieved over time without any medications. 03.25.2019:Patient describes 5 out of 5 abdominal pain at times with movement yesterday. This has improved today. He responded to low-dose fentanyl. He complains of extreme mouth dryness. Surgery has requested complete n.p.o. status given the leak at the anastomotic site. 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 He also would multiple lymph nodes positive and evidence of carcinomatosis. Reason for ICU Addmission:: Afib with RVR, dehydration. - Medications: Vasopressors:: None Physical Exam Vital Signs: Temp Pulse Resp BP Pulse Ox 98.9 F 71 25 H 129/91 H 100 03/28/19 03:43 03/28/19 03:43 03/28/19 06:45 03/28/19 06:16 03/28/19 06:45 Intake & Output 03/27/19 03/28/19 03/29/19 06:59 06:59 06:59 Intake Total 1869 2697 Output Total 2280 2180 Balance -411 517 Weight 85.2 kg 86.2 kg Weight/Height Weight 86.2 kg Height 5 ft 11 in General appearance: PRESENT: no acute distress, thin, well-developed Exam: Pleasant, stoic 69-year-old male no acute distress. He is awake and aware oriented to person time and place as well as situation. Head exam: PRESENT: atraumatic, normocephalic Eye exam: PRESENT: EOMI, PERRLA. ABSENT: conjunctival injection, nystagmus, scleral icterus Mouth exam: PRESENT: moist, neck supple Teeth exam: ABSENT: poor dentation Neck exam: ABSENT: carotid bruit, JVD, lymphadenopathy, thyromegaly Respiratory exam: PRESENT: clear to auscultation magui, unlabored. ABSENT: rales, rhonchi, tachypnea, wheezes Cardiovascular exam: PRESENT: RRR. ABSENT: diastolic murmur, rubs, systolic murmur GI/Abdominal exam: PRESENT: diminished bowel sounds, firm, guarding, tenderness, other - Incision is clean and dry. Mcihael are intact. Rectal exam: PRESENT: deferred Gentrourinary exam: PRESENT: indwelling catheter Extremities exam: PRESENT: pedal edema Musculoskeletal exam: ABSENT: deformity, dislocation Neurological exam: PRESENT: alert, awake, oriented to person, oriented to place, oriented to time, oriented to situation, CN II-XII grossly intact. ABSENT: motor sensory deficit Psychiatric exam: PRESENT: flat affect, normal mood Focused psych exam: ABSENT: pressured speech, psychomotor agitation, restlessness Skin exam: PRESENT: dry, intact, normal color, warm. ABSENT: cyanosis, mottled, rash, urticaria, vesicles Tubes/Lines: PRESENT: Nasogastic Tube, Other - Oliveira present. In for compassionate care Laboratory/Radiographs Laboratory Results: 03/28/19 03:29 03/28/19 03:29 03/27/19 03/27/19 03/27/19 17:05 17:05 18:25 WBC RBC Hgb Hct MCV MCH MCHC RDW Plt Count Seg Neutrophils % Sodium Cancelled 137.2 Potassium Cancelled 3.4 L Chloride Cancelled 106 Carbon Dioxide Cancelled 24 Anion Gap Cancelled 7 BUN Cancelled 13 Creatinine Cancelled 0.76 Est GFR ( Amer) Cancelled > 60 Est GFR (Non-Af Amer) Cancelled Glucose Cancelled 131 H Calcium Cancelled 7.5 L Phosphorus Magnesium 2.1 1.9 Total Bilirubin AST Alkaline Phosphatase Total Protein Albumin 03/28/19 03/28/19 03:29 03:29 WBC 9.9 RBC 3.36 L Hgb 7.9 L Hct 24.9 L MCV 74 L MCH 23.6 L MCHC 31.9 L RDW 21.4 H Plt Count 359 Seg Neutrophils % 81.6 H Sodium 136.4 L Potassium 3.6 Chloride 105 Carbon Dioxide 25 Anion Gap 6 BUN 10 Creatinine 0.70 Est GFR ( Amer) > 60 Est GFR (Non-Af Amer) Glucose 131 H Calcium 7.4 L Phosphorus 1.5 L Magnesium Total Bilirubin 0.4 AST 68 H Alkaline Phosphatase 121 Total Protein 4.7 L Albumin 2.0 L 03/23/19 03/23/19 03/23/19 15:20 15:20 20:57 Creatine Kinase 25 L 25 L CK-MB (CK-2) 0.34 Troponin I 0.053 NT-Pro-B Natriuret Pep 3190 H 03/23/19 03/24/19 03/24/19 20:57 02:23 02:23 Creatine Kinase 78 CK-MB (CK-2) 0.34 0.97 Troponin I 0.029 0.022 NT-Pro-B Natriuret Pep 03/24/19 03/24/19 09:14 09:14 Creatine Kinase 92 CK-MB (CK-2) 0.99 Troponin I 0.019 NT-Pro-B Natriuret Pep Impressions: Small Bowel X-Ray 03/14/19 00:00 IMPRESSION: Persistent dilated small bowel loops measuring up to 4.2 cm compatible with obstruction. Gas and previously administered oral contrast now within the colon compatible with partial process. Exam was prematurely terminated secondary to patient intolerance of additional contrast material. Correlation with prior CT demonstrates dilated small bowel loops to level of the distal jejunum with transition point within the right lower quadrant (series 3, image [id number]) with questionable associated soft tissue mass at this location. There are foci of curvilinear gas at this location possibly luminal although pneumatosis is not entirely excluded. Findings were discussed with ordering provider Dr. Cornejo at 1423 hours on 03/14/2019 Interventional Vascular Procedure 03/25/19 00:00 IMPRESSION: SUCCESSFUL PLACEMENT OF A 5 FR DUAL LUMEN PICC IN THE RIGHT BASILIC VEIN. PICC Line Insertion 03/25/19 00:00 IMPRESSION: SUCCESSFUL PLACEMENT OF A 5 FR DUAL LUMEN PICC IN THE RIGHT BASILIC VEIN. Tube Placement 03/25/19 09:00 IMPRESSION: Jejunostomy tube is folded upon itself within a loop of jejunum. There is extravasation of contrast along the anterior abdominal skin surface which obscures evaluation. Questionable additional intraperitoneal extravasation although evaluation limited on the frontal projections. Repeat injection with additional CT or lateral images could be considered for confirmation. FINDINGS WERE DISCUSSED WITH DR. HAMMER AT APPROXIMATELY 1000 HOURS. Abdomen/Pelvis CT 03/26/19 00:00 IMPRESSION: 1. Previous study demonstrated lung metastasis. These are less obvious today because of increase in bilateral lower lobe consolidations and effusions. 2. Compared to previous recent studies, gastric and small bowel dilatation is currently decreased but is still significant. There is however obvious increase in mesenteric abnormalities. Includes omental thickening and areas of low density thickening in the mesentery surrounding small bowel loops. The rapid progression suggests an infectious process. Cannot exclude combination of infectious and neoplastic process in the mesentery. 3. Absent left kidney. A relatively large mass in the left renal surgical bed is minimally smaller since several days ago. Mass versus hematoma. Could be both. Previous left anterior psoas thickening is decreased. 4. Lytic lesion in the left femoral head. Sclerosis and collapse of the L2 vertebral body unchanged. 5. Anasarca has increased. KUB X-Ray 03/26/19 08:49 IMPRESSION: MILD SMALL BOWEL DILATION, NONSPECIFIC. MAY BE DUE TO POSTOPERATIVE ILEUS. Chest X-Ray 03/27/19 06:00 IMPRESSION: The tip of the enteric tube projects within the gastric lumen. Otherwise unchanged radiographic appearance of the chest. Scrotum Ultrasound 03/28/19 00:00 IMPRESSION: Moderate right hydrocele. Diffuse scrotal wall edema and skin thickening. copyright 2011 [employer]- All Rights Reserved All labs, radiographs, diagnostic studies and EKGs were personally reviewed: Yes In addition, reports of radiographic and diagnostic studies were read: Yes Assessment and Plan - Diagnosis (1) Ventricular tachycardia (paroxysmal) Is this a current diagnosis for this admission?: Yes (2) Acute peritonitis Is this a current diagnosis for this admission?: Yes Plan: 03.28.2019: still has pain. Antifungal discontinued 03.27.2019: Appears to be improving we will continue antibiotics for the time being. Diflucan discontinued secondary to EKG concerns. 03.26.2019:Pain still intermittent. On antibiotics/antifungals. Still ambiguity regarding possible leak at small bowel anastamosis. Will most likely need CT of abdomen with oral contrast. Obtain KUB to evaluate for residual contrast load. (3) Delirium due to another medical condition, acute, mixed level of activity Is this a current diagnosis for this admission?: Yes (4) Anastomotic leak of intestine Is this a current diagnosis for this admission?: No Plan: 03.27.2019: This was a concern but no longer significant. There does not appear to be anastomotic leak however on lateral view of the CT scan there is air juxtaposed to small bowel which may be the early initiation of a fistula. Will discuss and review imaging with surgery. Patient would not want repeat surgery or aggressive procedures. 03.26.2019:Possible, given pain. NPO, starting on TPN. CT possible later today (5) Jejunal cancer Is this a current diagnosis for this admission?: Yes (6) Metastatic renal cell carcinoma to intra-abdominal site Is this a current diagnosis for this admission?: Yes (7) Atrial fibrillation with RVR Is this a current diagnosis for this admission?: Yes Plan: 03.27.2019: Short run of VT. Replace Electrolytes and discontinued Diflucan 03.26.2019:stable this am. Have increased BB to 5 mg Q4 (8) Hypotension due to hypovolemia Is this a current diagnosis for this admission?: Yes Plan: Resolved; responded to fluids Improved. (9) Partial small bowel obstruction Is this a current diagnosis for this admission?: Yes Plan Summary: 03.28.2019: Patient has had significant diarrhea and continues to have persistent abdominal pain. Is not wanted narcotics because he wanted to make sure his mentation was intact as he is meeting with his family in making decisions about end-of-life care. After a lengthy discussion the patient has decided to pursue hospice and would like to be discharged today if possible. We believe that this is a reasonable request, he is lucid and coherent, and his is in agreement. Additionally all consultants except for cardiology, were notified and they are in agreement as well and feel that this is the best course for the patient. We discussed the concept of comfort care. He is in agreement to maintain his beta-dg to prevent any tachycardia which may cause symptoms. We will attempt to find a tablet form to dissolve underneath the tongue while he is still awake if he is unable to swallow. We also discussed that at some point the benefit not be valid. Discussed control of his diarrhea and will place him on an anti-secretory medication with the knowledge that this might contribute to abdominal distention and worse pain. Will control symptoms. Assured the patient that we will continue to protect the integrity of his decision, this activity of his life and his family's obvious grief. Have contacted case management and social work for hospice consult and will work diligently to process the patient's request. Please see chart and orders for details. Will continue the Oliveira for compassionate use. Notably an ultrasound of his scrotum shows a hydrocele but intact vascular supply. We will continue supportive care 03.27.2019: The patient CT scan did not show any leak from the anastomosis however the J- tube appears to be bowel of the bowel according to surgery. Plan is to maintain this in current position given the circumstances. Concerned that there is going to be the development of a gastric small bowel fistula given the findings on CT. It is at risk for significant complications and has a large tumor burden. I had a lengthy discussion with oncology and the patient's family as well as the patient. Patient would not want surgery and oncology is asked that this not be done should any complications occur. Keytruda may be of value however patient is unable to take this orally. He still may be a candidate and oncology is working with us to see if this would be of some utilization. Knowing that his situation is poor and prognosis dismal, patient has self declared DNR DNI under the counseling of oncology and critical care at bedside. He would still want conservative aggressive care but no surgery. His chest x-ray shows slight to moderate effusion on the left and he is weak. He appears to be tolerating the TPN but has a high catabolic process with limited anabolic progression. He is at high risk for skin breakdown, VTE and persistent nutritional depletion. Given the possibility of bleeding in the tumor bed we have discontinued his heparin for now. His hemoglobin hematocrit have been slowly declining and will need to continue to monitor this. As far as his SVT will continue to replace electrolytes. He may need an increase in his beta-dg. Has had what appears to be an episode of delirium late this afternoon which may be medication related , related to the ICU or combination of all the above. Will discontinue any possible inciting medications and continue to monitor. It may be in his best interest to transfer out of the ICU if he remains stable in the next 24 hours. At this point given his labile hemodynamic process and his abdominal discomfort he would be best kept in the ICU. We have sent stool for C. difficile and will watch for bleeding. 03.26.2019: Patient still has intermittent severe abdominal pain. There is a questionable suggestion of possible anastomotic leak and patient was made n.p.o. Will be started on TPN today and have discussed the case with the surgeon. They have already ordered a KUB. After the KUB is done will most likely obtain a CT of the abdomen and pelvis with oral contrast. Patient has significant protein calorie malnutrition of moderate nature. He is unable to take anything enterally and we have started TPN today. He is at high risk for anastomotic breakdown, decubiti, poor wound healing and increased morbidity. He also has extensive tumor burden and is not currently being treated. He does appear to still be volume depleted and we will continue IV fluids at current rate in addition to TPN. He will need to be maintained in the ICU given his paroxysmal tachycardia, possibility of anastomotic leak, significant pain and complex processes. Afternoon rounds: The patient did have KUB and chest x-ray which does show moderate dilatation of the stomach and proximal small bowel. The patient does have bile colored bowel movements but no blood noted. I do not appreciate any contrast on the KUB that may have been extravasated however unsure given the limited possibility and size of anastomotic leak that this would be a fail safe determination that no leak exist. He has significant pain for out of 5 with any movement. Has been n.p.o. so unable to determine whether he would tolerate any oral intake. Discussed the x-ray findings with surgery and they have asked for an NG tube to be placed. The plan will be to try to decompress the proximal gut and possibly give contrast to evaluate the surgical site. The percutaneously placed jejunostomy tube appears to be kinked and unable to be used. Will also obtain CT of abdomen. At this point, I am less concerned about a leak but more concerned about obstruction. Will give contrast to r/o both. Placed lidocaine in nasal passage and back of tongue to facilitate placement of NGT. Successful and KUB shows placement in stomach 03.25.2019:Patient is noted to have an anastomotic leak at the jejunal resection site. So has a kink in the jejunostomy tube. I had a long discussion with surgery today and they have requested complete n.p.o. status and initiation of TPN. A PICC line will be placed. Patient appears to have advanced metastatic disease with possible carcinomatosis, multiple positive lymph nodes and now involvement of the bowel. Appreciate the involvement of the oncology team and assisting us with his care. At this point patient is at high risk for infection and complications associated with this leak. His white count had been elevated and we have placed him on broad-spectrum antibiotics to include an antifungal. We may need to consider an advance antifungal given his immune status. I am most concerned that this will be an ongoing process and will discuss with surgery about the possibility of reexploration. The other possibility would be to allow for healing and we have made the patient n.p.o. Continue to monitor his status. Continue in ICU Critical Time Critical Time (minutes): 60 - Includes end-of-life discussion and care Level of Care: ICU Anticipated discharge: Hospice Within: Other - Today -: 1. The care of a critical patient is a dynamic process. This note is a tax compliance representative synopsis but static in nature. The timeframe for treatments given in order is not necessarily the actual time these treatments may have been done. 2. This patient requires critical care secondary to ongoing requirements for therapy not offered or safe outside the critical care environment. Transfer to a lower level of care will result in altered life or limb morbidity and mortality. 3. Multidisciplinary rounds completed. 4. ABCDE bundle addressed.
[2019-03-28] MEDS: FENTANYL CITRATE INJ/PF 100 MCG/2 ML AMPUL IV PRN (08:44)
--- NOTE | 2019-03-28 08:50 | PDOC DISCHARGE SUMMARY ---
Impression - Admit/DC Date/PCP Admission Date/Primary Care Provider: 03/12/19 23:20 TEREZA HURTADO MD Discharge Date: 03/28/19 - Discharge Diagnosis (1) Ventricular tachycardia (paroxysmal) Is this a current diagnosis for this admission?: Yes (2) Acute peritonitis Is this a current diagnosis for this admission?: Yes (3) Delirium due to another medical condition, acute, mixed level of activity Is this a current diagnosis for this admission?: Yes (4) Anastomotic leak of intestine Is this a current diagnosis for this admission?: No (5) Jejunal cancer Is this a current diagnosis for this admission?: Yes (6) Metastatic renal cell carcinoma to intra-abdominal site Is this a current diagnosis for this admission?: Yes (7) Atrial fibrillation with RVR Is this a current diagnosis for this admission?: Yes (8) Hypotension due to hypovolemia Is this a current diagnosis for this admission?: Yes (9) Partial small bowel obstruction Is this a current diagnosis for this admission?: Yes - Assessment Summary: Mr. Palacios is a 69 yo M with Stage IV metastatic renal cancer, EtOH induced cardiomyopathy, and CAD. He initially presented on 03/12/2019 with nausea and vomiting. He had received chemotherapy just a few days prior to admission. CT at that time showed a small bowel obstruction and patient underwent exploratory laparotomy with partial small bowel resection and feeding jejunostomy placement on 03/15. Post surgery, patient had multiple episodes of vomiting and began to develop atrial fibrillation with RVR. His home dose of Coreg and Ranexa were held due to inability to take p.o. Medications could not be crushed and placed into J-tube. He is being transferred to intensive care due to his uncontrolled intermittent RVR in the setting of relative hypotension. He has been given multiple liters of normal saline since his surgery and is beginning to develop worsening peripheral edema. Patient is showing no signs of distress related to his atrial fibrillation other than mild anxiety and inability to sleep. He has not been nauseous since transfer of care to ICU. On admission to ICU, active diagnosis: (1) Atrial fibrillation with RVR Patient was started on digoxin which has not been effective with most recent dose. His blood pressure seems to have improved with his last 1 L bolus of normal saline. I have therefore feel comfortable giving him his long-acting beta dg, Lopressor. Consider esmolol drip if blood pressure does not tend to tolerate Lopressor administration. (2) Partial small bowel obstruction Status post partial small bowel resection with jejunostomy tube placement. NG tube removed earlier today. We will defer details of his surgical management to his surgical team. Given his recent CT results which show decompression of bowel distal to the anastomosis, I suspect that he will tolerate resuming J-tube feeds in the near future. -Keep n.p.o. for now. -Antiemetics as needed -We will discuss with surgery when to restart slow J-tube feeding. (3) renal cell carcinoma stage 4 Is this a current diagnosis for this admission?: Yes Plan: Patient is aware of the severity of his stage IV disease. Given his multiple sites of metastases, as well as his cardiac comorbidities, I believe a palliative care consult would be appropriate to discuss his medical options and plan of care. Patient was accepted to the critical care service when he had labile heart rate issues and blood pressure concerns. He had atrial dysrhythmias (atrial tachycardia) and significant abdominal pain. CT scans of the abdomen showed questionable displacement of the J-tube. There was also concern for distant obstruction at the jejunal anastomosis. There was an early concern for jejunal anastomosis leak but this was not able to be confirmed. The abdominal pain and concern for possible occult leak and/or infection he was started on broad-spectrum antibiotics and antifungals. Developed persistent nonbloody diarrhea with pain with each bowel movement. He had some dyspnea and developed effusions but the patient had decided to pursue hospice rather than aggressive treatment. He has had significant discomfort and was concerned that pain medication would cause him to lose lucidity. His persistent abdominal pain and discomfort. Patient was made DNR/DNI at his request and 24 hours after this request was made he requested hospice and comfort care. Chronology/plan: 03.28.2019: Patient had an episode of V. tach that was nonsustained and not symptomatic. Diflucan was stopped because of concern that this may be contributing to this. EKG showed no QTC elongation. He was given 3 g of magnesium and his symptoms and tachycardia have subsided. Notably, patient and had a lengthy discussion and he has decided to be transitioned to hospice. Currently he is not dyspneic. He would like his NG tube removed. 03.27.2019: Patient underwent CT scan yesterday which shows possible hematoma in the removed kidney bed. There are anatomical changes to surgery as well. The distention and dilation appear to be improved with the placement of the NG tube. There is possibility that this also may be the mass. Patient has had not had any further tachycardia. Discussion with oncology this morning resulted in a DNR/DNI status. 03.26.2019: Patient had intermittent episodes of tachycardia which was relieved with IV metoprolol. His pain crises are less however when they do occur are on a scale of 4/5. Patient appears to have limited ability to complete sentences without breathing. When asked he endorsed some dyspnea. His mouth appears to be less dry and he has been using candy/lozenge years to prevent mouth dryness. There has been no hypotension or fever. CBC done earlier this morning showed a decrease in hemoglobin and hematocrit. Repeat done which shows some decrease but not severe. His white blood cell count has improved. He was started on antifungal's and antibiotics yesterday. There was some question regarding a leak at the anastomotic site. He was made n.p.o. and a PICC line was placed with the anticipation to start TPN this morning. 03.25.2019: Patient's rapid heart rate has improved and he has been hemodynamically stable overnight. Evaluation of his feeding jejunostomy tube showed kinking and a leak into the intraperitoneal cavity. 03.24.2019:Dehydrated, episodes of rapid afib treated with fluid. Review of systems relevant to events:: 03.28.2019: Patient has had frequent bowel movements and these are keeping him awake at night. Type of movement or manipulation of his abdomen causes somewhat explosive bowel movement. There is been no blood. He has been afebrile. 03.27.2019: Patient's pain has been intermittent. Had short run of V. tach today was nonspecific and asymptomatic. Otherwise, hemodynamics not been labile. Is had frequent bowel movements but they are not bloody. C. difficile was ordered. He had some degree of confusion late afternoon. Given the V. tach the Diflucan was stopped and concern for QT prolongation. An EKG did not show QT prolongation but it was for 50 ms. Magnesium was 1.9 and was replaced as well as potassium. 03.26.2019: Patient endorses dyspnea today. His pain appears to be somewhat improved. He does have intermittent abdominal pain. He is having more frequent bowel movements which appear to be to poorly related to the pain. There is no blood in his bowel movements. His Oliveira was maintained secondary to urinary retention and possible prostatic enlargement. His heart rate is currently controlled in normal sinus at 80 bpm. During exam he had active pain in the right upper quadrant which was relieved over time without any medications. 03.25.2019:Patient describes 5 out of 5 abdominal pain at times with movement yesterday. This has improved today. He responded to low-dose fentanyl. He complains of extreme mouth dryness. Surgery has requested complete n.p.o. status given the leak at the anastomotic site. 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 He also would multiple lymph nodes positive and evidence of carcinomatosis Plan Summary: 03.28.2019: Patient has had significant diarrhea and continues to have persistent abdominal pain. Is not wanted narcotics because he wanted to make sure his mentation was intact as he is meeting with his family in making decisions about end-of-life care. After a lengthy discussion the patient has decided to pursue hospice and would like to be discharged today if possible. We believe that this is a reasonable request, he is lucid and coherent, and his is in agreement. Additionally all consultants except for cardiology, were notified and they are in agreement as well and feel that this is the best course for the patient. We discussed the concept of comfort care. He is in agreement to maintain his beta-dg to prevent any tachycardia which may cause symptoms. We will attempt to find a tablet form to dissolve underneath the tongue while he is still awake if he is unable to swallow. We also discussed that at some point the benefit not be valid. Discussed control of his diarrhea and will place him on an anti-secretory medi cation with the knowledge that this might contribute to abdominal distention and worse pain. Will control symptoms. Assured the patient that we will continue to protect the integrity of his decision, this activity of his life and his family's obvious grief. Have contacted case management and social work for hospice consult and will work diligently to process the patient's request. Please see chart and orders for details. Will continue the Oliveira for compassionate use. Notably an ultrasound of his scrotum shows a hydrocele but intact vascular supply. We will continue supportive care 03.27.2019: The patient CT scan did not show any leak from the anastomosis however the J- tube appears to be bowel of the bowel according to surgery. Plan is to maintain this in current position given the circumstances. Concerned that there is going to be the development of a gastric small bowel fistula given the findings on CT. It is at risk for significant complications and has a large tumor burden. I had a lengthy discussion with oncology and the patient's family as well as the patient. Patient would not want surgery and oncology is asked that this not be done should any complications occur. Keytruda may be of value however patient is unable to take this orally. He still may be a candidate and oncology is working with us to see if this would be of some utilization. Knowing that his situation is poor and prognosis dismal, patient has self declared DNR DNI under the counseling of oncology and critical care at bedside. He would still want conservative aggressive care but no surgery. His chest x-ray shows slight to moderate effusion on the left and he is weak. He appears to be tolerating the TPN but has a high catabolic process with limited anabolic progression. He is at high risk for skin breakdown, VTE and persistent nutritional depletion. Given the possibility of bleeding in the tumor bed we have discontinued his heparin for now. His hemoglobin hematocrit have been slowly declining and will need to continue to monitor this. As far as his SVT will continue to replace electrolytes. He may need an increase in his beta-dg. Has had what appears to be an episode of delirium late this afternoon which may be medication related , related to the ICU or combination of all the above. Will discontinue any possible inciting medications and continue to monitor. It may be in his best interest to transfer out of the ICU if he remains stable in the next 24 hours. At this point given his labile hemodynamic process and his abdominal discomfort he would be best kept in the ICU. We have sent stool for C. difficile and will watch for bleeding. 03.26.2019: Patient still has intermittent severe abdominal pain. There is a questionable suggestion of possible anastomotic leak and patient was made n.p.o. Will be started on TPN today and have discussed the case with the surgeon. They have already ordered a KUB. After the KUB is done will most likely obtain a CT of the abdomen and pelvis with oral contrast. Patient has significant protein calorie malnutrition of moderate nature. He is unable to take anything enterally and we have started TPN today. He is at high risk for anastomotic breakdown, decubiti, poor wound healing and increased morbidity. He also has extensive tumor burden and is not currently being treated. He does appear to still be volume depleted and we will continue IV fluids at current rate in addition to TPN. He will need to be maintained in the ICU given his paroxysmal tachycardia, possibility of anastomotic leak, significant pain and complex processes. Afternoon rounds: The patient did have KUB and chest x-ray which does show moderate dilatation of the stomach and proximal small bowel. The patient does have bile colored bowel movements but no blood noted. I do not appreciate any contrast on the KUB that may have been extravasated however unsure given the limited possibility and size of anastomotic leak that this would be a fail safe determination that no leak exist. He has significant pain for out of 5 with any movement. Has been n.p.o. so unable to determine whether he would tolerate any oral intake. Discussed the x-ray findings with surgery and they have asked for an NG tube to be placed. The plan will be to try to decompress the proximal gut and possibly give contrast to evaluate the surgical site. The percutaneously placed jejunostomy tube appears to be kinked and unable to be used. Will also obtain CT of abdomen. At this point, I am less concerned about a leak but more concerned about obstruction. Will give contrast to r/o both. Placed lidocaine in nasal passage and back of tongue to facilitate placement of NGT. Successful and KUB shows placement in stomach 1.6.2020:Patient is noted to have an anastomotic leak at the jejunal resection site. So has a kink in the jejunostomy tube. I had a long discussion with surgery today and they have requested complete n.p.o. status and initiation of TPN. A PICC line will be placed. Patient appears to have advanced metastatic disease with possible carcinomatosis, multiple positive lymph nodes and now involvement of the bowel. Appreciate the involvement of the oncology team and assisting us with his care. At this point patient is at high risk for infection and complications associated with this leak. His white count had been elevated and we have placed him on broad-spectrum antibiotics to include an antifungal. We may need to consider an advance antifungal given his immune status. I am most concerned that this will be an ongoing process and will discuss with surgery about the possibility of reexploration. The other possibility would be to allow for healing and we have made the patient n.p.o. Continue to monitor his status. Continue in ICU - Additional Information Resuscitation Status: Do Not Resuscitate - Do Not Intubate Discharge Diet: As Tolerated Discharge Activity: Activity As Tolerated, Balance Activity w/Rest Home Medications: Carvedilol [Coreg] 12.5 mg PO Q12 03/12/19 Docusate Sodium [Colace 100 mg Capsule] 100 mg PO BID 03/12/19 Dronabinol 5 mg PO BID 03/12/19 Multivitamin [Multivitamins] 1 cap PO DAILY 03/12/19 Ondansetron HCl [Zofran 8 mg Tablet] 8 mg PO Q8HP PRN 03/12/19 Polyethylene Glycol 3350 [Miralax Powder 17 gm/Packet] 17 gm PO DAILY 03/12/19 Promethazine HCl [Phenergan 25 mg Tablet] 25 mg PO Q4HP PRN 03/12/19 Ranolazine [Ranexa 500 mg Tab.sr] 500 mg PO BID 03/12/19 Rosuvastatin Calcium [Crestor 5 mg Tablet] 5 mg PO QHS 03/12/19 Tramadol HCl [Ultram] 50 mg PO Q6HP PRN 03/12/19 Ubidecarenone/Vitamin E Mixed [Coq10 Sg 100 Softgel] 2 cap PO DAILY 03/12/19 Acetaminophen [Tylenol Soln 325 mg/10.15 ml Udcup] 975 mg NG Q6HP PRN udc 03/21/19 Carvedilol [Coreg 12.5 mg Tablet] 12.5 mg NG Q12@0700,1900 tablet 03/21/19 Phenol/Sodium Phenolate [Chloraseptic Sore Throat [place] 177 ml] 1 spray PO Q1HP PRN bottle 03/21/19 Additional Information: Hospice care and follow up History of Present Illiness History of Present Illness: SONIA PALACIOS is a 69 year old maleJ who presented to the emergency room with a 1-day history of nausea and vomiting. He admits the onset nausea and vomiting yesterday progressively worsening and becoming intractable today. His nausea and vomiting is associated with diarrhea which started 4 days ago and resolved gradually over 2 days as well as worsening abdominal distention/bloating over the last 24 hours. He denies other associated or accompanying signs and symptoms. He admits recent chemotherapy/immunotherapy for his stage IV renal cell carcinoma administered by Dr. Hurtado. He admits prior similar symptoms but not of this intensity. He has not identified any aggravating or ameliorating factors for his nausea and vomiting. In the emergency room he was found to have an ileus with some distended loops of small intestine noted on the CT scan of the abdomen and pelvis. He was evaluated by the surgical service and per Dr. Sheffield who should be admitted and followed for further evaluation treatment. He was evaluated by surgery and taken to the operating room for exploratory lap were a jejunal mass consistent with metastatic renal cell cancer was found. He underwent primary anastomosis of the diseased area with clear margins seen on biopsy. He was placed on a general medical surgical floor but developed atrial fibrillation with worsening abdominal discomfort. Initially responded to volume however pain and persistent atrial tachycardia resulted in the patient being transferred officially to the critical care service. Hospital Course Hospital Course: Please see summary on first page Physical Exam Vital Signs: Temp Pulse Resp BP Pulse Ox 98.9 F 71 25 H 129/91 H 100 03/28/19 03:43 03/28/19 03:43 03/28/19 06:45 03/28/19 06:16 03/28/19 06:45 Intake & Output 03/27/19 03/28/19 03/29/19 06:59 06:59 06:59 Intake Total 1869 2697 Output Total 2280 2180 Balance -411 517 Weight 85.2 kg 86.2 kg Exam: See progress notes from today Results Laboratory Results: WBC 9.9 10^3/uL (4.0-10.5) 03/28/19 03:29 RBC 3.36 10^6/uL (4.35-5.55) L 03/28/19 03:29 Hgb 7.9 g/dL (13.5-17.0) L 03/28/19 03:29 Hct 24.9 % (37.9-51.0) L 03/28/19 03:29 MCV 74 fl (80-97) L 03/28/19 03:29 MCH 23.6 pg (27.0-33.4) L 03/28/19 03:29 MCHC 31.9 g/dL (32.0-36.0) L 03/28/19 03:29 RDW 21.4 % (11.5-14.0) H 03/28/19 03:29 Plt Count 359 10^3/uL (150-450) 03/28/19 03:29 Lymph % (Auto) 6.5 % (13-45) L 03/28/19 03:29 [place] % (Auto) 8.4 % (3-13) 03/28/19 03:29 Eos % (Auto) 2.9 % (0-6) 03/28/19 03:29 Baso % (Auto) 0.6 % (0-2) 03/28/19 03:29 Absolute Neuts (auto) 8.1 10^3/uL (1.7-8.2) 03/28/19 03:29 Absolute Lymphs (auto) 0.6 10^3/uL (0.5-4.7) 03/28/19 03:29 Absolute Monos (auto) 0.8 10^3/uL (0.1-1.4) 03/28/19 03:29 Absolute Eos (auto) 0.3 10^3/uL (0.0-0.6) 03/28/19 03:29 Absolute Basos (auto) 0.1 10^3/uL (0.0-0.2) 03/28/19 03:29 Total Counted 100 03/26/19 00:11 Seg Neutrophils % 81.6 % (42-78) H 03/28/19 03:29 Seg Neuts % (Manual) 95 % (42-78) H 03/26/19 00:11 Band Neutrophils % 9 % (3-5) H 03/21/19 06:40 Lymphocytes % (Manual) 3 % (13-45) L 03/26/19 00:11 Monocytes % (Manual) 2 % (3-13) L 03/26/19 00:11 Eosinophils % (Manual) 0 % (0-6) 03/26/19 00:11 Basophils % (Manual) 0 % (0-2) 03/26/19 00:11 Abs Neuts (Manual) 13.7 10^3/uL (1.7-8.2) H 03/26/19 00:11 Abs Lymphs (Manual) 0.4 10^3/uL (0.5-4.7) L 03/26/19 00:11 Abs Monocytes (Manual) 0.3 10^3/uL (0.1-1.4) 03/26/19 00:11 Absolute Eos (Manual) 0.0 10^3/uL (0.0-0.6) 03/26/19 00:11 Abs Basophils (Manual) 0.0 10^3/uL (0.0-0.2) 03/26/19 00:11 Toxic Granulation 1+ 03/26/19 00:11 Toxic Vacuolation PRESENT 03/26/19 00:11 Platelet Comment ADEQUATE 03/26/19 00:11 Polychromasia SLIGHT 03/21/19 06:40 Hypochromasia 1+ 03/26/19 00:11 Poikilocytosis 2+ 03/26/19 00:11 Anisocytosis 3+ 03/26/19 00:11 Microcytosis SLIGHT 03/24/19 02:23 Tear Drop Cells SLIGHT 03/26/19 00:11 Ovalocytes 2+ 03/26/19 00:11 Lou Cells 2+ 03/25/19 03:41 Sodium 136.4 mmol/L (137-145) L 03/28/19 03:29 Potassium 3.6 mmol/L (3.6-5.0) 03/28/19 03:29 Chloride 105 mmol/L (98-107) 03/28/19 03:29 Carbon Dioxide 25 mmol/L (22-30) 03/28/19 03:29 Anion Gap 6 (5-19) 03/28/19 03:29 BUN 10 mg/dL (7-20) 03/28/19 03:29 Creatinine 0.70 mg/dL (0.52-1.25) 03/28/19 03:29 Est GFR ( Amer) > 60 (>60) 03/28/19 03:29 Est GFR (Non-Af Amer) Cancelled 03/27/19 17:05 Est GFR (MDRD) Non-Af > 60 (>60) 03/28/19 03:29 Glucose 131 mg/dL (75-110) H 03/28/19 03:29 POC Glucose 141 mg/dL (70-110) H 03/28/19 04:53 Lactic Acid 1.3 mmol/L (0.7-2.1) 03/12/19 16:02 Calcium 7.4 mg/dL (8.4-10.2) L 03/28/19 03:29 Phosphorus 1.5 mg/dL (2.5-4.5) L 03/28/19 03:29 Magnesium 1.9 mg/dL (1.6-2.3) 03/27/19 18:25 Total Bilirubin 0.4 mg/dL (0.2-1.3) 03/28/19 03:29 Direct Bilirubin 0.3 mg/dL (0.0-0.4) 03/28/19 03:29 Neonat Total Bilirubin Not Reportable 03/28/19 03:29 Neonat Direct Bilirubin Not Reportable 03/28/19 03:29 Neonat Indirect Bili Not Reportable 03/28/19 03:29 AST 68 U/L (17-59) H 03/28/19 03:29 ALT 58 U/L (<50) 03/28/19 03:29 Alkaline Phosphatase 121 U/L (38-126) 03/28/19 03:29 Creatine Kinase 92 U/L (55-170) 03/24/19 09:14 CK-MB (CK-2) 0.99 ng/mL (<4.55) 03/24/19 09:14 Troponin I 0.019 ng/mL 03/24/19 09:14 NT-Pro-B Natriuret Pep 3190 pg/mL (<125) H 03/23/19 15:20 Total Protein 4.7 g/dL (6.3-8.2) L 03/28/19 03:29 Albumin 2.0 g/dL (3.5-5.0) L 03/28/19 03:29 EGFR Cancelled 03/27/19 17:05 Random Cortisol 33.90 ug/dL (None Established) 03/24/19 09:14 Cortisol AM Sample 25.10 ug/dL (4.46-22.7) H 03/22/19 05:53 Urine Color SANDI 03/24/19 14:34 Urine Appearance SLIGHTLY-CLOUDY 03/24/19 14:34 Urine pH 5.0 (5.0-9.0) 03/24/19 14:34 Ur Specific [place] 1.026 03/24/19 14:34 Urine Protein 100 mg/dL (NEGATIVE) H 03/24/19 14:34 Urine Glucose (UA) NEGATIVE mg/dL (NEGATIVE) 03/24/19 14:34 Urine Ketones 20 mg/dL (NEGATIVE) H 03/24/19 14:34 Urine Blood NEGATIVE (NEGATIVE) 03/24/19 14:34 Urine Nitrite NEGATIVE (NEGATIVE) 03/24/19 14:34 Urine Bilirubin NEGATIVE (NEGATIVE) 03/24/19 14:34 Urine Urobilinogen 4.0 mg/dL (<2.0) H 03/24/19 14:34 Ur Leukocyte Esterase NEGATIVE (NEGATIVE) 03/24/19 14:34 Urine WBC (Auto) 0 /HPF 03/24/19 14:34 Urine RBC (Auto) 1 /HPF 03/24/19 14:34 U Hyaline Cast (Auto) 3 /LPF 03/23/19 17:35 Squamous Epi Cells Auto <1 /HPF 03/23/19 17:35 Amorphous Sediment Auto TRACE /HPF 03/12/19 18:50 Urine Mucus (Auto) RARE /LPF 03/24/19 14:34 Urine Ascorbic Acid NEGATIVE (NEGATIVE) 03/24/19 14:34 Stl C. Difficile GDH Ag NEGATIVE (NEGATIVE) 03/24/19 06:30 Stl C.difficile Tox A&B NEGATIVE (NEGATIVE) 03/24/19 06:30 Time Trough Drawn 2255 03/26/19 22:55 Vancomycin Trough 10.3 ug/mL (5.0-20.0) 03/26/19 22:55 Blood Type O POSITIVE 03/26/19 16:57 Blood Type Confirm O POSITIVE 03/15/19 08:33 Antibody Screen NEGATIVE 03/26/19 16:57 Crossmatch See Detail 03/15/19 08:29 03/23/19 03/23/19 03/24/19 15:20 20:57 02:23 CK-MB (CK-2) 0.34 0.34 0.97 Troponin I 0.053 0.029 0.022 NT-Pro-B Natriuret Pep 3190 H 03/24/19 09:14 CK-MB (CK-2) 0.99 Troponin I 0.019 NT-Pro-B Natriuret Pep Impressions: Abdomen/Pelvis CT 03/12/19 19:07 IMPRESSION: Dilated fluid-filled loops of small bowel without a discrete transition point, however there is relative decompression of distal loops of ileum in the lower abdomen and pelvis. Findings have worsened slightly from the prior exam. Findings could reflect worsening ileus however partial or incomplete obstruction is also considered. Multiple pulmonary nodules seen in the lung bases for which metastatic disease is considered. Status post left nephrectomy. Large left adrenal mass. Correlate with biopsy results. Mixed lytic and sclerotic lesions, with an associated compression deformity of the L2 vertebral body. Findings are concerning for metastatic disease. Similar findings were present previously. TECHNICAL DOCUMENTATION: Quality ID # [id number]: Final reports with documentation of one or more dose reduction techniques (e.g., Automated exposure control, adjustment of the mA and/or kV according to patient size, use of iterative reconstruction technique) copyright 2011 [employer]- All Rights Reserved KUB X-Ray 03/12/19 19:35 IMPRESSION: Nonspecific dilated small bowel loops in the midabdomen. Correlation with an erect view recommended. KUB X-Ray 03/13/19 01:01 IMPRESSION: Nasogastric tube in the stomach. Small Bowel X-Ray 03/14/19 00:00 IMPRESSION: Persistent dilated small bowel loops measuring up to 4.2 cm compatible with obstruction. Gas and previously administered oral contrast now within the colon compatible with partial process. Exam was prematurely termina xiomara secondary to patient intolerance of additional contrast material. Correlation with prior CT demonstrates dilated small bowel loops to level of the distal jejunum with transition point within the right lower quadrant (series 3, image [id number]) with questionable associated soft tissue mass at this location. There are foci of curvilinear gas at this location possibly luminal although pneumatosis is not entirely excluded. Findings were discussed with ordering provider Dr. Cornejo at 1423 hours on 03/14/2019 KUB X-Ray 03/14/19 20:00 IMPRESSION: Persistently dilated loops of small bowel in the mid abdomen that measure up to 5.4 cm in diameter. The oral contrast from the small bowel follow-through is located within the splenic flexure. The above findings could represent a partial small bowel obstruction and continued radiographic follow-up is recommended. KUB X-Ray 03/15/19 06:00 IMPRESSION: Findings as detailed above consistent with a resolving/partial small bowel obstruction. Continued radiographic follow-up is recommended. KUB X-Ray 03/21/19 09:00 IMPRESSION: Good position of nasogastric tube. Abdomen/Pelvis CT 03/22/19 00:00 IMPRESSION: 1. Postsurgical changes from recent right lower quadrant small bowel resection and reanastomosis. There are multiple loops of dilated small bowel measuring up to 5.2 cm with transition at the level of the anastomosis. Findings may be related to residual obstruction versus postoperative edema. Scattered foci of free intraperitoneal gas, presumably postoperative. No focal drainable collection. 2. Postsurgical changes from the left nephrectomy. Grossly stable mass within the nephrectomy bed with additional scattered peritoneal implants compatible with metastatic disease. 3. Small bilateral effusion. Additional findings as above. Findings were discussed with Dr. Ulloa at 1132 hours on 03/22/2019. Chest X-Ray 03/24/19 00:00 IMPRESSION: Dense consolidation left lower lobe worrisome for pneumonia. Patchy airspace disease right lung base. Tiny pulmonary nodules worrisome for metastatic disease seen on chest CT 02/21/2019 are not apparent plain film Interventional Vascular Procedure 03/25/19 00:00 IMPRESSION: SUCCESSFUL PLACEMENT OF A 5 FR DUAL LUMEN PICC IN THE RIGHT BASILIC VEIN. PICC Line Insertion 03/25/19 00:00 IMPRESSION: SUCCESSFUL PLACEMENT OF A 5 FR DUAL LUMEN PICC IN THE RIGHT BASILIC VEIN. Tube Placement 03/25/19 09:00 IMPRESSION: Jejunostomy tube is folded upon itself within a loop of jejunum. There is extravasation of contrast along the anterior abdominal skin surface which obscures evaluation. Questionable additional intraperitoneal extravasation although evaluation limited on the frontal projections. Repeat injection with additional CT or lateral images could be considered for confirmation. FINDINGS WERE DISCUSSED WITH DR. HAMMER AT APPROXIMATELY 1000 HOURS. Abdomen/Pelvis CT 03/26/19 00:00 IMPRESSION: 1. Previous study demonstrated lung metastasis. These are less obvious today because of increase in bilateral lower lobe consolidations and effusions. 2. Compared to previous recent studies, gastric and small bowel dilatation is currently decreased but is still significant. There is however obvious increase in mesenteric abnormalities. Includes omental thickening and areas of low density thickening in the mesentery surrounding small bowel loops. The rapid progression suggests an infectious process. Cannot exclude combination of infectious and neoplastic process in the mesentery. 3. Absent left kidney. A relatively large mass in the left renal surgical bed is minimally smaller since several days ago. Mass versus hematoma. Could be both. Previous left anterior psoas thickening is decreased. 4. Lytic lesion in the left femoral head. Sclerosis and collapse of the L2 vertebral body unchanged. 5. Anasarca has increased. Chest X-Ray 03/26/19 00:00 IMPRESSION: NO SIGNIFICANT CHANGE. KUB X-Ray 03/26/19 00:00 IMPRESSION: INTERVAL PLACEMENT OF THE NASOGASTRIC TUBE IN SATISFACTORY POSITION. OTHERWISE NO CHANGE. KUB X-Ray 03/26/19 08:49 IMPRESSION: MILD SMALL BOWEL DILATION, NONSPECIFIC. MAY BE DUE TO POSTOPERATIVE ILEUS. Chest X-Ray 03/27/19 06:00 IMPRESSION: The tip of the enteric tube projects within the gastric lumen. Otherwise unchanged radiographic appearance of the chest. Scrotum Ultrasound 03/28/19 00:00 IMPRESSION: Moderate right hydrocele. Diffuse scrotal wall edema and skin thickening. copyright 2010 [employer]- All Rights Reserved Plan Health Concerns: Pain control Control of secretory diarrhea Comfort care with transition to hospice Plan of Treatment: Transition to home hospice Goals: Comfort care Critical Time: 30 Level of Care: MEDICAL Stroke Is this a Stroke Patient?: No Acute Heart Failure - Is this a Heart Failure Patient?: No
[2019-03-28] MEDS: NORMAL SALINE 10 ML SDV (SCHEDULED) IV SCH (09:19)
[2019-03-28] MEDS ORDERED: FAT EMULSIONS 250 ML IV SCH (10:00)
[2019-03-28] MEDS: DEXTROSE 10%-WATER 1,000 ML IV PRN (10:10)
[2019-03-28] MEDS ORDERED: LOPERAMIDE HCL 2 MG CAPSULE PO PRN (10:28)
[2019-03-28] MEDS ORDERED: LOPERAMIDE HCL 2 MG CAPSULE PO ONE (10:28)
--- NOTE | 2019-03-28 11:23 | PDOC PROGRESS REPORT ---
Subjective Progress Note for:: 03/28/19 Subjective:: Patient continues to have diarrhea Reason For Visit: AFIB WITH RVR,SMALL BOWEL OBSTRUCTION S/P PARTIAL Physical Exam Vital Signs: Temp Pulse Resp BP Pulse Ox 98.7 F 74 25 H 128/76 H 100 03/28/19 08:00 03/28/19 10:00 03/28/19 11:00 03/28/19 10:17 03/28/19 11:00 Intake & Output 03/27/19 03/28/19 03/29/19 06:59 06:59 06:59 Intake Total 1869 2697 Output Total 2280 2180 Balance -411 517 Weight 85.2 kg 86.2 kg Exam: Abdomen slightly distended but soft incision clean and dry. Diffuse mild tenderness Results Laboratory Results: 03/28/19 03:29 03/28/19 03:29 03/27/19 03/27/19 03/27/19 17:05 17:05 18:25 WBC RBC Hgb Hct MCV MCH MCHC RDW Plt Count Seg Neutrophils % Sodium Cancelled 137.2 Potassium Cancelled 3.4 L Chloride Cancelled 106 Carbon Dioxide Cancelled 24 Anion Gap Cancelled 7 BUN Cancelled 13 Creatinine Cancelled 0.76 Est GFR ( Amer) Cancelled > 60 Est GFR (Non-Af Amer) Cancelled Glucose Cancelled 131 H Calcium Cancelled 7.5 L Phosphorus Magnesium 2.1 1.9 Total Bilirubin AST Alkaline Phosphatase Total Protein Albumin 03/28/19 03/28/19 03:29 03:29 WBC 9.9 RBC 3.36 L Hgb 7.9 L Hct 24.9 L MCV 74 L MCH 23.6 L MCHC 31.9 L RDW 21.4 H Plt Count 359 Seg Neutrophils % 81.6 H Sodium 136.4 L Potassium 3.6 Chloride 105 Carbon Dioxide 25 Anion Gap 6 BUN 10 Creatinine 0.70 Est GFR ( Amer) > 60 Est GFR (Non-Af Amer) Glucose 131 H Calcium 7.4 L Phosphorus 1.5 L Magnesium Total Bilirubin 0.4 AST 68 H Alkaline Phosphatase 121 Total Protein 4.7 L Albumin 2.0 L 03/23/19 03/23/19 03/23/19 15:20 15:20 20:57 Creatine Kinase 25 L 25 L CK-MB (CK-2) 0.34 Troponin I 0.053 NT-Pro-B Natriuret Pep 3190 H 03/23/19 03/24/19 03/24/19 20:57 02:23 02:23 Creatine Kinase 78 CK-MB (CK-2) 0.34 0.97 Troponin I 0.029 0.022 NT-Pro-B Natriuret Pep 03/24/19 03/24/19 09:14 09:14 Creatine Kinase 92 CK-MB (CK-2) 0.99 Troponin I 0.019 NT-Pro-B Natriuret Pep Impressions: Small Bowel X-Ray 03/14/19 00:00 IMPRESSION: Persistent dilated small bowel loops measuring up to 4.2 cm compatible with obstruction. Gas and previously administered oral contrast now within the colon compatible with partial process. Exam was prematurely terminated secondary to patient intolerance of additional contrast material. Correlation with prior CT demonstrates dilated small bowel loops to level of the distal jejunum with transition point within the right lower quadrant (series 3, image [id number]) with questionable associated soft tissue mass at this location. There are foci of curvilinear gas at this location possibly luminal although pneumatosis is not entirely excluded. Findings were discussed with ordering provider Dr. Cornejo at 1423 hours on 03/14/2019 Interventional Vascular Procedure 03/25/19 00:00 IMPRESSION: SUCCESSFUL PLACEMENT OF A 5 FR DUAL LUMEN PICC IN THE RIGHT BASILIC VEIN. PICC Line Insertion 03/25/19 00:00 IMPRESSION: SUCCESSFUL PLACEMENT OF A 5 FR DUAL LUMEN PICC IN THE RIGHT BASILIC VEIN. Tube Placement 03/25/19 09:00 IMPRESSION: Jejunostomy tube is folded upon itself within a loop of jejunum. There is extravasation of contrast along the anterior abdominal skin surface which obscures evaluation. Questionable additional intraperitoneal extravasati on although evaluation limited on the frontal projections. Repeat injection with additional CT or lateral images could be considered for confirmation. FINDINGS WERE DISCUSSED WITH DR. HAMMER AT APPROXIMATELY 1000 HOURS. Abdomen/Pelvis CT 03/26/19 00:00 IMPRESSION: 1. Previous study demonstrated lung metastasis. These are less obvious today because of increase in bilateral lower lobe consolidations and effusions. 2. Compared to previous recent studies, gastric and small bowel dilatation is currently decreased but is still significant. There is however obvious increase in mesenteric abnormalities. Includes omental thickening and areas of low density thickening in the mesentery surrounding small bowel loops. The rapid progression suggests an infectious process. Cannot exclude combination of infectious and neoplastic process in the mesentery. 3. Absent left kidney. A relatively large mass in the left renal surgical bed is minimally smaller since several days ago. Mass versus hematoma. Could be both. Previous left anterior psoas thickening is decreased. 4. Lytic lesion in the left femoral head. Sclerosis and collapse of the L2 vertebral body unchanged. 5. Anasarca has increased. KUB X-Ray 03/26/19 08:49 IMPRESSION: MILD SMALL BOWEL DILATION, NONSPECIFIC. MAY BE DUE TO POSTOPERATIVE ILEUS. Chest X-Ray 03/27/19 06:00 IMPRESSION: The tip of the enteric tube projects within the gastric lumen. Otherwise unchanged radiographic appearance of the chest. Scrotum Ultrasound 03/28/19 00:00 IMPRESSION: Moderate right hydrocele. Diffuse scrotal wall edema and skin thickening. copyright 2011 [employer]- All Rights Reserved Assessment & Plan - Diagnosis (1) Jejunal cancer Is this a current diagnosis for this admission?: Yes (2) Partial small bowel obstruction Is this a current diagnosis for this admission?: Yes (3) renal cell carcinoma stage 4 Is this a current diagnosis for this admission?: Yes - Time Time Spent with patient: 15-24 minutes - Plan Summary Plan Summary: 69-year-old male with recurrent metastatic left renal cancer. He was admitted for for bowel obstruction and underwent small bowel resection for intussusception due to metastatic cancer. Postoperatively he did not really open up but has problems with the feeding jejunostomy and eventually had a CT scan which showed no obstruction but some inflammatory changes could be infectious versus neoplastic. He does have a carcinomatosis. In the abdominal cavity I agree with Dr. Hammonds the fur blowing machine attendant regarding patient's condition to be placed in a hospice care.
[2019-03-28 15:37] VITALS: BP 123/87
--- NOTE | 2019-03-28 22:06 | EKG REPORT ---
SEVERITY:- BORDERLINE ECG - SINUS RHYTHM LOW VOLTAGE THROUGHOUT : Confirmed by: Vidal Landa 28-Mar-2019 22:05:54
== END 2019-03-28 13:36 | disposition hospice, home (50) | DRG 329 ==
LOC: ER 15:09 → EH 23:20 → 5 03-13 00:35 → ICU 03-23 06:45
PROVIDERS: ADMIT Internal Medicine Critical Care Medicine; ATTEND Internal Medicine Critical Care Medicine
PROC: 0DH67UZ Insertion of Feeding Device into Stomach, Via Natural or Artificial Opening (ICD-10-PCS; 2019-03-12)
PROC: 0DHA0UZ Insertion of Feeding Device into Jejunum, Open Approach (ICD-10-PCS; 2019-03-15)
PROC: 0DB80ZZ Excision of Small Intestine, Open Approach (ICD-10-PCS; principal; 2019-03-15 09:00)
PROC: 0DWDXUZ Revision of Feeding Device in Lower Intestinal Tract, External Approach (ICD-10-PCS; 2019-03-24)
PROC: 02HV33Z Insertion of Infusion Device into Superior Vena Cava, Percutaneous Approach (ICD-10-PCS; 2019-03-25)
PROC: B518ZZA Fluoroscopy of Superior Vena Cava, Guidance (ICD-10-PCS; 2019-03-25)
PROC: B548ZZA Ultrasonography of Superior Vena Cava, Guidance (ICD-10-PCS; 2019-03-25)
DX: C17.1 Malignant neoplasm of jejunum (principal); K65.9 Peritonitis, unspecified; K56.600 Partial intestinal obstruction, unspecified as to cause; C64.1 Malignant neoplasm of right kidney, except renal pelvis; E46 Unspecified protein-calorie malnutrition; I42.6 Alcoholic cardiomyopathy; E27.40 Unspecified adrenocortical insufficiency; K56.7 Ileus, unspecified; K94.13 Enterostomy malfunction; K91.89 Other postprocedural complications and disorders of digestive system; E44.0 Moderate protein-calorie malnutrition; E86.0 Dehydration; R11.2 Nausea with vomiting, unspecified; T45.1X5A Adverse effect of antineoplastic and immunosuppressive drugs, initial encounter; I95.9 Hypotension, unspecified; E86.1 Hypovolemia; R00.2 Palpitations; I48.91 Unspecified atrial fibrillation; E78.00 Pure hypercholesterolemia, unspecified; R19.7 Diarrhea, unspecified; I73.00 Raynaud's syndrome without gangrene; F10.21 Alcohol dependence, in remission; Y83.2 Surgical operation with anastomosis, bypass or graft as the cause of abnormal reaction of the patient, or of later complication, without mention of misadventure at the time of the procedure; Y73.8 Miscellaneous gastroenterology and urology devices associated with adverse incidents, not elsewhere classified; Y92.230 Patient room in hospital as the place of occurrence of the external cause; Z90.5 Acquired absence of kidney; Z66 Do not resuscitate
CPT/HCPCS: 00790; 36415; 36569; 49465; 71045; 74018; 74176; 74177; 74250; 76870; 76937; 80048; 80053; 80202; 81001; 82533; 82550; 82553; 82565; 82962; 83605; 83735; 83880; 84100; 84132; 84484; 85025; 85027; 86850; 86900; 86901; 86920; 87040; 87086; 87324; 87449; 88309; 88313; 88341; 88342; 93005; 93010; 93306; 93976; 94799; 96361; 96374; 96375; 99238; 99285; 99291; 99292; C1769; C9113; C9290; J0131; J0330; J0694; J1100; J1160; J1450; J1642; J1644; J1815; J1885; J1940; J1956; J2185; J2250; J2270; J2405; J2704; J2710; J2765; J3010; J3370; J3475; J3480; J3490; J7030; J7060; J7120; P9047; S0028

== ENCOUNTER → 2019-06-04 | Outpatient (CLI) | payer MEDICARE, BC ==
--- NOTE | 2019-06-04 13:09 | RADIOLOGY REPORT (SQ) ---
EXAM DESCRIPTION: FOOT RIGHT COMPLETE COMPLETED DATE/TIME: 06/04/2019 12:12 pm REASON FOR STUDY: PAIN IN UNSPECIFIED FOOT M79.673 PAIN IN UNSPECIFIED FOOT M10.9 GOUT, UNSPECIFIE D R19.7 DIARRHEA, UNSPECIFIED COMPARISON: None. NUMBER OF VIEWS: Three views. TECHNIQUE: AP, lateral and oblique radiographic images acquired of the right foot. LIMITATIONS: None. FINDINGS: MINERALIZATION: Normal. BONES: No acute fracture or dislocation. No worrisome bone lesions. JOINTS: No effusions. SOFT TISSUES: No soft tissue swelling. No foreign body. OTHER: No other significant finding. IMPRESSION: NEGATIVE STUDY OF THE RIGHT FOOT. NO RADIOGRAPHIC EVIDENCE OF ACUTE INJURY. TECHNICAL DOCUMENTATION: JOB ID: [id number] 2010 [employer]- All Rights Reserved Reading location - IP/workstation name: [email or web address]
[2019-06-04 14:57] LABS: ANION GAP 9 (5-19); BLOOD UREA NITROGEN 15 mg/dL (7-20); CALCIUM 9.4 mg/dL (8.4-10.2); CARBON DIOXIDE 31 mmol/L (22-30); CHLORIDE 100 mmol/L (98-107); GLUCOSE 91 mg/dL (75-110); POTASSIUM 4.4 mmol/L (3.6-5.0); URIC ACID 5.9 mg/dL (3.5-8.5)
[2019-06-04 18:15] LABS: C DIFFICILE GDH NEGATIVE (NEGATIVE)
[2019-06-05 14:03] LABS: T-TRANSGLUTAMINASE (TTG) IGA <2 U/mL (0-3); T-TRANSGLUTAMINASE (TTG) IGG <2 U/mL (0-5)
[2019-06-05 14:46] LABS: DEAMIDATED GLIADIN IGG AB 2 units (0-19)
== END ==
LOC: OD 11:58
PROVIDERS: ATTEND Family Medicine Geriatric Medicine
DX: M10.9 Gout, unspecified (principal); R19.7 Diarrhea, unspecified; Z79.899 Other long term (current) drug therapy
CPT/HCPCS: 36415; 80048; 83516; 83986; 84550; 86256; 87045; 87177; 87205; 87324; 87449

== ENCOUNTER 2019-06-24 10:07 | Observation (INO) | payer MEDICARE, BC ==
[2019-06-24] MEDS ORDERED: ONDANSETRON HCL INJ/PF 4 MG/2 ML SDV IV ONE (10:23)
--- NOTE | 2019-06-24 10:25 | ER Document Report ---
ED Medical Screen (RME) - General Chief Complaint: Vomiting/Diarrhea Stated Complaint: VOMITING/DIARRHEA Time Seen by Provider: 06/24/19 10:21 Primary Care Provider: TEREZA DRAKE MD [Primary Care Provider] - Follow up as needed Notes: HPI: 69-year-old male with history of renal carcinoma stage IV who is on chemotherapy and immune suppressors brought for evaluation of vomiting that began yesterday, feeling like he is going to pass out. providing majority of history. Patient is on immune suppressors daily, is on chemo every 3 weeks last chemotherapy was 10 days ago. Began having nausea vomiting last night has not been able to keep anything down in the last 24 hours. Patient began having diarrhea 3 to 4 days ago. Patient complains of generalized abdominal discomfort states that he has had a bowel obstruction in the past is not sure if this is similar or not. Patient states he does have a wound in the left abdomen from where a G-tube was removed that never completely healed. indicates patient is not a DNR I have greeted and performed a rapid initial assessment of this patient. A comprehensive ED assessment and evaluation of the patient, analysis of test results and completion of the medical decision making process will be conducted by additional ED providers PHYSICAL EXAMINATION: Patient is very pale. Unable to obtain a valid manual blood pressure in triage. Mild generalized tenderness on palpation of the abdomen patient is responsive and answers questions TRAVEL OUTSIDE OF THE [place] IN LAST 30 DAYS: No - Related Data Allergies/Adverse Reactions: No Known Allergies Allergy (Verified 06/24/19 10:14) Past Medical History - Past Medical History Cardiac Medical History: Reports: Hx Coronary Artery Disease, Hx Hypercholesterolemia Denies: Hx Heart Attack, Hx Hypertension Pulmonary Medical History: Denies: Hx Asthma, Hx Bronchitis, Hx COPD, Hx Pneumonia Neurological Medical History: Denies: Hx Cerebrovascular Accident, Hx Seizures Endocrine Medical History: Denies: Hx Diabetes Mellitus Type 1, Hx Diabetes Mellitus Type 2, Hx Hyperthyroidism, Hx Hypothyroidism Malignancy Medical History: Reports Hx Renal (Kidney) Cancer GI Medical History: Denies: Hx Cirrhosis, Hx Crohn's Disease, Hx Hepatitis, Hx Ulcerative Colitis Musculoskeltal Medical History: Denies Hx Arthritis, Denies Hx Gout Skin Medical History: Denies Hx Eczema, Denies Hx Psoriasis Infectious Medical History: Denies: Hx Hepatitis Past Surgical History: Reports: Hx Kidney (Renal Surgery) - KIDNEY REMOVAL, Hx Orthopedic Surgery - Right shoulder surgery, Other - Left nephrectomy - Immunizations Hx Diphtheria, Pertussis, Tetanus Vaccination: No Physical Exam - Vital signs Vitals: Temp Pulse Resp Pulse Ox 97.5 F 80 12 97 06/24/19 10:13 06/24/19 10:13 06/24/19 10:13 06/24/19 10:13 Course - Vital Signs Vital signs: Temp Pulse Resp BP Pulse Ox 97.5 F 80 12 97 06/24/19 10:13 06/24/19 10:13 06/24/19 10:13 06/24/19 10:13 Doctor's Discharge - Discharge Referrals: TEREZA DRAKE MD [Primary Care Provider] - Follow up as needed
[2019-06-24 10:44] LABS: ABSOLUTE BASOPHILS # (AUTO) 0.1 10^3/uL (0.0-0.2); ABSOLUTE LYMPHOCYTES (AUTO) 1.8 10^3/uL (0.5-4.7); ABSOLUTE MONOCYTES (AUTO) 0.9 10^3/uL (0.1-1.4); ABSOLUTE NEUT (AUTO) 5.6 10^3/uL (1.7-8.2); BASOPHILS % (AUTO) 0.8 % (0-2); EOSINOPHILS % (AUTO) 0.1 % (0-6); HEMATOCRIT 49.5 % (37.9-51.0); HEMOGLOBIN 17.2 g/dL (13.5-17.0); LYMPHOCYTES % (AUTO) 21.7 % (13-45); MEAN CORPUSCULAR HEMOGLOBIN 28.2 pg (27.0-33.4); MEAN CORPUSCULAR HGB CONC 34.8 g/dL (32.0-36.0); MEAN CORPUSCULAR VOLUME 81 fl (80-97); PLATELET COUNT 269 10^3/uL (150-450); RED CELL DISTRIBUTION WIDTH 17.3 % (11.5-14.0); SEGMENTED NEUTROPHILS % (AUTO) 66.4 % (42-78); TOTAL CELLS COUNTED % (AUTO) 100 %; WHITE BLOOD COUNT 8.4 10^3/uL (4.0-10.5)
[2019-06-24] MEDS: RINGERS SOLUTION,LACTATED 1,000 ML IV PRN ×2 (10:52→12:03)
--- NOTE | 2019-06-24 11:06 | ER Document Report ---
ED General - General Chief Complaint: Vomiting/Diarrhea Stated Complaint: VOMITING/DIARRHEA Time Seen by Provider: 06/24/19 10:21 Mode of Arrival: Medic Information source: Patient Notes: HPI: 69-year-old male with history of renal carcinoma stage IV who is on chemotherapy and immune suppressors brought for evaluation of vomiting that began yesterday, feeling like he is going to pass out. providing majority of history. Patient is on immune suppressors daily, is on chemo every 3 weeks last chemotherapy was 10 days ago. Began having nausea vomiting last night has not been able to keep anything down in the last 24 hours. Patient began having diarrhea 3 to 4 days ago. Patient complains of generalized abdominal discomfort states that he has had a bowel obstruction in the past is not sure if this is similar or not. Patient states he does have a wound in the left abdomen from w here a G-tube was removed that never completely healed. indicates patient is not a DNR 69-year-old male arrives with his with chief complaint of diarrhea that began 4 days ago and then 2 days of nausea and vomiting. He is unable to keep even water and his oral medications down this morning. He is severely dehydrated and has a red throat and red tongue. He is receiving chem otherapy. Patient has a draining left upper quadrant abdominal wound from last February placed by Dr. Sheffield and then removed J-tube by Dr. Jackson in April of this year. Patient feels this is like his last SBO that he had many years ago. He has a history of renal cancer stage IV. His is doing well. Patient has no dysuria and denies any hematemesis or black tarry stools or bloody stools. Patient used to be a environmental box office attendant. TRAVEL OUTSIDE OF THE [place] IN LAST 30 DAYS: No - HPI Onset: Other - with sx x 4 days diarrhea and 2 days of N/V Onset/Duration: Sudden Severity: Moderate Pain Level: 2 Associated symptoms: None Exacerbated by: Denies - Related Data Allergies/Adverse Reactions: No Known Allergies Allergy (Verified 06/24/19 10:14) Past Medical History - General Information source: Patient, Relative - - Social History Smoking Status: Unknown if Ever Smoked Cigarette use (# per day): No Chew tobacco use (# tins/day): No Smoking Education Provided: No Frequency of alcohol use: None Drug Abuse: None Lives with: Family - Family History: None, CAD, CVA - Cerebral aneurysm, Malignancy. denies: DM, Hypertension Patient has suicidal ideation: No Patient has homicidal ideation: No - Past Medical History Cardiac Medical History: Reports: Hx Coronary Artery Disease, Hx Hypercholesterolemia Denies: Hx Heart Attack, Hx Hypertension Pulmonary Medical History: Denies: Hx Asthma, Hx Bronchitis, Hx COPD, Hx Pneumonia Neurological Medical History: Denies: Hx Cerebrovascular Accident, Hx Seizures Endocrine Medical History: Denies: Hx Diabetes Mellitus Type 1, Hx Diabetes Mellitus Type 2, Hx Hyperthyroidism, Hx Hypothyroidism Malignancy Medical History: Reports Hx Renal (Kidney) Cancer GI Medical History: Denies: Hx Cirrhosis, Hx Crohn's Disease, Hx Hepatitis, Hx Ulcerative Colitis Musculoskeletal Medical History: Denies Hx Arthritis, Denies Hx Gout Skin Medical History: Denies Hx Eczema, Denies Hx Psoriasis Infectious Medical History: Denies: Hx Hepatitis Past Surgical History: Reports: Hx Kidney (Renal Surgery) - KIDNEY REMOVAL, Hx Orthopedic Surgery - Right shoulder surgery, Other - Left nephrectomy - Immunizations Hx Diphtheria, Pertussis, Tetanus Vaccination: No Review of Systems - Review of Systems Constitutional: See HPI, Malaise, Weakness, Weight loss EENT: See HPI Cardiovascular: No symptoms reported Respiratory: No symptoms reported Gastrointestinal: See HPI, Diarrhea, Nausea, Vomiting, Other - Leaking from J- tube wound healing by third intention. Genitourinary: No symptoms reported Male Genitourinary: No symptoms reported Musculoskeletal: No symptoms reported Skin: No symptoms reported Hematologic/Lymphatic: No symptoms reported Neurological/Psychological: No symptoms reported Physical Exam - Vital signs Vitals: Temp Pulse Resp Pulse Ox 97.5 F 80 12 97 06/24/19 10:13 06/24/19 10:13 06/24/19 10:13 06/24/19 10:13 - General General appearance: Alert In distress: Mild - Positive hiccups for around 10 to 15 minutes; patient reports she rarely gets hiccups. - HEENT Head: Normocephalic Eyes: Pale conjunctiva Conjunctiva: Normal Cornea: Normal Extraocular movements intact: Yes Eyelashes: Normal Pupils: PERRL Ears: Normal Sinus: Normal Nasal: Normal Mouth/Lips: Other - dry Mucous membranes: Dry Pharynx: Normal Neck: Normal - Respiratory Respiratory status: No respiratory distress Chest status: Nontender Breath sounds: Normal Chest palpation: Normal - Cardiovascular Rhythm: Regular Heart sounds: Normal auscultation Murmur: No Friction rub: No Arun's crunch: No - Abdominal Inspection: Other - s/p midline well healed surgical scar with 3rd intension healing LUQ J tube wound draining serous fluid - Genitourinary Tenderness: Nontender Scrotum: Normal - Back Back: Normal - Extremities General upper extremity: Normal inspection General lower extremity: Normal inspection - Neurological Neuro grossly intact: Yes Cognition: Normal Orientation: AAOx4 Kyle Coma Scale Eye Opening: Spontaneous Kyle Coma Scale Verbal: Oriented Kyle Coma Scale Motor: Obeys Commands [place] Coma Scale Total: 15 Speech: Normal Cranial nerves: Normal Cerebellar coordination: Normal Motor strength normal: LUE, RUE, LLE, RLE - Psychological Associated symptoms: Normal affect - Skin Skin Temperature: Warm Skin Moisture: Dry Course - Vital Signs Vital signs: Temp Pulse Resp BP Pulse Ox 97.3 F 80 13 134/97 H 100 06/24/19 13:00 06/24/19 10:13 06/24/19 14:15 06/24/19 14:15 06/24/19 14:15 - Laboratory Result Diagrams: 06/24/19 10:33 06/24/19 10:33 Laboratory results interpreted by me: 06/24/19 06/24/19 06/24/19 10:33 10:33 10:40 RBC 6.10 H Hgb 17.2 H RDW 17.3 H Sodium 128.9 L Chloride 83 L Anion Gap 23 H BUN 59 H Creatinine 4.36 H Est GFR ( Amer) 16 L Est GFR (MDRD) Non-Af 13 L Lactic Acid 2.4 H Calcium 10.7 H Total Bilirubin 1.5 H Direct Bilirubin 0.8 H Alkaline Phosphatase 191 H Total Protein 8.8 H Urine Protein Urine Ketones 06/24/19 12:40 RBC Hgb RDW Sodium Chloride Anion Gap BUN Creatinine Est GFR ( Amer) Est GFR (MDRD) Non-Af Lactic Acid Calcium Total Bilirubin Direct Bilirubin Alkaline Phosphatase Total Protein Urine Protein 30 H Urine Ketones TRACE H Critical Care Note - Critical Care Note Total time excluding time spent on procedures (mins): 90 Comments: I discussed this case with Dr. Jackson he advises rehydration of this patient and he will see the patient in the ER. Also advised that this patient should be a hospital case. Juan Carlos Tyler was discussed about this case and he advises he will see the patient after Dr. Jackson lays hands. Dr. Jackson saw the patient and also discussed this case with Juan Carlos by telephone. Discharge - Discharge Clinical Impression: Dehydration, Vomiting and diarrhea, Duodenal perforation Condition: Fair Disposition: ADMITTED INPATIENT Admitting Provider: Juan Carlos Tyler
[2019-06-24 11:18] LABS: ALBUMIN 4.8 g/dL (3.5-5.0); ALKALINE PHOSPHATASE 191 U/L (38-126); ASPARTATE AMINO TRANSFERASE 34 U/L (17-59); BILIRUBIN,DIRECT 0.8 mg/dL (0.0-0.4); BILIRUBIN,TOTAL 1.5 mg/dL (0.2-1.3); BLOOD UREA NITROGEN 59 mg/dL (7-20); CALCIUM 10.7 mg/dL (8.4-10.2); GLUCOSE 108 mg/dL (75-110); POTASSIUM 4.6 mmol/L (3.6-5.0); TOTAL PROTEIN 8.8 g/dL (6.3-8.2)
[2019-06-24 11:24] LABS: CARBON DIOXIDE 23 mmol/L (22-30); CHLORIDE 83 mmol/L (98-107)
[2019-06-24 11:26] LABS: ANION GAP 23 (5-19)
--- NOTE | 2019-06-24 11:26 | RADIOLOGY REPORT (SQ) ---
EXAM DESCRIPTION: KUB/ABDOMEN (SINGLE VIEW) IMAGES COMPLETED DATE/TIME: 06/24/2019 11:16 am REASON FOR STUDY: obstruction COMPARISON: 03/26/2019 NUMBER OF VIEWS: One view. TECHNIQUE: Supine radiographic image of the abdomen acquired. LIMITATIONS: None. FINDINGS: BOWEL GAS PATTERN: Mild proximal small-bowel distention. There is air and stool throughou t the colon. Findings are nonspecific at this time. CALCIFICATIONS: No suspicious calcifications. SOFT TISSUES: No gross mass or suggestion of organomegaly. HARDWARE: Surgical clips left of midline in the mid abdomen. BONES: Degenerative changes in the SI joints and hips. OTHER: No other significant finding. IMPRESSION: Mild dilatation of proximal small bowel. Findings are nonspecific at this time. There is air and stool throughout the colon. TECHNICAL DOCUMENTATION: JOB ID: [id number] 2010 [employer]- All Rights Reserved Reading location - IP/workstation name: [email or web address]
[2019-06-24] MEDS ORDERED: CEFAZOLIN 1 GM/D5W RTU 1 GM/50 ML RTUPB IV ONE (11:30)
--- NOTE | 2019-06-24 12:28 | RADIOLOGY REPORT (SQ) ---
EXAM DESCRIPTION: CT CHEST WITHOUT IMAGES COMPLETED DATE/TIME: 06/24/2019 11:56 am REASON FOR STUDY: n/v/d COMPARISON: None. TECHNIQUE: CT scan performed of the chest without intravenous contrast. Images reviewed with lung, soft tissue and bone windows. Reconstructed coronal and sagittal MPR images reviewed. All images st ored on PACS. All CT scanners at this facility use dose modulation, iterative reconstruction, and/or weight based d osing when appropriate to reduce radiation dose to as low as reasonably achievable (ALARA). [facility]: Dose Right [facility]: CareDose [facility]: Dose Right [facility]: Teradose 4D [facility]: BioDetego RADIATION DOSE: CT Rad equipment meets quality standard of care and radiation dose reduction techniq ues were employed. CTDIvol: 5.6 mGy. DLP: 407 mGy-cm. mGy. LIMITATIONS: No technical limitations. FINDINGS: LUNGS AND PLEURA: No masses, infiltrates, or pneumothorax. No pleural effusions or pleura l calcifications. Previously described pleural effusions and dense consolidation in the lower lobes is no longer identified. Pulmonary nodules previously described in February 2019 have resolved. HILAR AND MEDIASTINAL STRUCTURES: No identified masses or abnormal nodes. No obvious aneurysm. HEART AND VASCULAR STRUCTURES: No pericardial effusion. The ascending aorta is dilated measured up t o 4.2 mm. UPPER ABDOMEN: Distended gallbladder. THYROID AND OTHER SOFT TISSUES: No masses. No adenopathy. BONES: No significant finding. HARDWARE: None in the chest. OTHER: No other significant findings. IMPRESSION: Mild dilatation of the ascending aorta. Largest diameter is 4.2 cm. No other significa nt findings in the chest. Pulmonary nodules previously described have resolved. TECHNICAL DOCUMENTATION: JOB ID: [id number] Quality ID # [id number]: Final reports with documentation of one or more dose reduction techniques (e.g., Au tomated exposure control, adjustment of the mA and/or kV according to patient size, use of iterative reconstruction technique) 2010 [employer]- All Rights Reserved Reading location - IP/workstation name: [email or web address]
--- NOTE | 2019-06-24 12:42 | RADIOLOGY REPORT (SQ) ---
EXAM DESCRIPTION: CT ABD/PELVIS NO ORAL OR IV IMAGES COMPLETED DATE/TIME: 06/24/2019 11:56 am REASON FOR STUDY: n/v/d COMPARISON: 03/26/2019 TECHNIQUE: CT scan of the abdomen and pelvis performed without intravenous or oral contrast. Images reviewed with lung, soft tissue, and bone windows. Reconstructed coronal and sagittal MPR images revi ewed. All images stored on PACS. All CT scanners at this facility use dose modulation, iterative reconstruction, and/or weight based d osing when appropriate to reduce radiation dose to as low as reasonably achievable (ALARA). [facility]: Dose Right [facility]: CareDose [facility]: Dose Right [facility]: Teradose 4D [facility]: N[employer]on RADIATION DOSE: mGy. LIMITATIONS: None. FINDINGS: LOWER CHEST: No significant findings. No nodules or infiltrates. NON-CONTRASTED LIVER, SPLEEN, ADRENALS: Evaluation limited by lack of IV contrast. No identified sign ificant masses. PANCREAS: The pancreas is atrophic. GALLBLADDER: Markedly distended gallbladder. No surrounding edema. The gallbladder compresses the h epatic flexure. RIGHT KIDNEY AND URETER: No suspicious masses. Assessment limited by lack of IV contrast. No signif icant calcifications. No hydronephrosis or hydroureter. LEFT KIDNEY AND URETER: Prior left nephrectomy. There is a small amount of air collected in the retr operitoneum on the left. AORTA AND RETROPERITONEUM: No aneurysm. No retroperitoneal masses or adenopathy. BOWEL AND PERITONEAL CAVITY: There is pneumatosis. There is pneumoperitoneum. Findings are consiste nt with perforated viscus. APPENDIX: Normal. PELVIS, BLADDER, AND ABDOMINAL WALL:No abnormal masses. No free fluid. Bladder normal. BONES: No significant findings. OTHER: No other significant finding. IMPRESSION: Pneumoperitoneum. Dilated proximal small bowel and pneumatosis. There is a small amoun t of air in the left aspect of the retroperitoneum. COMMENT: This report was called to KRISTINA BENNETT MD at12:36 on 06/24/2019. Quality ID # [id number]: Final reports with documentation of one or more dose reduction techniques (e.g., Au tomated exposure control, adjustment of the mA and/or kV according to patient size, use of iterative reconstruction technique) TECHNICAL DOCUMENTATION: JOB ID: [id number] 2010 [employer]- All Rights Reserved Reading location - IP/workstation name: [email or web address]-
[2019-06-24 13:03] LABS: APPEARANCE,URINE SLIGHTLY-CLOUDY; BILIRUBIN,URINE NEGATIVE (NEGATIVE); COLOR,URINE AMBER; GLUCOSE, URINE NEGATIVE (NEGATIVE); KETONES,URINE TRACE mg/dL (NEGATIVE); LEUKOCYTE ESTERASE,URINE NEGATIVE (NEGATIVE); NITRITE,URINE NEGATIVE (NEGATIVE); PROTEIN,URINE 30 mg/dL (NEGATIVE); URINE SPECIFIC GRAVITY 1.019; UROBILINOGEN,URINE NEGATIVE mg/dL (<2.0)
--- NOTE | 2019-06-24 14:22 | PDOC CONSULTATION ---
Consultation Consult Date: 06/24/19 Attending physician:: KRISTINA GUERRA JR Provider Consulted: [facility] CHE Consult reason:: Perforated viscus History of Present Illness Admission Date/PCP: KARLI CALDERA MD History of Present Illness: SONIA PALACIOS is a 69 year old male Presents emergency department via ground rescue complaining of progressive weakness, abdominal pain, failure to thrive. Patient has known metastatic renal carcinoma, with bone involvement, on Keytruda under the direction of Dr. Hurtado. His primary care physician is Dr. Caldera. Patient is a DO NOT RESUSCITATE. Patient is 4 months status post exploratory laparotomy, small bowel resection, operative jejunostomy. Patient has had a chronic sinus draining tract from his jejunostomy site. Patient's p.o. intake is poor, and urine output diminished. In the emergency department he was found to be in acute renal failure. A CT scan of the abdomen and pelvis without oral and IV contrast revealed pneumatosis, and retroperitoneal consistent with perforated viscus. Surgery was consulted. Patient evaluated bedside. Past Medical History Cardiac Medical History: Reports: Coronary Artery Disease, Hyperlipidema Denies: Myocardial Infarction, Hypertension Pulmonary Medical History: Denies: Asthma, Bronchitis, Chronic Obstructive Pulmonary Disease (COPD), Pneumonia Neurological Medical History: Denies: Seizures Endocrine Medical History: Denies: Diabetes Mellitus Type 1, Diabetes Mellitus Type 2, Hyperthyroidism, Hypothyroidism Malignancy Medical History: Reports: Renal (Kidney) Cancer GI Medical History: Denies: Cirrhosis, Crohn's Disease, Hepatitis, Ulcerative Colitis Musculoskeltal Medical History: Denies: Arthritis, Gout Skin Medical History: Denies: Eczema, Psoriasis Hematology: Denies: Anemia, Bleeding Tendencies Past Surgical History Past Surgical History: Exploratory laparotomy, small bowel resection, jejunostomy February 2019 Past Surgical History: Reports: Orthopedic Surgery - Right shoulder surgery, Other - Left nephrectomy Social History Information Source: Patient Lives with: Family - Smoking Status: Unknown if Ever Smoked Frequency of Alcohol Use: None - 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 denies: DM, Hypertension Parental Family History Reviewed: No Children Family History Reviewed: No Sibling(s) Family History Reviewed.: No Medication/Allergy Home Medications: Acetaminophen [Tylenol Soln 325 mg/10.15 ml Udcup] 975 mg NG Q6HP PRN udc 03/21/19 Carvedilol [Coreg 12.5 mg Tablet] 12.5 mg NG Q12@0700,1900 tablet 03/21/19 Phenol/Sodium Phenolate [Chloraseptic Sore Throat [place] 177 ml] 1 spray PO Q1HP PRN bottle 03/21/19 Carvedilol Phosphate [Carvedilol ER] 20 mg PO DAILY #30 cpmp.24hr 03/28/19 Ondansetron HCl [Zofran 8 mg Tablet] 8 mg PO Q8HP PRN 10 Days #30 03/28/19 Allergies/Adverse Reactions: No Known Allergies Allergy (Verified 06/24/19 10:14) Review of Systems Constitutional: PRESENT: other - Patient with weight loss, poor temperature regulation, anorexia over the last several months. Eyes: ABSENT: visual disturbances Ears: ABSENT: hearing changes Cardiovascular: PRESENT: other - Chronic shortness of breath Genitourinary: PRESENT: other - Difficulty urinating Physical Exam Vital Signs: Temp Pulse Resp BP Pulse Ox 97.3 F 80 11 L 130/96 H 97 06/24/19 13:00 06/24/19 10:13 06/24/19 13:00 06/24/19 12:22 06/24/19 13:00 Intake & Output 06/23/19 06/24/19 06/25/19 06:59 06:59 06:59 Intake Total 2049 Balance 2049 General appearance: PRESENT: other - Extremely distressed appearing, weak Head exam: PRESENT: normocephalic Eye exam: PRESENT: other - Wearing glasses, EOMs appear intact Mouth exam: PRESENT: dry mucosa Neck exam: PRESENT: full ROM Respiratory exam: PRESENT: other - Shortness of breath, rhonchi Cardiovascular exam: PRESENT: RRR Pulses: PRESENT: normal carotid pulses, normal radial pulses GI/Abdominal exam: PRESENT: other - Midline scar well-healed; seropurulent disc harge from the left upper quadrant J-tube site. The abdomen is diffusely tender not distended. Rectal exam: PRESENT: deferred Extremities exam: PRESENT: +1 edema Musculoskeletal exam: PRESENT: other - Weak but limited range of motion of the extremities Neurological exam: PRESENT: oriented to person, oriented to place, oriented to time, oriented to situation Psychiatric exam: PRESENT: other - Somewhat anxious Results Laboratory Results: 06/24/19 10:33 06/24/19 10:33 06/24/19 06/24/19 06/24/19 10:33 10:33 10:40 WBC 8.4 RBC 6.10 H Hgb 17.2 H Hct 49.5 MCV 81 MCH 28.2 MCHC 34.8 RDW 17.3 H Plt Count 269 Seg Neutrophils % 66.4 Sodium 128.9 L Potassium 4.6 Chloride 83 L Carbon Dioxide 23 Anion Gap 23 H BUN 59 H Creatinine 4.36 H Est GFR ( Amer) 16 L Glucose 108 Lactic Acid 2.4 H Calcium 10.7 H Total Bilirubin 1.5 H AST 34 Alkaline Phosphatase 191 H Total Protein 8.8 H Albumin 4.8 Lipase 127.1 Urine Color Urine Appearance Urine pH Ur Specific [place] Urine Protein Urine Glucose (UA) Urine Ketones Urine Blood Urine Nitrite Ur Leukocyte Esterase Urine WBC (Auto) Urine RBC (Auto) 06/24/19 12:40 WBC RBC Hgb Hct MCV MCH MCHC RDW Plt Count Seg Neutrophils % Sodium Potassium Chloride Carbon Dioxide Anion Gap BUN Creatinine Est GFR ( Amer) Glucose Lactic Acid Calcium Total Bilirubin AST Alkaline Phosphatase Total Protein Albumin Lipase Urine Color SANDI Urine Appearance SLIGHTLY-CLOUDY Urine pH 5.0 Ur Specific [place] 1.019 Urine Protein 30 H Urine Glucose (UA) NEGATIVE Urine Ketones TRACE H Urine Blood NEGATIVE Urine Nitrite NEGATIVE Ur Leukocyte Esterase NEGATIVE Urine WBC (Auto) 3 Urine RBC (Auto) 3 Impressions: KUB X-Ray 06/24/19 10:23 IMPRESSION: Mild dilatation of proximal small bowel. Findings are nonspecific at this time. There is air and stool throughout the colon. Abdomen/Pelvis CT 06/24/19 11:07 IMPRESSION: Pneumoperitoneum. Dilated proximal small bowel and pneumatosis. There is a small amount of air in the left aspect of the retroperitoneum. Chest CT 06/24/19 11:07 IMPRESSION: Mild dilatation of the ascending aorta. Largest diameter is 4.2 c m. No other significant findings in the chest. Pulmonary nodules previously described have resolved. Assessment & Plan - Diagnosis (1) Pneumoperitoneum Is this a current diagnosis for this admission?: Yes Plan: Impression: Progressive Deterioration in 69-year-old male with known metastatic kidney carcinoma now in acute renal failure, dehydration, and perforated viscus on CT scan of the abdomen and pelvis without oral contrast. Exact site of perforation difficult to determine. Discussion and recommendations 1. I spent approximately 24 minutes in the patient's room with at bedside. They are well-known to the surgical service. Patient agreed to a DNR status sometime in the past. He has been receiving Keytruda to date. I explained the clinical situation, with emphasis on perforated viscus resulting in the air in the retroperitoneal space. Under normal, therapeutic circumstances, patient would warrant an exploratory laparotomy with necessary surgery. However given patient's multiple comorbidities, DNR status, and acutely deteriorated state, I do not recommend exploratory surgery. Patient had no event would require postoperative intubation, ventilatory dependency, and very likely poor outcome. I discussed this with the patient and his at bedside thoroughly. They are calling family members to be with patient at this time. 2. I spoke with Dr. Guerra, emergency room physician, as well is Dr. Tyler hospitalist, and Dr. Hurtado, medical oncologist. I have expressed the plan described above, and recommended not proceeding with exploratory laparotomy. I recommended hydration, and further advancement of patient's care plan from therapeutic to palliative care. They are in agreement. (2) Dehydration Is this a current diagnosis for this admission?: Yes (3) Abdominal bloating Is this a current diagnosis for this admission?: Yes (4) Metastatic renal cell carcinoma to intra-abdominal site Is this a current diagnosis for this admission?: Yes (5) Acute kidney injury Is this a current diagnosis for this admission?: Yes - Time Time Spent: 50 to 70 Minutes Smoking Cessation Education: over 10 minutes Medications reviewed and adjusted accordingly: Yes Anticipated discharge: Home
[2019-06-24 14:43] LABS: C DIFFICILE GDH NEGATIVE (NEGATIVE)
[2019-06-24] MEDS ORDERED: ONDANSETRON 4 MG TAB.RAPDIS PO PRN (14:48)
[2019-06-24] MEDS ORDERED: OXYCODONE-ACETAMINOPHEN 5-325 MG TABLET PO PRN (14:48)
[2019-06-24] MEDS ORDERED: RINGERS SOLUTION,LACTATED 1,000 ML IV PRN (14:48)
[2019-06-24] MEDS ORDERED: ACETAMINOPHEN 325 MG TABLET PO PRN (14:48)
[2019-06-24] MEDS ORDERED: ONDANSETRON HCL INJ/PF 4 MG/2 ML SDV IV PRN (14:48)
[2019-06-24 15:24] LABS: INTERNATIONAL RATION (INR) 1.02; PROTHROMBIN TIME 13.4 SEC (11.4-15.4)
[2019-06-24] MEDS ORDERED: HYDRALAZINE HCL INJ/PF 20 MG/1 ML SDV IV PRN (15:24)
[2019-06-24] MEDS ORDERED: MORPHINE SULFATE 10 MG/ML INJ IV PRN (15:24)
[2019-06-24] MEDS: PANTOPRAZOLE SODIUM 40 MG VIAL IV SCH ×2 (15:40→21:44)
--- NOTE | 2019-06-24 15:48 | PDOC H&P ---
History of Present Illness Admission Date/PCP: 06/24/19 15:08 KARLI NUNES MD History of Present Illness: SONIA PALACIOS is a 69 year old male who is seen in the emergency room for in tractable vomiting, diarrhea, weakness. He and his state that yesterday he started having vomiting and vomited 5 or 6 times yesterday and for the last 4 days has had several episodes of diarrhea. Patient has an underlying renal carcinoma stage IV has been on chemotherapy and also has metastatic disease. Patient appears to be severely dehydrated with elevated renal functions and will receive IV fluids well as antiemetics Patient is status post 4 months exploratory laparotomy with a small bowel resection, operative jejunostomy. CT scan done in the emergency room shows pneumatosis and retroperitoneal air which is consistent with a perforated viscus. Surgery has seen patient today and feels that, givin patient's comorbidities and terminal illness exploratory surgery is not recommended. Both patient and his agree with this treatment plan at the present time. Patient's daughter is coming in from out of town tomorrow and patient would like to be home tomorrow if at all possible. Patient does have a DNR status. Past Medical History Cardiac Medical History: Reports: Coronary Artery Disease, Hyperlipidema Denies: Myocardial Infarction, Hypertension Pulmonary Medical History: Denies: Asthma, Bronchitis, Chronic Obstructive Pulmonary Disease (COPD), Pneumonia Neurological Medical History: Denies: Seizures Endocrine Medical History: Denies: Diabetes Mellitus Type 1, Diabetes Mellitus Type 2, Hyperthyroidism, Hypothyroidism Malignancy Medical History: Reports: Renal (Kidney) Cancer GI Medical History: Denies: Cirrhosis, Crohn's Disease, Hepatitis, Ulcerative Colitis Musculoskeltal Medical History: Denies: Arthritis, Gout Skin Medical History: Denies: Eczema, Psoriasis Hematology: Denies: Anemia, Bleeding Tendencies Past Surgical History Past Surgical History: Reports: Orthopedic Surgery - Right shoulder surgery, Other - Left nephrectomy Social History Lives with: Family - Smoking Status: Unknown if Ever Smoked Frequency of Alcohol Use: None - 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 denies: DM, Hypertension Parental Family History Reviewed: No Children Family History Reviewed: No Sibling(s) Family History Reviewed.: No Medication/Allergy Home Medications: Acetaminophen [Tylenol Soln 325 mg/10.15 ml Udcup] 975 mg NG Q6HP PRN udc 03/21/19 Carvedilol [Coreg 12.5 mg Tablet] 12.5 mg NG Q12@0700,1900 tablet 03/21/19 Phenol/Sodium Phenolate [Chloraseptic Sore Throat [place] 177 ml] 1 spray PO Q1HP PRN bottle 03/21/19 Carvedilol Phosphate [Carvedilol ER] 20 mg PO DAILY #30 cpmp.24hr 03/28/19 Ondansetron HCl [Zofran 8 mg Tablet] 8 mg PO Q8HP PRN 10 Days #30 03/28/19 Allergies/Adverse Reactions: No Known Allergies Allergy (Verified 06/24/19 10:14) Review of Systems Constitutional: PRESENT: weakness, weight loss Respiratory: ABSENT: cough, hemoptysis Gastrointestinal: PRESENT: nausea, vomiting. ABSENT: abdominal pain, constipation, diarrhea, hematemesis, hematochezia Neurological: ABSENT: abnormal gait, abnormal speech, confusion, dizziness, focal weakness, syncope Psychiatric: PRESENT: anxiety Physical Exam Vital Signs: Temp Pulse Resp BP Pulse Ox 97.3 F 80 13 134/97 H 100 06/24/19 13:00 06/24/19 10:13 06/24/19 14:15 06/24/19 14:15 06/24/19 14:15 Intake & Output 06/23/19 06/24/19 06/25/19 06:59 06:59 06:59 Intake Total 2049 Balance 2049 General appearance: PRESENT: mild distress Respiratory exam: PRESENT: clear to auscultation magui. ABSENT: rales, rhonchi, wheezes Cardiovascular exam: PRESENT: RRR. ABSENT: diastolic murmur, rubs, systolic murmur GI/Abdominal exam: PRESENT: tenderness Results Laboratory Results: 06/24/19 10:33 06/24/19 10:33 06/24/19 06/24/19 06/24/19 10:33 10:33 10:40 WBC 8.4 RBC 6.10 H Hgb 17.2 H Hct 49.5 MCV 81 MCH 28.2 MCHC 34.8 RDW 17.3 H Plt Count 269 Seg Neutrophils % 66.4 Sodium 128.9 L Potassium 4.6 Chloride 83 L Carbon Dioxide 23 Anion Gap 23 H BUN 59 H Creatinine 4.36 H Est GFR ( Amer) 16 L Glucose 108 Lactic Acid 2.4 H Calcium 10.7 H Total Bilirubin 1.5 H AST 34 Alkaline Phosphatase 191 H Total Protein 8.8 H Albumin 4.8 Lipase 127.1 Urine Color Urine Appearance Urine pH Ur Specific [place] Urine Protein Urine Glucose (UA) Urine Ketones Urine Blood Urine Nitrite Ur Leukocyte Esterase Urine WBC (Auto) Urine RBC (Auto) 06/24/19 12:40 WBC RBC Hgb Hct MCV MCH MCHC RDW Plt Count Seg Neutrophils % Sodium Potassium Chloride Carbon Dioxide Anion Gap BUN Creatinine Est GFR ( Amer) Glucose Lactic Acid Calcium Total Bilirubin AST Alkaline Phosphatase Total Protein Albumin Lipase Urine Color SANDI Urine Appearance SLIGHTLY-CLOUDY Urine pH 5.0 Ur Specific [place] 1.019 Urine Protein 30 H Urine Glucose (UA) NEGATIVE Urine Ketones TRACE H Urine Blood NEGATIVE Urine Nitrite NEGATIVE Ur Leukocyte Esterase NEGATIVE Urine WBC (Auto) 3 Urine RBC (Auto) 3 Impressions: KUB X-Ray 06/24/19 10:23 IMPRESSION: Mild dilatation of proximal small bowel. Findings are nonspecific at this time. There is air and stool throughout the colon. Abdomen/Pelvis CT 06/24/19 11:07 IMPRESSION: Pneumoperitoneum. Dilated proximal small bowel and pneumatosis. There is a small amount of air in the left aspect of the retroperitoneum. Chest CT 06/24/19 11:07 IMPRESSION: Mild dilatation of the ascending aorta. Largest diameter is 4.2 cm. No other significant findings in the chest. Pulmonary nodules previously described have resolved. Assessment and Plan - Diagnosis (1) Pneumoperitoneum Is this a current diagnosis for this admission?: Yes (2) Acute kidney injury Is this a current diagnosis for this admission?: Yes (3) Dehydration Is this a current diagnosis for this admission?: Yes (4) Pneumoperitoneum Is this a current diagnosis for this admission?: Yes (5) Vomiting and diarrhea Is this a current diagnosis for this admission?: Yes (6) Abdominal pain Qualifiers: Abdominal location: generalized Qualified Code(s): R10.84 - Generalized abdominal pain Is this a current diagnosis for this admission?: Yes (7) Metastatic renal cell carcinoma to intra-abdominal site Is this a current diagnosis for this admission?: Yes (8) renal cell carcinoma stage 4 Is this a current diagnosis for this admission?: Yes - Plan Summary Summary: Patient will be admitted dental IV fluid rehydration, antiemetics for his vomiting. No diagnostic work-up would be done other than simple labs. Patient's pain will be addressed as needed. Hopefully patient will be able to be discharged tomorrow so that he can spend time at home with his family. Patient is aware of his abdominal problem and agrees to having no surgery at this time. - Time Time Spent with patient: 35 or more minutes
[2019-06-24] MEDS ORDERED: PIPERACILLIN SODIUM/TAZOBACTAM 3.375 GM in NORMAL SALINE 100 ML IV SCH (18:00)
[2019-06-24] MEDS: PIPERACILLIN SODIUM/TAZOBACTAM 2.25 GM in NORMAL SALINE 50 ML IV SCH (18:32)
[2019-06-24] MEDS ORDERED: TEMAZEPAM 7.5 MG CAPSULE PO SCH (22:00)
[2019-06-25] MEDS: PIPERACILLIN SODIUM/TAZOBACTAM 2.25 GM in NORMAL SALINE 50 ML IV SCH ×3 (00:03→11:53)
[2019-06-25 06:40] LABS: ANION GAP 16 (5-19); BLOOD UREA NITROGEN 56 mg/dL (7-20); CARBON DIOXIDE 25 mmol/L (22-30); CHLORIDE 90 mmol/L (98-107); GLUCOSE 80 mg/dL (75-110)
[2019-06-25 06:49] LABS: POTASSIUM 3.3 mmol/L (3.6-5.0)
[2019-06-25 07:01] LABS: ABSOLUTE LYMPHOCYTES (AUTO) 0.8 10^3/uL (0.5-4.7); ABSOLUTE MONOCYTES (AUTO) 0.4 10^3/uL (0.1-1.4); ABSOLUTE NEUT (AUTO) 2.3 10^3/uL (1.7-8.2); EOSINOPHILS % (AUTO) 0.3 % (0-6); HEMATOCRIT 45.4 % (37.9-51.0); HEMOGLOBIN 15.5 g/dL (13.5-17.0); LYMPHOCYTES % (AUTO) 22.2 % (13-45); MEAN CORPUSCULAR HEMOGLOBIN 27.9 pg (27.0-33.4); MEAN CORPUSCULAR HGB CONC 34.1 g/dL (32.0-36.0); MEAN CORPUSCULAR VOLUME 82 fl (80-97); MONOCYTES % (AUTO) 12.2 % (3-13); PLATELET COUNT 135 10^3/uL (150-450); RED BLOOD COUNT 5.54 10^6/uL (4.35-5.55); RED CELL DISTRIBUTION WIDTH 17.2 % (11.5-14.0); SEGMENTED NEUTROPHILS % (AUTO) 64.3 % (42-78); TOTAL CELLS COUNTED % (AUTO) 100 %; WHITE BLOOD COUNT 3.6 10^3/uL (4.0-10.5)
[2019-06-25] MEDS: PANTOPRAZOLE SODIUM 40 MG VIAL IV SCH (09:48)
--- NOTE | 2019-06-25 12:56 | PDOC PROGRESS REPORT ---
Subjective Progress Note for:: 06/25/19 Subjective:: 69-year-old male with metastatic renal cell cancer, newly diagnosed with free intra-abdominal air. This was discovered during a work-up for abdominal pain. The patient reports that he is doing reasonably well today. He was able to tolerate a diet. Currently he denies chest pain, shortness of breath, fevers, chills, nausea, vomiting, melena, hematochezia, hematemesis, orthostasis, dizziness, headache. Reason For Visit: RENAL CARCINOMA STAGE 4, DIARRHEA, ABDOMINAL PAIN Physical Exam Vital Signs: Temp Pulse Resp BP Pulse Ox 97.4 F 52 L 12 128/88 H 100 06/25/19 11:56 06/25/19 11:56 06/25/19 11:56 06/25/19 11:56 06/25/19 11:56 Intake & Output 06/24/19 06/25/19 06/26/19 06:59 06:59 06:59 Intake Total 2550 Output Total 250 Balance 2300 Weight 86.183 kg General appearance: PRESENT: cooperative Head exam: PRESENT: atraumatic, normocephalic Eye exam: PRESENT: EOMI, PERRLA Mouth exam: PRESENT: moist, neck supple Neck exam: ABSENT: meningismus, tenderness, thyromegaly, tracheal deviation Cardiovascular exam: ABSENT: tachycardia GI/Abdominal exam: PRESENT: soft. ABSENT: rebound, rigid, tenderness Rectal exam: PRESENT: deferred Extremities exam: ABSENT: clubbing Musculoskeletal exam: ABSENT: deformity Neurological exam: PRESENT: alert, awake, oriented to person, oriented to place, oriented to time, oriented to situation, CN II-XII grossly intact Psychiatric exam: ABSENT: agitated, anxious, depressed Focused psych exam: ABSENT: delusional Skin exam: ABSENT: cyanosis, erythema, jaundice Results Laboratory Results: 06/25/19 06:07 06/25/19 06:07 06/24/19 06/25/19 06/25/19 12:40 06:07 06:07 WBC 3.6 L RBC 5.54 Hgb 15.5 Hct 45.4 MCV 82 MCH 27.9 MCHC 34.1 RDW 17.2 H Plt Count 135 L Seg Neutrophils % 64.3 Sodium 130.9 L Potassium 3.3 L D Chloride 90 L Carbon Dioxide 25 Anion Gap 16 BUN 56 H Creatinine 3.33 H Est GFR ( Amer) 22 L Glucose 80 Calcium 9.0 Magnesium 1.7 Urine Color SANDI Urine Appearance SLIGHTLY-CLOUDY Urine pH 5.0 Ur Specific [place] 1.019 Urine Protein 30 H Urine Glucose (UA) NEGATIVE Urine Ketones TRACE H Urine Blood NEGATIVE Urine Nitrite NEGATIVE Ur Leukocyte Esterase NEGATIVE Urine WBC (Auto) 3 Urine RBC (Auto) 3 Impressions: KUB X-Ray 06/24/19 10:23 IMPRESSION: Mild dilatation of proximal small bowel. Findings are nonspecific at this time. There is air and stool throughout the colon. Abdomen/Pelvis CT 06/24/19 11:07 IMPRESSION: Pneumoperitoneum. Dilated proximal small bowel and pneumatosis. There is a small amount of air in the left aspect of the retroperitoneum. Chest CT 06/24/19 11:07 IMPRESSION: Mild dilatation of the ascending aorta. Largest diameter is 4.2 cm. No other significant findings in the chest. Pulmonary nodules previously described have resolved. Assessment & Plan - Diagnosis (1) Pneumoperitoneum Is this a current diagnosis for this admission?: Yes - Plan Summary Plan Summary: This is a 69-year-old male with free intraperitoneal air. He also has multiple other medical problems, including terminal stage IV renal cell cancer. I have d iscussed the patient's options with him today. He is requesting discharge home with hospice. I believe this is a very reasonable option for him. Continue with hospice/comfort measures. Surgery will sign off at this time. Please renotify with any questions or concerns.
--- NOTE | 2019-06-25 15:11 | PDOC DISCHARGE SUMMARY ---
Impression - Admit/DC Date/PCP Admission Date/Primary Care Provider: 06/24/19 15:08 KARLI NUNES MD Discharge Date: 06/25/19 - Discharge Diagnosis (1) Pneumoperitoneum Is this a current diagnosis for this admission?: Yes (2) Acute kidney injury Is this a current diagnosis for this admission?: Yes (3) Dehydration Is this a current diagnosis for this admission?: Yes (4) Vomiting and diarrhea Is this a current diagnosis for this admission?: Yes (5) Metastatic renal cell carcinoma to intra-abdominal site Is this a current diagnosis for this admission?: Yes - Additional Information Resuscitation Status: Comfort Measures Only Discharge Diet: Regular Referrals: TEREZA DRAKE MD [ACTIVE STAFF] - Follow up as needed Prescriptions: Lorazepam [Ativan 0.5 mg Tablet] 0.5 mg PO Q4HP PRN #6 tab PRN Reason: Morphine Sulfate [Morphine Ir 15 Mg Tablet] 15 mg PO Q4HP PRN #8 tablet PRN Reason: Home Medications: Carvedilol [Coreg 12.5 mg Tablet] 12.5 mg PO BID 06/24/19 Colchicine [Colcrys 0.6 mg Tablet] 0.6 mg PO BID 06/24/19 Ranolazine [Ranexa 500 mg Tab.sr] 500 mg PO BID 06/24/19 Trazodone HCl 100 mg PO QHS 06/24/19 Lorazepam [Ativan 0.5 mg Tablet] 0.5 mg PO Q4HP PRN #6 tab 06/25/19 Morphine Sulfate [Morphine Ir 15 Mg Tablet] 15 mg PO Q4HP PRN #8 tablet 06/25/19 History of Present Illiness History of Present Illness: SONIA PALACIOS is a 69 year old male who is seen in the emergency room for intractable vomiting, diarrhea, weakness. He and his state that yesterday he started having vomiting and vomited 5 or 6 times yesterday and for the last 4 days has had several episodes of diarrhea. Patient has an underlying renal ca rcinoma stage IV has been on chemotherapy and also has metastatic disease. Patient appears to be severely dehydrated with elevated renal functions and will receive IV fluids well as antiemetics Patient is status post 4 months exploratory laparotomy with a small bowel resection, operative jejunostomy. CT scan done in the emergency room shows pneumatosis and retroperitoneal air which is consistent with a perforated viscus. Surgery has seen patient today and feels that, givin patient's comorbidities and terminal illness exploratory surgery is not recommended. Both patient and his agree with this treatment plan at the present time. Patient's daughter is coming in from out of town tomorrow and patient would like to be home tomorrow if at all possible. Patient does have a DNR status. Hospital Course Hospital Course: CT scan of the abdomen was performed which revealed pneumoperitoneum with perforation of the viscus of the small bowel. It also be spilled pneumatosis secondary to his renal cell cancer. Lab work also revealed significant AZUL rise in his creatinine from baseline. Surgery was consulted to evaluate patient and deemed patient to not be a candidate for surgery given his significant comorbidities. After significant conversation between surgery and patient, the shared decision was made for patient to proceed with hospice care. I have verified with patient today that this is what he wants and patient will be discharged home on hospice care. Home hospice has been set up by a traffic and transport planner as per patient's request. Physical Exam Vital Signs: Temp Pulse Resp BP Pulse Ox 97.4 F 52 L 12 128/88 H 100 06/25/19 11:56 06/25/19 11:56 06/25/19 11:56 06/25/19 11:56 06/25/19 11:56 Intake & Output 06/24/19 06/25/19 06/26/19 06:59 06:59 06:59 Intake Total 2550 825 Output Total 250 Balance 2300 825 Weight 86.183 kg General appearance: PRESENT: no acute distress, cooperative Respiratory exam: PRESENT: unlabored Neurological exam: PRESENT: alert, awake Results Laboratory Results: WBC 3.6 10^3/uL (4.0-10.5) L 06/25/19 06:07 RBC 5.54 10^6/uL (4.35-5.55) 06/25/19 06:07 Hgb 15.5 g/dL (13.5-17.0) 06/25/19 06:07 Hct 45.4 % (37.9-51.0) 06/25/19 06:07 MCV 82 fl (80-97) 06/25/19 06:07 MCH 27.9 pg (27.0-33.4) 06/25/19 06:07 MCHC 34.1 g/dL (32.0-36.0) 06/25/19 06:07 RDW 17.2 % (11.5-14.0) H 06/25/19 06:07 Plt Count 135 10^3/uL (150-450) L 06/25/19 06:07 Lymph % (Auto) 22.2 % (13-45) 06/25/19 06:07 [place] % (Auto) 12.2 % (3-13) 06/25/19 06:07 Eos % (Auto) 0.3 % (0-6) 06/25/19 06:07 Baso % (Auto) 1.0 % (0-2) 06/25/19 06:07 Absolute Neuts (auto) 2.3 10^3/uL (1.7-8.2) 06/25/19 06:07 Absolute Lymphs (auto) 0.8 10^3/uL (0.5-4.7) 06/25/19 06:07 Absolute Monos (auto) 0.4 10^3/uL (0.1-1.4) 06/25/19 06:07 Absolute Eos (auto) 0.0 10^3/uL (0.0-0.6) 06/25/19 06:07 Absolute Basos (auto) 0.0 10^3/uL (0.0-0.2) 06/25/19 06:07 Seg Neutrophils % 64.3 % (42-78) 06/25/19 06:07 PT 13.4 SEC (11.4-15.4) 06/24/19 10:33 INR 1.02 06/24/19 10:33 APTT 42.4 SEC (23.5-35.8) H 06/25/19 06:07 Sodium 130.9 mmol/L (137-145) L 06/25/19 06:07 Potassium 3.3 mmol/L (3.6-5.0) L D 06/25/19 06:07 Chloride 90 mmol/L (98-107) L 06/25/19 06:07 Carbon Dioxide 25 mmol/L (22-30) 06/25/19 06:07 Anion Gap 16 (5-19) 06/25/19 06:07 BUN 56 mg/dL (7-20) H 06/25/19 06:07 Creatinine 3.33 mg/dL (0.52-1.25) H 06/25/19 06:07 Est GFR ( Amer) 22 (>60) L 06/25/19 06:07 Est GFR (MDRD) Non-Af 18 (>60) L 06/25/19 06:07 Glucose 80 mg/dL (75-110) 06/25/19 06:07 Lactic Acid 2.4 mmol/L (0.7-2.1) H 06/24/19 10:40 Calcium 9.0 mg/dL (8.4-10.2) 06/25/19 06:07 Magnesium 1.7 mg/dL (1.6-2.3) 06/25/19 06:07 Total Bilirubin 1.5 mg/dL (0.2-1.3) H 06/24/19 10:33 Direct Bilirubin 0.8 mg/dL (0.0-0.4) H 06/24/19 10:33 Neonat Total Bilirubin Not Reportable 06/24/19 10:33 Neonat Direct Bilirubin Not Reportable 06/24/19 10:33 Neonat Indirect Bili Not Reportable 06/24/19 10:33 AST 34 U/L (17-59) 06/24/19 10:33 ALT 25 U/L (<50) 06/24/19 10:33 Alkaline Phosphatase 191 U/L (38-126) H 06/24/19 10:33 Total Protein 8.8 g/dL (6.3-8.2) H 06/24/19 10:33 Albumin 4.8 g/dL (3.5-5.0) 06/24/19 10:33 Lipase 127.1 U/L (23-300) 06/24/19 10:33 Urine Color SANDI 06/24/19 12:40 Urine Appearance SLIGHTLY-CLOUDY 06/24/19 12:40 Urine pH 5.0 (5.0-9.0) 06/24/19 12:40 Ur Specific [place] 1.019 06/24/19 12:40 Urine Protein 30 mg/dL (NEGATIVE) H 06/24/19 12:40 Urine Glucose (UA) NEGATIVE mg/dL (NEGATIVE) 06/24/19 12:40 Urine Ketones TRACE mg/dL (NEGATIVE) H 06/24/19 12:40 Urine Blood NEGATIVE (NEGATIVE) 06/24/19 12:40 Urine Nitrite NEGATIVE (NEGATIVE) 06/24/19 12:40 Urine Bilirubin NEGATIVE (NEGATIVE) 06/24/19 12:40 Urine Urobilinogen NEGATIVE mg/dL (<2.0) 06/24/19 12:40 Ur Leukocyte Esterase NEGATIVE (NEGATIVE) 06/24/19 12:40 Urine WBC (Auto) 3 /HPF 06/24/19 12:40 Urine RBC (Auto) 3 /HPF 06/24/19 12:40 U Hyaline Cast (Auto) 35 /LPF 06/24/19 12:40 Squamous Epi Cells Auto 2 /HPF 06/24/19 12:40 Urine Mucus (Auto) FEW /LPF 06/24/19 12:40 Urine Ascorbic Acid NEGATIVE (NEGATIVE) 06/24/19 12:40 Stl C. Difficile GDH Ag NEGATIVE (NEGATIVE) 06/24/19 12:40 Stl C.difficile Tox A&B NEGATIVE (NEGATIVE) 06/24/19 12:40 Group A Strep Rapid NEGATIVE (NEGATIVE) 06/24/19 12:00 Impressions: KUB X-Ray 06/24/19 10:23 IMPRESSION: Mild dilatation of proximal small bowel. Findings are nonspecific at this time. There is air and stool throughout the colon. Abdomen/Pelvis CT 06/24/19 11:07 IMPRESSION: Pneumoperitoneum. Dilated proximal small bowel and pneumatosis. There is a small amount of air in the left aspect of the retroperitoneum. Chest CT 06/24/19 11:07 IMPRESSION: Mild dilatation of the ascending aorta. Largest diameter is 4.2 cm. No other significant findings in the chest. Pulmonary nodules previously described have resolved. Plan Time Spent: Less than 30 Minutes Stroke Is this a Stroke Patient?: No Acute Heart Failure - Is this a Heart Failure Patient?: No
[2019-06-25 15:22] VITALS: BP 91/70
== END 2019-06-25 15:55 | disposition hospice, home (50) ==
LOC: ER 10:07 → EH 15:08 → 4S 17:13
PROVIDERS: ADMIT Family Medicine; ATTEND Internal Medicine
DX: K66.8 Other specified disorders of peritoneum (principal); N17.9 Acute kidney failure, unspecified; E86.0 Dehydration; R11.10 Vomiting, unspecified; R19.7 Diarrhea, unspecified; C64.9 Malignant neoplasm of unspecified kidney, except renal pelvis; C79.89 Secondary malignant neoplasm of other specified sites; C79.51 Secondary malignant neoplasm of bone; I25.10 Atherosclerotic heart disease of native coronary artery without angina pectoris; R06.02 Shortness of breath; R14.0 Abdominal distension (gaseous); F41.9 Anxiety disorder, unspecified; R10.84 Generalized abdominal pain; Z79.899 Other long term (current) drug therapy; F10.21 Alcohol dependence, in remission; Z51.5 Encounter for palliative care; Z66 Do not resuscitate; Z90.49 Acquired absence of other specified parts of digestive tract; Z90.5 Acquired absence of kidney; Z82.49 Family history of ischemic heart disease and other diseases of the circulatory system
CPT/HCPCS: 99291; 99292; 96361; 96375; 96365; 36415 ×2; 87040; 87045; 87070; 87205; 87880; 83605; 83690; 83735; 85025 ×2; 85610; 85730; 80048; 80053; 81001; 87324; 87449; 74018; 71250; 74176; J0690; J2270; C9113 ×2; J2405; J7120; A9270; J2543 ×2; G0378; J3490